=== PATIENT | male | born 1935 | race Caucasian/White ===

== ENCOUNTER 2016-09-15 19:17 | Inpatient (IN) | payer MEDICARE, OTHER ==
[2016-09-15 19:17] VITALS: BMI 27.1
--- NOTE | 2016-09-15 19:28 | C.PDOC ---
History Of Present Illness Patient presents from home to the ED with complaints of right facial droop. Patient's states the facial droop began two weeks ago and denies any fever , chills, nausea, vomiting, trauma, or headache. Time Seen by Provider: 09/15/16 19:28 Chief Complaint (Nursing): Weakness/Neurological Deficit History Per: Patient, Family () History/Exam Limitations: no limitations Onset/Duration Of Symptoms: Persistent (two weeks ) Associated Symptoms Preceding Syncopal Episode: No Predromal Symptoms (Sudden Onset) Seizure Or Post-ictal Symptoms: None Fall Associated With With Symptoms: No Pain Scale Rating Of: 0 Past Medical History Reviewed: Historical Data, Nursing Documentation, Vital Signs Vital Signs: Last Vital Signs Temp 98.2 F 09/15/16 19:25 Pulse 105 H 09/15/16 20:25 Resp 24 09/15/16 20:25 BP 127/65 09/15/16 20:25 Pulse Ox 96 09/15/16 20:59 - Medical History PMH: COPD (Emphysema), Dementia, Diabetes, Emphysema, HTN Surgical History: CABG, Pacemaker - [facility] Procedures CORONAR ARTERIOGR-2 CATH (12/24/14) INSPECTION OF BLADDER, ENDO (12/30/15) LEFT HEART CARDIAC CATH (12/24/14) LT HEART ANGIOCARDIOGRAM (12/24/14) Family History: States: Unknown Family Hx - Social History Hx Tobacco Use: Yes (2ppd) Hx Alcohol Use: No Hx Substance Use: No - Immunization History Hx Tetanus Toxoid Vaccination: No Hx Influenza Vaccination: Yes Hx Pneumococcal Vaccination: Yes Review Of Systems Constitutional: Positive for: Other (right facial droop ). Negative for: Fever , Chills, Sweats Cardiovascular: Negative for: Chest Pain, Palpitations Respiratory: Negative for: Cough, Shortness of Breath Gastrointestinal: Negative for: Nausea, Vomiting, Abdominal Pain, Diarrhea Neurological: Negative for: Headache Physical Exam - Physical Exam Appears: Non-toxic, No Acute Distress, Other (right facial droop ) Skin: Warm, Dry Head: Atraumatic Eye(s): bilateral: PERRL, EOMI Ear(s): Bilateral: Normal Oral Mucosa: Moist Throat: Normal, No Erythema, No Exudate Neck: Supple Chest: Other (Bypass scar present ) Cardiovascular: Rhythm Regular Respiratory: No Rales, No Rhonchi, No Stridor, No Wheezing Gastrointestinal/Abdominal: Soft, No Tenderness, No Distention, No Guarding, No Rebound Extremity: Normal ROM, No Tenderness, Pedal Edema (trace pedal edema ) ED Course And Treatment - Laboratory Results Result Diagrams: 09/15/16 19:55 09/15/16 19:55 ECG: Interpreted By Me, Viewed By Me O2 Sat by Pulse Oximetry: 96 Pulse Ox Interpretation: Normal - Radiology CXR: Interpreted by Me, Viewed By Me CXR Interpretation: Yes: Other (cabg, pace on left). No: Infiltrates, Fracture , Pnemothorax Critical Care Time - Critical Care Note Total Time (in mins): 30 Documented critical care: time excludes all time spent performing seperately billable procedures. NIHSS Stroke Scale - Date/Time Evaluation Performed Date Performed: 09/15/16 Time Performed: 19:18 When Was NIHSS Performed: Baseline - How Severe is the Stoke Level of Consciousness: 0=Alert LOC to Questions: 0=Both comments correct LOC to commands: 0=Obeys both correctly Best Gaze: 0=Normal Visual: 0=No visual loss Facial: 2=Partial (lower face paralysis) Motor Arm - Left: 0=No drift Motor Arm - Right: 0=No drift Motor Leg - Left: 0=No drift Motor Leg - Right: 0=No drift Limb Ataxia: 0=Absent Sensory: 0=Normal Best Language: 0=No aphasia Dysarthia: 1=Mild to moderate slurring Extinction & Inattention (Neglect): 0=Normal, no object Score: 3 Severity Of Stroke: 1-4= Minor Stroke Medical Decision Making Medical Decision Making: EXAM: CT Head Without Intravenous Contrast CLINICAL HISTORY: 80 years old, male; Signs and symptoms; Weakness, facial; Additional info: R facial droop TECHNIQUE: Axial computed tomography images of the head/brain without intravenous contrast. This CT exam was performed using one or more of the following dose reduction techniques: automated exposure control, adjustment of the mA and/or kV according to patient size, and/or use of iterative reconstruction technique. EXAM DATE/TIME: 09/15/2016 7:46 PM COMPARISON: There are no prior studies for comparison. FINDINGS: Brain: There is dilatation of sulci gyri and ventricles. There is no midline shift. There is decreased attenuation in periventricular white matter. There are old left basal ganglia infarcts. There are age indeterminate right basal ganglia lacunar infarcts. There are no focal masses. There are no focal hemorrhages. Newton-white differentiation is visualized. Ventricles: See above Bones: Cranial vault is intact. Soft tissues: unremarkable Sinuses: There is no acute sinusitis. There is a retention cyst/polyp in the left maxillary sinus Ears and mastoids: Middle ears and mastoids are unremarkable. Orbits: Orbital contents are unremarkable. IMPRESSION: Atrophy and small vessel disease; old left basal ganglia infarct; indeterminate right basal vein lacunar infarcts; no bleed Disposition Discussed With : David Gonsales Comment: accepted the pt on his service and took over the care at 8:58 PM Doctor Will See Patient In The: Hospital Counseled Patient/Family Regarding: Studies Performed, Diagnosis - Disposition Disposition: HOSPITALIZED Disposition Time: 19:28 Condition: FAIR - POA Present On Arrival: Poor Glycemic Control - Clinical Impression Clinical Impression: Diabetes, ICD (implantable cardioverter-defibrillator) in place, CVA (cerebral vascular accident), Cardozo palsy - Scribe Statement The provider has reviewed the documentation as recorded by the Scribcarlos Christianson All medical record entries made by the Euniceibe were at my direction and personally dictated by me. I have reviewed the chart and agree that the record accurately reflects my personal performance of the history, physical exam, medical decision making, and the department course for this patient. I have also personally directed, reviewed, and agree with the discharge instructions and disposition. Decision To Admit - Pt Status Changed To: Hospital Disposition Of: Inpatient - Admit Certification Admit to Inpatient:: After my assessment, the patient will require hospitalization for at least two midnights. This is because of the severity of symptoms shown, intensity of services needed, and/or the medical risk in this patient being treated as an outpatient. - InPatient: Physician Admission Certification: I certify that this patient requires 2 or more midnights of care for the following reason:: After my assessment, the patient will require hospitalization for at least two midnights. This is because of the severity of symptoms shown, intensity of services needed, and/or the medical risk in this patient being treated as an outpatient. - . Bed Request Type: Telemetry Admitting Physician: David Gonsales Patient Diagnosis: Diabetes, ICD (implantable cardioverter-defibrillator) in place, CVA (cerebral vascular accident), Cardozo palsy
[2016-09-15 19:58] LABS: BASO % 0.6 % (0.0-2.0); EOS # 0.1 K/uL (0.0-0.7); EOS % 1.9 % (0.0-4.0); HEMATOCRIT 34.3 % (35.0-51.0); LYMPH # 2.5 K/uL (1.0-4.3); LYMPH % 32.5 % (20.0-40.0); MEAN CELL VOLUME 95.8 fL (80.0-94.0); MEAN CORPUSCULAR HEMOGLOBIN 32.8 pg (27.0-31.0); MEAN CORPUSCULAR HGB CONC 34.2 g/dL (33.0-37.0); MEAN PLATELET VOLUME 8.9 fL (7.2-11.7); MONO # 0.6 K/uL (0.0-0.8); NRBC % 0.1 % (0.0-2.0); RED CELL DISTRIBUTION WIDTH 13.9 % (11.5-14.5); WHITE BLOOD COUNT 7.5 K/uL (4.8-10.8)
[2016-09-15 20:03] LABS: PLATELET COUNT 129 K/uL (130-400)
[2016-09-15 20:07] LABS: CHLORIDE 102 mmol/L (98-107); POTASSIUM 4.4 mmol/L (3.6-5.2); SODIUM 142 mmol/L (132-148)
[2016-09-15 20:09] LABS: CHOLESTEROL 110 mg/dL (0-199); GFR AFRICAN-AMERICAN 44
[2016-09-15 20:10] LABS: ALB/GLOB RATIO 1.8 (1.0-2.1); ALKALINE PHOSPHATASE 83 U/L (38-126); ALT/SGPT 23 U/L (21-72); AST/SGOT 15 U/L (17-59); BILIRUBIN,TOTAL 0.5 mg/dL (0.2-1.3); BLOOD UREA NITROGEN 37 mg/dL (9-20); CALCIUM 9.2 mg/dl (8.6-10.4); CARBON DIOXIDE 30 mmol/L (22-30); GLUCOSE,RANDOM 203 mg/dL (75-110); TOTAL PROTEIN 6.8 g/dL (6.3-8.3)
--- NOTE | 2016-09-15 20:24 | CT ---
EXAM: CT Head Without Intravenous Contrast CLINICAL HISTORY: 80 years old, male; Signs and symptoms; Weakness, facial; Additional info: R facial droop TECHNIQUE: Axial computed tomography images of the head/brain without intravenous contrast. This CT exam was performed using one or more of the following dose reduction techniques: automated exposure control, adjustment of the mA and/or kV according to patient size, and/or use of iterative reconstruction technique. EXAM DATE/TIME: 09/15/2016 7:46 PM COMPARISON: There are no prior studies for comparison. FINDINGS: Brain: There is dilatation of sulci gyri and ventricles. There is no midline shift. There is decreased attenuation in periventricular white matter. There are old left basal ganglia infarcts. There are age indeterminate right basal ganglia lacunar infarcts. There are no focal masses. There are no focal hemorrhages. Newton-white differentiation is visualized. Ventricles: See above Bones: Cranial vault is intact. Soft tissues: unremarkable Sinuses: There is no acute sinusitis. There is a retention cyst/polyp in the left maxillary sinus Ears and mastoids: Middle ears and mastoids are unremarkable. Orbits: Orbital contents are unremarkable. IMPRESSION: Atrophy and small vessel disease; old left basal ganglia infarct; indeterminate right basal vein lacunar infarcts; no bleed
[2016-09-15] MEDS: Lactated Ringer's 1,000 ML IV SCH (22:47)
[2016-09-16] MEDS ORDERED: Enoxaparin 40 mg Syringe SC SCH (10:00)
[2016-09-16] MEDS: Enoxaparin 40 mg Syringe SC SCH (10:21)
[2016-09-16] MEDS: Lactated Ringer's 1,000 ML IV SCH (13:15)
--- NOTE | 2016-09-16 13:44 | RAD ---
HISTORY: cva COMPARISON: Comparison chest 12/30/2015 FINDINGS: LUNGS: No acute infiltrates so far as can be seen. Note that the medial lung apices have been partially obscured by overlying facial soft tissue and mandible artifact PLEURA: No significant pleural effusion identified, no pneumothorax apparent. CARDIOVASCULAR: Sternotomy wires and CABG clips. In situ single lead pacemaker/ defibrillator unchanged OSSEOUS STRUCTURES: Mild degenerative arthritis right acromioclavicular joint. VISUALIZED UPPER ABDOMEN: Normal. OTHER FINDINGS: None. IMPRESSION: No acute infiltrates within limitations of the study as above. .
--- NOTE | 2016-09-16 22:55 | CP.PCM.HP ---
History of Present Illness - History of Present Illness History of Present Illness: Patient presents from home to the ED with complaints of right facial droop. Patient's states the facial droop began two weeks ago and denies any fever , chills, nausea, vomiting, trauma, or headache. Present on Admission - Present on Admission Any Indicators Present on Admission: Yes History of DVT/PE: No History of Uncontrolled Diabetes: No Urinary Catheter: No Decubitus Ulcer Present: No Past Patient History - Infectious Disease Hx of Infectious Diseases: None - Past Medical History & Family History Past Medical History?: Yes - Past Social History Smoking Status: Heavy Smoker > 10 Cigarettes Daily - CARDIAC Hx Cardiac Disorders: Yes Hx Hypertension: Yes - PULMONARY Hx Chronic Obstructive Pulmonary Disease (COPD): Yes - NEUROLOGICAL Hx Dementia: Yes - HEENT Hx HEENT Problems: No - RENAL Hx Chronic Kidney Disease: Yes - ENDOCRINE/METABOLIC Hx Diabetes Mellitus Type 2: Yes - HEMATOLOGICAL/ONCOLOGICAL Hx Blood Disorders: No - INTEGUMENTARY Hx Dermatological Problems: No - MUSCULOSKELETAL/RHEUMATOLOGICAL Hx Falls: No - GASTROINTESTINAL Hx Gastrointestinal Disorders: No - GENITOURINARY/GYNECOLOGICAL Hx Genitourinary Disorders: Yes Hx Prostate Problems: Yes - PSYCHIATRIC Hx Substance Use: No - SURGICAL HISTORY Hx Coronary Artery Bypass Graft: Yes - ANESTHESIA Hx Anesthesia: Yes Hx Anesthesia Reactions: No Hx Malignant Hyperthermia: No Meds Allergies/Adverse Reactions: Allergies Allergy/AdvReac Type Severity Reaction Status Date / Time No Known Allergies Allergy Verified 12/24/14 14:45 Physical Exam - Constitutional Appears: No Acute Distress - Head Exam Head Exam: ATRAUMATIC, NORMAL INSPECTION, NORMOCEPHALIC - Eye Exam Eye Exam: Scleral icterus Additional comments: right eye drooping - ENT Exam ENT Exam: Mucous Membranes Moist, Normal Exam - Neck Exam Neck exam: Positive for: Normal Inspection - Cardiovascular Exam Cardiovascular Exam: REGULAR RHYTHM - GI/Abdominal Exam GI & Abdominal Exam: Normal Bowel Sounds, Soft. absent: Tenderness - Extremities Exam Additional comments: 5/5 strength upper and lower extremities B/L, sensation and motor fxn intact Results - Vital Signs Recent Vital Signs: Last Vital Signs Temp 97.6 F 09/16/16 16:00 Pulse 88 09/16/16 16:00 Resp 20 09/16/16 16:00 BP 135/73 09/16/16 16:00 Pulse Ox 96 09/16/16 16:00 - Labs Result Diagrams: 09/15/16 19:55 09/18/16 09:44 Labs: Laboratory Results - last 24 hr 09/16/16 09/16/16 09/16/16 06:48 12:07 17:17 ESR 15 POC Glucose (mg/dL) 258 H 166 H 09/16/16 09/16/16 17:26 22:02 ESR POC Glucose (mg/dL) 148 H 204 H Assessment & Plan (1) Cardozo palsy Status: Acute (2) CVA (cerebral vascular accident) Status: Acute (3) Diabetes Status: Acute (4) ICD (implantable cardioverter-defibrillator) in place Status: Acute (5) COPD (chronic obstructive pulmonary disease) Status: Acute
[2016-09-17] MEDS: Enoxaparin 40 mg Syringe SC SCH (10:17)
--- NOTE | 2016-09-17 17:04 | CON ---
DATE: 09/17/2016 CHIEF COMPLAINT: Right facial droop. HISTORY OF PRESENTING ILLNESS: An 80-year-old man with past medical history of COPD, dementia, diabe sravani mellitus type 2, emphysema, hypertension, coronary artery disease status post CABG and pacemaker. Apparently had a right facial droop that began 2 weeks ago, but denied any recent fevers, chills, n ausea, vomiting or headaches. He said he has difficulty in tasting on the right side of the tongue. He was a heavy smoker, smoked 10 cigarettes per day. Currently, he has absence of mild right forehe ad wrinkling and cannot close his right eye tight. There is a Cardozo's phenomenon and a right facial d makeda. CT head showed no acute intracranial abnormalities. His carotid Doppler showed severe carotid artery disease. He is on aspirin, Plavix and Crestor for stroke prevention and carotid disease. He had some hyperglycemia. No focal weakness of the extremities. No pronator drift seen. PAST MEDICAL HISTORY: Type 2 diabetes mellitus, COPD, dementia, hypertension, coronary artery diseas e, CABG, pacemaker. REVIEW OF SYSTEMS: A 14-point review of systems negative except for the HPI. FAMILY HISTORY: Noncontributory. SOCIAL HISTORY: He is a heavy smoker, smokes 10 cigarettes per day. No illicit drug use or ETOH abu se. FAMILY HISTORY: Noncontributory. MEDICATIONS: Reviewed via nurse's reconciliation sheet. ALLERGIES: No known drug allergies. PHYSICAL EXAMINATION: VITAL SIGNS: Temperature 98, pulse rate is 76, blood pressure 129/68, respiratory rate 20, oxygen sa turation ____ % on room air. GENERAL: The patient is sitting up in bed in no acute distress. HEENT: Atraumatic, normocephalic. PERRLA. Extraocular muscles intact. NECK: Supple, no JVD, no adenopathy noted. LUNGS: Clear to auscultation. No adventitious sounds. HEART: S1, S2, normal rate and rhythm. No murmurs, rubs, or gallops. ABDOMEN: Soft, nontender, nondistended. Bowel sounds are present. EXTREMITIES: No clubbing, no cyanosis. Peripheral pulses 2+ felt bilaterally. NEUROLOGIC: The patient is alert, orientated to person, place, not much of month or year. Recall af ter 5 minutes is 0/3. Poor attention span and slow thought process. Cranial nerves II-XII intact ex cept for absence of right forehead wrinkling, right facial droop and decreased taste sensation on rig ht side of the tongue. MOTOR: Moves all extremities equally, slight increased tone. No pronator drift seen. SENSORY: Decreased light touch and pinprick up to the calves bilaterally. Diffuse vibration ____. DTRs 2+ throughout and 1 at the knees and ankles. COORDINATION: [id number] intact. Gait is deferred for now. LABORATORY DATA: Blood sugar is 148. Today's CAT scan showed no acute intracranial abnormality. A1 c is 5.2. Carotid Doppler bilaterally preliminarily shows severe carotid disease bilaterally. ASSESSMENT AND PLAN: This is an 80-year-old man with history of coronary artery disease, status post coronary artery bypass graft, pacemaker, chronic obstructive pulmonary disease, dementia, type 2 vivian betes mellitus, hypertension, chronic kidney disease, who came in with 2 weeks of right facial droop and decreased sensation on the right side of the face with difficulty in closing the right eye with a Cardozo's phenomenon. 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 RECOMMENDATIONS: At this time, recommend: 1. Physical therapy as an outpatient for facial muscle exercises. 2. Eye patch to the right eye and Artificial Tears to prevent corneal ulcerations. 3. Valtrex 500 mg p.o. b.i.d. for 4 weeks and can go home on a Medrol Dosepak. 4. Aspirin 81 mg, Plavix 75 mg, and Crestor 10 mg p.o. daily for stroke prevention as well as bean ry artery disease management. At this time clinically stable from my standpoint. Keep his blood sugars between 140-180 and continu e with current present medical management. Thank you for this consult. Can follow up as an outpatient. Km Obrien MD cc: [id number] TT: 09/17/2016 17:03:26 Confirmation # [id number] Dictation # [id number]
--- NOTE | 2016-09-17 17:23 | CP.PCM.CON ---
History of Present Illness - History of Present Illness History of Present Illness: Surgery: Dr. Torres CC: Facial droop HPI: 80M w. pmh of HTN, DM, CAD, COPD, presents to ED w. R side facial droop and blurred vision x 2 weeks. Pt denies any other complaints. No dysarthria, no dysphagia, no weakness in extremities, pt is able to ambulate w. out any gait instability. He denies [place], no F/C, no CP/palpitations, no SOB/cough, no N/V /D, no weakness fatigue, no hematuria/dysuria. PMH: HTN, CAD, DM, COPD PSH: CABG, pacemaker Meds: MAR reviewed NKDA Social: + Tobacco, no ETOH/drugs Fhx: Non-contributory Review of Systems - Review of Systems All systems: reviewed and no additional remarkable complaints except (HPI) Past Patient History - Infectious Disease Hx of Infectious Diseases: None - Past Medical History & Family History Past Medical History?: Yes - Past Social History Smoking Status: Heavy Smoker > 10 Cigarettes Daily - CARDIAC Hx Cardiac Disorders: Yes Hx Hypertension: Yes - PULMONARY Hx Chronic Obstructive Pulmonary Disease (COPD): Yes - NEUROLOGICAL Hx Dementia: Yes - HEENT Hx HEENT Problems: No - RENAL Hx Chronic Kidney Disease: Yes - ENDOCRINE/METABOLIC Hx Diabetes Mellitus Type 2: Yes - HEMATOLOGICAL/ONCOLOGICAL Hx Blood Disorders: No - INTEGUMENTARY Hx Dermatological Problems: No - MUSCULOSKELETAL/RHEUMATOLOGICAL Hx Falls: No - GASTROINTESTINAL Hx Gastrointestinal Disorders: No - GENITOURINARY/GYNECOLOGICAL Hx Genitourinary Disorders: Yes Hx Prostate Problems: Yes - PSYCHIATRIC Hx Substance Use: No - SURGICAL HISTORY Hx Coronary Artery Bypass Graft: Yes - ANESTHESIA Hx Anesthesia: Yes Hx Anesthesia Reactions: No Hx Malignant Hyperthermia: No Meds Allergies/Adverse Reactions: Allergies Allergy/AdvReac Type Severity Reaction Status Date / Time No Known Allergies Allergy Verified 12/24/14 14:45 - Medications Medications: Current Medications Aspirin (Aspirin Chewable) 81 mg PO DAILY [facility] Last Admin: 09/17/16 10:18 Dose: 81 mg Carvedilol (Coreg) 6.25 mg PO BID [facility] Last Admin: 09/17/16 10:18 Dose: 6.25 mg Clopidogrel Bisulfate (Plavix) 75 mg PO DAILY [facility] Last Admin: 09/17/16 10:18 Dose: 75 mg Enoxaparin Sodium (Lovenox) 40 mg SC DAILY [facility] Last Admin: 09/17/16 10:17 Dose: 40 mg Lactated Ringer's (Lactated Ringer's) 1,000 mls @ 70 mls/hr IV .[id number] [facility] Last Admin: 09/16/16 13:15 Dose: 70 mls/hr Rosuvastatin Calcium (Crestor) 10 mg PO DAILY [facility] Last Admin: 09/17/16 10:18 Dose: 10 mg Valacyclovir HCl (Valtrex) 500 mg PO BID [facility] Last Admin: 09/17/16 10:18 Dose: 500 mg Physical Exam - Constitutional Appears: Non-toxic, No Acute Distress - Head Exam Head Exam: ATRAUMATIC, NORMOCEPHALIC Additional comments: R mouth droop, no tongue deviation - Eye Exam Eye Exam: EOMI. absent: Scleral icterus Additional comments: R eyelid droop - ENT Exam ENT Exam: Mucous Membranes Moist, Normal External Ear Exam - Neck Exam Neck exam: Positive for: Full Rom - Respiratory Exam Respiratory Exam: NORMAL BREATHING PATTERN. absent: Accessory Muscle Use, Respiratory Distress - GI/Abdominal Exam GI & Abdominal Exam: Soft. absent: Tenderness - Extremities Exam Additional comments: 5/5 strength upper and lower extremities B/L, sensation and motor fxn intact - Neurological Exam Neurological exam: Alert, Oriented x3 Results - Vital Signs Recent Vital Signs: Last Vital Signs Temp 98.0 F 09/17/16 15:20 Pulse 76 09/17/16 15:20 Resp 20 09/17/16 15:20 BP 129/68 09/17/16 15:20 Pulse Ox 99 09/17/16 15:20 - Labs Result Diagrams: 09/15/16 19:55 09/15/16 19:55 Labs: Laboratory Results - last 24 hr 09/16/16 09/16/16 09/16/16 17:17 17:17 17:26 ESR 15 POC Glucose (mg/dL) 148 H Lyme Disease IgM Ab Negative 09/16/16 09/17/16 09/17/16 22:02 06:58 12:04 ESR POC Glucose (mg/dL) 204 H 137 H 127 H Lyme Disease IgM Ab - Imaging and Cardiology CT scan - head Status: Image reviewed by me, Report reviewed by me Assessment & Plan - Assessment and Plan (Free Text) Assessment: 80M w. R side facial droop -Carotid doppler: PSV > 300 proximal ICA B/L -CTA in AM -will increase IVF -mucomyst 600mg BID, pre CTA and for 24 hours post CTA -case d/w attending Vanessa PGY2
[2016-09-17] MEDS: Acetylcysteine 20% 3 ML NEB PO SCH (18:47)
[2016-09-17] MEDS: Lactated Ringer's 1,000 ML IV SCH ×2 (20:00→22:29)
--- NOTE | 2016-09-17 20:56 | CARD ---
APPROVED REPORT EXAM: Two-dimensional and M-mode echocardiogram with Doppler and color Doppler. Other Information Quality : Technically LimitedRhythm : NSR INDICATION CVA/TIA CAD COPD RISK FACTORS Hypertension Diabetes M-Mode DIMENSIONS RVDd1.62 (2.1-3.2cm)Left Atrium (MM)2.30 (2.5-4.0cm) IVSd0.74 (0.7-1.1cm)Aortic Root3.40 (2.2-3.7cm) LVDd4.98 (4.0-5.6cm)Aortic Cusp Exc.0.66 (1.5-2.0cm) PWd0.70 (0.7-1.1cm)FS (%) 25 % LVDs3.72 (2.0-3.8cm)LVEF (%)50 (>50%) Aortic Valve AoV Peak Gywbknso062.6cm/sAoV VTI31.4cmAO Peak GR.10mmHg AO Mean GR.5mmHgAI P 1/2 [id number] Mitral Valve MV E Cozolcby79.1cm/sMV A Qtpvzaxk406.2cm/sE/A ratio0.8 TDI E/Lateral E'0.0E/Medial E'0.0 Tricuspid Valve TR Peak Qlsahoye429im/sTR Peak Gr.8fjPlJHBU77kyRu LEFT VENTRICLE The left ventricle is normal size. There is normal left ventricular wall thickness. Left ventricle systolic function is mildly impaired. The Ejection Fraction is 45-50%. There is hypokinesis in the mid-anteroseptal wall. Transmitral Doppler flow pattern is Grade I-abnormal relaxation pattern. There is no ventricular septal defect visualized. RIGHT VENTRICLE The right ventricle is normal size. The right ventricular systolic function is normal. ATRIA The left atrium size is normal. The right atrium size is normal. AORTIC VALVE The aortic valve is mildly sclerotic. The aortic valve is tri-cuspid. There is mild aortic regurgitation. There is no aortic valvular stenosis. MITRAL VALVE The mitral valve is not well visualized. There is no evidence of mitral valve prolapse. There is no mitral valve regurgitation noted. TRICUSPID VALVE The tricuspid valve is normal in structure. There is trace tricuspid regurgitation. Right ventricular systolic pressure is estimated at less than 30 mmHg. There is no pulmonary hypertension. PULMONIC VALVE The pulmonic valve is not well visualized. There is no pulmonic valvular regurgitation. GREAT VESSELS The IVC is normal in size and collapses >50% with inspiration. PERICARDIAL EFFUSION There is no pericardial effusion. <Conclusion> Left ventricle systolic function is mildly impaired. The Ejection Fraction is 45-50%. There is hypokinesis in the mid-anteroseptal wall. Transmitral Doppler flow pattern is Grade I-abnormal relaxation pattern. There is mild aortic regurgitation. Sugoptimal poor acoustic window.
--- NOTE | 2016-09-18 08:12 | CP.PCM.PN ---
Subjective - Date & Time of Evaluation Date of Evaluation: 09/18/16 Time of Evaluation: 08:11 - Subjective Subjective: Surgery: Dr. Torres Pt seen and examined. Resting comfortably in bed. No complaints. R side facial droop persists. Objective - Vital Signs/Intake and Output Vital Signs (last 24 hours): Temp Pulse Resp BP Pulse Ox 98.1 F 74 20 118/77 99 09/18/16 00:33 09/18/16 03:21 09/18/16 00:33 09/18/16 00:33 09/18/16 00:33 Intake and Output: 09/18/16 09/18/16 06:59 18:59 Intake Total 760 560 Output Total 250 Balance 510 560 - Medications Medications: Current Medications Acetylcysteine (Acetylcysteine 20%) 3 ml PO BID [facility] Stop: 09/19/16 10:01 Last Admin: 09/17/16 18:47 Dose: 3 ml Aspirin (Aspirin Chewable) 81 mg PO DAILY [facility] Last Admin: 09/17/16 10:18 Dose: 81 mg Carvedilol (Coreg) 6.25 mg PO BID [facility] Last Admin: 09/17/16 18:09 Dose: 6.25 mg Clopidogrel Bisulfate (Plavix) 75 mg PO DAILY [facility] Last Admin: 09/17/16 10:18 Dose: 75 mg Enoxaparin Sodium (Lovenox) 40 mg SC DAILY [facility] Last Admin: 09/17/16 10:17 Dose: 40 mg Sodium Chloride (Sodium Chloride 0.9%) 1,000 mls @ 100 mls/hr IV .Q10H [facility] Rosuvastatin Calcium (Crestor) 10 mg PO DAILY [facility] Last Admin: 09/17/16 10:18 Dose: 10 mg Valacyclovir HCl (Valtrex) 500 mg PO BID [facility] Last Admin: 09/17/16 18:09 Dose: 500 mg - Labs Labs: PT 10.9 SECONDS (9.7-12.2) 09/15/16 19:55 INR 1.0 09/15/16 19:55 APTT 30 SECONDS (21-34) 09/15/16 19:55 - Constitutional Appears: Non-toxic, No Acute Distress - Head Exam Head Exam: ATRAUMATIC, NORMOCEPHALIC - Eye Exam Eye Exam: EOMI. absent: Scleral icterus - ENT Exam ENT Exam: Mucous Membranes Moist - Neck Exam Neck Exam: Full ROM - Respiratory Exam Respiratory Exam: NORMAL BREATHING PATTERN. absent: Accessory Muscle Use, Respiratory Distress - GI/Abdominal Exam GI & Abdominal Exam: Soft. absent: Tenderness - Extremities Exam Extremities Exam: absent: Calf Tenderness, Pedal Edema - Neurological Exam Neurological Exam: Alert, Awake, Oriented x3 Assessment and Plan - Assessment and Plan (Free Text) Assessment: 80M w. R side facial droop -Carotid doppler: PSV > 300 proximal ICA B/L -CTA this AM, f/u results -NS @100cc/hr -mucomyst 600mg BID, pre CTA and for 24 hours post CTA -case d/w attending Vanessa PGY2
[2016-09-18] MEDS: Sodium Chloride 0.9% 1,000 ML IV SCH ×4 (09:17→23:55)
[2016-09-18 09:55] LABS: CHLORIDE 107 mmol/L (98-107); SODIUM 137 mmol/L (132-148)
[2016-09-18] MEDS: Enoxaparin 40 mg Syringe SC SCH (09:57)
[2016-09-18 09:58] LABS: BLOOD UREA NITROGEN 24 mg/dL (9-20); CARBON DIOXIDE 23 mmol/L (22-30); GFR AFRICAN-AMERICAN > 60; GLUCOSE,RANDOM 133 mg/dL (75-110)
[2016-09-18 09:59] LABS: CALCIUM 7.4 mg/dl (8.6-10.4)
[2016-09-18] MEDS: Acetylcysteine 20% 3 ML NEB PO SCH ×2 (10:24→18:02)
--- NOTE | 2016-09-18 13:12 | CP.PCM.PN ---
Subjective - Date & Time of Evaluation Date of Evaluation: 09/17/16 Time of Evaluation: 21:00 - Subjective Subjective: Pt seen and examined, right sided weakness and facial drooping present Objective - Vital Signs/Intake and Output Vital Signs (last 24 hours): Temp Pulse Resp BP Pulse Ox 97.0 F L 72 20 150/71 96 09/18/16 07:00 09/18/16 07:00 09/18/16 07:00 09/18/16 07:00 09/18/16 07:00 Intake and Output: 09/18/16 09/18/16 06:59 18:59 Intake Total 760 560 Output Total 250 Balance 510 560 - Medications Medications: Current Medications Acetylcysteine (Acetylcysteine 20%) 3 ml PO BID [facility] Stop: 09/19/16 10:01 Last Admin: 09/18/16 10:24 Dose: 3 ml Aspirin (Aspirin Chewable) 81 mg PO DAILY [facility] Last Admin: 09/18/16 10:24 Dose: 81 mg Carvedilol (Coreg) 6.25 mg PO BID [facility] Last Admin: 09/18/16 09:56 Dose: 6.25 mg Clopidogrel Bisulfate (Plavix) 75 mg PO DAILY [facility] Last Admin: 09/18/16 09:56 Dose: 75 mg Enoxaparin Sodium (Lovenox) 40 mg SC DAILY [facility] Last Admin: 09/18/16 09:57 Dose: 40 mg Sodium Chloride (Sodium Chloride 0.9%) 1,000 mls @ 100 mls/hr IV .Q10H [facility] Last Admin: 09/18/16 09:19 Dose: Not Given Rosuvastatin Calcium (Crestor) 10 mg PO DAILY [facility] Last Admin: 09/18/16 09:56 Dose: 10 mg Valacyclovir HCl (Valtrex) 500 mg PO BID [facility] Last Admin: 09/18/16 09:56 Dose: 500 mg - Labs Labs: 09/18/16 09:44 PT 10.9 SECONDS (9.7-12.2) 09/15/16 19:55 INR 1.0 09/15/16 19:55 APTT 30 SECONDS (21-34) 09/15/16 19:55 - Constitutional Appears: No Acute Distress - Head Exam Head Exam: ATRAUMATIC, NORMAL INSPECTION, NORMOCEPHALIC - Eye Exam Eye Exam: EOMI, Normal appearance, PERRL, Scleral icterus Pupil Exam: NORMAL ACCOMODATION, PERRL - ENT Exam ENT Exam: Mucous Membranes Moist, Normal Exam - Respiratory Exam Respiratory Exam: Clear to Ausculation Bilateral, NORMAL BREATHING PATTERN - Cardiovascular Exam Cardiovascular Exam: REGULAR RHYTHM, +S1, +S2. absent: Murmur Assessment and Plan (1) Cardozo palsy Status: Acute (2) CVA (cerebral vascular accident) Status: Acute (3) Diabetes Status: Acute (4) ICD (implantable cardioverter-defibrillator) in place Status: Acute (5) COPD (chronic obstructive pulmonary disease) Status: Acute
--- NOTE | 2016-09-18 13:13 | CP.PCM.PN ---
Subjective - Date & Time of Evaluation Date of Evaluation: 09/18/16 Time of Evaluation: 10:00 - Subjective Subjective: Pt seen and examined, no clinincal changes Objective - Vital Signs/Intake and Output Vital Signs (last 24 hours): Temp Pulse Resp BP Pulse Ox 97.0 F L 72 20 150/71 96 09/18/16 07:00 09/18/16 07:00 09/18/16 07:00 09/18/16 07:00 09/18/16 07:00 Intake and Output: 09/18/16 09/18/16 06:59 18:59 Intake Total 760 560 Output Total 250 Balance 510 560 - Medications Medications: Current Medications Acetylcysteine (Acetylcysteine 20%) 3 ml PO BID [facility] Stop: 09/19/16 10:01 Last Admin: 09/18/16 10:24 Dose: 3 ml Aspirin (Aspirin Chewable) 81 mg PO DAILY [facility] Last Admin: 09/18/16 10:24 Dose: 81 mg Carvedilol (Coreg) 6.25 mg PO BID [facility] Last Admin: 09/18/16 09:56 Dose: 6.25 mg Clopidogrel Bisulfate (Plavix) 75 mg PO DAILY [facility] Last Admin: 09/18/16 09:56 Dose: 75 mg Enoxaparin Sodium (Lovenox) 40 mg SC DAILY [facility] Last Admin: 09/18/16 09:57 Dose: 40 mg Sodium Chloride (Sodium Chloride 0.9%) 1,000 mls @ 100 mls/hr IV .Q10H [facility] Last Admin: 09/18/16 09:19 Dose: Not Given Rosuvastatin Calcium (Crestor) 10 mg PO DAILY [facility] Last Admin: 09/18/16 09:56 Dose: 10 mg Valacyclovir HCl (Valtrex) 500 mg PO BID [facility] Last Admin: 09/18/16 09:56 Dose: 500 mg - Labs Labs: 09/18/16 09:44 PT 10.9 SECONDS (9.7-12.2) 09/15/16 19:55 INR 1.0 09/15/16 19:55 APTT 30 SECONDS (21-34) 09/15/16 19:55 - Constitutional Appears: No Acute Distress - Head Exam Head Exam: ATRAUMATIC, NORMOCEPHALIC Additional comments: right sided facial palsy - Eye Exam Eye Exam: EOMI, Normal appearance, PERRL Pupil Exam: NORMAL ACCOMODATION, PERRL - Respiratory Exam Respiratory Exam: Clear to Ausculation Bilateral, NORMAL BREATHING PATTERN - Cardiovascular Exam Cardiovascular Exam: REGULAR RHYTHM, +S1, +S2. absent: Murmur - Neurological Exam Neurological Exam: Alert, Awake, CN II-XII Intact, Normal Gait, Oriented x3 Assessment and Plan (1) Cardozo palsy Status: Acute (2) CVA (cerebral vascular accident) Assessment & Plan: 80M w. R side facial droop -Carotid doppler: PSV > 300 proximal ICA B/L -CTA this AM, f/u results -NS @100cc/hr -mucomyst 600mg BID, pre CTA and for 24 hours post CTA Status: Suspected (3) Diabetes Status: Acute (4) ICD (implantable cardioverter-defibrillator) in place Status: Acute (5) COPD (chronic obstructive pulmonary disease) Status: Acute
[2016-09-18] MEDS ORDERED: Iodixanol 320 MG/ML 100 ML BOTTLE IV ONE (14:49)
--- NOTE | 2016-09-18 16:12 | VASCLAB ---
PROCEDURE: HISTORY: cva COMPARISON: None available. TECHNIQUE: Grayscale and duplex Doppler evaluation of the cervical carotid and vertebral arteries were performed. The common carotid, carotid bifurcations and cervical Internal Carotid Artery (ICA) and proximal External Carotid Artery (ECA) were evaluated. The vertebral arteries were evaluated for gross patency and flow direction. Report prepared by Kurt Christine BS, RVT. FINDINGS: RIGHT CAROTID ARTERIES: 1. Common Carotid Artery: No significant focal plaque formation of the right common carotid artery. Maximum Peak Systolic velocity: 72 cm/sec: End-diastolic velocity 14 cm/sec. 2. Carotid Bifurcation: plaque formation. Maximum Peak Systolic velocity: 85 cm/sec: End-diastolic velocity 14 cm/sec. 3. Internal Carotid Artery: Plaque description: 3.1. Proximal Segment: Peak systolic velocity 329 cm/sec: End-diastolic velocity 86 cm/sec - % stenosis 70-95% 3.2. Middle Segment: Peak systolic velocity 132 cm/sec: End-diastolic velocity 37 cm/sec - % stenosis 0-15% 3.3. Distal Segment: Peak systolic velocity 88 cm/sec: End-diastolic velocity 25 cm/sec - % stenosis 0-15% 4. External Carotid Artery: No significant focal plaque formation. Peak systolic velocity 168 cm/sec 5. ICA/CCA Ratio: 4.6 LEFT CAROTID ARTERIES: 1. Common Carotid Artery: No significant focal plaque formation of the left common carotid artery. Maximum Peak Systolic velocity: 95 cm/sec: End-diastolic velocity 30 cm/sec. 2. Carotid Bifurcation: plaque formation. Maximum Peak Systolic velocity: 100 cm/sec: End-diastolic velocity 30 cm/sec. 3. Internal Carotid Artery: Plaque description: 3.1. Proximal Segment: Peak systolic velocity 378 cm/sec: End-diastolic velocity 95 cm/sec - % stenosis 70-95% 3.2. Middle Segment: Peak systolic velocity 156 cm/sec: End-diastolic velocity 24 cm/sec - % stenosis 50-60% 3.3. Distal Segment: Peak systolic velocity 55 cm/sec: End-diastolic velocity 17 cm/sec - % stenosis 0-15 4. External Carotid Artery: No significant focal plaque formation. Peak systolic velocity 378 cm/sec 5. ICA/CCA Ratio: 4.0 VERTEBRAL ARTERIES: 1. Right Vertebral Artery: The right vertebral artery flow direction is antegrade. 2. Left Vertebral Artery: The left vertebral artery flow direction is antegrade. OTHER FINDINGS: 1. Right Brachial Blood pressure: 130 mmHg. 2. Left Brachial Blood pressure: MmHg. MARIBEL Mayer notified about the findings. IMPRESSION: RIGHT: 70-95% stenosis of the right proximal ICA with severe hemodynamic significance. LEFT: 70-95% stenosis of the left proximal ICA with severe hemodynamic significance.
--- NOTE | 2016-09-18 16:51 | CT ---
PROCEDURE: CTA of the neck hand brain dated 09/18/2016. HISTORY: Facial droop COMPARISON: Comparison made with CT scan brain 09/15/2016. Correlation made with carotid Doppler exam 07/04/2016. TECHNIQUE: Contiguous helical/ transaxial images of the neck were obtained from the level of the skull-base to the superior mediastinum in the arteriographic phase of enhancement. Coronal and sagittal reformats or also generated. IV contrast dose: 100 cc Visipaque 320 contrast material. Radiation Dose - DLP: 733.12 mGy-cm This CT exam was performed using one or more of the following dose reduction techniques: Automated exposure control, adjustment of the mA and/or kV according to patient size, and/or use of iterative reconstruction technique. Technique. . FINDINGS: The current study reveals partially calcified atherosclerotic plaque at the level of the distal left common carotid artery, carotid bifurcation and extending into the proximal internal carotid artery. These calcified plaque changes. Rule resultant significant - high grade stenosis. . There are also of partially calcified atherosclerotic plaque changes also seen along the right carotid bifurcation extending into the proximal margin of the right internal carotid artery. . These changes appear to result in moderate to significant stenosis. Repeat carotid Doppler and/or MRA of the neck recommended. . Remaining mid and distal internal carotid arteries are widely patent. Both vessels exhibit short retropharyngeal course of. The visualized petrous, segments are patent however there does appear to be atherosclerotic narrowing of both cavernous carotid arteries left greater than right. The supraclinoid carotid arteries as well as the visualized anterior middle cerebral arteries are patent and relatively symmetric. There is marked asymmetry of the vertebral arteries right-sided which is larger in caliber/ more dominant than the left. Basilar artery is patent as. Both posterior cerebral arteries on are also patent. No evidence of large aneurysm nor vascular malformation so far as can be seen. Re- demonstrated are moderate to significant diffuse/confluent chronic white matter ischemic changes extend peripherally into the deep and subcortical white matter both the ventricles are moderate to significantly dilated likely due to significant central volume loss. Note made of small focal area polypoid like mucosal thickening left maxillary antrum. Impression: There are atherosclerotic plaque changes seen along the distal common carotid arteries and carotid bifurcations extending into the right and left proximal internal carotid arteries left greater than right. Changes appear to result in significant stenosis however repeat carotid ultrasound and/or MRA could be performed for further evaluation. Marked asymmetry of the vertebral arteries side of which is larger in caliber/ more dominant than the left side. There are also of partially calcified plaque changes seen along both carotid siphons left greater than right. See above discussion for additional findings and details.
[2016-09-18] MEDS: Aritificial Tears (15ml) OU SCH ×2 (18:03→21:30)
[2016-09-19] MEDS: Sodium Chloride 0.9% 1,000 ML IV SCH ×3 (05:09→20:30)
[2016-09-19 06:30] LABS: HEMATOCRIT 33.7 % (35.0-51.0); MEAN CELL VOLUME 95.1 fL (80.0-94.0); MEAN CORPUSCULAR HGB CONC 34.7 g/dL (33.0-37.0); MEAN PLATELET VOLUME 8.5 fL (7.2-11.7); RED CELL DISTRIBUTION WIDTH 13.9 % (11.5-14.5)
[2016-09-19 06:54] LABS: CHLORIDE 102 mmol/L (98-107); POTASSIUM 4.1 mmol/L (3.6-5.2); SODIUM 137 mmol/L (132-148)
[2016-09-19 06:57] LABS: CARBON DIOXIDE 28 mmol/L (22-30); GFR AFRICAN-AMERICAN > 60
[2016-09-19 06:58] LABS: BLOOD UREA NITROGEN 23 mg/dL (9-20); CALCIUM 8.5 mg/dl (8.6-10.4); GLUCOSE,RANDOM 127 mg/dL (75-110)
[2016-09-19] MEDS: Aritificial Tears (15ml) OU SCH ×4 (09:33→22:38)
[2016-09-19] MEDS: Enoxaparin 40 mg Syringe SC SCH (09:49)
[2016-09-19] MEDS: Acetylcysteine 20% 3 ML NEB PO SCH (11:07)
--- NOTE | 2016-09-19 14:03 | CP.PCM.PN ---
Subjective - Date & Time of Evaluation Date of Evaluation: 09/19/16 Time of Evaluation: 07:00 - Subjective Subjective: Surgery: Brian Pt seen and examined. Resting comfortably in bed, no complaints at this time. R side facial droop persists. Objective - Vital Signs/Intake and Output Vital Signs (last 24 hours): Temp Pulse Resp BP Pulse Ox 98.5 F 77 18 133/69 98 09/19/16 07:00 09/19/16 07:00 09/19/16 07:00 09/19/16 13:23 09/19/16 07:00 Intake and Output: 09/19/16 09/19/16 06:59 18:59 Intake Total 1989 Balance 1989 - Medications Medications: Current Medications Artificial Tears (Artificial Tears) 0 ml OU QID [facility] Last Admin: 09/19/16 13:15 Dose: 2 drop Aspirin (Aspirin Chewable) 81 mg PO DAILY [facility] Last Admin: 09/19/16 09:32 Dose: 81 mg Carvedilol (Coreg) 6.25 mg PO BID [facility] Last Admin: 09/19/16 09:33 Dose: 6.25 mg Clopidogrel Bisulfate (Plavix) 75 mg PO DAILY [facility] Last Admin: 09/19/16 09:33 Dose: 75 mg Enalapril Maleate (Vasotec) 2.5 mg PO DAILY [facility] Last Admin: 09/19/16 13:23 Dose: 2.5 mg Enoxaparin Sodium (Lovenox) 40 mg SC DAILY [facility] Last Admin: 09/19/16 09:49 Dose: 40 mg Sodium Chloride (Sodium Chloride 0.9%) 1,000 mls @ 100 mls/hr IV .Q10H [facility] Last Admin: 09/19/16 05:09 Dose: Not Given Rosuvastatin Calcium (Crestor) 10 mg PO DAILY [facility] Last Admin: 09/19/16 09:33 Dose: 10 mg Valacyclovir HCl (Valtrex) 500 mg PO BID [facility] Last Admin: 09/19/16 09:33 Dose: 500 mg - Labs Labs: 09/19/16 06:07 09/19/16 06:07 PT 10.9 SECONDS (9.7-12.2) 09/15/16 19:55 INR 1.0 09/15/16 19:55 APTT 30 SECONDS (21-34) 09/15/16 19:55 - Constitutional Appears: No Acute Distress - Head Exam Head Exam: ATRAUMATIC, NORMOCEPHALIC - Eye Exam Eye Exam: EOMI. absent: Scleral icterus - ENT Exam ENT Exam: Mucous Membranes Moist - Neck Exam Neck Exam: Full ROM - Respiratory Exam Respiratory Exam: NORMAL BREATHING PATTERN. absent: Accessory Muscle Use, Respiratory Distress - GI/Abdominal Exam GI & Abdominal Exam: Soft. absent: Tenderness - Extremities Exam Extremities Exam: absent: Calf Tenderness, Pedal Edema - Neurological Exam Neurological Exam: Alert, Awake, Oriented x3 Additional comments: right facial droop Assessment and Plan - Assessment and Plan (Free Text) Assessment: 80 M w. R side facial droop - Echo done, need cardiac clearance - Plan for OR Saturday or Saturday Case d/w Dr. Brian Villarreal PGY1
--- NOTE | 2016-09-19 15:13 | CP.PCM.CON ---
History of Present Illness - History of Present Illness History of Present Illness: Consult Note for Dr. Brush 80 y/o M with PMH of HTN, DM, CAD s/p CABG, and COPD who initially presented to the ED on 09/15 for right sided facial droop for 2 weeks. Pt states droop came on insidiously and was associated with blurry vision. Pt denies any recent illnesses. Pt states he does not have any pain associated with facial droop. There is no difficulty with speech or weakness. Upon ardmission, pt received carotid ultrasound which showed left and right proximal ICA stenosis of 70-95%. Pt denies any CP, Shortness of breath, nausea, vomiting, diarrhea, headache, syncope, dysuria. PMH: HTN, CAD, DM, COPD PSH: CABG, pacemaker Meds: As per MAR Allergies: NKDA Social: 1/2 ppd for many years. Denies alcohol or illicit drug use Fhx: Non-contributory Review of Systems - Constitutional Constitutional: absent: Fatigue, Fever - EENT Eyes: Blurred Vision. absent: Diplopia - Cardiovascular Cardiovascular: absent: Chest Pain, Irregular Heart Rhythm - Respiratory Respiratory: absent: Cough, Dyspnea - Gastrointestinal Gastrointestinal: absent: Diarrhea, Vomiting - Genitourinary Genitourinary: absent: Dysuria - Musculoskeletal Musculoskeletal: absent: Muscle Weakness, Myalgias Past Patient History - Infectious Disease Hx of Infectious Diseases: None - Past Medical History & Family History Past Medical History?: Yes - Past Social History Smoking Status: Heavy Smoker > 10 Cigarettes Daily - CARDIAC Hx Cardiac Disorders: Yes Hx Hypertension: Yes - PULMONARY Hx Chronic Obstructive Pulmonary Disease (COPD): Yes - NEUROLOGICAL Hx Dementia: Yes - HEENT Hx HEENT Problems: No - RENAL Hx Chronic Kidney Disease: Yes - ENDOCRINE/METABOLIC Hx Diabetes Mellitus Type 2: Yes - HEMATOLOGICAL/ONCOLOGICAL Hx Blood Disorders: No - INTEGUMENTARY Hx Dermatological Problems: No - MUSCULOSKELETAL/RHEUMATOLOGICAL Hx Falls: No - GASTROINTESTINAL Hx Gastrointestinal Disorders: No - GENITOURINARY/GYNECOLOGICAL Hx Genitourinary Disorders: Yes Hx Prostate Problems: Yes - PSYCHIATRIC Hx Substance Use: No - SURGICAL HISTORY Hx Coronary Artery Bypass Graft: Yes - ANESTHESIA Hx Anesthesia: Yes Hx Anesthesia Reactions: No Hx Malignant Hyperthermia: No Meds Allergies/Adverse Reactions: Allergies Allergy/AdvReac Type Severity Reaction Status Date / Time No Known Allergies Allergy Verified 12/24/14 14:45 - Medications Medications: Current Medications Artificial Tears (Artificial Tears) 0 ml OU QID [facility] Last Admin: 09/19/16 13:15 Dose: 2 drop Aspirin (Aspirin Chewable) 81 mg PO DAILY [facility] Last Admin: 09/19/16 09:32 Dose: 81 mg Carvedilol (Coreg) 6.25 mg PO BID [facility] Last Admin: 09/19/16 09:33 Dose: 6.25 mg Clopidogrel Bisulfate (Plavix) 75 mg PO DAILY [facility] Last Admin: 09/19/16 09:33 Dose: 75 mg Enalapril Maleate (Vasotec) 2.5 mg PO DAILY [facility] Last Admin: 09/19/16 13:23 Dose: 2.5 mg Enoxaparin Sodium (Lovenox) 40 mg SC DAILY [facility] Last Admin: 09/19/16 09:49 Dose: 40 mg Sodium Chloride (Sodium Chloride 0.9%) 1,000 mls @ 100 mls/hr IV .Q10H [facility] Last Admin: 09/19/16 14:37 Dose: Not Given Rosuvastatin Calcium (Crestor) 10 mg PO DAILY [facility] Last Admin: 09/19/16 09:33 Dose: 10 mg Valacyclovir HCl (Valtrex) 500 mg PO BID [facility] Last Admin: 09/19/16 09:33 Dose: 500 mg Physical Exam - Constitutional Appears: Well, No Acute Distress - Head Exam Head Exam: ATRAUMATIC, NORMAL INSPECTION, NORMOCEPHALIC - ENT Exam Additional comments: Right facial palsy/droop - Respiratory Exam Respiratory Exam: Clear to Auscultation Bilateral, NORMAL BREATHING PATTERN. absent: Rhonchi, Wheezes - Cardiovascular Exam Cardiovascular Exam: RRR, +S1, +S2 - GI/Abdominal Exam GI & Abdominal Exam: Normal Bowel Sounds, Soft. absent: Tenderness - Extremities Exam Extremities exam: Positive for: normal inspection. Negative for: pedal edema - Neurological Exam Neurological exam: Alert - Skin Skin Exam: Normal Color, Warm Results - Vital Signs Recent Vital Signs: Last Vital Signs Temp 98.5 F 09/19/16 07:00 Pulse 77 09/19/16 07:00 Resp 18 09/19/16 07:00 BP 133/69 09/19/16 13:23 Pulse Ox 98 09/19/16 07:00 - Labs Result Diagrams: 09/19/16 06:07 09/19/16 06:07 Labs: Laboratory Results - last 24 hr 09/18/16 09/18/16 09/19/16 16:49 21:32 06:07 WBC 6.0 RBC 3.54 L Hgb 11.7 L Hct 33.7 L MCV 95.1 H MCH 33.0 H MCHC 34.7 RDW 13.9 Plt Count 106 L D MPV 8.5 Sodium Potassium Chloride Carbon Dioxide Anion Gap BUN Creatinine Est GFR ( Amer) Est GFR (Non-Af Amer) POC Glucose (mg/dL) 110 150 H Random Glucose Calcium 09/19/16 09/19/16 09/19/16 06:07 06:28 12:28 WBC RBC Hgb Hct MCV MCH MCHC RDW Plt Count MPV Sodium 137 Potassium 4.1 Chloride 102 Carbon Dioxide 28 Anion Gap 11 BUN 23 H Creatinine 1.2 Est GFR ( Amer) > 60 Est GFR (Non-Af Amer) 58 POC Glucose (mg/dL) 140 H 183 H Random Glucose 127 H Calcium 8.5 L Assessment & Plan (1) Carotid stenosis, bilateral Assessment and Plan: Pt with Carotid US showing b/l proximal ICA stenosis of 70-95%. In regards to carotid endarterectmy, benefits outweigh the risks for surgery. Pt is low risk for an intermediate risk procedure Fitzgerald score - 5, 1% risk for complications Detsky score - 10, 7% risk for complications Status: Acute
[2016-09-19 16:25] VITALS: RESP 20
--- NOTE | 2016-09-19 17:12 | CON ---
DATE: 09/19/2016 REASON FOR CONSULTATION: Coronary artery disease, cardiomyopathy, status post ICD placement as well as carotid artery disease. HISTORY OF PRESENT ILLNESS: The patient is a very poor historian. The patient is an 80-year-old male who has a history of coronary artery disease status post coronary artery bypass surgery in the past, a history of ICD placement. 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 He denies any recent discharge of the defibri llator. The patient was admitted because of right facial drooping. The patient does have slurred sp eech and that he is unable to tell me if it was old or new. The patient denies any retrosternal ches t pain or shortness of breath at this time. SOCIAL HISTORY: The patient is and lives with his . MEDICATIONS: Aspirin 81 mg once a day, Coreg 6.25 mg twice a day, Crestor 10 mg once a day, Lovenox 40 mg subcutaneous once a day, Plavix 75 mg once a day, normal saline 100 mL an hour, Valtrex 500 mg p.o. twice a day. REVIEW OF SYSTEMS: No chest pain. No recent discharge of his defibrillator according to the patient . No recent fall according to the patient. No vomiting or diarrhea. PHYSICAL EXAMINATION: GENERAL: The patient is an elderly male who does not appear to be in acute distress. VITAL SIGNS: Blood pressure 144/66, heart rate 77, temperature 98.5, respirations 18. HEENT: Right facial drooping with facial to the left when the patient was asked to smile or sh ow his teeth. There is also weakness of the right eyebrow and vertex muscles when the patient was as ked to frown. There is incomplete closure of the right eye. NECK: No JVD. CHEST: Clear. HEART: S1, S2 regular. ABDOMEN: Soft. EXTREMITIES: No edema. LABORATORY DATA: Hemoglobin and hematocrit 11.7 and 33.7, white count 6.0, platelet count 106,000. SMA-7 is within normal limits except for glucose of 127 and BUN of 23, calcium is 8.5. PT, PTT withi n normal limits. Chest x-ray revealed normal cardiac silhouette, slightly dilated mediastinum. No infiltrate or effus ion. An ICD lead is noted and sternotomy scar. EKG revealed sinus tachycardia at a rate of 108, inf erior wall infarct of indeterminate age. Head and neck CTA revealed atherosclerotic plaque changes s een along the distal common carotid arteries and carotid bifurcation extending into the right and lef t proximal internal carotid arteries, left greater than right. The changes appear to result in signi ficant stenosis; however, repeat carotid ultrasound and/or MRA could be performed for further evaluat ion. Of note, that the MRA cannot be performed because the patient has an ICD. Marked asymmetry of the vertebral arteries. There are also partial calcified plaque changes in both carotid siphons, lef t greater than right. Carotid ultrasound revealed significant bilateral disease. Head CT scan witho ut contrast revealed atrophy and small vessel disease, left basal ganglia infarct indeterminate lacunar infarct, no bleed. Echocardiographic study revealed ejection fraction in the range of 45%-5 0%, mild aortic insufficiency, hypokinesis of the mid anteroseptal wall. ASSESSMENT: 1. Severe bilateral carotid artery disease, rule out acute cerebrovascular accident. 2. Mildly decreased systolic function. 3. Questionable history of coronary artery disease and coronary artery bypass surgery in the past. 4. Segmental hypokinesis including the mid anteroseptal wall. 5. Thrombocytopenia. RECOMMENDATIONS: Continue current aspirin 81 mg once a day, Coreg 6.25 mg twice a day, Crestor 10 mg once a day, Lovenox at 40 mg subcutaneous once a day, Plavix 75 mg once a day. Start enalapril 2.5 mg once a day. The patient is a high risk candidate for carotid surgery. EP consult is recommended in the meantime. Mg Simmons MD cc: [id number] TT: 09/19/2016 17:11:55 Confirmation # [id number] Dictation # [id number]
[2016-09-20] MEDS: Sodium Chloride 0.9% 1,000 ML IV SCH ×3 (01:13→11:42)
--- NOTE | 2016-09-20 04:40 | CP.PCM.PN ---
Subjective - Date & Time of Evaluation Date of Evaluation: 09/19/16 Time of Evaluation: 09:45 - Subjective Subjective: Pt is for carotid endartectomy due to b/l aortic stenosis , he needs AICD interrogation and cardiac clearance before OR Objective - Vital Signs/Intake and Output Vital Signs (last 24 hours): Temp Pulse Resp BP Pulse Ox 98.2 F 72 20 145/89 99 09/19/16 23:15 09/19/16 23:15 09/19/16 23:15 09/19/16 23:15 09/19/16 23:15 Intake and Output: 09/19/16 09/20/16 18:59 06:59 Intake Total 1040 1000 Output Total 250 Balance 1040 750 - Medications Medications: Current Medications Artificial Tears (Artificial Tears) 0 ml OU QID [facility] Last Admin: 09/19/16 22:38 Dose: 1 drop Aspirin (Aspirin Chewable) 81 mg PO DAILY [facility] Last Admin: 09/19/16 09:32 Dose: 81 mg Carvedilol (Coreg) 6.25 mg PO BID [facility] Last Admin: 09/19/16 18:37 Dose: 6.25 mg Clopidogrel Bisulfate (Plavix) 75 mg PO DAILY [facility] Last Admin: 09/19/16 09:33 Dose: 75 mg Enalapril Maleate (Vasotec) 2.5 mg PO DAILY [facility] Last Admin: 09/19/16 13:23 Dose: 2.5 mg Enoxaparin Sodium (Lovenox) 40 mg SC DAILY [facility] Last Admin: 09/19/16 09:49 Dose: 40 mg Sodium Chloride (Sodium Chloride 0.9%) 1,000 mls @ 100 mls/hr IV .Q10H [facility] Last Admin: 09/20/16 01:13 Dose: Not Given Rosuvastatin Calcium (Crestor) 10 mg PO DAILY [facility] Last Admin: 09/19/16 09:33 Dose: 10 mg Valacyclovir HCl (Valtrex) 500 mg PO BID [facility] Last Admin: 09/19/16 18:37 Dose: 500 mg - Labs Labs: 09/19/16 06:07 09/19/16 06:07 PT 10.9 SECONDS (9.7-12.2) 09/15/16 19:55 INR 1.0 09/15/16 19:55 APTT 30 SECONDS (21-34) 09/15/16 19:55 - Constitutional Appears: No Acute Distress - Head Exam Head Exam: ATRAUMATIC, NORMAL INSPECTION, NORMOCEPHALIC - Eye Exam Eye Exam: EOMI, Normal appearance, PERRL Pupil Exam: NORMAL ACCOMODATION, PERRL - Respiratory Exam Respiratory Exam: Clear to Ausculation Bilateral, NORMAL BREATHING PATTERN - Cardiovascular Exam Cardiovascular Exam: REGULAR RHYTHM, +S1, +S2. absent: Murmur - GI/Abdominal Exam GI & Abdominal Exam: Soft, Normal Bowel Sounds. absent: Tenderness Assessment and Plan (1) Cardozo palsy Status: Acute (2) CVA (cerebral vascular accident) Status: Suspected (3) Diabetes Status: Acute (4) ICD (implantable cardioverter-defibrillator) in place Status: Acute (5) COPD (chronic obstructive pulmonary disease) Status: Acute
--- NOTE | 2016-09-20 04:56 | CP.PCM.PN ---
Subjective - Date & Time of Evaluation Date of Evaluation: 09/20/16 Time of Evaluation: 04:15 - Subjective Subjective: SURGERY PROGRESS NOTE FOR DR. ESCUDERO 80M seen and examined at bedside. Patient resting comfortably, no complaints. Objective - Vital Signs/Intake and Output Vital Signs (last 24 hours): Temp Pulse Resp BP Pulse Ox 98.2 F 72 20 145/89 99 09/19/16 23:15 09/19/16 23:15 09/19/16 23:15 09/19/16 23:15 09/19/16 23:15 Intake and Output: 09/19/16 09/20/16 18:59 06:59 Intake Total 1040 1000 Output Total 250 Balance 1040 750 - Medications Medications: Current Medications Artificial Tears (Artificial Tears) 0 ml OU QID [facility] Last Admin: 09/19/16 22:38 Dose: 1 drop Aspirin (Aspirin Chewable) 81 mg PO DAILY [facility] Last Admin: 09/19/16 09:32 Dose: 81 mg Carvedilol (Coreg) 6.25 mg PO BID [facility] Last Admin: 09/19/16 18:37 Dose: 6.25 mg Clopidogrel Bisulfate (Plavix) 75 mg PO DAILY [facility] Last Admin: 09/19/16 09:33 Dose: 75 mg Enalapril Maleate (Vasotec) 2.5 mg PO DAILY [facility] Last Admin: 09/19/16 13:23 Dose: 2.5 mg Enoxaparin Sodium (Lovenox) 40 mg SC DAILY [facility] Last Admin: 09/19/16 09:49 Dose: 40 mg Sodium Chloride (Sodium Chloride 0.9%) 1,000 mls @ 100 mls/hr IV .Q10H [facility] Last Admin: 09/20/16 01:13 Dose: Not Given Rosuvastatin Calcium (Crestor) 10 mg PO DAILY [facility] Last Admin: 09/19/16 09:33 Dose: 10 mg Valacyclovir HCl (Valtrex) 500 mg PO BID [facility] Last Admin: 09/19/16 18:37 Dose: 500 mg - Labs Labs: 09/19/16 06:07 09/19/16 06:07 PT 10.9 SECONDS (9.7-12.2) 09/15/16 19:55 INR 1.0 09/15/16 19:55 APTT 30 SECONDS (21-34) 09/15/16 19:55 - Constitutional Appears: Non-toxic, No Acute Distress - Respiratory Exam Respiratory Exam: Clear to Ausculation Bilateral, NORMAL BREATHING PATTERN - Cardiovascular Exam Cardiovascular Exam: REGULAR RHYTHM, +S1, +S2 - Neurological Exam Additional comments: facial droop noted as previous notes. Assessment and Plan - Assessment and Plan (Free Text) Assessment: 80M with facial droop 2/2 stroke, with extensive artherosclerosis of carotid arteries, Left greater than right. Cleared by cardio for surgery. Low risk for intermediate procedure. Plan: Patient scheduled for OR Saturday for Endarectomy Further recs discuss with Dr. Brian Villarreal, PGY1
--- NOTE | 2016-09-20 09:43 | CP.PCM.PN ---
Subjective - Date & Time of Evaluation Date of Evaluation: 09/20/16 Time of Evaluation: 09:40 - Subjective Subjective: Progress note for Dr. Brush Pt seen and examined at bedside. Pt sleeping comfortably in bed, no acute events overnight as per nursing. Pt is scheduled for endarterectomy on Saturday. Denies CP, SOB, N/V/D, headaches, dizziness. Objective - Vital Signs/Intake and Output Vital Signs (last 24 hours): Temp Pulse Resp BP Pulse Ox 98.2 F 83 20 129/77 99 09/20/16 07:00 09/20/16 07:00 09/20/16 07:00 09/20/16 07:00 09/20/16 07:00 Intake and Output: 09/20/16 09/20/16 06:59 18:59 Intake Total 1000 Output Total 250 Balance 750 - Medications Medications: Current Medications Artificial Tears (Artificial Tears) 0 ml OU QID [facility] Last Admin: 09/19/16 22:38 Dose: 1 drop Aspirin (Aspirin Chewable) 81 mg PO DAILY [facility] Last Admin: 09/19/16 09:32 Dose: 81 mg Carvedilol (Coreg) 6.25 mg PO BID [facility] Last Admin: 09/19/16 18:37 Dose: 6.25 mg Clopidogrel Bisulfate (Plavix) 75 mg PO DAILY [facility] Last Admin: 09/19/16 09:33 Dose: 75 mg Enalapril Maleate (Vasotec) 2.5 mg PO DAILY [facility] Last Admin: 09/19/16 13:23 Dose: 2.5 mg Enoxaparin Sodium (Lovenox) 40 mg SC DAILY [facility] Last Admin: 09/19/16 09:49 Dose: 40 mg Sodium Chloride (Sodium Chloride 0.9%) 1,000 mls @ 100 mls/hr IV .Q10H [facility] Last Admin: 09/20/16 01:13 Dose: Not Given Rosuvastatin Calcium (Crestor) 10 mg PO DAILY [facility] Last Admin: 09/19/16 09:33 Dose: 10 mg Valacyclovir HCl (Valtrex) 500 mg PO BID [facility] Last Admin: 09/19/16 18:37 Dose: 500 mg - Labs Labs: 09/19/16 06:07 09/19/16 06:07 PT 10.9 SECONDS (9.7-12.2) 09/15/16 19:55 INR 1.0 09/15/16 19:55 APTT 30 SECONDS (21-34) 09/15/16 19:55 - Constitutional Appears: Well, No Acute Distress - Head Exam Head Exam: ATRAUMATIC, NORMAL INSPECTION, NORMOCEPHALIC - Respiratory Exam Respiratory Exam: Clear to Ausculation Bilateral, NORMAL BREATHING PATTERN. absent: Rhonchi, Wheezes - Cardiovascular Exam Cardiovascular Exam: RRR, +S1, +S2 - GI/Abdominal Exam GI & Abdominal Exam: Soft, Normal Bowel Sounds. absent: Tenderness - Extremities Exam Extremities Exam: Normal Inspection. absent: Calf Tenderness, Pedal Edema - Neurological Exam Neurological Exam: Alert, Awake, Oriented x3 - Skin Skin Exam: Intact, Normal Color, Warm Assessment and Plan (1) Carotid stenosis, bilateral Assessment & Plan: Pt scheduled for carotid endarterectomy on Saturday Benefits outweight risks for procedure Continue current medical management Status: Acute
[2016-09-20] MEDS: Enoxaparin 40 mg Syringe SC SCH (09:51)
[2016-09-20] MEDS: Aritificial Tears (15ml) OU SCH ×3 (09:51→17:22)
--- NOTE | 2016-09-20 13:28 | CP.PCM.PN ---
Subjective - Date & Time of Evaluation Date of Evaluation: 09/20/16 Time of Evaluation: 13:27 - Subjective Subjective: dw patient , , and family re plans for surgery and planned left cea Objective - Vital Signs/Intake and Output Vital Signs (last 24 hours): Temp Pulse Resp BP Pulse Ox 98.2 F 81 20 129/77 99 09/20/16 07:00 09/20/16 08:00 09/20/16 07:00 09/20/16 09:50 09/20/16 07:00 Intake and Output: 09/20/16 09/20/16 06:59 18:59 Intake Total 1000 Output Total 250 Balance 750 - Medications Medications: Current Medications Artificial Tears (Artificial Tears) 0 ml OU QID [facility] Last Admin: 09/20/16 09:51 Dose: 1 drop Aspirin (Aspirin Chewable) 81 mg PO DAILY [facility] Last Admin: 09/20/16 09:51 Dose: 81 mg Carvedilol (Coreg) 6.25 mg PO BID [facility] Last Admin: 09/20/16 09:50 Dose: 6.25 mg Clopidogrel Bisulfate (Plavix) 75 mg PO DAILY [facility] Last Admin: 09/20/16 09:51 Dose: 75 mg Enalapril Maleate (Vasotec) 2.5 mg PO DAILY [facility] Last Admin: 09/20/16 09:50 Dose: 2.5 mg Enoxaparin Sodium (Lovenox) 40 mg SC DAILY [facility] Last Admin: 09/20/16 09:51 Dose: 40 mg Sodium Chloride (Sodium Chloride 0.9%) 1,000 mls @ 100 mls/hr IV .Q10H [facility] Last Admin: 09/20/16 11:42 Dose: Not Given Rosuvastatin Calcium (Crestor) 10 mg PO DAILY [facility] Last Admin: 09/20/16 09:51 Dose: 10 mg Valacyclovir HCl (Valtrex) 500 mg PO BID [facility] Last Admin: 09/20/16 09:51 Dose: 500 mg - Labs Labs: 09/19/16 06:07 09/19/16 06:07 PT 10.9 SECONDS (9.7-12.2) 09/15/16 19:55 INR 1.0 09/15/16 19:55 APTT 30 SECONDS (21-34) 09/15/16 19:55
--- NOTE | 2016-09-20 13:52 | PN ---
DATE: 09/20/2016 SUBJECTIVE: The patient denies any chest pain or shortness of breath. No reported ventricular arrhy thmia. PHYSICAL EXAMINATION: VITAL SIGNS: Blood pressure 129/77, heart rate 81, temperature 98.2, respirations 20. HEENT: Loss of right nasolabial fold. NECK: No JVD. CHEST: Clear. HEART: S1, S2 regular. EXTREMITIES: No edema. LABORATORIES: Today's blood sugar is 142. ASSESSMENT: 1. Severe bilateral carotid artery disease. 2. Mildly depressed left ventricular systolic function. 3. Coronary artery disease with history of coronary artery bypass surgery. 4. Segmental hypokinesis of the mid anteroseptal wall. 5. Thrombocytopenia. RECOMMENDATIONS: Continue current aspirin 81 mg once a day, Coreg at 6.25 mg twice a day, Crestor 10 mg once a day, subcutaneous Lovenox at 40 mg once a day, Plavix 75 mg once a day, Vasotec at 2.5 mg daily. Case was discussed with Dr. Torres. The patient will probably go for left carotid endarter ectomy tomorrow. Postoperative ICU with telemetry monitoring depending on the surgical outcome. Mg Simmons MD cc: [id number] TT: 09/20/2016 13:52:05 Confirmation # [id number] Dictation # [id number] milli
--- NOTE | 2016-09-20 17:21 | CP.PCM.PN ---
Subjective - Date & Time of Evaluation Date of Evaluation: 09/20/16 Time of Evaluation: 13:00 - Subjective Subjective: Pt seen and examined today , states feesl ok , denies any chest pain , sob, palpitations, dizziness facial droop present seen by Dr. Leggett today , planned OR for CEA on Saturday Objective - Vital Signs/Intake and Output Vital Signs (last 24 hours): Temp Pulse Resp BP Pulse Ox 98.2 F 81 20 129/77 99 09/20/16 07:00 09/20/16 08:00 09/20/16 07:00 09/20/16 09:50 09/20/16 07:00 Intake and Output: 09/20/16 09/20/16 06:59 18:59 Intake Total 1000 Output Total 250 Balance 750 - Medications Medications: Current Medications Artificial Tears (Artificial Tears) 0 ml OU QID [facility] Last Admin: 09/20/16 15:08 Dose: Not Given Aspirin (Aspirin Chewable) 81 mg PO DAILY [facility] Last Admin: 09/20/16 09:51 Dose: 81 mg Carvedilol (Coreg) 6.25 mg PO BID [facility] Last Admin: 09/20/16 09:50 Dose: 6.25 mg Clopidogrel Bisulfate (Plavix) 75 mg PO DAILY [facility] Last Admin: 09/20/16 09:51 Dose: 75 mg Enalapril Maleate (Vasotec) 2.5 mg PO DAILY [facility] Last Admin: 09/20/16 09:50 Dose: 2.5 mg Enoxaparin Sodium (Lovenox) 40 mg SC DAILY [facility] Last Admin: 09/20/16 09:51 Dose: 40 mg Sodium Chloride (Sodium Chloride 0.9%) 1,000 mls @ 100 mls/hr IV .Q10H [facility] Last Admin: 09/20/16 11:42 Dose: Not Given Rosuvastatin Calcium (Crestor) 10 mg PO DAILY [facility] Last Admin: 09/20/16 09:51 Dose: 10 mg Valacyclovir HCl (Valtrex) 500 mg PO BID [facility] Last Admin: 09/20/16 09:51 Dose: 500 mg - Labs Labs: 09/19/16 06:07 09/19/16 06:07 PT 10.9 SECONDS (9.7-12.2) 09/15/16 19:55 INR 1.0 09/15/16 19:55 APTT 30 SECONDS (21-34) 09/15/16 19:55 Assessment and Plan - Assessment and Plan (Free Text) Assessment: A/P 80 yr old male admitted for R facial droop /goyal palsy/CVA ct head - Atrophy and small vessel disease; old left basal ganglia infarct; indeterminate right basal vein lacunar infarcts; no bleed -Carotid doppler: PSV > 300 proximal ICA B/L Planned for OR saturday d/w with jose luis Nelson for discharge to [facility] bring pt back to saturday for OR d/w rusty Rodriguez for discharge to [facility] today and Dr. Gonsales follow pt at [facility] CM discussed with son and agreed with plan
[2016-09-20 17:38] VITALS: PULSE 67; TEMP 97.5; O2SAT 100
[2016-09-20 17:42] VITALS: BP 138/64
--- NOTE | 2016-09-20 22:59 | CP.PCM.DIS ---
Provider - Provider Date of Admission: 09/15/16 20:56 Attending physician: David Gonsales MD Diagnosis - Discharge Diagnosis (1) Cardozo palsy Status: Acute (2) CVA (cerebral vascular accident) Status: Suspected (3) Diabetes Status: Acute (4) ICD (implantable cardioverter-defibrillator) in place Status: Acute (5) COPD (chronic obstructive pulmonary disease) Status: Acute Hospital Course - Lab Results Lab Results: Most Recent Lab Values WBC 6.0 K/uL (4.8-10.8) 09/19/16 06:07 RBC 3.54 Mil/uL (4.40-5.90) L 09/19/16 06:07 Hgb 11.7 g/dL (12.0-18.0) L 09/19/16 06:07 Hct 33.7 % (35.0-51.0) L 09/19/16 06:07 MCV 95.1 fL (80.0-94.0) H 09/19/16 06:07 MCH 33.0 pg (27.0-31.0) H 09/19/16 06:07 MCHC 34.7 g/dL (33.0-37.0) 09/19/16 06:07 RDW 13.9 % (11.5-14.5) 09/19/16 06:07 Plt Count 106 K/uL (130-400) L D 09/19/16 06:07 MPV 8.5 fL (7.2-11.7) 09/19/16 06:07 Neut % (Auto) 57.0 % (50.0-75.0) 09/15/16 19:55 Lymph % (Auto) 32.5 % (20.0-40.0) 09/15/16 19:55 [place] % (Auto) 8.0 % (0.0-10.0) 09/15/16 19:55 Eos % (Auto) 1.9 % (0.0-4.0) 09/15/16 19:55 Baso % (Auto) 0.6 % (0.0-2.0) 09/15/16 19:55 Neut # 4.3 K/uL (1.8-7.0) 09/15/16 19:55 Lymph # 2.5 K/uL (1.0-4.3) 09/15/16 19:55 [place] # 0.6 K/uL (0.0-0.8) 09/15/16 19:55 Eos # 0.1 K/uL (0.0-0.7) 09/15/16 19:55 Baso # 0.0 K/uL (0.0-0.2) 09/15/16 19:55 Differential Comment Y 09/15/16 19:55 ESR 15 mm/hr (0-15) 09/16/16 17:17 PT 10.9 SECONDS (9.7-12.2) 09/15/16 19:55 INR 1.0 09/15/16 19:55 APTT 30 SECONDS (21-34) 09/15/16 19:55 Sodium 137 mmol/L (132-148) 09/19/16 06:07 Potassium 4.1 mmol/L (3.6-5.2) 09/19/16 06:07 Chloride 102 mmol/L (98-107) 09/19/16 06:07 Carbon Dioxide 28 mmol/L (22-30) 09/19/16 06:07 Anion Gap 11 (10-20) 09/19/16 06:07 BUN 23 mg/dL (9-20) H 09/19/16 06:07 Creatinine 1.2 MG/DL (0.8-1.5) 09/19/16 06:07 Est GFR ( Amer) > 60 09/19/16 06:07 Est GFR (Non-Af Amer) 58 09/19/16 06:07 POC Glucose (mg/dL) 174 mg/dL (65-110) H 09/20/16 16:25 Random Glucose 127 mg/dL (75-110) H 09/19/16 06:07 Hemoglobin A1c 5.2 % (4.2-6.5) 09/15/16 19:55 Calcium 8.5 mg/dl (8.6-10.4) L 09/19/16 06:07 Total Bilirubin 0.5 mg/dL (0.2-1.3) 09/15/16 19:55 AST 15 U/L (17-59) L D 09/15/16 19:55 ALT 23 U/L (21-72) 09/15/16 19:55 Alkaline Phosphatase 83 U/L (38-126) 09/15/16 19:55 Troponin I < 0.0120 ng/mL (0.00-0.120) 09/15/16 19:55 Total Protein 6.8 g/dL (6.3-8.3) 09/15/16 19:55 Albumin 4.4 g/dL (3.5-5.0) 09/15/16 19:55 Globulin 2.4 gm/dL (2.2-3.9) 09/15/16 19:55 Albumin/Globulin Ratio 1.8 (1.0-2.1) 09/15/16 19:55 Triglycerides 136 mg/dL (0-149) 09/15/16 19:55 Cholesterol 110 mg/dL (0-199) 09/15/16 19:55 LDL Cholesterol Direct 33 mg/dL (0-129) 09/15/16 19:55 HDL Cholesterol 50 mg/dL (30-70) 09/15/16 19:55 Lyme Disease IgM Ab Negative (NEGATIVE) 09/16/16 17:17 Blood Type O POSITIVE 09/15/16 19:55 Antibody Screen Negative 09/15/16 19:55 - Hospital Course Hospital Course: 80 yr old male admitted for R facial droop /cardozo palsy/CVA ct head - Atrophy and small vessel disease; old left basal ganglia infarct; indeterminate right basal vein lacunar infarcts; no bleed -Carotid doppler: PSV > 300 proximal ICA B/L Planned for OR saturday d/w with jose luis Nelson for discharge to [facility] bring pt back to saturday for OR Pt is stable for discharge to [facility] today and I will follow pt at [facility] CM discussed with son and agreed with plan Discharge Exam - Head Exam Head Exam: ATRAUMATIC, NORMAL INSPECTION, NORMOCEPHALIC - Eye Exam Eye Exam: EOMI, Normal appearance, PERRL Pupil Exam: NORMAL ACCOMODATION, PERRL - ENT Exam ENT Exam: Mucous Membranes Moist - Respiratory Exam Respiratory Exam: Clear to PA & Lateral - Cardiovascular Exam Cardiovascular Exam: REGULAR RHYTHM, +S1, +S2 - GI/Abdominal Exam GI & Abdominal Exam: Normal Bowel Sounds Discharge Plan - Discharge Medications Prescriptions: Insulin Aspart, Recombinant [Novolog] See Protocol SC ACHS #1 ml - Follow Up Plan Condition: FAIR Disposition: REHAB FACILITY/REHAB UNIT Instructions: Acute Kidney Injury (DC), Cardozo Palsy (DC), Carotid Artery Disease (DC) Additional Instructions: Please admit patient under Dr. Gonsales service, - call Dr. Gonsales upon patient arrival to the facility Continue medication as per Med. REc. PLEASE KEEP PT NPO POST [place] SATURDAY (09/23/16) FOR OR ON SATURDAY AND SENT PATIENT TO [facility] SAME DAY SURGERY AT 7 AM FOR OR ON SATURDAY Referrals: David Gonsales MD [Staff Provider] -
--- NOTE | 2016-09-21 16:45 | CARD ---
APPROVED REPORT EKG Measurement Heart [id number] <Conclusion> Sinus tachycardia Inferior infarct, age undetermined Abnormal ECG
== END 2016-09-20 18:28 | DRG 65 ==
LOC: C.ER 19:17 → C.9E 20:56 → C.6T 21:03
PROVIDERS: ADMIT Internal Medicine; ATTEND Internal Medicine
DX: I63.233 Cerebral infarction due to unspecified occlusion or stenosis of bilateral carotid arteries (principal); G51.0 Bell's palsy; D69.6 Thrombocytopenia, unspecified; I12.9 Hypertensive chronic kidney disease with stage 1 through stage 4 chronic kidney disease, or unspecified chronic kidney disease; E11.22 Type 2 diabetes mellitus with diabetic chronic kidney disease; E11.65 Type 2 diabetes mellitus with hyperglycemia; J43.9 Emphysema, unspecified; I25.10 Atherosclerotic heart disease of native coronary artery without angina pectoris; N18.9 Chronic kidney disease, unspecified; I42.9 Cardiomyopathy, unspecified; F03.90 Unspecified dementia, unspecified severity, without behavioral disturbance, psychotic disturbance, mood disturbance, and anxiety; F17.210 Nicotine dependence, cigarettes, uncomplicated; Z86.73 Personal history of transient ischemic attack (TIA), and cerebral infarction without residual deficits; Z95.1 Presence of aortocoronary bypass graft; Z95.810 Presence of automatic (implantable) cardiac defibrillator

== ENCOUNTER 2016-09-24 07:11 | Inpatient (IN) | payer MEDICARE, OTHER ==
[2016-09-24] MEDS ORDERED: Thrombin Topical 20,000 Intl Units Spray Kit TOP ONE (09:08)
[2016-09-24] MEDS ORDERED: ceFAZolin IV 1 gm in Dextrose 1 GM/50 ML BAG IVPB ONE (09:08)
[2016-09-24] MEDS ORDERED: HEPARIN-NS 5,000 UNITS/500 ML 10,000 UNIT/1,000 ML BAG IV ONE (09:09)
[2016-09-24] MEDS ORDERED: Lactated Ringer's 1,000 ML IV ONE ×4 (10:10→14:13)
[2016-09-24] MEDS ORDERED: Propofol 10 mg/ml Inj (20 ML) ONE (10:19)
[2016-09-24] MEDS ORDERED: Midazolam 2 MG/2 ML VIAL ONE (10:19)
[2016-09-24] MEDS ORDERED: Bacitracin 50,000 UNIT in Sodium Chloride 0.9% Irrig 1,000 ML IR SCH (10:38)
[2016-09-24] MEDS ORDERED: Rocuronium 10 mg/ml (5 ml) ONE (11:49)
[2016-09-24] MEDS ORDERED: HYDROmorphone 0.5 mg/0.5 ml ISec IVP PRN (14:13)
--- NOTE | 2016-09-24 14:14 | PCM.SURG1 ---
Surgeon's Initial Post Op Note - Surgeon's Notes Surgeon: Brian [employer] Insurance Agent: Vanessa PGY2 Type of Anesthesia: General Endo Pre-Operative Diagnosis: Left carotid artery stenosis Operative Findings: Plaque, edematous tissue Post-Operative Diagnosis: same Operation Performed: Left carotid endarterectomy Specimen/Specimens Removed: plaque Estimated Blood Loss: EBL {In ML}: 250 Blood Products Given: N/A Drains Used: Skylar (Red rubber catheter) Post-Op Condition: Good Date of Surgery/Procedure: 09/24/16 Time of Surgery/Procedure: 14:14
[2016-09-24] MEDS ORDERED: Lactated Ringer's 1,000 ML IV SCH (14:15)
--- NOTE | 2016-09-24 14:55 | RAD ---
HISTORY: s/p R IJ COMPARISON: 09/15/2016 FINDINGS: The endotracheal tube terminates 3.5 cm proximal to the ambar. The right IJV line terminates at the cavoatrial junction. LUNGS: The lungs are well inflated and clear. PLEURA: No significant pleural effusion identified, no pneumothorax apparent. CARDIOVASCULAR: The heart is normal in size. Status post CABG. There is stable position of a left-sided AICD. Normal. OSSEOUS STRUCTURES: No significant abnormalities. VISUALIZED UPPER ABDOMEN: Normal. OTHER FINDINGS: None. IMPRESSION: The right IJV line terminates at the cavoatrial junction. No pneumothorax. No acute findings.
[2016-09-24] MEDS: Sodium Chloride 0.9% 1,000 ML IV SCH (15:38)
[2016-09-24 16:45] LABS: BASO % 0.5 % (0.0-2.0); LYMPH # 0.8 K/uL (1.0-4.3); MONO # 0.5 K/uL (0.0-0.8); WHITE BLOOD COUNT 7.7 K/uL (4.8-10.8)
[2016-09-24 16:52] LABS: EOS # 0.1 K/uL (0.0-0.7); EOS % 0.8 % (0.0-4.0); HEMATOCRIT 25.2 % (35.0-51.0); LYMPH % 10.7 % (20.0-40.0); MEAN CELL VOLUME 95.7 fL (80.0-94.0); MEAN CORPUSCULAR HEMOGLOBIN 32.5 pg (27.0-31.0); MEAN CORPUSCULAR HGB CONC 33.9 g/dL (33.0-37.0); MEAN PLATELET VOLUME 9.2 fL (7.2-11.7); MONO % 6.8 % (0.0-10.0); RED CELL DISTRIBUTION WIDTH 13.8 % (11.5-14.5)
--- NOTE | 2016-09-24 17:47 | CP.PCM.CON ---
History of Present Illness - History of Present Illness History of Present Illness: Critical Care Consultation Note Dr. Duckworth CC: S/P Carotid Endarterectomy HPI: This is a 80 year old male with a PMH notable for HTN, IDDM, CAD s/p CABG, ICD placement, COPD/emphysema, and dementia presenting for critical care evaluation s/p left carotid endarterectomy. The patient is able to provide only minimal history and is a poor historian. He presently has a decreased ability to speak. He is only able to grunt yes or no, and is presently having difficulty completing full sentences. The history is largely obtained from chart review and previous records. The patient has a recent admission 09/15/16 at [facility] for insidious onset (2 weeks) facial droop, blurry vision, right tongue ageusia, and dysarthria. At that time, the patient had no gait instability or extremity weakness/paresthesias. 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 On admission, a carotid US was performed and revealed left and right proximal ICA stenosis of 70-95%. Dr. Torres was consulted on the case. Following the patient's admission, Dr. Rodríguez cleared the patient for discharge to [facility] with a planned return today 09/24/16 for left carotid endarterectomy in the OR. The patient is POD#0 s/p left carotid endarterectomy with Dr. Torres. The patient tolerated the procedure well and has been admitted to the ICU for monitoring is stable condition. The patient is hemodynamically stable with a dressing covering the operative site. The dressing is clean dry and intact. The patient appears in no acute distress at this time and reports that his pain is controlled. The patient denies all complaints at this time. The patient denies fever, chills, headache, chest pain, shortness of breath, abdominal pain , nausea, vomiting, diarrhea, constipation, changes in bowel/bladder, and extremity weakness/paresthesias. PMH: HTN, IDDM, CAD s/p CABG, ICD placement, COPD/emphysema, dementia PSH: CABG, pacemaker, left carotid endarterectomy Allergies: NKDA Social: 1/2 ppd for many years. Denies alcohol or illicit drug use Fhx: Non-contributor Review of Systems - Review of Systems All systems: reviewed and no additional remarkable complaints except - Constitutional Constitutional: absent: Chills, Fatigue - EENT Eyes: absent: Blind Spots, Blurred Vision, Change in Vision Ears: absent: Decreased Hearing, Tinnitus Nose/Mouth/Throat: Neck Pain (post-operative (left side)- controlled). absent: Nose Pain, Facial Pain - Cardiovascular Cardiovascular: absent: Chest Pain, Lightheadedness, Orthopnea, Palpitations, Syncope - Respiratory Respiratory: absent: Cough, Dyspnea, Dyspnea on Exertion - Gastrointestinal Gastrointestinal: absent: Abdominal Pain, Constipation, Diarrhea, Dyspepsia, Dysphagia, Nausea, Vomiting - Genitourinary Genitourinary: absent: Change in Urinary Stream, Difficulty Urinating - Integumentary Integumentary: Wounds (surgical wound left neck, bandaged). absent: Lesions, Rash - Neurological Neurological: Abnormal Speech. absent: Abnormal Movements, Burning Sensations, Disequilibrium, Focal Weakness, Headaches, Loss of Vision, Memory Loss, Paresthesias, Sensory Deficit, Tingling, Tremor, Weakness - Endocrine Endocrine: absent: Cold Intolorance, Heat Intolorance Past Patient History - Infectious Disease Hx of Infectious Diseases: None - Past Medical History & Family History Past Medical History?: Yes - Past Social History Smoking Status: Former Smoker - CARDIAC Hx Cardiac Disorders: Yes (pacemaker defibrillator) Hx Cardia Arrhythmia: Yes Hx Hypertension: Yes Hx Internal Defibrillator: Yes Hx Pacemaker: Yes Other/Comment: carotid stenosis - PULMONARY Hx Respiratory Disorders: Yes Hx Chronic Obstructive Pulmonary Disease (COPD): Yes Hx Emphysema: Yes Other/Comment: o2 nasal cannula 2 liters - NEUROLOGICAL Hx Neurological Disorder: Yes HX Cerebrovascular Accident: Yes Hx Dementia: Yes - HEENT Hx HEENT Problems: No - ENDOCRINE/METABOLIC Hx Endocrine Disorders: Yes Hx Diabetes Mellitus Type 2: Yes - MUSCULOSKELETAL/RHEUMATOLOGICAL Hx Falls: No - GENITOURINARY/GYNECOLOGICAL Hx Genitourinary Disorders: Yes Hx Prostate Problems: Yes - SURGICAL HISTORY Hx Surgeries: Yes Hx Coronary Artery Bypass Graft: Yes Hx Open Heart Surgery: Yes - ANESTHESIA Hx Anesthesia: Yes Hx Anesthesia Reactions: No Hx Malignant Hyperthermia: No Meds Allergies/Adverse Reactions: Allergies Allergy/AdvReac Type Severity Reaction Status Date / Time No Known Allergies Allergy Verified 12/24/14 14:45 - Medications Medications: Current Medications Aspirin (Aspirin Chewable) 81 mg PO DAILY [facility] Carvedilol (Coreg) 6.25 mg PO BID [facility] Clopidogrel Bisulfate (Plavix) 75 mg PO DAILY [facility] Enalapril Maleate (Vasotec) 2.5 mg PO DAILY [facility] Famotidine (Pepcid) 20 mg IVP Q12 [facility] Hydromorphone HCl (Dilaudid) 0.5 mg IVP Q4H PRN PRN Reason: Pain, moderate (4-7) Lactated Ringer's (Lactated Ringer's) 1,000 mls @ 100 mls/hr IV .Q10H [facility] Sodium Chloride (Sodium Chloride 0.9%) 1,000 mls @ 100 mls/hr IV .Q10H [facility] Last Admin: 09/24/16 15:38 Dose: 100 mls/hr Insulin Aspart (Novolog) 0 unit SC ACHS [facility] PRN Reason: Protocol Nitroglycerin (Nitro-Dur 0.1 Mg/Hr Patch) 1 patch TD DAILY [facility] Ondansetron HCl (Zofran Inj) 4 mg IVP Q4 PRN PRN Reason: Nausea/Vomiting Rosuvastatin Calcium (Crestor) 10 mg PO DAILY [facility] Valacyclovir HCl (Valtrex) 500 mg PO BID [facility] Physical Exam - Constitutional Appears: Well, No Acute Distress - Head Exam Head Exam: ATRAUMATIC, NORMAL INSPECTION, NORMOCEPHALIC - Eye Exam Eye Exam: EOMI, Normal appearance Pupil Exam: NORMAL ACCOMODATION - ENT Exam ENT Exam: Mucous Membranes Moist - Neck Exam Neck exam: Positive for: Full Rom, Tenderness (left sided (s/p endarterectomy)) - Respiratory Exam Respiratory Exam: Clear to Auscultation Bilateral, NORMAL BREATHING PATTERN. absent: Accessory Muscle Use, Decreased Breath Sounds, Rales, Rhonchi, Wheezes, Stridor - Cardiovascular Exam Cardiovascular Exam: REGULAR RHYTHM, RRR, +S1, +S2. absent: Bradycardia, Tachycardia, Diastolic murmur, Systolic Murmur - GI/Abdominal Exam GI & Abdominal Exam: Normal Bowel Sounds, Soft. absent: Distended, Firm, Guarding, Rigid, Tenderness - Extremities Exam Extremities exam: Positive for: calf tenderness, normal inspection, pedal pulses present - Neurological Exam Neurological exam: Alert, CN II-XII Intact Additional comments: Global 4/5 strength and intact sensation throughout - Skin Skin Exam: Dry, Intact, Pallor, Warm Results - Vital Signs Recent Vital Signs: Last Vital Signs Temp 97.2 F L 09/24/16 15:00 Pulse 81 09/24/16 16:40 Resp 18 09/24/16 16:40 BP 98/47 L 09/24/16 16:16 Pulse Ox 94 L 09/24/16 16:40 - Labs Labs: Laboratory Results - last 24 hr 09/24/16 09/24/16 08:01 16:30 POC Glucose (mg/dL) 150 H 210 H Assessment & Plan (1) Postop carotid endarterectomy surveillance, encounter for Status: Acute (2) History of carotid endarterectomy Status: Acute (3) Carotid stenosis, bilateral Status: Acute - Assessment and Plan (Free Text) Plan: Patient Status: -Hemodynamically Stable -Admit to ICU for monitoring s/p endarterectomy Neuro: -Neuro checks q4 -VS q1 Cardiovascular: -Hemodynamically stable -SBP <160mmhg -Nitro paste as needed -HTN- Coreg 6.5mg po bid, enalapril 2.5mg po daily -Crestor 10mg po hs -Aspirin 81mg po daily -Plavix 75mg po daily Pulmonary: -O2 via nasal cannula titrate to keep sats >92% -Incentive spirometer -No acute issues -09/24/16 CXR- no acute issues, no active disease Gastrointestinal: -Clear liquid diet -Advance as per surgical team -No acute issues Endocrine: -Accucheck ACHS -Insulin Sliding Scale Renal: -IVF- NS @100ml/hr Genitourinary: -monitor I&Os -no acute issues Musculoskeletal: -No acute issues -PT/OT eval and treat Hematology/Oncology: -Normocytic Anemia (Hgb- 7.7) -Will monitor with PM CBC -No transfusion at this time Infectious Disease: -Continue antibiotics in accordance with SCIP protocols GI Prophylaxis: Pepcid 20mg IV q12 DVT Prophylaxis: SCDs Case Discussed with Dr. Gucci Morgan PGY1 - Date & Time Date: 09/24/16 Time: 18:05
[2016-09-24] MEDS: (Novolog) Insulin Aspart, Recombinant 100 u/ml 10 ml vial SC SCH ×2 (18:04→21:30)
--- NOTE | 2016-09-24 19:49 | OP ---
PROCEDURE DATE: 09/24/2016 PREOPERATIVE DIAGNOSIS: Completed left hemispheric stroke. PROCEDURE CARRIED OUT: Left carotid endarterectomy. SURGEON: Rufino Torres MD. HOME AIDE: . ANESTHESIOLOGIST: Dr. Barnes. INDICATIONS: The patient is an 80-year-old man who had a previous left hemispheric stroke and has a high grade over 90% stenosis left internal carotid artery. The right side is also severely stenosed. OPERATIVE FINDINGS: There is plaque in the common carotid extending up in the internal carotid arter y. At the end of the procedure, it had excellent flow in the internal carotid artery. PROCEDURE: A Scoma shunt was used, a Vascu-Guard patch was placed and a drain was left at the end. DESCRIPTION OF PROCEDURE: The patient was given general anesthesia, intravenous antibiotics, and the wound was prepped and draped with Hibiclens. An incision was made exposing the common internal and external carotid arteries. After exposure of the vessel, identification of the hypoglossal nerve, he fortunato was given. The Scoma shunt was inserted. We had some difficulty inserting it, because it was up against the wall. We then completed the endarterectomy with carefully listening to the flow as we did this, and after completing the endarterectomy, placing 1 tacking stitch distally and extending i t slightly, we then placed the patch. This was secured into position. The shunt was removed. Hemos tasis was obtained. The heparin which was given initially was partially reversed with the use of pro tamine. A drain was left. Blood loss of the procedure was 250-300 mL. OPERATION CARRIED OUT: Left carotid endarterectomy. The patient had not yet awoken at the time of the dictation. Rufino Torres Jr., MD cc:David Gonsales MD 56 TT: 09/24/2016 19:48:51 ga
[2016-09-25] MEDS: Sodium Chloride 0.9% 1,000 ML IV SCH ×3 (02:52→21:16)
[2016-09-25 05:59] LABS: BASO % 0.6 % (0.0-2.0); EOS # 0.1 K/uL (0.0-0.7); EOS % 2.2 % (0.0-4.0); HEMATOCRIT 23.3 % (35.0-51.0); LYMPH # 0.8 K/uL (1.0-4.3); LYMPH % 13.2 % (20.0-40.0); MEAN CELL VOLUME 95.9 fL (80.0-94.0); MEAN CORPUSCULAR HEMOGLOBIN 32.8 pg (27.0-31.0); MEAN CORPUSCULAR HGB CONC 34.2 g/dL (33.0-37.0); MONO # 0.5 K/uL (0.0-0.8); RED CELL DISTRIBUTION WIDTH 13.8 % (11.5-14.5); WHITE BLOOD COUNT 6.4 K/uL (4.8-10.8)
[2016-09-25 06:12] LABS: POTASSIUM 4.1 mmol/L (3.6-5.2)
[2016-09-25 06:14] LABS: BILIRUBIN,TOTAL 0.7 mg/dL (0.2-1.3); TOTAL PROTEIN 5.1 g/dL (6.3-8.3)
[2016-09-25 06:15] LABS: CALCIUM 8.1 mg/dl (8.6-10.4); MAGNESIUM 1.6 mg/dL (1.6-2.3)
[2016-09-25 06:21] LABS: ALB/GLOB RATIO 1.3 (1.0-2.1)
[2016-09-25] MEDS: (Novolog) Insulin Aspart, Recombinant 100 u/ml 10 ml vial SC SCH ×2 (07:30→18:02)
--- NOTE | 2016-09-25 07:48 | CP.PCM.PN ---
Subjective - Date & Time of Evaluation Date of Evaluation: 09/25/16 Time of Evaluation: 07:48 - Subjective Subjective: dw no deficit no hematome drain removed has retemtion urology to see Objective - Vital Signs/Intake and Output Vital Signs (last 24 hours): Temp Pulse Resp BP Pulse Ox 97.6 F 105 H 26 H 109/55 L 99 09/25/16 04:00 09/25/16 05:09 09/25/16 05:09 09/25/16 05:09 09/25/16 05:09 Intake and Output: 09/25/16 09/25/16 06:59 18:59 Intake Total 1300 100 Balance 1300 100 - Medications Medications: Current Medications Aspirin (Aspirin Chewable) 81 mg PO DAILY [facility] Carvedilol (Coreg) 6.25 mg PO BID [facility] Last Admin: 09/24/16 18:10 Dose: Not Given Clopidogrel Bisulfate (Plavix) 75 mg PO DAILY [facility] Enalapril Maleate (Vasotec) 2.5 mg PO DAILY [facility] Famotidine (Pepcid) 20 mg IVP Q12 [facility] Last Admin: 09/24/16 21:32 Dose: 20 mg Hydromorphone HCl (Dilaudid) 0.5 mg IVP Q4H PRN PRN Reason: Pain, moderate (4-7) Lactated Ringer's (Lactated Ringer's) 1,000 mls @ 100 mls/hr IV .Q10H [facility] Sodium Chloride (Sodium Chloride 0.9%) 1,000 mls @ 100 mls/hr IV .Q10H [facility] Last Admin: 09/25/16 02:52 Dose: 100 mls/hr Insulin Aspart (Novolog) 0 unit SC ACHS [facility] PRN Reason: Protocol Last Admin: 09/24/16 21:30 Dose: Not Given Nitroglycerin (Nitro-Dur 0.1 Mg/Hr Patch) 1 patch TD DAILY [facility] Ondansetron HCl (Zofran Inj) 4 mg IVP Q4 PRN PRN Reason: Nausea/Vomiting Rosuvastatin Calcium (Crestor) 10 mg PO DAILY [facility] Valacyclovir HCl (Valtrex) 500 mg PO BID [facility] Last Admin: 09/24/16 18:14 Dose: 500 mg - Labs Labs: 09/25/16 05:54 09/25/16 05:54
[2016-09-25] MEDS: Nitroglycerin 0.1 mg/hr Top Patch TD SCH (10:00)
[2016-09-25] MEDS ORDERED: Lidocaine 1% Inj (20ml) ONE (11:06)
[2016-09-25] MEDS ORDERED: Lactated Ringer's 1,000 ML IV ONE (11:17)
[2016-09-25] MEDS: Ciprofloxacin 400mg/200ml D5W 400 MG/200 ML BAG IVPB ONE ×2 (11:20→11:45)
[2016-09-25] MEDS ORDERED: Albuterol-Ipratrop 3 mg / 0.5 (3 ml) UD INH STA (11:21)
[2016-09-25] MEDS ORDERED: Albuterol-Ipratrop 3 mg / 0.5 (3 ml) UD ONE (11:25)
[2016-09-25] MEDS ORDERED: Etomidate 20 mg/10ml Inj IV ONE (11:32)
[2016-09-25] MEDS: Gentamicin 80 mg in 0.9% NS 160 MG/200 ML BAG IVPB ONE ×2 (11:35→11:46)
[2016-09-25] MEDS ORDERED: Albuterol-Ipratrop 3 mg / 0.5 (3 ml) UD INH PRN (11:44)
[2016-09-25] MEDS: Lidocaine 1% Inj (20ml) ONE ×2 (11:46→11:59)
[2016-09-25] MEDS: Lidocaine 2% Jelly (Uro-Jet) ONE ×4 (11:48→12:01)
[2016-09-25] MEDS ORDERED: Iohexol 240 200 ML IJ ONE (12:03)
--- NOTE | 2016-09-25 12:09 | PCM.SURG1 ---
Surgeon's Initial Post Op Note - Surgeon's Notes Surgeon: Davidson Switch Technician: bina Type of Anesthesia: General Endo Anesthesia Administered By: Myron Pre-Operative Diagnosis: urinary retention Operative Findings: Massivly distened bladder/cath trauma Post-Operative Diagnosis: urinary retention/cath trauma bph Operation Performed: Cysto/suprapubic cystotomy insert crouch difficult. Specimen/Specimens Removed: na Estimated Blood Loss: EBL {In ML}: 20 Blood Products Given: N/A Drains Used: No Drains Post-Op Condition: Good Date of Surgery/Procedure: 09/25/16 Time of Surgery/Procedure: 12:09
--- NOTE | 2016-09-25 12:51 | CP.CCUPN ---
<Noe Morgan - Last Filed: 09/25/16 12:42> CCU Subjective - Physician Review Subjective (Free Text): 09/25/16 12:42 Patient seen and examined at bedside. No acute distress. No acute events overnight. Nursing staff reports that patient has been unable to void and attempt to insert crouch catheter was unsuccessful. The nursing staff communicated this information to surgical team. Dr. Cedeño consulted for crouch catheter insertion. The patient denies fever, chills, N/V/D/C, chest pain, abdominal pain, SOB, cough, and paresthesias. Today, the patient remains hemodynamically stable and communicates with grunts/ moans. The dressing over the site of the carotid endarterectomy is clean, dry, and intact. Post rounds, crouch insertion attempt at bedside by Dr. Cedeño unsuccessful. The patient was taken to the OR for cystoscopy and catheter placement due to urinary retention. In the OR, the patient became short of breath. Nubulizer treatments did not resolve the issue. The patient had respiratory distress with bronchospam and was subsequently intubated in the OR. The patient's mild anemia was also addressed with 1u pRBC. The son, Vijay Martinez Jr. gave informed consent for the blood transfusion over the phone to myself and verified with 2 nurses. Critical Care Time Spent (in minutes): 90 CCU Objective - Vital Signs / Intake & Output Vital Signs (Last 4 hours): Vital Signs Pulse Resp BP Pulse Ox 09/25/16 11:00 98 H 19 126/50 L 99 09/25/16 10:00 97 H 18 104/58 L 99 09/25/16 09:00 98 H 18 104/78 100 Intake and Output (Last 8hrs): Intake & Output 09/24/16 09/25/16 09/25/16 22:59 06:59 14:59 Intake Total 600 1000 420 Balance 600 1000 420 Weight 67.5 kg 67.4 kg Intake: Intake, IV Amount 400 800 300 Right Distal Port 400 800 300 Internal Jugular Oral 200 200 120 Other: # Bowel Movements 0 0 0 - Physical Exam Head: Positive for: Atraumatic, Normocephalic Pupils: Positive for: PERRL Extroacular Muscles: Positive for: EOMI Conjunctiva: Positive for: Normal Neck: Positive for: Other (dressing CDI, R TLC in place). Negative for: JVD Respiratory/Chest: Positive for: Clear to Auscultation, Good Air Exchange, Other (s/p intubation ). Negative for: Respiratory Distress, Accessory Muscle Use, Wheezes, Decreased Breath Sounds, Rales Cardiovascular: Positive for: Regular Rate and Rhythm, Normal S1, S2, Peripheal Pulses Present. Negative for: Murmurs Abdomen: Positive for: Normal Bowel Sounds. Negative for: Tenderness, Distention, Peritoneal Signs, Rebound, Guarding Upper Extremity: Positive for: Normal Inspection, NORMAL PULSES. Negative for: Cyanosis, Edema Lower Extremity: Positive for: Normal Inspection, NORMAL PULSES. Negative for: Edema, CALF TENDERNESS Skin: Positive for: Warm, Dry, Normal Color. Negative for: Rashes - Medications Active Medications: Active Medications Generic Name Dose Route Start Last Admin Trade Name Freq PRN Reason Stop Dose Admin Albuterol/Ipratropium 3 ml 09/25/16 14:00 Duoneb 3 Mg/0.5 Mg (3 Ml) Ud INH RQ6 [facility] Albuterol/Ipratropium 3 ml 09/25/16 11:44 Duoneb 3 Mg/0.5 Mg (3 Ml) Ud INH RQ2 PRN Shortness of Breath Aspirin 81 mg 09/25/16 10:00 09/25/16 11:00 Aspirin Chewable PO Not Given DAILY [facility] Carvedilol 6.25 mg 09/24/16 18:00 09/25/16 10:00 Coreg PO Not Given BID [facility] Clopidogrel Bisulfate 75 mg 09/25/16 10:00 09/25/16 11:47 Plavix PO Not Given DAILY [facility] Enalapril Maleate 2.5 mg 09/25/16 10:00 09/25/16 10:30 Vasotec PO Not Given DAILY [facility] Famotidine 20 mg 09/24/16 22:00 09/24/16 21:32 Pepcid IVP 20 mg Q12 [facility] Administration Hydromorphone HCl 0.5 mg 09/24/16 14:27 Dilaudid IVP Q4H PRN Pain, moderate (4-7) Sodium Chloride 1,000 mls @ 100 mls/hr 09/24/16 14:45 09/25/16 02:52 Sodium Chloride 0.9% IV 100 mls/hr .Q10H [facility] Administration Insulin Aspart 0 unit 09/24/16 16:30 09/25/16 07:30 Novolog SC Not Given ACHS [facility] Protocol Methylprednisolone 40 mg 09/25/16 14:00 Solu-Medrol IVP Q8 [facility] Nitroglycerin 1 patch 09/24/16 14:30 Nitro-Dur 0.1 Mg/Hr Patch TD DAILY [facility] Ondansetron HCl 4 mg 09/24/16 14:28 Zofran Inj IVP Q4 PRN Nausea/Vomiting Rosuvastatin Calcium 10 mg 09/25/16 10:00 09/25/16 11:00 Crestor PO Not Given DAILY [facility] Valacyclovir HCl 500 mg 09/24/16 18:00 09/25/16 10:30 Valtrex PO Not Given BID [facility] - Patient Studies Lab Studies: Lab Studies 09/25/16 09/25/16 09/24/16 Range/Units 05:54 05:54 21:12 WBC 6.4 (4.8-10.8) K/uL RBC 2.43 L (4.40-5.90) Mil/uL Hgb 8.0 L (12.0-18.0) g/dL Hct 23.3 L (35.0-51.0) % MCV 95.9 H (80.0-94.0) fL MCH 32.8 H (27.0-31.0) pg MCHC 34.2 (33.0-37.0) g/dL RDW 13.8 (11.5-14.5) % Plt Count 98 L (130-400) K/uL MPV 9.0 (7.2-11.7) fL Neut % (Auto) 76.0 H (50.0-75.0) % Lymph % (Auto) 13.2 L (20.0-40.0) % Drew % (Auto) 8.0 (0.0-10.0) % Eos % (Auto) 2.2 (0.0-4.0) % Baso % (Auto) 0.6 (0.0-2.0) % Neut # 4.9 (1.8-7.0) K/uL Lymph # 0.8 L (1.0-4.3) K/uL Drew # 0.5 (0.0-0.8) K/uL Eos # 0.1 (0.0-0.7) K/uL Baso # 0.0 (0.0-0.2) K/uL Differential Comment Sodium 136 (132-148) mmol/L Potassium 4.1 (3.6-5.2) mmol/L Chloride 104 (98-107) mmol/L Carbon Dioxide 26 (22-30) mmol/L Anion Gap 11 (10-20) BUN 22 H (9-20) mg/dL Creatinine 1.4 (0.8-1.5) MG/DL Est GFR ( Amer) 59 Est GFR (Non-Af Amer) 49 POC Glucose (mg/dL) 158 H (65-110) mg/dL Random Glucose 138 H (75-110) mg/dL Calcium 8.1 L (8.6-10.4) mg/dl Phosphorus 3.0 (2.5-4.5) mg/dL Magnesium 1.6 (1.6-2.3) mg/dL Total Bilirubin 0.7 (0.2-1.3) mg/dL AST 134 H D (17-59) U/L ALT 210 H D (21-72) U/L Alkaline Phosphatase 102 (38-126) U/L Total Protein 5.1 L (6.3-8.3) g/dL Albumin 2.9 L D (3.5-5.0) g/dL Globulin 2.2 (2.2-3.9) gm/dL Albumin/Globulin Ratio 1.3 (1.0-2.1) 09/24/16 09/24/16 Range/Units 16:37 16:30 WBC 7.7 (4.8-10.8) K/uL RBC 2.63 L (4.40-5.90) Mil/uL Hgb 8.6 L D (12.0-18.0) g/dL Hct 25.2 L (35.0-51.0) % MCV 95.7 H (80.0-94.0) fL MCH 32.5 H (27.0-31.0) pg MCHC 33.9 (33.0-37.0) g/dL RDW 13.8 (11.5-14.5) % Plt Count 91 L (130-400) K/uL MPV 9.2 (7.2-11.7) fL Neut % (Auto) 81.2 H (50.0-75.0) % Lymph % (Auto) 10.7 L (20.0-40.0) % Drew % (Auto) 6.8 (0.0-10.0) % Eos % (Auto) 0.8 (0.0-4.0) % Baso % (Auto) 0.5 (0.0-2.0) % Neut # 6.3 (1.8-7.0) K/uL Lymph # 0.8 L (1.0-4.3) K/uL Drew # 0.5 (0.0-0.8) K/uL Eos # 0.1 (0.0-0.7) K/uL Baso # 0.0 (0.0-0.2) K/uL Differential Comment Sodium (132-148) mmol/L Potassium (3.6-5.2) mmol/L Chloride (98-107) mmol/L Carbon Dioxide (22-30) mmol/L Anion Gap (10-20) BUN (9-20) mg/dL Creatinine (0.8-1.5) MG/DL Est GFR ( Amer) Est GFR (Non-Af Amer) POC Glucose (mg/dL) 210 H (65-110) mg/dL Random Glucose (75-110) mg/dL Calcium (8.6-10.4) mg/dl Phosphorus (2.5-4.5) mg/dL Magnesium (1.6-2.3) mg/dL Total Bilirubin (0.2-1.3) mg/dL AST (17-59) U/L ALT (21-72) U/L Alkaline Phosphatase (38-126) U/L Total Protein (6.3-8.3) g/dL Albumin (3.5-5.0) g/dL Globulin (2.2-3.9) gm/dL Albumin/Globulin Ratio (1.0-2.1) Laboratory Results - last 24 hr 09/24/16 09/24/16 09/24/16 16:30 16:37 21:12 WBC 7.7 RBC 2.63 L Hgb 8.6 L D Hct 25.2 L MCV 95.7 H MCH 32.5 H MCHC 33.9 RDW 13.8 Plt Count 91 L MPV 9.2 Neut % (Auto) 81.2 H Lymph % (Auto) 10.7 L Drew % (Auto) 6.8 Eos % (Auto) 0.8 Baso % (Auto) 0.5 Neut # 6.3 Lymph # 0.8 L Drew # 0.5 Eos # 0.1 Baso # 0.0 Differential Comment Sodium Potassium Chloride Carbon Dioxide Anion Gap BUN Creatinine Est GFR ( Amer) Est GFR (Non-Af Amer) POC Glucose (mg/dL) 210 H 158 H Random Glucose Calcium Phosphorus Magnesium Total Bilirubin AST ALT Alkaline Phosphatase Total Protein Albumin Globulin Albumin/Globulin Ratio 09/25/16 09/25/16 05:54 05:54 WBC 6.4 RBC 2.43 L Hgb 8.0 L Hct 23.3 L MCV 95.9 H MCH 32.8 H MCHC 34.2 RDW 13.8 Plt Count 98 L MPV 9.0 Neut % (Auto) 76.0 H Lymph % (Auto) 13.2 L Drew % (Auto) 8.0 Eos % (Auto) 2.2 Baso % (Auto) 0.6 Neut # 4.9 Lymph # 0.8 L Drew # 0.5 Eos # 0.1 Baso # 0.0 Differential Comment Sodium 136 Potassium 4.1 Chloride 104 Carbon Dioxide 26 Anion Gap 11 BUN 22 H Creatinine 1.4 Est GFR ( Amer) 59 Est GFR (Non-Af Amer) 49 POC Glucose (mg/dL) Random Glucose 138 H Calcium 8.1 L Phosphorus 3.0 Magnesium 1.6 Total Bilirubin 0.7 AST 134 H D ALT 210 H D Alkaline Phosphatase 102 Total Protein 5.1 L Albumin 2.9 L D Globulin 2.2 Albumin/Globulin Ratio 1.3 Fingerstick Blood Sugar Results: 210 Review of Systems - Review of Systems Systems not reviewed;Unavailable: Intubated Critical Care Progress Note - Ventilator Checklist Head of Bed 30 Degrees: Yes PUD Prophalyxis: Yes DVT Prophylaxis: No - Vent Settings MODE:: PRVC TIDAL VOLUME:: 500 RESP RATE:: 12 FIO2:: 30 PEEP:: 5 - Extremities/Vascular Does the Patient have a Central Venous Catheter?: Yes Insertion Site: Internal Jugular Vein (right) Does the Patient need a Central Venous Catheter?: Yes Does the Patient have a Crouch Catheter?: Yes Does the Patient need a Crouch Catheter?: Yes Catheter Insertion Criteria: Urologic Study/Urologic/Gynecologic - Prophylaxis GI Prophylaxis GI: PPI - Prophylaxis DVT Prophylaxis DVT: Not Indicated - Nutrition Nutrition: Nutrition Category Date Time Status Liquid Diet [DIET] Diets 09/24/16 Lunch Active Assessment/Plan (1) Postop carotid endarterectomy surveillance, encounter for Current Visit: Yes Status: Acute (2) History of carotid endarterectomy Current Visit: Yes Status: Acute (3) Carotid stenosis, bilateral Current Visit: No Status: Acute - Assessment and Plan (Free Text) Plan: Patient Status: -Intubated Neuro: -prior CVA -intubated Cardiovascular: -SBP <160mmhg -Nitro paste as needed -HTN- Coreg 6.5mg po bid, enalapril 2.5mg po daily -Crestor 10mg po hs -Aspirin 81mg po daily -Plavix 75mg po daily Pulmonary: -PRVC (500 / 12 / 30% / 5) -post intubation CXR -Solumedrol 40mg IV q8 -Duonebs -09/24/16 CXR- no acute issues, no active disease Gastrointestinal: -Clear liquid diet -Advance as per surgical team -No acute issues Endocrine: -Accucheck ACHS -Insulin Sliding Scale Renal: -IVF- NS @100ml/hr Genitourinary: -monitor I&Os -catheter inserted by Dr. Cedeño (urology) for urinary retention 2/2 bph Musculoskeletal: -No acute issues -PT/OT eval and treat Hematology/Oncology: -Normocytic Anemia -Consent for transfusion 1u pRBC obtained with give 1u Infectious Disease: -no issues GI Prophylaxis: Pepcid 20mg IV q12 DVT Prophylaxis: SCDs Case Discussed with Dr. Juan M Morgan PGY1 - Date & Time Date: 09/25/16 Time: 12:57 <Doc Mcgowan - Last Filed: 09/25/16 18:31> CCU Subjective - Physician Review Critical Care Time Spent (in minutes): 40 CCU Objective - Vital Signs / Intake & Output Vital Signs (Last 4 hours): Vital Signs Temp Pulse Resp BP Pulse Ox 09/25/16 16:41 98.6 F 78 18 104/54 L 09/25/16 16:00 98.8 F 75 22 106/55 L 99 09/25/16 15:14 97.4 F L 73 19 92/53 L 09/25/16 15:00 76 18 92/53 L 100 09/25/16 14:44 97.2 F L 76 21 88/54 L Intake and Output (Last 8hrs): Intake & Output 09/25/16 09/25/16 09/25/16 06:59 14:59 22:59 Intake Total 1000 540 445 Output Total 62 30 Balance 1000 478 415 Weight 148 lb 9.465 oz Intake: Intake, IV Amount 800 420 20 Right Distal Port 800 420 20 Internal Jugular Oral 200 120 Blood Product 0 325 Red Blood Cells Cpd As1 0 325 Lr Unit [id number] Other 100 Red Blood Cells Cpd As1 100 Lr Unit [id number] Output: Urine 62 30 2-way Urethral 27 15 Suprapubic 35 15 Other: # Bowel Movements 0 0 - Medications Active Medications: Active Medications Generic Name Dose Route Start Last Admin Trade Name Freq PRN Reason Stop Dose Admin Albuterol/Ipratropium 3 ml 09/25/16 14:00 09/25/16 13:45 Duoneb 3 Mg/0.5 Mg (3 Ml) Ud INH 3 ml RQ6 [facility] Administration Albuterol/Ipratropium 3 ml 09/25/16 11:44 Duoneb 3 Mg/0.5 Mg (3 Ml) Ud INH RQ2 PRN Shortness of Breath Aspirin 81 mg 09/25/16 10:00 09/25/16 11:00 Aspirin Chewable PO Not Given DAILY [facility] Carvedilol 6.25 mg 09/24/16 18:00 09/25/16 17:59 Coreg PO Not Given BID [facility] Clopidogrel Bisulfate 75 mg 09/25/16 10:00 09/25/16 11:47 Plavix PO Not Given DAILY [facility] Enalapril Maleate 2.5 mg 09/25/16 10:00 09/25/16 10:30 Vasotec PO Not Given DAILY [facility] Famotidine 20 mg 09/24/16 22:00 09/25/16 10:00 Pepcid IVP 20 mg Q12 [facility] Administration Hydromorphone HCl 0.5 mg 09/24/16 14:27 Dilaudid IVP Q4H PRN Pain, moderate (4-7) Sodium Chloride 1,000 mls @ 100 mls/hr 09/24/16 14:45 09/25/16 16:26 Sodium Chloride 0.9% IV 100 mls/hr .Q10H [facility] Administration Sodium Chloride 500 mls @ 1,000 mls/hr 09/25/16 18:19 Sodium Chloride 0.9% IV 09/25/16 18:48 .Q30M ONE Insulin Aspart 0 unit 09/25/16 18:00 09/25/16 18:02 Novolog SC 3 unit Q6H [facility] Administration Protocol Methylprednisolone 40 mg 09/25/16 14:00 09/25/16 14:00 Solu-Medrol IVP 40 mg Q8 [facility] Administration Nitroglycerin 1 patch 09/24/16 14:30 09/25/16 10:00 Nitro-Dur 0.1 Mg/Hr Patch TD Not Given DAILY [facility] Ondansetron HCl 4 mg 09/24/16 14:28 Zofran Inj IVP Q4 PRN Nausea/Vomiting Rosuvastatin Calcium 10 mg 09/25/16 10:00 09/25/16 11:00 Crestor PO Not Given DAILY [facility] Valacyclovir HCl 500 mg 09/24/16 18:00 09/25/16 18:03 Valtrex PO Not Given BID [facility] - Patient Studies Lab Studies: Lab Studies 09/25/16 09/25/16 09/25/16 Range/Units 17:59 14:24 12:41 WBC (4.8-10.8) K/uL RBC (4.40-5.90) Mil/uL Hgb (12.0-18.0) g/dL Hct (35.0-51.0) % MCV (80.0-94.0) fL MCH (27.0-31.0) pg MCHC (33.0-37.0) g/dL RDW (11.5-14.5) % Plt Count (130-400) K/uL MPV (7.2-11.7) fL Neut % (Auto) (50.0-75.0) % Lymph % (Auto) (20.0-40.0) % Drew % (Auto) (0.0-10.0) % Eos % (Auto) (0.0-4.0) % Baso % (Auto) (0.0-2.0) % Neut # (1.8-7.0) K/uL Lymph # (1.0-4.3) K/uL Drew # (0.0-0.8) K/uL Eos # (0.0-0.7) K/uL Baso # (0.0-0.2) K/uL Differential Comment Puncture Site Rr pCO2 23 L (35-45) mm/Hg pO2 114 H (80-100) mm/Hg HCO3 25.5 (21-28) mmol/L ABG pH 7.57 H (7.35-7.45) ABG Total CO2 21.8 L (22-28) mmol/L ABG O2 Saturation 99.7 H (95-98) % ABG Base Excess 0.7 (-2.0-3.0) mmol/L Isaiah Test Pos ABG Potassium 4.3 (3.6-5.2) mmol/L A-a O2 Difference 71.0 mm/Hg Respiratory Index 0.6 Glucose 208 H (75-110) mg/dl Lactate 1.5 (0.7-2.1) mmol/L Mechanical Rate 12 FiO2 30.0 % Tidal Volume 500 PEEP 5 Sodium 138.0 (132-148) mmol/L Potassium (3.6-5.2) mmol/L Chloride 114.0 H (98-107) mmol/L Carbon Dioxide (22-30) mmol/L Anion Gap (10-20) BUN (9-20) mg/dL Creatinine (0.8-1.5) MG/DL Est GFR ( Amer) Est GFR (Non-Af Amer) POC Glucose (mg/dL) 286 H (65-110) mg/dL Random Glucose (75-110) mg/dL Calcium (8.6-10.4) mg/dl Phosphorus (2.5-4.5) mg/dL Magnesium (1.6-2.3) mg/dL Total Bilirubin (0.2-1.3) mg/dL AST (17-59) U/L ALT (21-72) U/L Alkaline Phosphatase (38-126) U/L Total Protein (6.3-8.3) g/dL Albumin (3.5-5.0) g/dL Globulin (2.2-3.9) gm/dL Albumin/Globulin Ratio (1.0-2.1) Arterial Blood Potassium 4.3 (3.6-5.2) mmol/L Blood Type O POSITIVE Antibody Screen Negative 09/25/16 09/25/16 09/24/16 Range/Units 05:54 05:54 21:12 WBC 6.4 (4.8-10.8) K/uL RBC 2.43 L (4.40-5.90) Mil/uL Hgb 8.0 L (12.0-18.0) g/dL Hct 23.3 L (35.0-51.0) % MCV 95.9 H (80.0-94.0) fL MCH 32.8 H (27.0-31.0) pg MCHC 34.2 (33.0-37.0) g/dL RDW 13.8 (11.5-14.5) % Plt Count 98 L (130-400) K/uL MPV 9.0 (7.2-11.7) fL Neut % (Auto) 76.0 H (50.0-75.0) % Lymph % (Auto) 13.2 L (20.0-40.0) % Drew % (Auto) 8.0 (0.0-10.0) % Eos % (Auto) 2.2 (0.0-4.0) % Baso % (Auto) 0.6 (0.0-2.0) % Neut # 4.9 (1.8-7.0) K/uL Lymph # 0.8 L (1.0-4.3) K/uL Drew # 0.5 (0.0-0.8) K/uL Eos # 0.1 (0.0-0.7) K/uL Baso # 0.0 (0.0-0.2) K/uL Differential Comment Puncture Site pCO2 (35-45) mm/Hg pO2 (80-100) mm/Hg HCO3 (21-28) mmol/L ABG pH (7.35-7.45) ABG Total CO2 (22-28) mmol/L ABG O2 Saturation (95-98) % ABG Base Excess (-2.0-3.0) mmol/L Isaiah Test ABG Potassium (3.6-5.2) mmol/L A-a O2 Difference mm/Hg Respiratory Index Glucose (75-110) mg/dl Lactate (0.7-2.1) mmol/L Mechanical Rate FiO2 % Tidal Volume PEEP Sodium 136 (132-148) mmol/L Potassium 4.1 (3.6-5.2) mmol/L Chloride 104 (98-107) mmol/L Carbon Dioxide 26 (22-30) mmol/L Anion Gap 11 (10-20) BUN 22 H (9-20) mg/dL Creatinine 1.4 (0.8-1.5) MG/DL Est GFR ( Amer) 59 Est GFR (Non-Af Amer) 49 POC Glucose (mg/dL) 158 H (65-110) mg/dL Random Glucose 138 H (75-110) mg/dL Calcium 8.1 L (8.6-10.4) mg/dl Phosphorus 3.0 (2.5-4.5) mg/dL Magnesium 1.6 (1.6-2.3) mg/dL Total Bilirubin 0.7 (0.2-1.3) mg/dL AST 134 H D (17-59) U/L ALT 210 H D (21-72) U/L Alkaline Phosphatase 102 (38-126) U/L Total Protein 5.1 L (6.3-8.3) g/dL Albumin 2.9 L D (3.5-5.0) g/dL Globulin 2.2 (2.2-3.9) gm/dL Albumin/Globulin Ratio 1.3 (1.0-2.1) Arterial Blood Potassium (3.6-5.2) mmol/L Blood Type Antibody Screen 09/24/16 Range/Units 16:37 WBC (4.8-10.8) K/uL RBC (4.40-5.90) Mil/uL Hgb (12.0-18.0) g/dL Hct (35.0-51.0) % MCV (80.0-94.0) fL MCH (27.0-31.0) pg MCHC (33.0-37.0) g/dL RDW (11.5-14.5) % Plt Count (130-400) K/uL MPV (7.2-11.7) fL Neut % (Auto) (50.0-75.0) % Lymph % (Auto) (20.0-40.0) % Drew % (Auto) (0.0-10.0) % Eos % (Auto) (0.0-4.0) % Baso % (Auto) (0.0-2.0) % Neut # (1.8-7.0) K/uL Lymph # (1.0-4.3) K/uL Drew # (0.0-0.8) K/uL Eos # (0.0-0.7) K/uL Baso # (0.0-0.2) K/uL Differential Comment Puncture Site pCO2 (35-45) mm/Hg pO2 (80-100) mm/Hg HCO3 (21-28) mmol/L ABG pH (7.35-7.45) ABG Total CO2 (22-28) mmol/L ABG O2 Saturation (95-98) % ABG Base Excess (-2.0-3.0) mmol/L Isaiah Test ABG Potassium (3.6-5.2) mmol/L A-a O2 Difference mm/Hg Respiratory Index Glucose (75-110) mg/dl Lactate (0.7-2.1) mmol/L Mechanical Rate FiO2 % Tidal Volume PEEP Sodium (132-148) mmol/L Potassium (3.6-5.2) mmol/L Chloride (98-107) mmol/L Carbon Dioxide (22-30) mmol/L Anion Gap (10-20) BUN (9-20) mg/dL Creatinine (0.8-1.5) MG/DL Est GFR ( Amer) Est GFR (Non-Af Amer) POC Glucose (mg/dL) (65-110) mg/dL Random Glucose (75-110) mg/dL Calcium (8.6-10.4) mg/dl Phosphorus (2.5-4.5) mg/dL Magnesium (1.6-2.3) mg/dL Total Bilirubin (0.2-1.3) mg/dL AST (17-59) U/L ALT (21-72) U/L Alkaline Phosphatase (38-126) U/L Total Protein (6.3-8.3) g/dL Albumin (3.5-5.0) g/dL Globulin (2.2-3.9) gm/dL Albumin/Globulin Ratio (1.0-2.1) Arterial Blood Potassium (3.6-5.2) mmol/L Blood Type Antibody Screen Laboratory Results - last 24 hr 09/24/16 09/24/16 09/25/16 16:37 21:12 05:54 WBC RBC Hgb Hct MCV MCH MCHC RDW Plt Count MPV Neut % (Auto) Lymph % (Auto) Drew % (Auto) Eos % (Auto) Baso % (Auto) Neut # Lymph # Drew # Eos # Baso # Differential Comment Puncture Site pCO2 pO2 HCO3 ABG pH ABG Total CO2 ABG O2 Saturation ABG Base Excess Isaiah Test ABG Potassium A-a O2 Difference Respiratory Index Glucose Lactate Mechanical Rate FiO2 Tidal Volume PEEP Sodium 136 Potassium 4.1 Chloride 104 Carbon Dioxide 26 Anion Gap 11 BUN 22 H Creatinine 1.4 Est GFR ( Amer) 59 Est GFR (Non-Af Amer) 49 POC Glucose (mg/dL) 158 H Random Glucose 138 H Calcium 8.1 L Phosphorus 3.0 Magnesium 1.6 Total Bilirubin 0.7 AST 134 H D ALT 210 H D Alkaline Phosphatase 102 Total Protein 5.1 L Albumin 2.9 L D Globulin 2.2 Albumin/Globulin Ratio 1.3 Arterial Blood Potassium Blood Type Antibody Screen 09/25/16 09/25/16 09/25/16 05:54 12:41 14:24 WBC 6.4 RBC 2.43 L Hgb 8.0 L Hct 23.3 L MCV 95.9 H MCH 32.8 H MCHC 34.2 RDW 13.8 Plt Count 98 L MPV 9.0 Neut % (Auto) 76.0 H Lymph % (Auto) 13.2 L Drew % (Auto) 8.0 Eos % (Auto) 2.2 Baso % (Auto) 0.6 Neut # 4.9 Lymph # 0.8 L Drew # 0.5 Eos # 0.1 Baso # 0.0 Differential Comment Puncture Site Rr pCO2 23 L pO2 114 H HCO3 25.5 ABG pH 7.57 H ABG Total CO2 21.8 L ABG O2 Saturation 99.7 H ABG Base Excess 0.7 Isaiah Test Pos ABG Potassium 4.3 A-a O2 Difference 71.0 Respiratory Index 0.6 Glucose 208 H Lactate 1.5 Mechanical Rate 12 FiO2 30.0 Tidal Volume 500 PEEP 5 Sodium 138.0 Potassium Chloride 114.0 H Carbon Dioxide Anion Gap BUN Creatinine Est GFR ( Amer) Est GFR (Non-Af Amer) POC Glucose (mg/dL) Random Glucose Calcium Phosphorus Magnesium Total Bilirubin AST ALT Alkaline Phosphatase Total Protein Albumin Globulin Albumin/Globulin Ratio Arterial Blood Potassium 4.3 Blood Type O POSITIVE Antibody Screen Negative 09/25/16 17:59 WBC RBC Hgb Hct MCV MCH MCHC RDW Plt Count MPV Neut % (Auto) Lymph % (Auto) Drew % (Auto) Eos % (Auto) Baso % (Auto) Neut # Lymph # Drew # Eos # Baso # Differential Comment Puncture Site pCO2 pO2 HCO3 ABG pH ABG Total CO2 ABG O2 Saturation ABG Base Excess Isaiah Test ABG Potassium A-a O2 Difference Respiratory Index Glucose Lactate Mechanical Rate FiO2 Tidal Volume PEEP Sodium Potassium Chloride Carbon Dioxide Anion Gap BUN Creatinine Est GFR ( Amer) Est GFR (Non-Af Amer) POC Glucose (mg/dL) 286 H Random Glucose Calcium Phosphorus Magnesium Total Bilirubin AST ALT Alkaline Phosphatase Total Protein Albumin Globulin Albumin/Globulin Ratio Arterial Blood Potassium Blood Type Antibody Screen Critical Care Progress Note - Nutrition Nutrition: Nutrition Category Date Time Status Liquid Diet [DIET] Diets 09/24/16 Lunch Active Attending/Attestation - Attestation I have personally seen and examined this patient.: Yes I have fully participated in the care of the patient.: Yes I have reviewed all pertinent clinical information: Yes Notes (Text): 09/25/16 18:30 Patient seen and examined in the intensive care unit. Case discussed with STAFF in the morning rounds. patient was taken to the OR for cystoscopy and catheter placement due to urinary retention. In the OR, the patient became short of breath. Nubulizer treatments did not resolve the issue. The patient had respiratory distress with bronchospam and was subsequently intubated in the OR. The patient's mild anemia was also addressed with 2u pRBC. Continue ventilatory support for now and CPAP trial for morning IV steroids and nebulizer treatment Follow-up CBC
[2016-09-25] MEDS: Albuterol-Ipratrop 3 mg / 0.5 (3 ml) UD INH SCH ×2 (13:45→20:14)
[2016-09-25] MEDS: MethylPREDNISolone 40 mg Vial IVP SCH ×2 (14:00→21:06)
[2016-09-25 14:27] LABS: ABG ALLEN TEST POS; ABG MECHANICAL RATE 12; ATERIAL BLOOD GAS PEEP 5; DRAW SITE RR
[2016-09-25] MEDS: Magnesium Sulfate 1 gm in D5W 1 GM/100 ML BAG IVPB SCH ×4 (16:17→16:24)
--- NOTE | 2016-09-25 17:07 | RAD ---
HISTORY: s/p intubation COMPARISON: No prior. FINDINGS: LUNGS: In situ ETT, tip of which lies approximately 3.4 cm above ambar. Right-sided PICC line with the tip in the SVC unchanged. There is a small rounded opacity seen in the right lateral lower lung field which overlies the right posterior 8th and right anterior 5th rib. This could represent atelectasis over pneumonia. There also are some vague patchy opacity seen in the right lung bases well that could represent atelectasis and or developing infiltrate. Clinic correlation recommended. PLEURA: No significant pleural effusion identified, no pneumothorax apparent. CARDIOVASCULAR: Sternotomy wires, CABG clips and single lead pacemaker/defibrillator unchanged. Heart size within range of normal. OSSEOUS STRUCTURES: No significant abnormalities. VISUALIZED UPPER ABDOMEN: Normal. OTHER FINDINGS: None. IMPRESSION: Support lines and tubes as above. There is a small rounded opacity seen in the right lateral lower lung field which overlies the right posterior 8th and right anterior 5th rib. This could represent atelectasis over pneumonia. There also are some vague patchy opacity seen in the right lung bases well that could represent atelectasis and or developing infiltrate. Clinic correlation recommended.
--- NOTE | 2016-09-25 17:34 | RAD ---
PROCEDURE: Intraoperative Fluoroscopy. HISTORY: URINARY RETENTION FINDINGS: Fluoroscopic assistance was provided. Approximately 15 seconds of fluoroscopy time utilized during this procedure. Radiation dose = 2065.9 mGy
[2016-09-25] MEDS ORDERED: Sodium Chloride 0.9% 500 ML IV ONE (18:19)
[2016-09-25] MEDS: HYDROmorphone 0.5 mg/0.5 ml ISec IVP PRN (21:04)
[2016-09-25 22:28] LABS: HEMATOCRIT 28.2 % (35.0-51.0); MEAN CORPUSCULAR HEMOGLOBIN 28.8 pg (27.0-31.0); MEAN PLATELET VOLUME 9.8 fL (7.2-11.7); RED CELL DISTRIBUTION WIDTH 18.1 % (11.5-14.5); WHITE BLOOD COUNT 18.9 K/uL (4.8-10.8)
[2016-09-26] MEDS: Sodium Chloride 0.9% 1,000 ML IV SCH ×6 (00:21→21:30)
[2016-09-26] MEDS: (Novolog) Insulin Aspart, Recombinant 100 u/ml 10 ml vial SC SCH ×4 (00:24→18:19)
[2016-09-26] MEDS: Albuterol-Ipratrop 3 mg / 0.5 (3 ml) UD INH SCH ×4 (01:36→19:26)
[2016-09-26] MEDS: HYDROmorphone 0.5 mg/0.5 ml ISec IVP PRN ×3 (02:30→18:56)
[2016-09-26] MEDS: MethylPREDNISolone 40 mg Vial IVP SCH ×3 (05:44→21:31)
[2016-09-26 05:59] LABS: BASO % 0.1 % (0.0-2.0); HEMATOCRIT 25.7 % (35.0-51.0); LYMPH # 1.1 K/uL (1.0-4.3); LYMPH % 7.4 % (20.0-40.0); MEAN CELL VOLUME 90.1 fL (80.0-94.0); MEAN CORPUSCULAR HEMOGLOBIN 29.3 pg (27.0-31.0); MEAN CORPUSCULAR HGB CONC 32.5 g/dL (33.0-37.0); MEAN PLATELET VOLUME 9.7 fL (7.2-11.7); MONO # 0.7 K/uL (0.0-0.8); PLATELET COUNT 109 K/uL (130-400); RED CELL DISTRIBUTION WIDTH 18.4 % (11.5-14.5); WHITE BLOOD COUNT 14.6 K/uL (4.8-10.8)
[2016-09-26 06:10] LABS: POTASSIUM 5.1 mmol/L (3.6-5.2)
[2016-09-26 06:12] LABS: ALB/GLOB RATIO 1.1 (1.0-2.1); BILIRUBIN,TOTAL 0.5 mg/dL (0.2-1.3); PHOSPHOROUS 4.9 mg/dL (2.5-4.5); TOTAL PROTEIN 5.1 g/dL (6.3-8.3)
[2016-09-26 06:13] LABS: CALCIUM 7.6 mg/dl (8.6-10.4); MAGNESIUM 2.1 mg/dL (1.6-2.3)
[2016-09-26 08:44] LABS: NEUTROPHIL 91 % (50-75); TOTAL CELLS COUNTED 100
--- NOTE | 2016-09-26 09:05 | CP.PCM.CON ---
History of Present Illness - History of Present Illness History of Present Illness: CC: S/P Carotid Endarterectomy HPI: This is a 80 year old male well known to me with a PMH notable for HTN, IDDM, CAD s/p CABG, ICD placement, COPD/emphysema, and dementia presenting for critical care evaluation s/p left carotid endarterectomy. The patient is able to provide only minimal history and is a poor historian. He presently has a decreased ability to speak. He is only able to grunt yes or no, and is presently having difficulty completing full sentences. The history is largely obtained from chart review and previous records. The patient has a recent admission 09/15/16 at [facility] for insidious onset (2 weeks) facial droop, blurry vision, right tongue ageusia, and dysarthria. At that time, the patient had no gait instability or extremity weakness/paresthesias. 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 On admission, a carotid US was performed and revealed left and right proximal ICA stenosis of 70-95%. Dr. Torres was consulted on the case. Following the patient's admission, Dr. Rodríguez cleared the patient for discharge to [facility] with a planned return today 09/24/16 for left carotid endarterectomy in the OR. I was following the pt at [facility] and was medically clear for thr procedure. The patient is POD#0 s/p left carotid endarterectomy with Dr. Torres. The patient tolerated the procedure well and has been admitted to the ICU for monitoring is stable condition. The patient is hemodynamically stable with a dressing covering the operative site. The dressing is clean dry and intact. The patient appears in no acute distress at this time and reports that his pain is controlled. The patient denies all complaints at this time. The patient denies fever, chills, headache, chest pain, shortness of breath, abdominal pain , nausea, vomiting, diarrhea, constipation, changes in bowel/bladder, and extremity weakness/paresthesias. PMH: HTN, IDDM, CAD s/p CABG, ICD placement, COPD/emphysema, dementia PSH: CABG, pacemaker, left carotid endarterectomy Allergies: NKDA Social: 1/2 ppd for many years. Denies alcohol or illicit drug use Fhx: Non-contributor Review of Systems - Review of Systems Systems not reviewed;Unavailable: Acuity of Condition - Constitutional Constitutional: absent: As Per HPI, Anorexia, Chills, Daytime Sleepiness, Excessive Sweating, Fatigue, Fever, Frequent Falls, Headache, Increased Appetite , Lethargy, Malaise, Night Sweats, Snoring, Sleep Apnea, Weight Gain, Weight Loss, Weakness, Other - EENT Eyes: absent: As Per HPI, Blind Spots, Blurred Vision, Change in Vision, Decreased Night Vision, Diplopia, Discharge, Dry Eye, Exophthalmos, Floaters, Irritation, Itchy Eyes, Loss of Peripheral Vision, Pain, Photophobia, Requires Corrective Lenses, Sees Flashes, Spots in Vision, Tunnel Vision, Other Visual Disturbances, Loss of Vision, Other Ears: absent: As Per HPI, Decreased Hearing, Ear Discharge, Ear Pain, Tinnitus, Abnormal Hearing, Disequilibrium, Dizziness, Other Nose/Mouth/Throat: absent: As Per HPI, Epistaxis, Nasal Congestion, Nasal Discharge, Nasal Obstruction, Nasal Trauma, Nose Pain, Post Nasal Drip, Sinus Pain, Sinus Pressure, Bleeding Gums, Change in Voice, Dental Pain, Dry Mouth, Dysphagia, Halitosis, Hoarsness, Lip Swelling, Mouth Lesions, Mouth Pain, Odynophagia, Sore Throat, Throat Swelling, Tongue Swelling, Facial Pain, Neck Pain, Neck Mass, Other - Cardiovascular Cardiovascular: Leg Ulcers, Pedal Edema. absent: As Per HPI, Acrocyanosis, Chest Pain, Chest Pain at Rest, Chest Pain with Activity, Claudication, Diaphoresis, Dyspnea, Dyspnea on Exertion, Edema, Irregular Heart Rhythm, Pain Radiating to Arm/Neck/Jaw, Leg Edema, Lightheadedness, Orthopnea, Palpitations, Paroxysmal Nocturnal Dyspnea, Radiating Pain, Rapid Heart Rate, Slow Heart Rate , Syncope, Other - Respiratory Respiratory: absent: As Per HPI, Cough, Dyspnea, Hemoptysis, Dyspnea on Exertion , Wheezing, Snoring, Stridor, Pain on Inspiration, Chest Congestion, Excessive Mucous Production, Change in Mucous Color, Pain with Coughing, Other - Gastrointestinal Gastrointestinal: absent: As Per HPI, Abdominal Pain, Belching, Bloating, Change in Bowel Habits, Change in Stool Character, Coffee Ground Emesis, Constipation, Cramping, Diarrhea, Dyspepsia, Dysphagia, Early Satiety, Excessive Flatus, Fecal Incontinence, Heartburn, Hematemesis, Hematochezia, Loose Stools, Melena, Nausea, Odynophagia, Temesmus, Vomiting, Other - Genitourinary Genitourinary: absent: As Per HPI, Change in Urinary Stream, Difficulty Urinating, Dysuria, Flank Pain, Hematuria, Pyuria, Nocturia, Urinary Incontinence, Urinary Frequency, Urinary Hesitance, Urinary Urgency, Voiding Freq/Small Amts, Freq UTI, Hx Renal/Bladder Calculi, Hx /Renal Surgery, Bladder Distension, Other - Psychiatric Psychiatric: absent: As Per HPI, Abnormal Sleep Pattern, Anhedonia, Anxiety, Auditory Hallucinations, Behavioral Changes, Change in Appetite, Change in Libido, Confusion, Depression, Difficulty Concentrating, Hallucinations, Homicidal Ideation, Hopelessness, Irritability, Memory Loss, Mood Swings, Panic Attacks, Paranoia, Suicidal Ideation, Visual Hallucinations, Tactile Hallucinations, Other - Endocrine Endocrine: absent: As Per HPI, Change in Body Appearance, Change in Libido, Cold Intolorance, Deepening of Voice, Excessive Sweating, Fatigue, Flushing, Heat Intolorance, Increase in Ring/Shoe/Hat Size, Palpitations, Polydipsia, Polyphagia, Polyuria, Other Past Patient History - Infectious Disease Hx of Infectious Diseases: None - Past Medical History & Family History Past Medical History?: Yes - Past Social History Smoking Status: Former Smoker - CARDIAC Hx Cardiac Disorders: Yes (pacemaker defibrillator) Hx Cardia Arrhythmia: Yes Hx Hypertension: Yes Hx Internal Defibrillator: Yes Hx Pacemaker: Yes Other/Comment: carotid stenosis - PULMONARY Hx Respiratory Disorders: Yes Hx Chronic Obstructive Pulmonary Disease (COPD): Yes Hx Emphysema: Yes Other/Comment: o2 nasal cannula 2 liters - NEUROLOGICAL Hx Neurological Disorder: Yes HX Cerebrovascular Accident: Yes Hx Dementia: Yes - HEENT Hx HEENT Problems: No - ENDOCRINE/METABOLIC Hx Endocrine Disorders: Yes Hx Diabetes Mellitus Type 2: Yes - MUSCULOSKELETAL/RHEUMATOLOGICAL Hx Falls: No - GENITOURINARY/GYNECOLOGICAL Hx Genitourinary Disorders: Yes Hx Prostate Problems: Yes - SURGICAL HISTORY Hx Surgeries: Yes Hx Coronary Artery Bypass Graft: Yes Hx Open Heart Surgery: Yes - ANESTHESIA Hx Anesthesia: Yes Hx Anesthesia Reactions: No Hx Malignant Hyperthermia: No Meds Allergies/Adverse Reactions: Allergies Allergy/AdvReac Type Severity Reaction Status Date / Time No Known Allergies Allergy Verified 12/24/14 14:45 - Medications Medications: Current Medications Albuterol/Ipratropium (Duoneb 3 Mg/0.5 Mg (3 Ml) Ud) 3 ml INH RQ6 [facility] Last Admin: 09/26/16 07:46 Dose: 3 ml Albuterol/Ipratropium (Duoneb 3 Mg/0.5 Mg (3 Ml) Ud) 3 ml INH RQ2 PRN PRN Reason: Shortness of Breath Aspirin (Aspirin Chewable) 81 mg PO DAILY [facility] Last Admin: 09/25/16 11:00 Dose: Not Given Carvedilol (Coreg) 6.25 mg PO BID [facility] Last Admin: 09/25/16 17:59 Dose: Not Given Clopidogrel Bisulfate (Plavix) 75 mg PO DAILY [facility] Last Admin: 09/25/16 11:47 Dose: Not Given Enalapril Maleate (Vasotec) 2.5 mg PO DAILY [facility] Last Admin: 09/25/16 10:30 Dose: Not Given Famotidine (Pepcid) 20 mg IVP Q12 [facility] Last Admin: 09/25/16 21:06 Dose: 20 mg Hydromorphone HCl (Dilaudid) 0.5 mg IVP Q4H PRN PRN Reason: Pain, moderate (4-7) Last Admin: 09/26/16 02:30 Dose: 0.5 mg Sodium Chloride (Sodium Chloride 0.9%) 1,000 mls @ 100 mls/hr IV .Q10H [facility] Last Admin: 09/26/16 07:25 Dose: Not Given Insulin Aspart (Novolog) 0 unit SC Q6H [facility] PRN Reason: Protocol Last Admin: 09/26/16 05:43 Dose: 4 unit Methylprednisolone (Solu-Medrol) 40 mg IVP Q8 [facility] Last Admin: 09/26/16 05:44 Dose: 40 mg Nitroglycerin (Nitro-Dur 0.1 Mg/Hr Patch) 1 patch TD DAILY [facility] Last Admin: 09/25/16 10:00 Dose: Not Given Ondansetron HCl (Zofran Inj) 4 mg IVP Q4 PRN PRN Reason: Nausea/Vomiting Rosuvastatin Calcium (Crestor) 10 mg PO DAILY [facility] Last Admin: 09/25/16 11:00 Dose: Not Given Valacyclovir HCl (Valtrex) 500 mg PO BID [facility] Last Admin: 09/25/16 18:03 Dose: Not Given Physical Exam - Constitutional Appears: No Acute Distress, Chronically Ill - Head Exam Head Exam: ATRAUMATIC, NORMAL INSPECTION, NORMOCEPHALIC - Eye Exam Eye Exam: EOMI, Normal appearance, PERRL Pupil Exam: NORMAL ACCOMODATION, PERRL - Cardiovascular Exam Cardiovascular Exam: REGULAR RHYTHM - GI/Abdominal Exam GI & Abdominal Exam: Normal Bowel Sounds, Soft. absent: Tenderness - Rectal Exam Rectal Exam: Deferred Results - Vital Signs Recent Vital Signs: Last Vital Signs Temp 97.0 F L 09/26/16 08:00 Pulse 114 H 09/25/16 23:59 Resp 22 09/25/16 23:59 BP 134/68 09/25/16 23:59 Pulse Ox 98 09/25/16 23:59 - Labs Result Diagrams: 09/29/16 06:05 09/29/16 06:05 Labs: Laboratory Results - last 24 hr 09/25/16 09/25/16 09/25/16 12:41 14:24 17:59 WBC RBC Hgb Hct MCV MCH MCHC RDW Plt Count MPV Neut % (Auto) Lymph % (Auto) Mower % (Auto) Eos % (Auto) Baso % (Auto) Neut # Lymph # Mower # Eos # Baso # Neutrophils % (Manual) Lymphocytes % (Manual) Monocytes % (Manual) Platelet Estimate Anisocytosis (manual) PT INR APTT Puncture Site Rr pCO2 23 L pO2 114 H HCO3 25.5 ABG pH 7.57 H ABG Total CO2 21.8 L ABG O2 Saturation 99.7 H ABG Base Excess 0.7 Isaiah Test Pos ABG Potassium 4.3 A-a O2 Difference 71.0 Respiratory Index 0.6 Sodium 138.0 Chloride 114.0 H Glucose 208 H Lactate 1.5 Mechanical Rate 12 FiO2 30.0 Tidal Volume 500 PEEP 5 Potassium Carbon Dioxide Anion Gap BUN Creatinine Est GFR ( Amer) Est GFR (Non-Af Amer) POC Glucose (mg/dL) 286 H Random Glucose Calcium Phosphorus Magnesium Total Bilirubin AST ALT Alkaline Phosphatase Total Protein Albumin Globulin Albumin/Globulin Ratio Arterial Blood Potassium 4.3 Blood Type O POSITIVE Antibody Screen Negative 09/25/16 09/26/16 09/26/16 22:23 00:10 05:39 WBC 18.9 H D RBC 3.13 L Hgb 9.0 L Hct 28.2 L MCV 90.0 D MCH 28.8 MCHC 32.0 L RDW 18.1 H Plt Count 123 L D MPV 9.8 Neut % (Auto) Lymph % (Auto) Mower % (Auto) Eos % (Auto) Baso % (Auto) Neut # Lymph # Mower # Eos # Baso # Neutrophils % (Manual) Lymphocytes % (Manual) Monocytes % (Manual) Platelet Estimate Anisocytosis (manual) PT INR APTT Puncture Site pCO2 pO2 HCO3 ABG pH ABG Total CO2 ABG O2 Saturation ABG Base Excess Isaiah Test ABG Potassium A-a O2 Difference Respiratory Index Sodium Chloride Glucose Lactate Mechanical Rate FiO2 Tidal Volume PEEP Potassium Carbon Dioxide Anion Gap BUN Creatinine Est GFR ( Amer) Est GFR (Non-Af Amer) POC Glucose (mg/dL) 329 H 343 H Random Glucose Calcium Phosphorus Magnesium Total Bilirubin AST ALT Alkaline Phosphatase Total Protein Albumin Globulin Albumin/Globulin Ratio Arterial Blood Potassium Blood Type Antibody Screen 09/26/16 09/26/16 09/26/16 05:50 05:50 05:50 WBC 14.6 H RBC 2.86 L Hgb 8.4 L Hct 25.7 L MCV 90.1 MCH 29.3 MCHC 32.5 L RDW 18.4 H Plt Count 109 L MPV 9.7 Neut % (Auto) 87.5 H Lymph % (Auto) 7.4 L Mower % (Auto) 5.0 Eos % (Auto) 0.0 Baso % (Auto) 0.1 Neut # 12.8 H Lymph # 1.1 Mower # 0.7 Eos # 0.0 Baso # 0.0 Neutrophils % (Manual) 91 H Lymphocytes % (Manual) 6 L Monocytes % (Manual) 3 Platelet Estimate Slightly decreased L Anisocytosis (manual) Slight PT 10.8 INR 1.0 APTT 27 Puncture Site pCO2 pO2 HCO3 ABG pH ABG Total CO2 ABG O2 Saturation ABG Base Excess Isaiah Test ABG Potassium A-a O2 Difference Respiratory Index Sodium 133 Chloride 102 Glucose Lactate Mechanical Rate FiO2 Tidal Volume PEEP Potassium 5.1 Carbon Dioxide 20 L Anion Gap 16 BUN 34 H Creatinine 2.7 H Est GFR ( Amer) 28 Est GFR (Non-Af Amer) 23 POC Glucose (mg/dL) Random Glucose 265 H Calcium 7.6 L Phosphorus 4.9 H Magnesium 2.1 Total Bilirubin 0.5 AST 35 ALT 106 H D Alkaline Phosphatase 83 Total Protein 5.1 L Albumin 2.7 L Globulin 2.4 Albumin/Globulin Ratio 1.1 Arterial Blood Potassium Blood Type Antibody Screen Assessment & Plan (1) Postop carotid endarterectomy surveillance, encounter for Assessment and Plan: post op care in ICU Assessment and Plan (Free Text) Plan: Patient Status: -Intubated Neuro: -prior CVA -intubated Cardiovascular: -SBP <160mmhg -Nitro paste as needed -HTN- Coreg 6.5mg po bid, enalapril 2.5mg po daily -Crestor 10mg po hs -Aspirin 81mg po daily -Plavix 75mg po daily Pulmonary: -PRVC ( / / 30% / 5) -post intubation CXR -Solumedrol 40mg IV q8 -Duonebs -09/24/16 CXR- no acute issues, no active disease Gastrointestinal: -Clear liquid diet -Advance as per surgical team -No acute issues Endocrine: -Accucheck ACHS -Insulin Sliding Scale Renal: -IVF- NS @100ml/hr Genitourinary: -monitor I&Os -catheter inserted by Dr. Cedeño (urology) for urinary retention 2/2 bph Musculoskeletal: -No acute issues -PT/OT eval and treat Hematology/Oncology: -Normocytic Anemia -Consent for transfusion 1u pRBC obtained with give 1u Infectious Disease: -no issues GI Prophylaxis: Pepcid 20mg IV q12 DVT Prophylaxis: SCDs Case Discussed with Dr. Mcgowan Status: Acute (2) Bronchitis Status: Acute (3) COPD (chronic obstructive pulmonary disease) Status: Acute (4) Carotid stenosis, bilateral Status: Acute
--- NOTE | 2016-09-26 10:10 | CP.PCM.PN ---
Subjective - Date & Time of Evaluation Date of Evaluation: 09/26/16 Time of Evaluation: 10:08 - Subjective Subjective: Gu note Pt still intubated,awake alert. crouch and suprapubic clogged irrigated. now draining, suggest frequent irrigation of each tube. Davidson Objective - Vital Signs/Intake and Output Vital Signs (last 24 hours): Temp Pulse Resp BP Pulse Ox 97.0 F L 114 H 22 134/68 98 09/26/16 08:00 09/25/16 23:59 09/25/16 23:59 09/25/16 23:59 09/25/16 23:59 Intake and Output: 09/26/16 09/26/16 06:59 18:59 Intake Total 1810 100 Output Total 235 75 Balance 1575 25 - Medications Medications: Current Medications Albuterol/Ipratropium (Duoneb 3 Mg/0.5 Mg (3 Ml) Ud) 3 ml INH RQ6 [facility] Last Admin: 09/26/16 07:46 Dose: 3 ml Albuterol/Ipratropium (Duoneb 3 Mg/0.5 Mg (3 Ml) Ud) 3 ml INH RQ2 PRN PRN Reason: Shortness of Breath Aspirin (Aspirin Chewable) 81 mg PO DAILY [facility] Last Admin: 09/25/16 11:00 Dose: Not Given Carvedilol (Coreg) 6.25 mg PO BID [facility] Last Admin: 09/25/16 17:59 Dose: Not Given Clopidogrel Bisulfate (Plavix) 75 mg PO DAILY [facility] Last Admin: 09/25/16 11:47 Dose: Not Given Enalapril Maleate (Vasotec) 2.5 mg PO DAILY [facility] Last Admin: 09/25/16 10:30 Dose: Not Given Famotidine (Pepcid) 20 mg IVP DAILY [facility] Hydromorphone HCl (Dilaudid) 0.5 mg IVP Q4H PRN PRN Reason: Pain, moderate (4-7) Last Admin: 09/26/16 09:26 Dose: 0.5 mg Sodium Chloride (Sodium Chloride 0.9%) 1,000 mls @ 100 mls/hr IV .Q10H [facility] Last Admin: 09/26/16 07:25 Dose: Not Given Insulin Aspart (Novolog) 0 unit SC Q6H [facility] PRN Reason: Protocol Last Admin: 09/26/16 05:43 Dose: 4 unit Methylprednisolone (Solu-Medrol) 40 mg IVP Q8 [facility] Last Admin: 09/26/16 05:44 Dose: 40 mg Nitroglycerin (Nitro-Dur 0.1 Mg/Hr Patch) 1 patch TD DAILY [facility] Last Admin: 09/25/16 10:00 Dose: Not Given Ondansetron HCl (Zofran Inj) 4 mg IVP Q4 PRN PRN Reason: Nausea/Vomiting Rosuvastatin Calcium (Crestor) 10 mg PO DAILY [facility] Last Admin: 09/25/16 11:00 Dose: Not Given Valacyclovir HCl (Valtrex) 500 mg PO BID [facility] Last Admin: 09/25/16 18:03 Dose: Not Given - Labs Labs: 09/26/16 05:50 09/26/16 05:50 PT 10.8 SECONDS (9.7-12.2) 09/26/16 05:50 INR 1.0 09/26/16 05:50 APTT 27 SECONDS (21-34) 09/26/16 05:50
[2016-09-26] MEDS: Nitroglycerin 0.1 mg/hr Top Patch TD SCH (10:40)
--- NOTE | 2016-09-26 10:48 | CP.PCM.PN ---
Subjective - Date & Time of Evaluation Date of Evaluation: 09/26/16 Time of Evaluation: 10:39 - Subjective Subjective: Surgery: Dr. Torres Pt seen and examined. Pt is intubated. Awake and follows commands. Objective - Vital Signs/Intake and Output Vital Signs (last 24 hours): Temp Pulse Resp BP Pulse Ox 97.0 F L 114 H 22 134/68 98 09/26/16 08:00 09/25/16 23:59 09/25/16 23:59 09/25/16 23:59 09/25/16 23:59 Intake and Output: 09/26/16 09/26/16 06:59 18:59 Intake Total 1810 100 Output Total 235 75 Balance 1575 25 - Medications Medications: Current Medications Albuterol/Ipratropium (Duoneb 3 Mg/0.5 Mg (3 Ml) Ud) 3 ml INH RQ6 [facility] Last Admin: 09/26/16 07:46 Dose: 3 ml Albuterol/Ipratropium (Duoneb 3 Mg/0.5 Mg (3 Ml) Ud) 3 ml INH RQ2 PRN PRN Reason: Shortness of Breath Aspirin (Aspirin Chewable) 81 mg PO DAILY [facility] Last Admin: 09/25/16 11:00 Dose: Not Given Carvedilol (Coreg) 6.25 mg PO BID [facility] Last Admin: 09/25/16 17:59 Dose: Not Given Clopidogrel Bisulfate (Plavix) 75 mg PO DAILY [facility] Last Admin: 09/25/16 11:47 Dose: Not Given Enalapril Maleate (Vasotec) 2.5 mg PO DAILY [facility] Last Admin: 09/25/16 10:30 Dose: Not Given Famotidine (Pepcid) 20 mg IVP DAILY [facility] Hydromorphone HCl (Dilaudid) 0.5 mg IVP Q4H PRN PRN Reason: Pain, moderate (4-7) Last Admin: 09/26/16 09:26 Dose: 0.5 mg Sodium Chloride (Sodium Chloride 0.9%) 1,000 mls @ 100 mls/hr IV .Q10H [facility] Last Admin: 09/26/16 07:25 Dose: Not Given Insulin Aspart (Novolog) 0 unit SC Q6H [facility] PRN Reason: Protocol Last Admin: 09/26/16 05:43 Dose: 4 unit Methylprednisolone (Solu-Medrol) 40 mg IVP Q8 [facility] Last Admin: 09/26/16 05:44 Dose: 40 mg Nitroglycerin (Nitro-Dur 0.1 Mg/Hr Patch) 1 patch TD DAILY [facility] Last Admin: 09/25/16 10:00 Dose: Not Given Ondansetron HCl (Zofran Inj) 4 mg IVP Q4 PRN PRN Reason: Nausea/Vomiting Rosuvastatin Calcium (Crestor) 10 mg PO DAILY [facility] Last Admin: 09/25/16 11:00 Dose: Not Given Valacyclovir HCl (Valtrex) 500 mg PO BID [facility] Last Admin: 09/25/16 18:03 Dose: Not Given - Labs Labs: 09/26/16 05:50 09/26/16 05:50 PT 10.8 SECONDS (9.7-12.2) 09/26/16 05:50 INR 1.0 09/26/16 05:50 APTT 27 SECONDS (21-34) 09/26/16 05:50 - Constitutional Appears: Non-toxic, No Acute Distress - Head Exam Head Exam: ATRAUMATIC, NORMOCEPHALIC - Eye Exam Eye Exam: EOMI - Neck Exam Additional comments: L neck dressing in place - Respiratory Exam Additional comments: intubated - GI/Abdominal Exam Additional comments: suprapubic cystostomy - Extremities Exam Extremities Exam: absent: Calf Tenderness, Pedal Edema - Neurological Exam Neurological Exam: Alert, Awake Assessment and Plan - Assessment and Plan (Free Text) Assessment: 80M s/p L CEA, POD# 2, complicated by post-obstructive JYOTSNA requiring suprapubic catheter and acute respiratory failure requiring intubation -wean from vent -urology recommendations -will start heparin -c/w medical management -d/w attending Vanessa PGY2
--- NOTE | 2016-09-26 14:22 | RAD ---
HISTORY: s/p intubation COMPARISON: Comparison is made to the previous study dated 09/25/2016 FINDINGS: LUNGS: No evidence of new infiltrate or consolidation in the lungs. The ET tube is seen at appropriate position. PLEURA: No significant pleural effusion identified, no pneumothorax apparent. CARDIOVASCULAR: Normal. OSSEOUS STRUCTURES: No significant abnormalities. VISUALIZED UPPER ABDOMEN: Right-sided PICC line is seen in place. Left-sided pacemaker is also seen in place. OTHER FINDINGS: None. IMPRESSION: No significant interval change since the previous exam. Appropriate position of the support devices.
--- NOTE | 2016-09-26 17:12 | CP.CCUPN ---
<Noe Morgan - Last Filed: 09/26/16 17:09> CCU Subjective - Physician Review Subjective (Free Text): 09/25/16 12:42 Patient seen and examined at bedside. No acute distress. No acute events overnight. Nursing staff reports that patient has been unable to void and attempt to insert crouch catheter was unsuccessful. The nursing staff communicated this information to surgical team. Dr. Cedeño consulted for crouch catheter insertion. The patient denies fever, chills, N/V/D/C, chest pain, abdominal pain, SOB, cough, and paresthesias. Today, the patient remains hemodynamically stable and communicates with grunts/ moans. The dressing over the site of the carotid endarterectomy is clean, dry, and intact. Post rounds, crouch insertion attempt at bedside by Dr. Cedeño unsuccessful. The patient was taken to the OR for cystoscopy and catheter placement due to urinary retention. In the OR, the patient became short of breath. Nubulizer treatments did not resolve the issue. The patient had respiratory distress with bronchospam and was subsequently intubated in the OR. The patient's mild anemia was also addressed with 1u pRBC. The son, Vijay Martinez Jr. gave informed consent for the blood transfusion over the phone to myself and verified with 2 nurses. 09/26/16 17:09 Patient seen and examined at bedside. No acute distress. No acute events overnight. Nursing staff reports no issues. Patient had his catheters flushed this morning. The patient is planned for extubation. The patient has no acute complaints this AM. No interval change from prior examination. Today on rounds, the patient was started on CPAP + PS 10/5 with plan for extubation. Post rounds, the patient was extubated. The patient has tolerated extubation well. Critical Care Time Spent (in minutes): 60 CCU Objective - Vital Signs / Intake & Output Vital Signs (Last 4 hours): Vital Signs Temp Pulse Resp BP Pulse Ox 09/26/16 16:00 110 H 14 143/62 100 09/26/16 15:00 98.1 F 116 H 21 146/64 100 09/26/16 14:00 115 H 13 132/66 100 Intake and Output (Last 8hrs): Intake & Output 09/26/16 09/26/16 09/26/16 06:59 14:59 22:59 Intake Total 800 600 200 Output Total 190 1215 100 Balance 610 -615 100 Weight 72.3 kg Intake: Intake, IV Amount 800 600 200 Right Distal Port 800 600 200 Internal Jugular Output: Urine 190 1215 100 2-way Urethral 115 1115 100 Suprapubic 75 100 0 - Physical Exam Head: Positive for: Atraumatic, Normocephalic Pupils: Positive for: PERRL Extroacular Muscles: Positive for: EOMI Conjunctiva: Positive for: Normal Neck: Positive for: Other (dressing CDI, R TLC in place). Negative for: JVD Respiratory/Chest: Positive for: Clear to Auscultation, Good Air Exchange, Other (s/p intubation ). Negative for: Respiratory Distress, Accessory Muscle Use, Wheezes, Decreased Breath Sounds, Rales Cardiovascular: Positive for: Regular Rate and Rhythm, Normal S1, S2, Peripheal Pulses Present. Negative for: Murmurs Abdomen: Positive for: Normal Bowel Sounds. Negative for: Tenderness, Distention, Peritoneal Signs, Rebound, Guarding Upper Extremity: Positive for: Normal Inspection, NORMAL PULSES. Negative for: Cyanosis, Edema Lower Extremity: Positive for: Normal Inspection, NORMAL PULSES. Negative for: Edema, CALF TENDERNESS Skin: Positive for: Warm, Dry, Normal Color. Negative for: Rashes - Medications Active Medications: Active Medications Generic Name Dose Route Start Last Admin Trade Name Freq PRN Reason Stop Dose Admin Albuterol/Ipratropium 3 ml 09/25/16 14:00 09/26/16 13:14 Duoneb 3 Mg/0.5 Mg (3 Ml) Ud INH 3 ml RQ6 CHEPE Administration Albuterol/Ipratropium 3 ml 09/25/16 11:44 Duoneb 3 Mg/0.5 Mg (3 Ml) Ud INH RQ2 PRN Shortness of Breath Aspirin 81 mg 09/25/16 10:00 09/26/16 10:39 Aspirin Chewable PO Not Given DAILY [facility] Carvedilol 6.25 mg 09/24/16 18:00 09/26/16 10:39 Coreg PO Not Given BID [facility] Clopidogrel Bisulfate 75 mg 09/25/16 10:00 09/26/16 10:40 Plavix PO Not Given DAILY [facility] Enalapril Maleate 2.5 mg 09/25/16 10:00 09/26/16 10:41 Vasotec PO Not Given DAILY [facility] Famotidine 20 mg 09/27/16 10:00 Pepcid IVP DAILY [facility] Heparin Sodium (Porcine) 5,000 units 09/26/16 11:00 09/26/16 11:29 Heparin SC 5,000 units Q12 [facility]PE Administration Hydromorphone HCl 0.5 mg 09/24/16 14:27 09/26/16 09:26 Dilaudid IVP 0.5 mg Q4H PRN Administration Pain, moderate (4-7) Sodium Chloride 1,000 mls @ 100 mls/hr 09/24/16 14:45 09/26/16 10:46 Sodium Chloride 0.9% IV 100 mls/hr .Q10H CHEPE Administration Insulin Aspart 0 unit 09/25/16 18:00 09/26/16 12:58 Novolog SC 3 unit Q6H [facility]PE Administration Protocol Methylprednisolone 40 mg 09/25/16 14:00 09/26/16 13:42 Solu-Medrol IVP 40 mg Q8 [facility] Administration Nitroglycerin 1 patch 09/24/16 14:30 09/26/16 10:40 Nitro-Dur 0.1 Mg/Hr Patch TD Not Given DAILY [facility] Ondansetron HCl 4 mg 09/24/16 14:28 Zofran Inj IVP Q4 PRN Nausea/Vomiting Rosuvastatin Calcium 10 mg 09/25/16 10:00 09/26/16 10:39 Crestor PO Not Given DAILY [facility] Valacyclovir HCl 500 mg 09/24/16 18:00 09/26/16 10:40 Valtrex PO Not Given BID [facility] - Patient Studies Lab Studies: Microbiology Studies 09/24/16 Unknown MRSA Culture (Admit) - Final Naris MRSA NOT DETECTED Lab Studies 09/26/16 09/26/16 09/26/16 Range/Units 12:34 05:50 05:50 WBC (4.8-10.8) K/uL RBC (4.40-5.90) Mil/uL Hgb (12.0-18.0) g/dL Hct (35.0-51.0) % MCV (80.0-94.0) fL MCH (27.0-31.0) pg MCHC (33.0-37.0) g/dL RDW (11.5-14.5) % Plt Count (130-400) K/uL MPV (7.2-11.7) fL Neut % (Auto) (50.0-75.0) % Lymph % (Auto) (20.0-40.0) % Monroe % (Auto) (0.0-10.0) % Eos % (Auto) (0.0-4.0) % Baso % (Auto) (0.0-2.0) % Neut # (1.8-7.0) K/uL Lymph # (1.0-4.3) K/uL Monroe # (0.0-0.8) K/uL Eos # (0.0-0.7) K/uL Baso # (0.0-0.2) K/uL Neutrophils % (Manual) (50-75) % Lymphocytes % (Manual) (20-40) % Monocytes % (Manual) (0-10) % Platelet Estimate (NORMAL) Anisocytosis (manual) PT 10.8 (9.7-12.2) SECONDS INR 1.0 APTT 27 (21-34) SECONDS Sodium 133 (132-148) mmol/L Potassium 5.1 (3.6-5.2) mmol/L Chloride 102 (98-107) mmol/L Carbon Dioxide 20 L (22-30) mmol/L Anion Gap 16 (10-20) BUN 34 H (9-20) mg/dL Creatinine 2.7 H (0.8-1.5) MG/DL Est GFR ( Amer) 28 Est GFR (Non-Af Amer) 23 POC Glucose (mg/dL) 284 H (65-110) mg/dL Random Glucose 265 H (75-110) mg/dL Calcium 7.6 L (8.6-10.4) mg/dl Phosphorus 4.9 H (2.5-4.5) mg/dL Magnesium 2.1 (1.6-2.3) mg/dL Total Bilirubin 0.5 (0.2-1.3) mg/dL AST 35 (17-59) U/L ALT 106 H D (21-72) U/L Alkaline Phosphatase 83 (38-126) U/L Total Protein 5.1 L (6.3-8.3) g/dL Albumin 2.7 L (3.5-5.0) g/dL Globulin 2.4 (2.2-3.9) gm/dL Albumin/Globulin Ratio 1.1 (1.0-2.1) Blood Type Antibody Screen 09/26/16 09/26/16 09/26/16 Range/Units 05:50 05:39 00:10 WBC 14.6 H (4.8-10.8) K/uL RBC 2.86 L (4.40-5.90) Mil/uL Hgb 8.4 L (12.0-18.0) g/dL Hct 25.7 L (35.0-51.0) % MCV 90.1 (80.0-94.0) fL MCH 29.3 (27.0-31.0) pg MCHC 32.5 L (33.0-37.0) g/dL RDW 18.4 H (11.5-14.5) % Plt Count 109 L (130-400) K/uL MPV 9.7 (7.2-11.7) fL Neut % (Auto) 87.5 H (50.0-75.0) % Lymph % (Auto) 7.4 L (20.0-40.0) % Monroe % (Auto) 5.0 (0.0-10.0) % Eos % (Auto) 0.0 (0.0-4.0) % Baso % (Auto) 0.1 (0.0-2.0) % Neut # 12.8 H (1.8-7.0) K/uL Lymph # 1.1 (1.0-4.3) K/uL Monroe # 0.7 (0.0-0.8) K/uL Eos # 0.0 (0.0-0.7) K/uL Baso # 0.0 (0.0-0.2) K/uL Neutrophils % (Manual) 91 H (50-75) % Lymphocytes % (Manual) 6 L (20-40) % Monocytes % (Manual) 3 (0-10) % Platelet Estimate Slightly decreased L (NORMAL) Anisocytosis (manual) Slight PT (9.7-12.2) SECONDS INR APTT (21-34) SECONDS Sodium (132-148) mmol/L Potassium (3.6-5.2) mmol/L Chloride (98-107) mmol/L Carbon Dioxide (22-30) mmol/L Anion Gap (10-20) BUN (9-20) mg/dL Creatinine (0.8-1.5) MG/DL Est GFR ( Amer) Est GFR (Non-Af Amer) POC Glucose (mg/dL) 343 H 329 H (65-110) mg/dL Random Glucose (75-110) mg/dL Calcium (8.6-10.4) mg/dl Phosphorus (2.5-4.5) mg/dL Magnesium (1.6-2.3) mg/dL Total Bilirubin (0.2-1.3) mg/dL AST (17-59) U/L ALT (21-72) U/L Alkaline Phosphatase (38-126) U/L Total Protein (6.3-8.3) g/dL Albumin (3.5-5.0) g/dL Globulin (2.2-3.9) gm/dL Albumin/Globulin Ratio (1.0-2.1) Blood Type Antibody Screen 09/25/16 09/25/16 09/25/16 Range/Units 22:23 17:59 12:41 WBC 18.9 H D (4.8-10.8) K/uL RBC 3.13 L (4.40-5.90) Mil/uL Hgb 9.0 L (12.0-18.0) g/dL Hct 28.2 L (35.0-51.0) % MCV 90.0 D (80.0-94.0) fL MCH 28.8 (27.0-31.0) pg MCHC 32.0 L (33.0-37.0) g/dL RDW 18.1 H (11.5-14.5) % Plt Count 123 L D (130-400) K/uL MPV 9.8 (7.2-11.7) fL Neut % (Auto) (50.0-75.0) % Lymph % (Auto) (20.0-40.0) % Monroe % (Auto) (0.0-10.0) % Eos % (Auto) (0.0-4.0) % Baso % (Auto) (0.0-2.0) % Neut # (1.8-7.0) K/uL Lymph # (1.0-4.3) K/uL Monroe # (0.0-0.8) K/uL Eos # (0.0-0.7) K/uL Baso # (0.0-0.2) K/uL Neutrophils % (Manual) (50-75) % Lymphocytes % (Manual) (20-40) % Monocytes % (Manual) (0-10) % Platelet Estimate (NORMAL) Anisocytosis (manual) PT (9.7-12.2) SECONDS INR APTT (21-34) SECONDS Sodium (132-148) mmol/L Potassium (3.6-5.2) mmol/L Chloride (98-107) mmol/L Carbon Dioxide (22-30) mmol/L Anion Gap (10-20) BUN (9-20) mg/dL Creatinine (0.8-1.5) MG/DL Est GFR ( Amer) Est GFR (Non-Af Amer) POC Glucose (mg/dL) 286 H (65-110) mg/dL Random Glucose (75-110) mg/dL Calcium (8.6-10.4) mg/dl Phosphorus (2.5-4.5) mg/dL Magnesium (1.6-2.3) mg/dL Total Bilirubin (0.2-1.3) mg/dL AST (17-59) U/L ALT (21-72) U/L Alkaline Phosphatase (38-126) U/L Total Protein (6.3-8.3) g/dL Albumin (3.5-5.0) g/dL Globulin (2.2-3.9) gm/dL Albumin/Globulin Ratio (1.0-2.1) Blood Type O POSITIVE Antibody Screen Negative Laboratory Results - last 24 hr 09/25/16 09/25/16 09/25/16 12:41 17:59 22:23 WBC 18.9 H D RBC 3.13 L Hgb 9.0 L Hct 28.2 L MCV 90.0 D MCH 28.8 MCHC 32.0 L RDW 18.1 H Plt Count 123 L D MPV 9.8 Neut % (Auto) Lymph % (Auto) Monroe % (Auto) Eos % (Auto) Baso % (Auto) Neut # Lymph # Monroe # Eos # Baso # Neutrophils % (Manual) Lymphocytes % (Manual) Monocytes % (Manual) Platelet Estimate Anisocytosis (manual) PT INR APTT Sodium Potassium Chloride Carbon Dioxide Anion Gap BUN Creatinine Est GFR ( Amer) Est GFR (Non-Af Amer) POC Glucose (mg/dL) 286 H Random Glucose Calcium Phosphorus Magnesium Total Bilirubin AST ALT Alkaline Phosphatase Total Protein Albumin Globulin Albumin/Globulin Ratio Blood Type O POSITIVE Antibody Screen Negative 09/26/16 09/26/16 09/26/16 00:10 05:39 05:50 WBC 14.6 H RBC 2.86 L Hgb 8.4 L Hct 25.7 L MCV 90.1 MCH 29.3 MCHC 32.5 L RDW 18.4 H Plt Count 109 L MPV 9.7 Neut % (Auto) 87.5 H Lymph % (Auto) 7.4 L Monroe % (Auto) 5.0 Eos % (Auto) 0.0 Baso % (Auto) 0.1 Neut # 12.8 H Lymph # 1.1 Monroe # 0.7 Eos # 0.0 Baso # 0.0 Neutrophils % (Manual) 91 H Lymphocytes % (Manual) 6 L Monocytes % (Manual) 3 Platelet Estimate Slightly decreased L Anisocytosis (manual) Slight PT INR APTT Sodium Potassium Chloride Carbon Dioxide Anion Gap BUN Creatinine Est GFR ( Amer) Est GFR (Non-Af Amer) POC Glucose (mg/dL) 329 H 343 H Random Glucose Calcium Phosphorus Magnesium Total Bilirubin AST ALT Alkaline Phosphatase Total Protein Albumin Globulin Albumin/Globulin Ratio Blood Type Antibody Screen 09/26/16 09/26/16 09/26/16 05:50 05:50 12:34 WBC RBC Hgb Hct MCV MCH MCHC RDW Plt Count MPV Neut % (Auto) Lymph % (Auto) Monroe % (Auto) Eos % (Auto) Baso % (Auto) Neut # Lymph # Monroe # Eos # Baso # Neutrophils % (Manual) Lymphocytes % (Manual) Monocytes % (Manual) Platelet Estimate Anisocytosis (manual) PT 10.8 INR 1.0 APTT 27 Sodium 133 Potassium 5.1 Chloride 102 Carbon Dioxide 20 L Anion Gap 16 BUN 34 H Creatinine 2.7 H Est GFR ( Amer) 28 Est GFR (Non-Af Amer) 23 POC Glucose (mg/dL) 284 H Random Glucose 265 H Calcium 7.6 L Phosphorus 4.9 H Magnesium 2.1 Total Bilirubin 0.5 AST 35 ALT 106 H D Alkaline Phosphatase 83 Total Protein 5.1 L Albumin 2.7 L Globulin 2.4 Albumin/Globulin Ratio 1.1 Blood Type Antibody Screen Fingerstick Blood Sugar Results: 210 Review of Systems - Review of Systems Systems not reviewed;Unavailable: Intubated Critical Care Progress Note - Vent Settings MODE:: CPAP FIO2:: 30 PEEP:: 5 PRESSURE SUPPORT:: 10 - Extremities/Vascular Does the Patient have a Central Venous Catheter?: No Does the Patient need a Central Venous Catheter?: No Does the Patient have a Crouch Catheter?: Yes Does the Patient need a Crouch Catheter?: Yes Catheter Insertion Criteria: Patient has acute urinary retention or bladder outlet obstruction - Prophylaxis GI Prophylaxis GI: PPI - Prophylaxis DVT Prophylaxis DVT: Not Indicated - Nutrition Nutrition: Nutrition Category Date Time Status Liquid Diet [DIET] Diets 09/24/16 Lunch Active Assessment/Plan (1) Postop carotid endarterectomy surveillance, encounter for Current Visit: Yes Status: Acute (2) History of carotid endarterectomy Current Visit: Yes Status: Acute (3) Carotid stenosis, bilateral Current Visit: No Status: Acute - Assessment and Plan (Free Text) Plan: Patient Status: -Extubated -Stable Neuro: -Stable Cardiovascular: -Coreg 6.5mg po bid, enalapril 2.5mg po daily -Crestor 10mg po hs -Aspirin 81mg po daily -Plavix 75mg po daily Pulmonary: -Extubated, tolerating well -09/24/16 CXR- no acute issues, no active disease Gastrointestinal: -Regular Diet -No acute issues Endocrine: -Accucheck ACHS -Insulin Sliding Scale Renal: -No issues Genitourinary: -monitor I&Os -catheter inserted by Dr. 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 Juan M Morgan PGY1 - Date & Time Date: 09/26/16 Time: 17:13 <Doc Mcgowan - Last Filed: 09/26/16 17:29> CCU Subjective - Physician Review Critical Care Time Spent (in minutes): 35 CCU Objective - Vital Signs / Intake & Output Vital Signs (Last 4 hours): Vital Signs Temp Pulse Resp BP Pulse Ox 09/26/16 16:00 110 H 14 143/62 100 09/26/16 15:00 98.1 F 116 H 21 146/64 100 09/26/16 14:00 115 H 13 132/66 100 Intake and Output (Last 8hrs): Intake & Output 09/26/16 09/26/16 09/26/16 06:59 14:59 22:59 Intake Total 800 600 200 Output Total 190 1215 100 Balance 610 -615 100 Weight 159 lb 6.307 oz Intake: Intake, IV Amount 800 600 200 Right Distal Port 800 600 200 Internal Jugular Output: Urine 190 1215 100 2-way Urethral 115 1115 100 Suprapubic 75 100 0 - Medications Active Medications: Active Medications Generic Name Dose Route Start Last Admin Trade Name Freq PRN Reason Stop Dose Admin Albuterol/Ipratropium 3 ml 09/25/16 14:00 09/26/16 13:14 Duoneb 3 Mg/0.5 Mg (3 Ml) Ud INH 3 ml RQ6 [facility]PE Administration Albuterol/Ipratropium 3 ml 09/25/16 11:44 Duoneb 3 Mg/0.5 Mg (3 Ml) Ud INH RQ2 PRN Shortness of Breath Aspirin 81 mg 09/25/16 10:00 09/26/16 10:39 Aspirin Chewable PO Not Given DAILY [facility] Carvedilol 6.25 mg 09/24/16 18:00 09/26/16 10:39 Coreg PO Not Given BID [facility] Clopidogrel Bisulfate 75 mg 09/25/16 10:00 09/26/16 10:40 Plavix PO Not Given DAILY [facility] Enalapril Maleate 2.5 mg 09/25/16 10:00 09/26/16 10:41 Vasotec PO Not Given DAILY [facility] Famotidine 20 mg 09/27/16 10:00 Pepcid IVP DAILY [facility] Heparin Sodium (Porcine) 5,000 units 09/26/16 11:00 09/26/16 11:29 Heparin SC 5,000 units Q12 [facility] Administration Hydromorphone HCl 0.5 mg 09/24/16 14:27 09/26/16 09:26 Dilaudid IVP 0.5 mg Q4H PRN Administration Pain, moderate (4-7) Insulin Aspart 0 unit 09/25/16 18:00 09/26/16 12:58 Novolog SC 3 unit Q6H [facility] Administration Protocol Methylprednisolone 40 mg 09/25/16 14:00 09/26/16 13:42 Solu-Medrol IVP 40 mg Q8 [facility] Administration Nitroglycerin 1 patch 09/24/16 14:30 09/26/16 10:40 Nitro-Dur 0.1 Mg/Hr Patch TD Not Given DAILY [facility] Ondansetron HCl 4 mg 09/24/16 14:28 Zofran Inj IVP Q4 PRN Nausea/Vomiting Rosuvastatin Calcium 10 mg 09/25/16 10:00 09/26/16 10:39 Crestor PO Not Given DAILY [facility] Valacyclovir HCl 500 mg 09/24/16 18:00 09/26/16 10:40 Valtrex PO Not Given BID [facility] - Patient Studies Lab Studies: Microbiology Studies 09/24/16 Unknown MRSA Culture (Admit) - Final Naris MRSA NOT DETECTED Lab Studies 09/26/16 09/26/16 09/26/16 Range/Units 12:34 05:50 05:50 WBC (4.8-10.8) K/uL RBC (4.40-5.90) Mil/uL Hgb (12.0-18.0) g/dL Hct (35.0-51.0) % MCV (80.0-94.0) fL MCH (27.0-31.0) pg MCHC (33.0-37.0) g/dL RDW (11.5-14.5) % Plt Count (130-400) K/uL MPV (7.2-11.7) fL Neut % (Auto) (50.0-75.0) % Lymph % (Auto) (20.0-40.0) % Monroe % (Auto) (0.0-10.0) % Eos % (Auto) (0.0-4.0) % Baso % (Auto) (0.0-2.0) % Neut # (1.8-7.0) K/uL Lymph # (1.0-4.3) K/uL Monroe # (0.0-0.8) K/uL Eos # (0.0-0.7) K/uL Baso # (0.0-0.2) K/uL Neutrophils % (Manual) (50-75) % Lymphocytes % (Manual) (20-40) % Monocytes % (Manual) (0-10) % Platelet Estimate (NORMAL) Anisocytosis (manual) PT 10.8 (9.7-12.2) SECONDS INR 1.0 APTT 27 (21-34) SECONDS Sodium 133 (132-148) mmol/L Potassium 5.1 (3.6-5.2) mmol/L Chloride 102 (98-107) mmol/L Carbon Dioxide 20 L (22-30) mmol/L Anion Gap 16 (10-20) BUN 34 H (9-20) mg/dL Creatinine 2.7 H (0.8-1.5) MG/DL Est GFR ( Amer) 28 Est GFR (Non-Af Amer) 23 POC Glucose (mg/dL) 284 H (65-110) mg/dL Random Glucose 265 H (75-110) mg/dL Calcium 7.6 L (8.6-10.4) mg/dl Phosphorus 4.9 H (2.5-4.5) mg/dL Magnesium 2.1 (1.6-2.3) mg/dL Total Bilirubin 0.5 (0.2-1.3) mg/dL AST 35 (17-59) U/L ALT 106 H D (21-72) U/L Alkaline Phosphatase 83 (38-126) U/L Total Protein 5.1 L (6.3-8.3) g/dL Albumin 2.7 L (3.5-5.0) g/dL Globulin 2.4 (2.2-3.9) gm/dL Albumin/Globulin Ratio 1.1 (1.0-2.1) Blood Type Antibody Screen 09/26/16 09/26/16 09/26/16 Range/Units 05:50 05:39 00:10 WBC 14.6 H (4.8-10.8) K/uL RBC 2.86 L (4.40-5.90) Mil/uL Hgb 8.4 L (12.0-18.0) g/dL Hct 25.7 L (35.0-51.0) % MCV 90.1 (80.0-94.0) fL MCH 29.3 (27.0-31.0) pg MCHC 32.5 L (33.0-37.0) g/dL RDW 18.4 H (11.5-14.5) % Plt Count 109 L (130-400) K/uL MPV 9.7 (7.2-11.7) fL Neut % (Auto) 87.5 H (50.0-75.0) % Lymph % (Auto) 7.4 L (20.0-40.0) % Monroe % (Auto) 5.0 (0.0-10.0) % Eos % (Auto) 0.0 (0.0-4.0) % Baso % (Auto) 0.1 (0.0-2.0) % Neut # 12.8 H (1.8-7.0) K/uL Lymph # 1.1 (1.0-4.3) K/uL Monroe # 0.7 (0.0-0.8) K/uL Eos # 0.0 (0.0-0.7) K/uL Baso # 0.0 (0.0-0.2) K/uL Neutrophils % (Manual) 91 H (50-75) % Lymphocytes % (Manual) 6 L (20-40) % Monocytes % (Manual) 3 (0-10) % Platelet Estimate Slightly decreased L (NORMAL) Anisocytosis (manual) Slight PT (9.7-12.2) SECONDS INR APTT (21-34) SECONDS Sodium (132-148) mmol/L Potassium (3.6-5.2) mmol/L Chloride (98-107) mmol/L Carbon Dioxide (22-30) mmol/L Anion Gap (10-20) BUN (9-20) mg/dL Creatinine (0.8-1.5) MG/DL Est GFR ( Amer) Est GFR (Non-Af Amer) POC Glucose (mg/dL) 343 H 329 H (65-110) mg/dL Random Glucose (75-110) mg/dL Calcium (8.6-10.4) mg/dl Phosphorus (2.5-4.5) mg/dL Magnesium (1.6-2.3) mg/dL Total Bilirubin (0.2-1.3) mg/dL AST (17-59) U/L ALT (21-72) U/L Alkaline Phosphatase (38-126) U/L Total Protein (6.3-8.3) g/dL Albumin (3.5-5.0) g/dL Globulin (2.2-3.9) gm/dL Albumin/Globulin Ratio (1.0-2.1) Blood Type Antibody Screen 09/25/16 09/25/16 09/25/16 Range/Units 22:23 17:59 12:41 WBC 18.9 H D (4.8-10.8) K/uL RBC 3.13 L (4.40-5.90) Mil/uL Hgb 9.0 L (12.0-18.0) g/dL Hct 28.2 L (35.0-51.0) % MCV 90.0 D (80.0-94.0) fL MCH 28.8 (27.0-31.0) pg MCHC 32.0 L (33.0-37.0) g/dL RDW 18.1 H (11.5-14.5) % Plt Count 123 L D (130-400) K/uL MPV 9.8 (7.2-11.7) fL Neut % (Auto) (50.0-75.0) % Lymph % (Auto) (20.0-40.0) % Monroe % (Auto) (0.0-10.0) % Eos % (Auto) (0.0-4.0) % Baso % (Auto) (0.0-2.0) % Neut # (1.8-7.0) K/uL Lymph # (1.0-4.3) K/uL Monroe # (0.0-0.8) K/uL Eos # (0.0-0.7) K/uL Baso # (0.0-0.2) K/uL Neutrophils % (Manual) (50-75) % Lymphocytes % (Manual) (20-40) % Monocytes % (Manual) (0-10) % Platelet Estimate (NORMAL) Anisocytosis (manual) PT (9.7-12.2) SECONDS INR APTT (21-34) SECONDS Sodium (132-148) mmol/L Potassium (3.6-5.2) mmol/L Chloride (98-107) mmol/L Carbon Dioxide (22-30) mmol/L Anion Gap (10-20) BUN (9-20) mg/dL Creatinine (0.8-1.5) MG/DL Est GFR ( Amer) Est GFR (Non-Af Amer) POC Glucose (mg/dL) 286 H (65-110) mg/dL Random Glucose (75-110) mg/dL Calcium (8.6-10.4) mg/dl Phosphorus (2.5-4.5) mg/dL Magnesium (1.6-2.3) mg/dL Total Bilirubin (0.2-1.3) mg/dL AST (17-59) U/L ALT (21-72) U/L Alkaline Phosphatase (38-126) U/L Total Protein (6.3-8.3) g/dL Albumin (3.5-5.0) g/dL Globulin (2.2-3.9) gm/dL Albumin/Globulin Ratio (1.0-2.1) Blood Type O POSITIVE Antibody Screen Negative Laboratory Results - last 24 hr 09/25/16 09/25/16 09/25/16 12:41 17:59 22:23 WBC 18.9 H D RBC 3.13 L Hgb 9.0 L Hct 28.2 L MCV 90.0 D MCH 28.8 MCHC 32.0 L RDW 18.1 H Plt Count 123 L D MPV 9.8 Neut % (Auto) Lymph % (Auto) [place] % (Auto) Eos % (Auto) Baso % (Auto) Neut # Lymph # [place] # Eos # Baso # Neutrophils % (Manual) Lymphocytes % (Manual) Monocytes % (Manual) Platelet Estimate Anisocytosis (manual) PT INR APTT Sodium Potassium Chloride Carbon Dioxide Anion Gap BUN Creatinine Est GFR ( Amer) Est GFR (Non-Af Amer) POC Glucose (mg/dL) 286 H Random Glucose Calcium Phosphorus Magnesium Total Bilirubin AST ALT Alkaline Phosphatase Total Protein Albumin Globulin Albumin/Globulin Ratio Blood Type O POSITIVE Antibody Screen Negative 09/26/16 09/26/16 09/26/16 00:10 05:39 05:50 WBC 14.6 H RBC 2.86 L Hgb 8.4 L Hct 25.7 L MCV 90.1 MCH 29.3 MCHC 32.5 L RDW 18.4 H Plt Count 109 L MPV 9.7 Neut % (Auto) 87.5 H Lymph % (Auto) 7.4 L [place] % (Auto) 5.0 Eos % (Auto) 0.0 Baso % (Auto) 0.1 Neut # 12.8 H Lymph # 1.1 Monroe # 0.7 Eos # 0.0 Baso # 0.0 Neutrophils % (Manual) 91 H Lymphocytes % (Manual) 6 L Monocytes % (Manual) 3 Platelet Estimate Slightly decreased L Anisocytosis (manual) Slight PT INR APTT Sodium Potassium Chloride Carbon Dioxide Anion Gap BUN Creatinine Est GFR ( Amer) Est GFR (Non-Af Amer) POC Glucose (mg/dL) 329 H 343 H Random Glucose Calcium Phosphorus Magnesium Total Bilirubin AST ALT Alkaline Phosphatase Total Protein Albumin Globulin Albumin/Globulin Ratio Blood Type Antibody Screen 09/26/16 09/26/16 09/26/16 05:50 05:50 12:34 WBC RBC Hgb Hct MCV MCH MCHC RDW Plt Count MPV Neut % (Auto) Lymph % (Auto) [place] % (Auto) Eos % (Auto) Baso % (Auto) Neut # Lymph # [place] # Eos # Baso # Neutrophils % (Manual) Lymphocytes % (Manual) Monocytes % (Manual) Platelet Estimate Anisocytosis (manual) PT 10.8 INR 1.0 APTT 27 Sodium 133 Potassium 5.1 Chloride 102 Carbon Dioxide 20 L Anion Gap 16 BUN 34 H Creatinine 2.7 H Est GFR ( Amer) 28 Est GFR (Non-Af Amer) 23 POC Glucose (mg/dL) 284 H Random Glucose 265 H Calcium 7.6 L Phosphorus 4.9 H Magnesium 2.1 Total Bilirubin 0.5 AST 35 ALT 106 H D Alkaline Phosphatase 83 Total Protein 5.1 L Albumin 2.7 L Globulin 2.4 Albumin/Globulin Ratio 1.1 Blood Type Antibody Screen Critical Care Progress Note - Nutrition Nutrition: Nutrition Category Date Time Status Heart Healthy Diet [DIET] Diets 09/26/16 Dinner Active Attending/Attestation - Attestation I have personally seen and examined this patient.: Yes I have fully participated in the care of the patient.: Yes I have reviewed all pertinent clinical information: Yes Notes (Text): 09/26/16 17:28 Patient seen and examined in the intensive care unit. Case discussed with house staff in the morning rounds. Patient extubated after obtaining weaning trial and is comfortable in no respiratory distress Patient has suprapubic catheter with good urine output Continue treatment for COPD
--- NOTE | 2016-09-26 18:23 | CON ---
DATE: 09/26/2016 The patient is seen for followup today. He was extubated. He underwent surgery on Saturday and had a relatively uneventful left carotid endarterectomy. Postoperatively, he developed acute urinary reten tion. A Roberts catheter cannot be placed due to ____ suprapubic tube. ____ superpubic ____ intubated . His postop hemoglobin was low and at this point, he underwent transfusion. Now, he is alert, orie nted, cooperative. His vital signs are stable and normal. There is no evidence of any neurological deficit. At this point, our basic treatment is maintaining his respiratory status, getting him up ou t of bed, getting him with physical therapy. H will not be able to go home until he is stable on his feet. Rufino Torres Jr., MD cc: [id number] TT: 09/26/2016 18:22:32 Confirmation # [id number] Dictation # [id number]
[2016-09-27] MEDS: (Novolog) Insulin Aspart, Recombinant 100 u/ml 10 ml vial SC SCH ×5 (00:47→23:55)
[2016-09-27] MEDS: Albuterol-Ipratrop 3 mg / 0.5 (3 ml) UD INH SCH ×4 (01:36→19:13)
[2016-09-27] MEDS: MethylPREDNISolone 40 mg Vial IVP SCH ×3 (05:47→21:13)
[2016-09-27] MEDS: Sodium Chloride 0.9% 1,000 ML IV SCH ×3 (05:47→18:24)
[2016-09-27 06:23] LABS: LYMPH # 0.5 K/uL (1.0-4.3); LYMPH % 4.1 % (20.0-40.0); MEAN CELL VOLUME 90.7 fL (80.0-94.0); MEAN CORPUSCULAR HEMOGLOBIN 29.6 pg (27.0-31.0); MEAN CORPUSCULAR HGB CONC 32.6 g/dL (33.0-37.0); MEAN PLATELET VOLUME 9.1 fL (7.2-11.7); MONO # 0.7 K/uL (0.0-0.8); MONO % 5.6 % (0.0-10.0); PLATELET COUNT 105 K/uL (130-400); RED CELL DISTRIBUTION WIDTH 18.9 % (11.5-14.5); WHITE BLOOD COUNT 12.7 K/uL (4.8-10.8)
[2016-09-27 06:25] LABS: INR 0.9
[2016-09-27 06:27] LABS: POTASSIUM 4.5 mmol/L (3.6-5.2)
[2016-09-27 06:29] LABS: BILIRUBIN,TOTAL 0.5 mg/dL (0.2-1.3)
[2016-09-27 06:30] LABS: ALB/GLOB RATIO 1.2 (1.0-2.1); CALCIUM 7.7 mg/dl (8.6-10.4); TOTAL PROTEIN 4.9 g/dL (6.3-8.3)
[2016-09-27 06:31] LABS: MAGNESIUM 2.1 mg/dL (1.6-2.3)
[2016-09-27 08:37] LABS: NEUTROPHIL 85 % (50-75); TOTAL CELLS COUNTED 100
--- NOTE | 2016-09-27 09:38 | CP.PCM.PN ---
Subjective - Date & Time of Evaluation Date of Evaluation: 09/27/16 Time of Evaluation: 09:34 - Subjective Subjective: Gu note: Pt extubated continues to bleed from SP tube and penile cath. Blood is very dark suggesting pt may have a large amount of large blood within bladder. Suggest resume Q [address] scan of AB/PEL. If large amount of clots within bladder pt may need CYSTO evac clots. continue to transfuse as necessary and hold all anticoagulation. [place] Objective - Vital Signs/Intake and Output Vital Signs (last 24 hours): Temp Pulse Resp BP Pulse Ox 98.1 F 110 H 15 114/60 100 09/27/16 09:00 09/27/16 09:00 09/27/16 09:00 09/27/16 09:00 09/27/16 07:00 Intake and Output: 09/27/16 09/27/16 06:59 18:59 Intake Total 1205 0 Output Total 790 Balance 415 0 - Medications Medications: Current Medications Albuterol/Ipratropium (Duoneb 3 Mg/0.5 Mg (3 Ml) Ud) 3 ml INH RQ6 [facility] Last Admin: 09/27/16 01:36 Dose: 3 ml Albuterol/Ipratropium (Duoneb 3 Mg/0.5 Mg (3 Ml) Ud) 3 ml INH RQ2 PRN PRN Reason: Shortness of Breath Carvedilol (Coreg) 6.25 mg PO BID [facility] Last Admin: 09/26/16 18:11 Dose: Not Given Famotidine (Pepcid) 20 mg IVP DAILY [facility] Hydromorphone HCl (Dilaudid) 0.5 mg IVP Q4H PRN PRN Reason: Pain, moderate (4-7) Last Admin: 09/26/16 18:56 Dose: 0.5 mg Sodium Chloride (Sodium Chloride 0.9%) 1,000 mls @ 100 mls/hr IV .Q10H [facility] Last Admin: 09/27/16 08:22 Dose: 100 mls/hr Insulin Aspart (Novolog) 0 unit SC Q6H [facility] PRN Reason: Protocol Last Admin: 09/27/16 05:49 Dose: 1 unit Methylprednisolone (Solu-Medrol) 40 mg IVP Q8 [facility] Last Admin: 09/27/16 05:47 Dose: 40 mg Nitroglycerin (Nitro-Dur 0.1 Mg/Hr Patch) 1 patch TD DAILY [facility] Last Admin: 09/26/16 10:40 Dose: Not Given Ondansetron HCl (Zofran Inj) 4 mg IVP Q4 PRN PRN Reason: Nausea/Vomiting Rosuvastatin Calcium (Crestor) 10 mg PO DAILY [facility] Last Admin: 09/26/16 10:39 Dose: Not Given Valacyclovir HCl (Valtrex) 500 mg PO BID [facility] Last Admin: 09/26/16 18:12 Dose: Not Given - Labs Labs: 09/27/16 06:12 09/27/16 06:09 PT 10.4 SECONDS (9.7-12.2) 09/27/16 06:11 INR 0.9 09/27/16 06:11 APTT 25 SECONDS (21-34) 09/27/16 06:11
--- NOTE | 2016-09-27 11:22 | CP.PCM.PN ---
Subjective - Date & Time of Evaluation Date of Evaluation: 09/27/16 Time of Evaluation: 11:20 - Subjective Subjective: Surgery: Dr. Torres Pt seen and examined. Extubated on BIPAP. Awake/alert, follow commands. Hgb 6.2 , to be transfused 2 units [facility] Objective - Vital Signs/Intake and Output Vital Signs (last 24 hours): Temp Pulse Resp BP Pulse Ox 98.1 F 110 H 15 114/60 100 09/27/16 09:00 09/27/16 09:00 09/27/16 09:00 09/27/16 09:00 09/27/16 07:00 Intake and Output: 09/27/16 09/27/16 06:59 18:59 Intake Total 1205 0 Output Total 790 Balance 415 0 - Medications Medications: Current Medications Albuterol/Ipratropium (Duoneb 3 Mg/0.5 Mg (3 Ml) Ud) 3 ml INH RQ6 [facility] Last Admin: 09/27/16 01:36 Dose: 3 ml Albuterol/Ipratropium (Duoneb 3 Mg/0.5 Mg (3 Ml) Ud) 3 ml INH RQ2 PRN PRN Reason: Shortness of Breath Carvedilol (Coreg) 6.25 mg PO BID [facility] Last Admin: 09/27/16 11:15 Dose: Not Given Famotidine (Pepcid) 20 mg IVP DAILY [facility] Hydromorphone HCl (Dilaudid) 0.5 mg IVP Q4H PRN PRN Reason: Pain, moderate (4-7) Last Admin: 09/26/16 18:56 Dose: 0.5 mg Sodium Chloride (Sodium Chloride 0.9%) 1,000 mls @ 100 mls/hr IV .Q10H [facility] Last Admin: 09/27/16 08:22 Dose: 100 mls/hr Insulin Aspart (Novolog) 0 unit SC Q6H [facility] PRN Reason: Protocol Last Admin: 09/27/16 05:49 Dose: 1 unit Methylprednisolone (Solu-Medrol) 40 mg IVP Q8 [facility] Last Admin: 09/27/16 05:47 Dose: 40 mg Nitroglycerin (Nitro-Dur 0.1 Mg/Hr Patch) 1 patch TD DAILY [facility] Last Admin: 09/26/16 10:40 Dose: Not Given Ondansetron HCl (Zofran Inj) 4 mg IVP Q4 PRN PRN Reason: Nausea/Vomiting Rosuvastatin Calcium (Crestor) 10 mg PO DAILY [facility] Last Admin: 09/27/16 11:15 Dose: Not Given Valacyclovir HCl (Valtrex) 500 mg PO BID [facility] Last Admin: 09/27/16 11:16 Dose: Not Given - Labs Labs: 09/27/16 06:12 09/27/16 06:09 PT 10.4 SECONDS (9.7-12.2) 09/27/16 06:11 INR 0.9 09/27/16 06:11 APTT 25 SECONDS (21-34) 09/27/16 06:11 - Constitutional Appears: Non-toxic, No Acute Distress - Head Exam Head Exam: ATRAUMATIC, NORMOCEPHALIC - Eye Exam Eye Exam: EOMI - Neck Exam Neck Exam: Full ROM Additional comments: L side neck incision C/D/I, no hematoma - GI/Abdominal Exam GI & Abdominal Exam: Soft. absent: Tenderness - Exam Additional comments: supra-pubic crouch in place - Extremities Exam Additional comments: 5/5 strength B/L UE and LE - Neurological Exam Neurological Exam: Alert, Awake, Oriented x3 - Psychiatric Exam Psychiatric exam: Normal Affect - Skin Skin Exam: Dry, Normal Color, Warm Assessment and Plan - Assessment and Plan (Free Text) Assessment: 80M s/p L CEA, POD# 3, complicated by post-obstructive JYOTSNA requiring suprapubic catheter and acute respiratory failure resolved -Monitor H/H, transfuse PRN -crouch management per urology -c/w current medical management -d/w attending Vanessa PGY2
[2016-09-27] MEDS: Nitroglycerin 0.1 mg/hr Top Patch TD SCH (12:12)
--- NOTE | 2016-09-27 12:52 | CP.CCUPN ---
<Noe Morgan - Last Filed: 09/27/16 12:49> CCU Subjective - Physician Review Subjective (Free Text): 09/25/16 12:42 Patient seen and examined at bedside. No acute distress. No acute events overnight. Nursing staff reports that patient has been unable to void and attempt to insert crouch catheter was unsuccessful. The nursing staff communicated this information to surgical team. Dr. Cedeño consulted for crouch catheter insertion. The patient denies fever, chills, N/V/D/C, chest pain, abdominal pain, SOB, cough, and paresthesias. Today, the patient remains hemodynamically stable and communicates with grunts/ moans. The dressing over the site of the carotid endarterectomy is clean, dry, and intact. Post rounds, crouch insertion attempt at bedside by Dr. Cedeño unsuccessful. The patient was taken to the OR for cystoscopy and catheter placement due to urinary retention. In the OR, the patient became short of breath. Nubulizer treatments did not resolve the issue. The patient had respiratory distress with bronchospam and was subsequently intubated in the OR. The patient's mild anemia was also addressed with 1u pRBC. The son, Vijay Martinez Jr. gave informed consent for the blood transfusion over the phone to myself and verified with 2 nurses. 09/26/16 17:09 Patient seen and examined at bedside. No acute distress. No acute events overnight. Nursing staff reports no issues. Patient had his catheters flushed this morning. The patient is planned for extubation. The patient has no acute complaints this AM. No interval change from prior examination. Today on rounds, the patient was started on CPAP + PS 10/5 with plan for extubation. Post rounds, the patient was extubated. The patient has tolerated extubation well. 09/27/16 12:49 Patient seen and examined at bedside. No acute distress. No acute events overnight. Nursing staff reports no issues. The patient was found to be anemic <7 on CBC. The patient was ordered for 2u pRBCs. The patient is asymptomatic at this time. Nursing staff reports that the patient still has hematuria. Today on rounds, The patient was ordered 1u platelets and DDAVP to counteract the anti-platelet effects of the patient's home aspirin and plavix. A CT abd/ pelv was ordered by request of Dr. Cedeño for evaluation of blood in the bladder. Critical Care Time Spent (in minutes): 60 CCU Objective - Vital Signs / Intake & Output Vital Signs (Last 4 hours): Vital Signs Temp Pulse Resp BP 09/27/16 11:50 97.9 F 101 H 15 135/59 L 09/27/16 11:47 97.9 F 101 H 15 135/59 L 09/27/16 11:45 97.9 F 101 H 15 135/59 L 09/27/16 11:30 98.2 F 106 H 13 121/48 L 09/27/16 11:00 98.2 F 107 H 14 130/57 L 09/27/16 10:30 98 F 107 H 13 133/59 L 09/27/16 10:00 97.9 F 105 H 15 128/54 L 09/27/16 09:30 98.7 F 114 H 19 136/50 L 09/27/16 09:00 98.1 F 110 H 15 114/60 Intake and Output (Last 8hrs): Intake & Output 09/26/16 09/27/16 09/27/16 22:59 06:59 14:59 Intake Total 800 805 325 Output Total 460 480 Balance 340 325 325 Weight 72.665 kg Intake: Intake, IV Amount 800 800 Right Distal Port 800 800 Internal Jugular Oral 0 5 Blood Product 325 Red Blood Cells Cpd As1 325 Lr Unit [id number] Red Blood Cells Cpd As1 0 Lr Unit [id number] Output: Urine 460 480 2-way Urethral 460 380 Suprapubic 0 100 - Physical Exam Head: Positive for: Atraumatic, Normocephalic Pupils: Positive for: PERRL Extroacular Muscles: Positive for: EOMI Conjunctiva: Positive for: Normal Neck: Positive for: Other (dressing CDI, R TLC in place). Negative for: JVD Respiratory/Chest: Positive for: Clear to Auscultation, Good Air Exchange, Other (s/p intubation ). Negative for: Respiratory Distress, Accessory Muscle Use, Wheezes, Decreased Breath Sounds, Rales Cardiovascular: Positive for: Regular Rate and Rhythm, Normal S1, S2, Peripheal Pulses Present. Negative for: Murmurs Abdomen: Positive for: Normal Bowel Sounds. Negative for: Tenderness, Distention, Peritoneal Signs, Rebound, Guarding Upper Extremity: Positive for: Normal Inspection, NORMAL PULSES. Negative for: Cyanosis, Edema Lower Extremity: Positive for: Normal Inspection, NORMAL PULSES. Negative for: Edema, CALF TENDERNESS Skin: Positive for: Warm, Dry, Pale. Negative for: Rashes - Medications Active Medications: Active Medications Generic Name Dose Route Start Last Admin Trade Name Freq PRN Reason Stop Dose Admin Albuterol/Ipratropium 3 ml 09/25/16 14:00 09/27/16 07:50 Duoneb 3 Mg/0.5 Mg (3 Ml) Ud INH 3 ml RQ6 CHEPE Administration Albuterol/Ipratropium 3 ml 09/25/16 11:44 Duoneb 3 Mg/0.5 Mg (3 Ml) Ud INH RQ2 PRN Shortness of Breath Carvedilol 6.25 mg 09/24/16 18:00 09/27/16 11:15 Coreg PO Not Given BID CHEPE Famotidine 20 mg 09/27/16 10:00 09/27/16 11:58 Pepcid IVP 20 mg DAILY [facility] Administration Hydromorphone HCl 0.5 mg 09/24/16 14:27 09/26/16 18:56 Dilaudid IVP 0.5 mg Q4H PRN Administration Pain, moderate (4-7) Sodium Chloride 1,000 mls @ 100 mls/hr 09/26/16 19:15 09/27/16 08:22 Sodium Chloride 0.9% IV 100 mls/hr .Q10H [facility] Administration Insulin Aspart 0 unit 09/25/16 18:00 09/27/16 12:10 Novolog SC 2 unit Q6H CHEPE Administration Protocol Methylprednisolone 40 mg 09/25/16 14:00 09/27/16 05:47 Solu-Medrol IVP 40 mg Q8 [facility]PE Administration Nitroglycerin 1 patch 09/24/16 14:30 09/27/16 12:12 Nitro-Dur 0.1 Mg/Hr Patch TD 1 patch DAILY [facility] Administration Ondansetron HCl 4 mg 09/24/16 14:28 Zofran Inj IVP Q4 PRN Nausea/Vomiting Rosuvastatin Calcium 10 mg 09/25/16 10:00 09/27/16 11:15 Crestor PO Not Given DAILY [facility] Valacyclovir HCl 500 mg 09/24/16 18:00 09/27/16 11:16 Valtrex PO Not Given BID [facility] - Patient Studies Lab Studies: Microbiology Studies 09/24/16 Unknown MRSA Culture (Admit) - Final [facility] MRSA NOT DETECTED Lab Studies 09/27/16 09/27/16 09/27/16 Range/Units 11:47 06:12 06:11 WBC 12.7 H (4.8-10.8) K/uL RBC 2.10 L (4.40-5.90) Mil/uL Hgb 6.2 L* D (12.0-18.0) g/dL Hct 19.0 L (35.0-51.0) % MCV 90.7 (80.0-94.0) fL MCH 29.6 (27.0-31.0) pg MCHC 32.6 L (33.0-37.0) g/dL RDW 18.9 H (11.5-14.5) % Plt Count 105 L (130-400) K/uL MPV 9.1 (7.2-11.7) fL Neut % (Auto) 90.3 H (50.0-75.0) % Lymph % (Auto) 4.1 L (20.0-40.0) % [place] % (Auto) 5.6 (0.0-10.0) % Eos % (Auto) 0.0 (0.0-4.0) % Baso % (Auto) 0.0 (0.0-2.0) % Neut # 11.5 H (1.8-7.0) K/uL Lymph # 0.5 L (1.0-4.3) K/uL [place] # 0.7 (0.0-0.8) K/uL Eos # 0.0 (0.0-0.7) K/uL Baso # 0.0 (0.0-0.2) K/uL Neutrophils % (Manual) 85 H (50-75) % Band Neutrophils % 6 H (0-2) % Lymphocytes % (Manual) 3 L (20-40) % Monocytes % (Manual) 6 (0-10) % Platelet Estimate Slightly decreased L (NORMAL) Hypochromasia (manual) Slight Poikilocytosis (manual Slight Basophilic Stippling Slight Anisocytosis (manual) Slight Ovalocytes Slight PT 10.4 (9.7-12.2) SECONDS INR 0.9 APTT 25 (21-34) SECONDS Sodium (132-148) mmol/L Potassium (3.6-5.2) mmol/L Chloride (98-107) mmol/L Carbon Dioxide (22-30) mmol/L Anion Gap (10-20) BUN (9-20) mg/dL Creatinine (0.8-1.5) MG/DL Est GFR ( Amer) Est GFR (Non-Af Amer) POC Glucose (mg/dL) 219 H (65-110) mg/dL Random Glucose (75-110) mg/dL Calcium (8.6-10.4) mg/dl Phosphorus (2.5-4.5) mg/dL Magnesium (1.6-2.3) mg/dL Total Bilirubin (0.2-1.3) mg/dL AST (17-59) U/L ALT (21-72) U/L Alkaline Phosphatase (38-126) U/L Total Protein (6.3-8.3) g/dL Albumin (3.5-5.0) g/dL Globulin (2.2-3.9) gm/dL Albumin/Globulin Ratio (1.0-2.1) Blood Type Antibody Screen 09/27/16 09/27/16 09/27/16 Range/Units 06:09 05:32 00:16 WBC (4.8-10.8) K/uL RBC (4.40-5.90) Mil/uL Hgb (12.0-18.0) g/dL Hct (35.0-51.0) % MCV (80.0-94.0) fL MCH (27.0-31.0) pg MCHC (33.0-37.0) g/dL RDW (11.5-14.5) % Plt Count (130-400) K/uL MPV (7.2-11.7) fL Neut % (Auto) (50.0-75.0) % Lymph % (Auto) (20.0-40.0) % [place] % (Auto) (0.0-10.0) % Eos % (Auto) (0.0-4.0) % Baso % (Auto) (0.0-2.0) % Neut # (1.8-7.0) K/uL Lymph # (1.0-4.3) K/uL [place] # (0.0-0.8) K/uL Eos # (0.0-0.7) K/uL Baso # (0.0-0.2) K/uL Neutrophils % (Manual) (50-75) % Band Neutrophils % (0-2) % Lymphocytes % (Manual) (20-40) % Monocytes % (Manual) (0-10) % Platelet Estimate (NORMAL) Hypochromasia (manual) Poikilocytosis (manual Basophilic Stippling Anisocytosis (manual) Ovalocytes PT (9.7-12.2) SECONDS INR APTT (21-34) SECONDS Sodium 134 (132-148) mmol/L Potassium 4.5 (3.6-5.2) mmol/L Chloride 104 (98-107) mmol/L Carbon Dioxide 21 L (22-30) mmol/L Anion Gap 14 (10-20) BUN 45 H (9-20) mg/dL Creatinine 3.7 H (0.8-1.5) MG/DL Est GFR ( Amer) 19 Est GFR (Non-Af Amer) 16 POC Glucose (mg/dL) 161 H 221 H (65-110) mg/dL Random Glucose 134 H (75-110) mg/dL Calcium 7.7 L (8.6-10.4) mg/dl Phosphorus 4.0 (2.5-4.5) mg/dL Magnesium 2.1 (1.6-2.3) mg/dL Total Bilirubin 0.5 (0.2-1.3) mg/dL AST 22 (17-59) U/L ALT 57 (21-72) U/L Alkaline Phosphatase 67 (38-126) U/L Total Protein 4.9 L (6.3-8.3) g/dL Albumin 2.7 L (3.5-5.0) g/dL Globulin 2.2 (2.2-3.9) gm/dL Albumin/Globulin Ratio 1.2 (1.0-2.1) Blood Type Antibody Screen 09/26/16 09/25/16 Range/Units 18:00 12:41 WBC (4.8-10.8) K/uL RBC (4.40-5.90) Mil/uL Hgb (12.0-18.0) g/dL Hct (35.0-51.0) % MCV (80.0-94.0) fL MCH (27.0-31.0) pg MCHC (33.0-37.0) g/dL RDW (11.5-14.5) % Plt Count (130-400) K/uL MPV (7.2-11.7) fL Neut % (Auto) (50.0-75.0) % Lymph % (Auto) (20.0-40.0) % [place] % (Auto) (0.0-10.0) % Eos % (Auto) (0.0-4.0) % Baso % (Auto) (0.0-2.0) % Neut # (1.8-7.0) K/uL Lymph # (1.0-4.3) K/uL [place] # (0.0-0.8) K/uL Eos # (0.0-0.7) K/uL Baso # (0.0-0.2) K/uL Neutrophils % (Manual) (50-75) % Band Neutrophils % (0-2) % Lymphocytes % (Manual) (20-40) % Monocytes % (Manual) (0-10) % Platelet Estimate (NORMAL) Hypochromasia (manual) Poikilocytosis (manual Basophilic Stippling Anisocytosis (manual) Ovalocytes PT (9.7-12.2) SECONDS INR APTT (21-34) SECONDS Sodium (132-148) mmol/L Potassium (3.6-5.2) mmol/L Chloride (98-107) mmol/L Carbon Dioxide (22-30) mmol/L Anion Gap (10-20) BUN (9-20) mg/dL Creatinine (0.8-1.5) MG/DL Est GFR ( Amer) Est GFR (Non-Af Amer) POC Glucose (mg/dL) 244 H (65-110) mg/dL Random Glucose (75-110) mg/dL Calcium (8.6-10.4) mg/dl Phosphorus (2.5-4.5) mg/dL Magnesium (1.6-2.3) mg/dL Total Bilirubin (0.2-1.3) mg/dL AST (17-59) U/L ALT (21-72) U/L Alkaline Phosphatase (38-126) U/L Total Protein (6.3-8.3) g/dL Albumin (3.5-5.0) g/dL Globulin (2.2-3.9) gm/dL Albumin/Globulin Ratio (1.0-2.1) Blood Type O POSITIVE Antibody Screen Negative Laboratory Results - last 24 hr 09/25/16 09/26/16 09/27/16 12:41 18:00 00:16 WBC RBC Hgb Hct MCV MCH MCHC RDW Plt Count MPV Neut % (Auto) Lymph % (Auto) [place] % (Auto) Eos % (Auto) Baso % (Auto) Neut # Lymph # [place] # Eos # Baso # Neutrophils % (Manual) Band Neutrophils % Lymphocytes % (Manual) Monocytes % (Manual) Platelet Estimate Hypochromasia (manual) Poikilocytosis (manual Basophilic Stippling Anisocytosis (manual) Ovalocytes PT INR APTT Sodium Potassium Chloride Carbon Dioxide Anion Gap BUN Creatinine Est GFR ( Amer) Est GFR (Non-Af Amer) POC Glucose (mg/dL) 244 H 221 H Random Glucose Calcium Phosphorus Magnesium Total Bilirubin AST ALT Alkaline Phosphatase Total Protein Albumin Globulin Albumin/Globulin Ratio Blood Type O POSITIVE Antibody Screen Negative 09/27/16 09/27/16 09/27/16 05:32 06:09 06:11 WBC RBC Hgb Hct MCV MCH MCHC RDW Plt Count MPV Neut % (Auto) Lymph % (Auto) [place] % (Auto) Eos % (Auto) Baso % (Auto) Neut # Lymph # [place] # Eos # Baso # Neutrophils % (Manual) Band Neutrophils % Lymphocytes % (Manual) Monocytes % (Manual) Platelet Estimate Hypochromasia (manual) Poikilocytosis (manual Basophilic Stippling Anisocytosis (manual) Ovalocytes PT 10.4 INR 0.9 APTT 25 Sodium 134 Potassium 4.5 Chloride 104 Carbon Dioxide 21 L Anion Gap 14 BUN 45 H Creatinine 3.7 H Est GFR ( Amer) 19 Est GFR (Non-Af Amer) 16 POC Glucose (mg/dL) 161 H Random Glucose 134 H Calcium 7.7 L Phosphorus 4.0 Magnesium 2.1 Total Bilirubin 0.5 AST 22 ALT 57 Alkaline Phosphatase 67 Total Protein 4.9 L Albumin 2.7 L Globulin 2.2 Albumin/Globulin Ratio 1.2 Blood Type Antibody Screen 09/27/16 09/27/16 06:12 11:47 WBC 12.7 H RBC 2.10 L Hgb 6.2 L* D Hct 19.0 L MCV 90.7 MCH 29.6 MCHC 32.6 L RDW 18.9 H Plt Count 105 L MPV 9.1 Neut % (Auto) 90.3 H Lymph % (Auto) 4.1 L [place] % (Auto) 5.6 Eos % (Auto) 0.0 Baso % (Auto) 0.0 Neut # 11.5 H Lymph # 0.5 L [place] # 0.7 Eos # 0.0 Baso # 0.0 Neutrophils % (Manual) 85 H Band Neutrophils % 6 H Lymphocytes % (Manual) 3 L Monocytes % (Manual) 6 Platelet Estimate Slightly decreased L Hypochromasia (manual) Slight Poikilocytosis (manual Slight Basophilic Stippling Slight Anisocytosis (manual) Slight Ovalocytes Slight PT INR APTT Sodium Potassium Chloride Carbon Dioxide Anion Gap BUN Creatinine Est GFR ( Amer) Est GFR (Non-Af Amer) POC Glucose (mg/dL) 219 H Random Glucose Calcium Phosphorus Magnesium Total Bilirubin AST ALT Alkaline Phosphatase Total Protein Albumin Globulin Albumin/Globulin Ratio Blood Type Antibody Screen Fingerstick Blood Sugar Results: 210 Review of Systems - Review of Systems All systems: reviewed and no additional remarkable complaints except Critical Care Progress Note - Prophylaxis GI Prophylaxis GI: PPI - Prophylaxis DVT Prophylaxis DVT: Not Indicated - Nutrition Nutrition: Nutrition Category Date Time Status NPO Diet [DIET] Diets 09/26/16 Dinner Active Assessment/Plan (1) Postop carotid endarterectomy surveillance, encounter for Current Visit: Yes Status: Acute (2) History of carotid endarterectomy Current Visit: Yes Status: Acute (3) Carotid stenosis, bilateral Current Visit: No Status: Acute - Assessment and Plan (Free Text) Plan: Patient Status: -Stable Neuro: -Stable Cardiovascular: -Coreg 6.5mg po bid, enalapril 2.5mg po daily -Crestor 10mg po hs Pulmonary: -09/24/16 CXR- no acute issues, no active disease Gastrointestinal: -Regular Diet -No acute issues -unable to pass swallow eval- NGT placed, will tube feed Endocrine: -Accucheck ACHS -Insulin Sliding Scale Renal: -No issues Genitourinary: -monitor I&Os -catheter inserted by Dr. 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 Alona Morgan PGY1 - Date & Time Date: 09/27/16 Time: 12:52 <Gumaro Sage - Last Filed: 09/27/16 13:33> CCU Objective - Vital Signs / Intake & Output Vital Signs (Last 4 hours): Vital Signs Temp Pulse Resp BP 09/27/16 12:47 97.9 F 104 H 13 129/55 L 09/27/16 12:17 98 F 103 H 13 131/71 09/27/16 12:05 98 F 101 H 14 124/54 L 09/27/16 12:02 98 F 101 H 14 124/54 L 09/27/16 11:50 97.9 F 101 H 15 135/59 L 09/27/16 11:47 97.9 F 101 H 15 135/59 L 09/27/16 11:45 97.9 F 101 H 15 135/59 L 09/27/16 11:30 98.2 F 106 H 13 121/48 L 09/27/16 11:00 98.2 F 107 H 14 130/57 L 09/27/16 10:30 98 F 107 H 13 133/59 L 09/27/16 10:00 97.9 F 105 H 15 128/54 L Intake and Output (Last 8hrs): Intake & Output 09/26/16 09/27/16 09/27/16 22:59 06:59 14:59 Intake Total 800 805 325 Output Total 460 480 Balance 340 325 325 Weight 160 lb 3.2 oz Intake: Intake, IV Amount 800 800 Right Distal Port 800 800 Internal Jugular Oral 0 5 Blood Product 325 Red Blood Cells Cpd As1 325 Lr Unit [id number] Red Blood Cells Cpd As1 0 Lr Unit [id number] Output: Urine 460 480 2-way Urethral 460 380 Suprapubic 0 100 - Medications Active Medications: Active Medications Generic Name Dose Route Start Last Admin Trade Name Freq PRN Reason Stop Dose Admin Albuterol/Ipratropium 3 ml 09/25/16 14:00 09/27/16 07:50 Duoneb 3 Mg/0.5 Mg (3 Ml) Ud INH 3 ml RQ6 CHEPE Administration Albuterol/Ipratropium 3 ml 09/25/16 11:44 Duoneb 3 Mg/0.5 Mg (3 Ml) Ud INH RQ2 PRN Shortness of Breath Carvedilol 6.25 mg 09/24/16 18:00 09/27/16 11:15 Coreg PO Not Given BID CHEPE Famotidine 20 mg 09/27/16 10:00 09/27/16 11:58 Pepcid IVP 20 mg DAILY CHEPE Administration Hydromorphone HCl 0.5 mg 09/24/16 14:27 09/26/16 18:56 Dilaudid IVP 0.5 mg Q4H PRN Administration Pain, moderate (4-7) Sodium Chloride 1,000 mls @ 100 mls/hr 09/26/16 19:15 09/27/16 08:22 Sodium Chloride 0.9% IV 100 mls/hr .Q10H [facility] Administration Insulin Aspart 0 unit 09/25/16 18:00 09/27/16 12:10 Novolog SC 2 unit Q6H CHEPE Administration Protocol Methylprednisolone 40 mg 09/25/16 14:00 09/27/16 05:47 Solu-Medrol IVP 40 mg Q8 CHEPE Administration Nitroglycerin 1 patch 09/24/16 14:30 09/27/16 12:12 Nitro-Dur 0.1 Mg/Hr Patch TD 1 patch DAILY CHEPE Administration Ondansetron HCl 4 mg 09/24/16 14:28 Zofran Inj IVP Q4 PRN Nausea/Vomiting Rosuvastatin Calcium 10 mg 09/25/16 10:00 09/27/16 11:15 Crestor PO Not Given DAILY [facility] Valacyclovir HCl 500 mg 09/24/16 18:00 09/27/16 11:16 Valtrex PO Not Given BID CHEPE - Patient Studies Lab Studies: Microbiology Studies 09/24/16 Unknown MRSA Culture (Admit) - Final [facility] MRSA NOT DETECTED Lab Studies 0609/27/16 09/27/16 Range/Units 11:47 06:12 06:11 WBC 12.7 H (4.8-10.8) K/uL RBC 2.10 L (4.40-5.90) Mil/uL Hgb 6.2 L* D (12.0-18.0) g/dL Hct 19.0 L (35.0-51.0) % MCV 90.7 (80.0-94.0) fL MCH 29.6 (27.0-31.0) pg MCHC 32.6 L (33.0-37.0) g/dL RDW 18.9 H (11.5-14.5) % Plt Count 105 L (130-400) K/uL MPV 9.1 (7.2-11.7) fL Neut % (Auto) 90.3 H (50.0-75.0) % Lymph % (Auto) 4.1 L (20.0-40.0) % [place] % (Auto) 5.6 (0.0-10.0) % Eos % (Auto) 0.0 (0.0-4.0) % Baso % (Auto) 0.0 (0.0-2.0) % Neut # 11.5 H (1.8-7.0) K/uL Lymph # 0.5 L (1.0-4.3) K/uL [place] # 0.7 (0.0-0.8) K/uL Eos # 0.0 (0.0-0.7) K/uL Baso # 0.0 (0.0-0.2) K/uL Neutrophils % (Manual) 85 H (50-75) % Band Neutrophils % 6 H (0-2) % Lymphocytes % (Manual) 3 L (20-40) % Monocytes % (Manual) 6 (0-10) % Platelet Estimate Slightly decreased L (NORMAL) Hypochromasia (manual) Slight Poikilocytosis (manual Slight Basophilic Stippling Slight Anisocytosis (manual) Slight Ovalocytes Slight PT 10.4 (9.7-12.2) SECONDS INR 0.9 APTT 25 (21-34) SECONDS Sodium (132-148) mmol/L Potassium (3.6-5.2) mmol/L Chloride (98-107) mmol/L Carbon Dioxide (22-30) mmol/L Anion Gap (10-20) BUN (9-20) mg/dL Creatinine (0.8-1.5) MG/DL Est GFR ( Amer) Est GFR (Non-Af Amer) POC Glucose (mg/dL) 219 H (65-110) mg/dL Random Glucose (75-110) mg/dL Calcium (8.6-10.4) mg/dl Phosphorus (2.5-4.5) mg/dL Magnesium (1.6-2.3) mg/dL Total Bilirubin (0.2-1.3) mg/dL AST (17-59) U/L ALT (21-72) U/L Alkaline Phosphatase (38-126) U/L Total Protein (6.3-8.3) g/dL Albumin (3.5-5.0) g/dL Globulin (2.2-3.9) gm/dL Albumin/Globulin Ratio (1.0-2.1) Blood Type Antibody Screen 09/27/16 09/27/16 09/27/16 Range/Units 06:09 05:32 00:16 WBC (4.8-10.8) K/uL RBC (4.40-5.90) Mil/uL Hgb (12.0-18.0) g/dL Hct (35.0-51.0) % MCV (80.0-94.0) fL MCH (27.0-31.0) pg MCHC (33.0-37.0) g/dL RDW (11.5-14.5) % Plt Count (130-400) K/uL MPV (7.2-11.7) fL Neut % (Auto) (50.0-75.0) % Lymph % (Auto) (20.0-40.0) % [place] % (Auto) (0.0-10.0) % Eos % (Auto) (0.0-4.0) % Baso % (Auto) (0.0-2.0) % Neut # (1.8-7.0) K/uL Lymph # (1.0-4.3) K/uL [place] # (0.0-0.8) K/uL Eos # (0.0-0.7) K/uL Baso # (0.0-0.2) K/uL Neutrophils % (Manual) (50-75) % Band Neutrophils % (0-2) % Lymphocytes % (Manual) (20-40) % Monocytes % (Manual) (0-10) % Platelet Estimate (NORMAL) Hypochromasia (manual) Poikilocytosis (manual Basophilic Stippling Anisocytosis (manual) Ovalocytes PT (9.7-12.2) SECONDS INR APTT (21-34) SECONDS Sodium 134 (132-148) mmol/L Potassium 4.5 (3.6-5.2) mmol/L Chloride 104 (98-107) mmol/L Carbon Dioxide 21 L (22-30) mmol/L Anion Gap 14 (10-20) BUN 45 H (9-20) mg/dL Creatinine 3.7 H (0.8-1.5) MG/DL Est GFR ( Amer) 19 Est GFR (Non-Af Amer) 16 POC Glucose (mg/dL) 161 H 221 H (65-110) mg/dL Random Glucose 134 H (75-110) mg/dL Calcium 7.7 L (8.6-10.4) mg/dl Phosphorus 4.0 (2.5-4.5) mg/dL Magnesium 2.1 (1.6-2.3) mg/dL Total Bilirubin 0.5 (0.2-1.3) mg/dL AST 22 (17-59) U/L ALT 57 (21-72) U/L Alkaline Phosphatase 67 (38-126) U/L Total Protein 4.9 L (6.3-8.3) g/dL Albumin 2.7 L (3.5-5.0) g/dL Globulin 2.2 (2.2-3.9) gm/dL Albumin/Globulin Ratio 1.2 (1.0-2.1) Blood Type Antibody Screen 09/26/16 09/25/16 Range/Units 18:00 12:41 WBC (4.8-10.8) K/uL RBC (4.40-5.90) Mil/uL Hgb (12.0-18.0) g/dL Hct (35.0-51.0) % MCV (80.0-94.0) fL MCH (27.0-31.0) pg MCHC (33.0-37.0) g/dL RDW (11.5-14.5) % Plt Count (130-400) K/uL MPV (7.2-11.7) fL Neut % (Auto) (50.0-75.0) % Lymph % (Auto) (20.0-40.0) % [place] % (Auto) (0.0-10.0) % Eos % (Auto) (0.0-4.0) % Baso % (Auto) (0.0-2.0) % Neut # (1.8-7.0) K/uL Lymph # (1.0-4.3) K/uL [place] # (0.0-0.8) K/uL Eos # (0.0-0.7) K/uL Baso # (0.0-0.2) K/uL Neutrophils % (Manual) (50-75) % Band Neutrophils % (0-2) % Lymphocytes % (Manual) (20-40) % Monocytes % (Manual) (0-10) % Platelet Estimate (NORMAL) Hypochromasia (manual) Poikilocytosis (manual Basophilic Stippling Anisocytosis (manual) Ovalocytes PT (9.7-12.2) SECONDS INR APTT (21-34) SECONDS Sodium (132-148) mmol/L Potassium (3.6-5.2) mmol/L Chloride (98-107) mmol/L Carbon Dioxide (22-30) mmol/L Anion Gap (10-20) BUN (9-20) mg/dL Creatinine (0.8-1.5) MG/DL Est GFR ( Amer) Est GFR (Non-Af Amer) POC Glucose (mg/dL) 244 H (65-110) mg/dL Random Glucose (75-110) mg/dL Calcium (8.6-10.4) mg/dl Phosphorus (2.5-4.5) mg/dL Magnesium (1.6-2.3) mg/dL Total Bilirubin (0.2-1.3) mg/dL AST (17-59) U/L ALT (21-72) U/L Alkaline Phosphatase (38-126) U/L Total Protein (6.3-8.3) g/dL Albumin (3.5-5.0) g/dL Globulin (2.2-3.9) gm/dL Albumin/Globulin Ratio (1.0-2.1) Blood Type O POSITIVE Antibody Screen Negative Laboratory Results - last 24 hr 09/25/16 09/26/16 09/27/16 12:41 18:00 00:16 WBC RBC Hgb Hct MCV MCH MCHC RDW Plt Count MPV Neut % (Auto) Lymph % (Auto) [place] % (Auto) Eos % (Auto) Baso % (Auto) Neut # Lymph # [place] # Eos # Baso # Neutrophils % (Manual) Band Neutrophils % Lymphocytes % (Manual) Monocytes % (Manual) Platelet Estimate Hypochromasia (manual) Poikilocytosis (manual Basophilic Stippling Anisocytosis (manual) Ovalocytes PT INR APTT Sodium Potassium Chloride Carbon Dioxide Anion Gap BUN Creatinine Est GFR ( Amer) Est GFR (Non-Af Amer) POC Glucose (mg/dL) 244 H 221 H Random Glucose Calcium Phosphorus Magnesium Total Bilirubin AST ALT Alkaline Phosphatase Total Protein Albumin Globulin Albumin/Globulin Ratio Blood Type O POSITIVE Antibody Screen Negative 09/27/16 09/27/16 09/27/16 05:32 06:09 06:11 WBC RBC Hgb Hct MCV MCH MCHC RDW Plt Count MPV Neut % (Auto) Lymph % (Auto) [place] % (Auto) Eos % (Auto) Baso % (Auto) Neut # Lymph # [place] # Eos # Baso # Neutrophils % (Manual) Band Neutrophils % Lymphocytes % (Manual) Monocytes % (Manual) Platelet Estimate Hypochromasia (manual) Poikilocytosis (manual Basophilic Stippling Anisocytosis (manual) Ovalocytes PT 10.4 INR 0.9 APTT 25 Sodium 134 Potassium 4.5 Chloride 104 Carbon Dioxide 21 L Anion Gap 14 BUN 45 H Creatinine 3.7 H Est GFR ( Amer) 19 Est GFR (Non-Af Amer) 16 POC Glucose (mg/dL) 161 H Random Glucose 134 H Calcium 7.7 L Phosphorus 4.0 Magnesium 2.1 Total Bilirubin 0.5 AST 22 ALT 57 Alkaline Phosphatase 67 Total Protein 4.9 L Albumin 2.7 L Globulin 2.2 Albumin/Globulin Ratio 1.2 Blood Type Antibody Screen 09/27/16 09/27/16 06:12 11:47 WBC 12.7 H RBC 2.10 L Hgb 6.2 L* D Hct 19.0 L MCV 90.7 MCH 29.6 MCHC 32.6 L RDW 18.9 H Plt Count 105 L MPV 9.1 Neut % (Auto) 90.3 H Lymph % (Auto) 4.1 L [place] % (Auto) 5.6 Eos % (Auto) 0.0 Baso % (Auto) 0.0 Neut # 11.5 H Lymph # 0.5 L [place] # 0.7 Eos # 0.0 Baso # 0.0 Neutrophils % (Manual) 85 H Band Neutrophils % 6 H Lymphocytes % (Manual) 3 L Monocytes % (Manual) 6 Platelet Estimate Slightly decreased L Hypochromasia (manual) Slight Poikilocytosis (manual Slight Basophilic Stippling Slight Anisocytosis (manual) Slight Ovalocytes Slight PT INR APTT Sodium Potassium Chloride Carbon Dioxide Anion Gap BUN Creatinine Est GFR ( Amer) Est GFR (Non-Af Amer) POC Glucose (mg/dL) 219 H Random Glucose Calcium Phosphorus Magnesium Total Bilirubin AST ALT Alkaline Phosphatase Total Protein Albumin Globulin Albumin/Globulin Ratio Blood Type Antibody Screen Critical Care Progress Note - Nutrition Nutrition: Nutrition Category Date Time Status NPO Diet [DIET] Diets 09/26/16 Dinner Active Attending/Attestation - Attestation I have personally seen and examined this patient.: Yes I have fully participated in the care of the patient.: Yes I have reviewed all pertinent clinical information: Yes Notes (Text): 09/27/16 13:30 I have seen and examined the patient. Medical records, lab studies, and imaging were reviewed by me and a management plan was formulated on multidisciplinary rounds with resident Dr. Morgan. I agree with their above documented assessment and plan. Patient still having hematuria. Obtaining CT abdomen as per Urology to assess for clots. Reversing any possible anticoagulants on board, patient was taking ASA and plavix at home, last dose unknown, giving DDAVP and 1 unit of platelets. Physically difficult to place CBI as per Urology. H/H stable. Critical Care Time 35 minutes. Multi-disciplinary rounds were performed with house staff, nursing, speech therapy, respiratory therapy, pharmacy and nutrition with integrated input from the primary team/attending and other consulting services. The documented time is cumulative and includes review of patient data/exams/labs/chart review and examination of the patient on rounds and throughout the day; time is exclusive of any procedures or teaching time.
--- NOTE | 2016-09-27 16:00 | CT ---
PROCEDURE: CT Abdomen and Pelvis without Oral or IV contrast. HISTORY: bladder evaluation ? BLOOD COMPARISON: CT abdomen and pelvis without oral or IV contrast performed 12/30/15 TECHNIQUE: Contiguous axial images of the abdomen and pelvis. No oral or IV contrast administered. Coronal and Sagittal reformats generated and reviewed. Radiation dose: Total exam DLP = 964.68 mGy-cm. This CT exam was performed using one or more of the following dose reduction techniques: Automated exposure control, adjustment of the mA and/or kV according to patient size, and/or use of iterative reconstruction technique. FINDINGS: There is limited evaluation of the solid organs without the administration of IV contrast. LOWER THORAX: 1.9 cm rounded lesion at the right lung base (series 5, image 2). Small bilateral pleural effusions and associated compressive consolidations. Median sternotomy wires. Partially imaged AICD lead. Small to moderate hiatal hernia. LIVER: Shadowing limits evaluation of the anterior right hepatic lobe. Otherwise unremarkable unenhanced appearance. GALLBLADDER AND BILE DUCTS: Cholecystectomy clips. PANCREAS: Atrophy. SPLEEN: Unremarkable unenhanced appearance. ADRENALS: Unremarkable unenhanced appearance. KIDNEYS AND URETERS: No hydronephrosis or obstructing renal calculus. BLADDER: Roberts catheter within urinary bladder. High-density material is seen within the urinary bladder along with several foci of air. Air may be secondary to recent instrumentation however infection cannot be excluded. High-density material may be residual contrast from recent fluoroscopy study. Blood products cannot be excluded.Additionally, there is evidence of a posterior left diverticula with 2 large calculi. REPRODUCTIVE: Enlarged prostate gland. APPENDIX: The appendix is not definitively identified. No secondary signs of acute appendicitis. BOWEL: The stomach is nondistended. Lack of oral contrast limits evaluation for bowel pathology. The bowel loops appear within normal limits of caliber without evidence of intestinal obstruction. Moderate to severe retained colonic fecal material within the rectosigmoid colon. PERITONEUM: No significant free fluid. No definite free air. LYMPH NODES: No bulky lymphadenopathy identified. VASCULATURE: Extensive atherosclerotic calcifications. 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 BONES: Degenerative changes. OTHER FINDINGS: Fat containing bilateral inguinal hernias. IMPRESSION: Roberts catheter within urinary bladder. High-density material is seen within the urinary bladder along with several foci of air. Air may be secondary to recent instrumentation however infection cannot be excluded. High-density material may be residual contrast from recent fluoroscopy study. Blood products cannot be excluded. Additionally, there is evidence of a posterior left diverticula with 2 large calculi. 1.9 cm rounded lesion at the right lung base. Recommend further evaluation with biopsy, PET- CT, or follow-up CT at 3 months, and 9 months, and 24 months. Small bilateral pleural effusions and associated compressive consolidations. Moderate to severe retained colonic fecal material within the rectosigmoid colon. Enlarged prostate gland. Recommend correlation with PSA. Additional findings as above.
[2016-09-27 19:06] LABS: HEMATOCRIT 24.3 % (35.0-51.0)
--- NOTE | 2016-09-27 23:10 | CP.PCM.PN ---
Subjective - Date & Time of Evaluation Date of Evaluation: 09/27/16 Time of Evaluation: 10:00 - Subjective Subjective: Pt seen and evaluated in ICU, s/p carotid endartectomy, is more alert, off BIPAO , slightly tacycardic,saturating well, no fever, pt is improving Objective - Vital Signs/Intake and Output Vital Signs (last 24 hours): Temp Pulse Resp BP Pulse Ox 97.9 F 102 H 15 128/61 100 09/27/16 17:55 09/27/16 21:31 09/27/16 21:31 09/27/16 21:31 09/27/16 21:31 Intake and Output: 09/27/16 09/28/16 18:59 06:59 Intake Total 1063 400 Output Total 625 230 Balance 438 170 - Medications Medications: Current Medications Albuterol/Ipratropium (Duoneb 3 Mg/0.5 Mg (3 Ml) Ud) 3 ml INH RQ6 [facility] Last Admin: 09/27/16 19:13 Dose: 3 ml Albuterol/Ipratropium (Duoneb 3 Mg/0.5 Mg (3 Ml) Ud) 3 ml INH RQ2 PRN PRN Reason: Shortness of Breath Carvedilol (Coreg) 6.25 mg PO BID [facility] Last Admin: 09/27/16 18:19 Dose: Not Given Famotidine (Pepcid) 20 mg IVP DAILY [facility] Last Admin: 09/27/16 11:58 Dose: 20 mg Hydromorphone HCl (Dilaudid) 0.5 mg IVP Q4H PRN PRN Reason: Pain, moderate (4-7) Last Admin: 09/26/16 18:56 Dose: 0.5 mg Sodium Chloride (Sodium Chloride 0.9%) 1,000 mls @ 100 mls/hr IV .Q10H [facility] Last Admin: 09/27/16 18:24 Dose: Not Given Insulin Aspart (Novolog) 0 unit SC Q6H [facility] PRN Reason: Protocol Last Admin: 09/27/16 18:23 Dose: 2 unit Methylprednisolone (Solu-Medrol) 40 mg IVP Q8 [facility] Last Admin: 09/27/16 21:13 Dose: 40 mg Nitroglycerin (Nitro-Dur 0.1 Mg/Hr Patch) 1 patch TD DAILY [facility] Last Admin: 09/27/16 12:12 Dose: 1 patch Ondansetron HCl (Zofran Inj) 4 mg IVP Q4 PRN PRN Reason: Nausea/Vomiting Rosuvastatin Calcium (Crestor) 10 mg PO DAILY [facility] Last Admin: 09/27/16 11:15 Dose: Not Given Valacyclovir HCl (Valtrex) 500 mg PO BID [facility] Last Admin: 09/27/16 18:19 Dose: Not Given - Labs Labs: 09/27/16 19:01 09/27/16 06:09 PT 10.4 SECONDS (9.7-12.2) 09/27/16 06:11 INR 0.9 09/27/16 06:11 APTT 25 SECONDS (21-34) 09/27/16 06:11 - Constitutional Appears: No Acute Distress - Head Exam Head Exam: ATRAUMATIC, NORMAL INSPECTION, NORMOCEPHALIC - Eye Exam Eye Exam: EOMI, Normal appearance, PERRL Pupil Exam: NORMAL ACCOMODATION, PERRL - ENT Exam ENT Exam: Mucous Membranes Moist, Normal Exam - Respiratory Exam Respiratory Exam: Decreased Breath Sounds, Rales - Cardiovascular Exam Cardiovascular Exam: REGULAR RHYTHM, +S1, +S2. absent: Murmur - GI/Abdominal Exam GI & Abdominal Exam: Soft, Normal Bowel Sounds. absent: Tenderness Assessment and Plan (1) Postop carotid endarterectomy surveillance, encounter for Status: Acute (2) Bronchitis Status: Acute (3) COPD (chronic obstructive pulmonary disease) Status: Acute (4) Carotid stenosis, bilateral Status: Acute
[2016-09-28] MEDS: Albuterol-Ipratrop 3 mg / 0.5 (3 ml) UD INH SCH ×4 (01:45→19:55)
[2016-09-28] MEDS: Sodium Chloride 0.9% 1,000 ML IV SCH ×3 (04:14→22:26)
[2016-09-28] MEDS: MethylPREDNISolone 40 mg Vial IVP SCH ×3 (05:53→22:09)
[2016-09-28] MEDS: (Novolog) Insulin Aspart, Recombinant 100 u/ml 10 ml vial SC SCH ×3 (05:54→18:25)
[2016-09-28 06:48] LABS: HEMATOCRIT 23.7 % (35.0-51.0); MEAN CELL VOLUME 89.7 fL (80.0-94.0); MEAN CORPUSCULAR HGB CONC 33.4 g/dL (33.0-37.0); MEAN PLATELET VOLUME 8.6 fL (7.2-11.7); RED CELL DISTRIBUTION WIDTH 17.1 % (11.5-14.5); WHITE BLOOD COUNT 8.4 K/uL (4.8-10.8)
[2016-09-28 07:00] LABS: POTASSIUM 4.3 mmol/L (3.6-5.2)
[2016-09-28 07:02] LABS: ALB/GLOB RATIO 1.3 (1.0-2.1); BILIRUBIN,TOTAL 0.6 mg/dL (0.2-1.3); TOTAL PROTEIN 4.9 g/dL (6.3-8.3)
[2016-09-28 07:03] LABS: CALCIUM 7.8 mg/dl (8.6-10.4); MAGNESIUM 2.3 mg/dL (1.6-2.3); PHOSPHOROUS 3.7 mg/dL (2.5-4.5)
--- NOTE | 2016-09-28 07:09 | CP.PCM.PN ---
Subjective - Date & Time of Evaluation Date of Evaluation: 09/28/16 Time of Evaluation: 07:07 - Subjective Subjective: Vasc Sx: Dr Torres Pt S&E. LIONEL. Denies pain at this time. Continues to have sanguinous output from supra-pubic catheter and crouch. HgB 7.9. Plan is for repeat cystoscopy today. Further recs to follow Objective - Vital Signs/Intake and Output Vital Signs (last 24 hours): Temp Pulse Resp BP Pulse Ox 97.9 F 83 10 L 140/64 100 09/27/16 17:55 09/28/16 06:30 09/28/16 06:30 09/28/16 06:30 09/28/16 06:30 Intake and Output: 09/28/16 09/28/16 06:59 18:59 Intake Total 1200 Output Total 790 Balance 410 - Medications Medications: Current Medications Albuterol/Ipratropium (Duoneb 3 Mg/0.5 Mg (3 Ml) Ud) 3 ml INH RQ6 [facility] Last Admin: 09/28/16 01:45 Dose: 3 ml Albuterol/Ipratropium (Duoneb 3 Mg/0.5 Mg (3 Ml) Ud) 3 ml INH RQ2 PRN PRN Reason: Shortness of Breath Carvedilol (Coreg) 6.25 mg PO BID [facility] Last Admin: 09/27/16 18:19 Dose: Not Given Famotidine (Pepcid) 20 mg IVP DAILY [facility] Last Admin: 09/27/16 11:58 Dose: 20 mg Hydromorphone HCl (Dilaudid) 0.5 mg IVP Q4H PRN PRN Reason: Pain, moderate (4-7) Last Admin: 09/26/16 18:56 Dose: 0.5 mg Sodium Chloride (Sodium Chloride 0.9%) 1,000 mls @ 100 mls/hr IV .Q10H [facility] Last Admin: 09/28/16 04:14 Dose: 100 mls/hr Insulin Aspart (Novolog) 0 unit SC Q6H [facility] PRN Reason: Protocol Last Admin: 09/28/16 05:54 Dose: 2 unit Methylprednisolone (Solu-Medrol) 40 mg IVP Q8 [facility] Last Admin: 09/28/16 05:53 Dose: 40 mg Nitroglycerin (Nitro-Dur 0.1 Mg/Hr Patch) 1 patch TD DAILY [facility] Last Admin: 09/27/16 12:12 Dose: 1 patch Ondansetron HCl (Zofran Inj) 4 mg IVP Q4 PRN PRN Reason: Nausea/Vomiting Rosuvastatin Calcium (Crestor) 10 mg PO DAILY [facility] Last Admin: 09/27/16 11:15 Dose: Not Given Valacyclovir HCl (Valtrex) 500 mg PO BID [facility] Last Admin: 09/27/16 18:19 Dose: Not Given - Labs Labs: 09/28/16 06:36 09/27/16 06:09 PT 10.7 SECONDS (9.7-12.2) 09/28/16 06:36 INR 1.0 09/28/16 06:36 APTT 24 SECONDS (21-34) 09/28/16 06:36 - Constitutional Appears: Non-toxic, No Acute Distress - ENT Exam Additional comments: left carotid dressing c/d/i - Respiratory Exam Respiratory Exam: absent: Accessory Muscle Use, Respiratory Distress - Cardiovascular Exam Cardiovascular Exam: REGULAR RHYTHM. absent: Tachycardia - GI/Abdominal Exam GI & Abdominal Exam: Soft. absent: Distended, Tenderness - Neurological Exam Neurological Exam: Alert, Awake, Oriented x3 - Psychiatric Exam Psychiatric exam: Normal Affect, Normal Mood - Skin Skin Exam: Normal Color, Warm Assessment and Plan - Assessment and Plan (Free Text) Assessment: 80M POD#4 left CEA; post-op urinary retention w/ supra-pubic crouch catheter. Now with hematuria Plan: repeat cysto today further mgmt per ICU will cont to follow will d/w Dr Brian Ferreira, PGY2
[2016-09-28] MEDS: Nitroglycerin 0.1 mg/hr Top Patch TD SCH (11:04)
[2016-09-28] MEDS ORDERED: Gentamicin 80 mg in 0.9% NS 160 MG/200 ML BAG IVPB ONE (13:29)
[2016-09-28] MEDS ORDERED: Ciprofloxacin 400mg/200ml D5W 400 MG/200 ML BAG IVPB ONE (13:29)
[2016-09-28] MEDS ORDERED: Propofol 10 mg/ml Inj (20 ML) ONE (13:35)
[2016-09-28] MEDS ORDERED: Albuterol HFA 90 mcg/actuation (8 g) ONE (13:57)
[2016-09-28] MEDS ORDERED: Lidocaine 2% Jelly (Uro-Jet) ONE (14:30)
--- NOTE | 2016-09-28 15:08 | PCM.SURG1 ---
Surgeon's Initial Post Op Note - Surgeon's Notes Surgeon: phillip Art Director: bina Type of Anesthesia: General Endo, General Mask Anesthesia Administered By: staff Pre-Operative Diagnosis: Urinary retention/BPH/clot retenion?bladder calculi Operative Findings: BPH/ evedince of cath trauma post urethra/large amounts of clots within bladder/multiple bladder divertic/no visual evidince of stone/ suprapubic tube in good position. Post-Operative Diagnosis: BPH/Large amount of clots within bladder/no visual evidence of stones Operation Performed: Cysto Evacuation of clots/insertion of three way crouch Specimen/Specimens Removed: clots /necrotic tissue Estimated Blood Loss: EBL {In ML}: 200 (old clotted blood) Blood Products Given: N/A Drains Used: No Drains Post-Op Condition: Good Date of Surgery/Procedure: 09/28/16 Time of Surgery/Procedure: 15:10
--- NOTE | 2016-09-28 16:17 | CP.CCUPN ---
CCU Subjective - Physician Review Events Since Last Encounter (Free Text): 09/28/16 16:14 patient went to OR for cystoscopy and clot removal today. CCU Objective - Vital Signs / Intake & Output Intake and Output (Last 8hrs): Intake & Output 09/28/16 09/28/16 09/28/16 06:59 14:59 22:59 Intake Total 800 650 Output Total 685 485 Balance 115 165 Weight 152 lb Intake: Intake, IV Amount 800 600 Right Distal Port 800 600 Internal Jugular Oral 50 Output: Urine 685 485 2-way Urethral 435 425 Suprapubic 250 60 Other: # Bowel Movements 1 - Physical Exam Head: Positive for: Atraumatic, Normocephalic Pupils: Positive for: PERRL Extroacular Muscles: Positive for: EOMI Conjunctiva: Positive for: Normal Neck: Positive for: Other (dressing CDI, R TLC in place). Negative for: JVD Respiratory/Chest: Positive for: Clear to Auscultation, Good Air Exchange, Other (s/p intubation ). Negative for: Respiratory Distress, Accessory Muscle Use, Wheezes, Decreased Breath Sounds, Rales Cardiovascular: Positive for: Regular Rate and Rhythm, Normal S1, S2, Peripheal Pulses Present. Negative for: Murmurs Abdomen: Positive for: Normal Bowel Sounds. Negative for: Tenderness, Distention, Peritoneal Signs, Rebound, Guarding Upper Extremity: Positive for: Normal Inspection, NORMAL PULSES. Negative for: Cyanosis, Edema Lower Extremity: Positive for: Normal Inspection, NORMAL PULSES. Negative for: Edema, CALF TENDERNESS Skin: Positive for: Warm, Dry, Pale. Negative for: Rashes - Medications Active Medications: Active Medications Generic Name Dose Route Start Last Admin Trade Name Freq PRN Reason Stop Dose Admin Albuterol/Ipratropium 3 ml 09/25/16 14:00 09/28/16 13:29 Duoneb 3 Mg/0.5 Mg (3 Ml) Ud INH Not Given RQ6 [facility] Albuterol/Ipratropium 3 ml 09/25/16 11:44 Duoneb 3 Mg/0.5 Mg (3 Ml) Ud INH RQ2 PRN Shortness of Breath Carvedilol 6.25 mg 09/24/16 18:00 09/28/16 11:03 Coreg PO 6.25 mg BID [facility] Administration Famotidine 20 mg 09/27/16 10:00 09/28/16 11:04 Pepcid IVP 20 mg DAILY [facility] Administration Finasteride 5 mg 09/29/16 10:00 Proscar PO DAILY [facility] Hydromorphone HCl 0.5 mg 09/24/16 14:27 09/26/16 18:56 Dilaudid IVP 0.5 mg Q4H PRN Administration Pain, moderate (4-7) Sodium Chloride 1,000 mls @ 100 mls/hr 09/26/16 19:15 09/28/16 11:11 Sodium Chloride 0.9% IV 100 mls/hr .Q10H [facility] Administration Insulin Aspart 0 unit 09/25/16 18:00 09/28/16 12:43 Novolog SC Not Given Q6H [facility] Protocol Methylprednisolone 40 mg 09/25/16 14:00 09/28/16 05:53 Solu-Medrol IVP 40 mg Q8 [facility] Administration Nitroglycerin 1 patch 09/24/16 14:30 09/28/16 11:04 Nitro-Dur 0.1 Mg/Hr Patch TD Not Given DAILY [facility] Ondansetron HCl 4 mg 09/24/16 14:28 Zofran Inj IVP Q4 PRN Nausea/Vomiting Rosuvastatin Calcium 10 mg 09/25/16 10:00 09/28/16 11:03 Crestor PO 10 mg DAILY [facility] Administration Tamsulosin HCl 0.4 mg 09/29/16 10:00 Flomax PO DAILY [facility] Valacyclovir HCl 500 mg 09/24/16 18:00 09/28/16 11:03 Valtrex PO 500 mg BID [facility] Administration - Patient Studies Lab Studies: Lab Studies 09/28/16 09/28/16 09/28/16 Range/Units 11:33 06:36 06:36 WBC 8.4 (4.8-10.8) K/uL RBC 2.64 L (4.40-5.90) Mil/uL Hgb 7.9 L (12.0-18.0) g/dL Hct 23.7 L (35.0-51.0) % MCV 89.7 (80.0-94.0) fL MCH 30.0 (27.0-31.0) pg MCHC 33.4 (33.0-37.0) g/dL RDW 17.1 H (11.5-14.5) % Plt Count 126 L D (130-400) K/uL MPV 8.6 (7.2-11.7) fL PT 10.7 (9.7-12.2) SECONDS INR 1.0 APTT 24 (21-34) SECONDS Sodium (132-148) mmol/L Potassium (3.6-5.2) mmol/L Chloride (98-107) mmol/L Carbon Dioxide (22-30) mmol/L Anion Gap (10-20) BUN (9-20) mg/dL Creatinine (0.8-1.5) MG/DL Est GFR ( Amer) Est GFR (Non-Af Amer) POC Glucose (mg/dL) 205 H (65-110) mg/dL Random Glucose (75-110) mg/dL Calcium (8.6-10.4) mg/dl Phosphorus (2.5-4.5) mg/dL Magnesium (1.6-2.3) mg/dL Total Bilirubin (0.2-1.3) mg/dL AST (17-59) U/L ALT (21-72) U/L Alkaline Phosphatase (38-126) U/L Total Protein (6.3-8.3) g/dL Albumin (3.5-5.0) g/dL Globulin (2.2-3.9) gm/dL Albumin/Globulin Ratio (1.0-2.1) 09/28/16 09/28/16 09/27/16 Range/Units 06:33 05:48 23:26 WBC (4.8-10.8) K/uL RBC (4.40-5.90) Mil/uL Hgb (12.0-18.0) g/dL Hct (35.0-51.0) % MCV (80.0-94.0) fL MCH (27.0-31.0) pg MCHC (33.0-37.0) g/dL RDW (11.5-14.5) % Plt Count (130-400) K/uL MPV (7.2-11.7) fL PT (9.7-12.2) SECONDS INR APTT (21-34) SECONDS Sodium 136 (132-148) mmol/L Potassium 4.3 (3.6-5.2) mmol/L Chloride 106 (98-107) mmol/L Carbon Dioxide 21 L (22-30) mmol/L Anion Gap 13 (10-20) BUN 53 H (9-20) mg/dL Creatinine 2.9 H (0.8-1.5) MG/DL Est GFR ( Amer) 25 Est GFR (Non-Af Amer) 21 POC Glucose (mg/dL) 201 H 172 H (65-110) mg/dL Random Glucose 166 H (75-110) mg/dL Calcium 7.8 L (8.6-10.4) mg/dl Phosphorus 3.7 (2.5-4.5) mg/dL Magnesium 2.3 (1.6-2.3) mg/dL Total Bilirubin 0.6 (0.2-1.3) mg/dL AST 19 (17-59) U/L ALT 41 (21-72) U/L Alkaline Phosphatase 61 (38-126) U/L Total Protein 4.9 L (6.3-8.3) g/dL Albumin 2.8 L (3.5-5.0) g/dL Globulin 2.1 L (2.2-3.9) gm/dL Albumin/Globulin Ratio 1.3 (1.0-2.1) 09/27/16 09/27/16 Range/Units 19:01 17:49 WBC (4.8-10.8) K/uL RBC (4.40-5.90) Mil/uL Hgb 8.0 L (12.0-18.0) g/dL Hct 24.3 L (35.0-51.0) % MCV (80.0-94.0) fL MCH (27.0-31.0) pg MCHC (33.0-37.0) g/dL RDW (11.5-14.5) % Plt Count (130-400) K/uL MPV (7.2-11.7) fL PT (9.7-12.2) SECONDS INR APTT (21-34) SECONDS Sodium (132-148) mmol/L Potassium (3.6-5.2) mmol/L Chloride (98-107) mmol/L Carbon Dioxide (22-30) mmol/L Anion Gap (10-20) BUN (9-20) mg/dL Creatinine (0.8-1.5) MG/DL Est GFR ( Amer) Est GFR (Non-Af Amer) POC Glucose (mg/dL) 217 H (65-110) mg/dL Random Glucose (75-110) mg/dL Calcium (8.6-10.4) mg/dl Phosphorus (2.5-4.5) mg/dL Magnesium (1.6-2.3) mg/dL Total Bilirubin (0.2-1.3) mg/dL AST (17-59) U/L ALT (21-72) U/L Alkaline Phosphatase (38-126) U/L Total Protein (6.3-8.3) g/dL Albumin (3.5-5.0) g/dL Globulin (2.2-3.9) gm/dL Albumin/Globulin Ratio (1.0-2.1) Laboratory Results - last 24 hr 09/27/16 09/27/16 09/27/16 17:49 19:01 23:26 WBC RBC Hgb 8.0 L Hct 24.3 L MCV MCH MCHC RDW Plt Count MPV PT INR APTT Sodium Potassium Chloride Carbon Dioxide Anion Gap BUN Creatinine Est GFR ( Amer) Est GFR (Non-Af Amer) POC Glucose (mg/dL) 217 H 172 H Random Glucose Calcium Phosphorus Magnesium Total Bilirubin AST ALT Alkaline Phosphatase Total Protein Albumin Globulin Albumin/Globulin Ratio 09/28/16 09/28/16 09/28/16 05:48 06:33 06:36 WBC 8.4 RBC 2.64 L Hgb 7.9 L Hct 23.7 L MCV 89.7 MCH 30.0 MCHC 33.4 RDW 17.1 H Plt Count 126 L D MPV 8.6 PT INR APTT Sodium 136 Potassium 4.3 Chloride 106 Carbon Dioxide 21 L Anion Gap 13 BUN 53 H Creatinine 2.9 H Est GFR ( Amer) 25 Est GFR (Non-Af Amer) 21 POC Glucose (mg/dL) 201 H Random Glucose 166 H Calcium 7.8 L Phosphorus 3.7 Magnesium 2.3 Total Bilirubin 0.6 AST 19 ALT 41 Alkaline Phosphatase 61 Total Protein 4.9 L Albumin 2.8 L Globulin 2.1 L Albumin/Globulin Ratio 1.3 09/28/16 09/28/16 06:36 11:33 WBC RBC Hgb Hct MCV MCH MCHC RDW Plt Count MPV PT 10.7 INR 1.0 APTT 24 Sodium Potassium Chloride Carbon Dioxide Anion Gap BUN Creatinine Est GFR ( Amer) Est GFR (Non-Af Amer) POC Glucose (mg/dL) 205 H Random Glucose Calcium Phosphorus Magnesium Total Bilirubin AST ALT Alkaline Phosphatase Total Protein Albumin Globulin Albumin/Globulin Ratio Fingerstick Blood Sugar Results: 204 Review of Systems - Review of Systems All systems: reviewed and no additional remarkable complaints except - Genitourinary Genitourinary: Hematuria Critical Care Progress Note - Nutrition Nutrition: Nutrition Category Date Time Status NPO Diet [DIET] Diets 09/26/16 Dinner Active Assessment/Plan (1) Hematuria, gross Assessment and plan: 80-year-old male with past medical history hypertension, insulin-dependent diabetes mellitus type 2, CAD status post CABG, AICD, COPD, dementia. Patient underwent a left carotid endarterectomy and was admitted postoperatively to the ICU for monitoring. Hospital course complicated by hematuria status post cystoscopy for severe BPH. Neuro: Alert and oriented 3 Pulm: No acute issues, breathing spontaneously on room air CV: Hemodynamically stable. Hypertension controlled with Coreg and enalapril. Hem: Continue aspirin and Plavix for CAD Renal: No acute issues, urine output within normal limits, we will monitor. Uro: Patient underwent cystoscopy with removal of clots today in the OR. Patient started on CBI. Suprapubic cath also in place. Patient to be started on BPH meds, Flomax and finasteride. Urology following. Endo: DM type II, short acting insulin sliding scale for coverage. GI: Pured diet with honey thick liquids ID: No acute issues DVT proph - SCDs, anticoagulation held with current hematuria. GI proph - Pepcid crouch for strict I/O's during acute illness Code status - full code Crtical Care Time spent 35 minutes Multi-disciplinary rounds were performed with house staff, nursing, speech therapy, respiratory therapy, pharmacy and nutrition with integrated input from the primary team/attending and other consulting services. The documented time is cumulative and includes review of patient data/exams/labs/chart review and examination of the patient on rounds and throughout the day; time is exclusive of any procedures or teaching time. Current Visit: Yes Status: Acute
[2016-09-28] MEDS: HYDROmorphone 0.5 mg/0.5 ml ISec IVP PRN (23:58)
[2016-09-29] MEDS: Albuterol-Ipratrop 3 mg / 0.5 (3 ml) UD INH SCH ×4 (01:05→19:47)
[2016-09-29] MEDS: Sodium Chloride 0.9% 1,000 ML IV SCH ×3 (01:18→18:27)
[2016-09-29] MEDS: MethylPREDNISolone 40 mg Vial IVP SCH ×3 (06:05→22:26)
[2016-09-29] MEDS: (Novolog) Insulin Aspart, Recombinant 100 u/ml 10 ml vial SC SCH ×4 (06:08→18:27)
[2016-09-29 06:11] LABS: LYMPH # 0.5 K/uL (1.0-4.3); LYMPH % 4.1 % (20.0-40.0); MEAN CELL VOLUME 91.3 fL (80.0-94.0); MEAN CORPUSCULAR HEMOGLOBIN 29.5 pg (27.0-31.0); MEAN CORPUSCULAR HGB CONC 32.3 g/dL (33.0-37.0); MEAN PLATELET VOLUME 8.5 fL (7.2-11.7); MONO # 0.4 K/uL (0.0-0.8); MONO % 3.6 % (0.0-10.0); PLATELET COUNT 125 K/uL (130-400); RED CELL DISTRIBUTION WIDTH 17.5 % (11.5-14.5); WHITE BLOOD COUNT 11.2 K/uL (4.8-10.8)
[2016-09-29 06:33] LABS: POTASSIUM 4.8 mmol/L (3.6-5.2)
[2016-09-29 06:35] LABS: ALB/GLOB RATIO 1.4 (1.0-2.1); BILIRUBIN,TOTAL 0.8 mg/dL (0.2-1.3); PHOSPHOROUS 4.6 mg/dL (2.5-4.5); TOTAL PROTEIN 5.1 g/dL (6.3-8.3)
[2016-09-29 06:36] LABS: CALCIUM 7.8 mg/dl (8.6-10.4); MAGNESIUM 2.3 mg/dL (1.6-2.3)
[2016-09-29 08:38] LABS: NEUTROPHIL 89 % (50-75); TOTAL CELLS COUNTED 100
[2016-09-29 08:39] LABS: LARGE PLATELETS PRESENT
[2016-09-29] MEDS: Nitroglycerin 0.1 mg/hr Top Patch TD SCH (09:19)
--- NOTE | 2016-09-29 09:36 | CP.PCM.PN ---
Subjective - Date & Time of Evaluation Date of Evaluation: 09/29/16 Time of Evaluation: 09:33 - Subjective Subjective: SURGERY NOTE FOR DR. ESCUDERO 80M seen and examined to bedside. Patient resting comfortably. Sanguinous liquid in crouch and suprapubic catheter. Site of CEA clean dry intact Objective - Vital Signs/Intake and Output Vital Signs (last 24 hours): Temp Pulse Resp BP Pulse Ox 98 F 71 11 L 127/56 L 98 09/28/16 20:00 09/29/16 07:47 09/29/16 07:00 09/29/16 06:31 09/29/16 07:00 Intake and Output: 09/29/16 09/29/16 06:59 18:59 Intake Total 49882 100 Output Total 4250 Balance 04628 100 - Medications Medications: Current Medications Albuterol/Ipratropium (Duoneb 3 Mg/0.5 Mg (3 Ml) Ud) 3 ml INH RQ6 [facility] Last Admin: 09/29/16 07:46 Dose: 3 ml Albuterol/Ipratropium (Duoneb 3 Mg/0.5 Mg (3 Ml) Ud) 3 ml INH RQ2 PRN PRN Reason: Shortness of Breath Carvedilol (Coreg) 6.25 mg PO BID [facility] Last Admin: 09/29/16 09:19 Dose: 6.25 mg Famotidine (Pepcid) 20 mg IVP DAILY [facility] Last Admin: 09/29/16 09:19 Dose: 20 mg Finasteride (Proscar) 5 mg PO DAILY [facility] Last Admin: 09/29/16 09:19 Dose: 5 mg Hydromorphone HCl (Dilaudid) 0.5 mg IVP Q4H PRN PRN Reason: Pain, moderate (4-7) Last Admin: 09/28/16 23:58 Dose: 0.5 mg Sodium Chloride (Sodium Chloride 0.9%) 1,000 mls @ 100 mls/hr IV .Q10H [facility] Last Admin: 09/29/16 09:20 Dose: 100 mls/hr Insulin Aspart (Novolog) 0 unit SC Q6H [facility] PRN Reason: Protocol Last Admin: 09/29/16 06:08 Dose: 1 unit Methylprednisolone (Solu-Medrol) 40 mg IVP Q8 [facility] Last Admin: 09/29/16 06:05 Dose: 40 mg Nitroglycerin (Nitro-Dur 0.1 Mg/Hr Patch) 1 patch TD DAILY [facility] Last Admin: 09/29/16 09:19 Dose: Not Given Ondansetron HCl (Zofran Inj) 4 mg IVP Q4 PRN PRN Reason: Nausea/Vomiting Rosuvastatin Calcium (Crestor) 10 mg PO DAILY [facility] Last Admin: 09/29/16 09:19 Dose: 10 mg Tamsulosin HCl (Flomax) 0.4 mg PO DAILY [facility] Last Admin: 09/29/16 09:19 Dose: 0.4 mg Valacyclovir HCl (Valtrex) 500 mg PO BID [facility] Last Admin: 09/29/16 09:19 Dose: 500 mg - Labs Labs: 09/29/16 06:05 09/29/16 06:05 PT 10.7 SECONDS (9.7-12.2) 09/28/16 06:36 INR 1.0 09/28/16 06:36 APTT 24 SECONDS (21-34) 09/28/16 06:36 - Constitutional Appears: Non-toxic, No Acute Distress - Neck Exam Additional comments: left CEA - dressing CDI - Respiratory Exam Respiratory Exam: Clear to Ausculation Bilateral, NORMAL BREATHING PATTERN - Cardiovascular Exam Cardiovascular Exam: REGULAR RHYTHM, +S1, +S2 Assessment and Plan - Assessment and Plan (Free Text) Assessment: 80M POD#5 left CEA; post-op urinary retention w/ supra-pubic crouch catheter. Now with hematuria Plan: management as per urology further mgmt per ICU will cont to follow Further recs discuss with Dr. Brian Villarreal, PGY1
--- NOTE | 2016-09-29 12:07 | CP.PCM.PN ---
Subjective - Date & Time of Evaluation Date of Evaluation: 09/29/16 Time of Evaluation: 12:03 - Subjective Subjective: Urine is pinkish with CBI,Discussed with nurse,irrigation of caths is no longer yielding clots.A resolving hematuriaS> continue CBI and periodic irrigation of both foleys untill urine clear (in my experience this cannot be done on regular nursing floors @) [facility] Objective - Vital Signs/Intake and Output Vital Signs (last 24 hours): Temp Pulse Resp BP Pulse Ox 98 F 71 11 L 127/56 L 98 09/28/16 20:00 09/29/16 07:47 09/29/16 07:00 09/29/16 06:31 09/29/16 07:00 Intake and Output: 09/29/16 09/29/16 06:59 18:59 Intake Total 68505 100 Output Total 4250 Balance 83129 100 - Medications Medications: Current Medications Albuterol/Ipratropium (Duoneb 3 Mg/0.5 Mg (3 Ml) Ud) 3 ml INH RQ6 [facility] Last Admin: 09/29/16 07:46 Dose: 3 ml Albuterol/Ipratropium (Duoneb 3 Mg/0.5 Mg (3 Ml) Ud) 3 ml INH RQ2 PRN PRN Reason: Shortness of Breath Carvedilol (Coreg) 6.25 mg PO BID [facility] Last Admin: 09/29/16 09:19 Dose: 6.25 mg Famotidine (Pepcid) 20 mg IVP DAILY [facility] Last Admin: 09/29/16 09:19 Dose: 20 mg Finasteride (Proscar) 5 mg PO DAILY [facility] Last Admin: 09/29/16 09:19 Dose: 5 mg Hydromorphone HCl (Dilaudid) 0.5 mg IVP Q4H PRN PRN Reason: Pain, moderate (4-7) Last Admin: 09/28/16 23:58 Dose: 0.5 mg Sodium Chloride (Sodium Chloride 0.9%) 1,000 mls @ 100 mls/hr IV .Q10H [facility] Last Admin: 09/29/16 09:20 Dose: 100 mls/hr Insulin Aspart (Novolog) 0 unit SC Q6H [facility] PRN Reason: Protocol Last Admin: 09/29/16 06:08 Dose: 1 unit Methylprednisolone (Solu-Medrol) 40 mg IVP Q8 [facility] Last Admin: 09/29/16 06:05 Dose: 40 mg Nitroglycerin (Nitro-Dur 0.1 Mg/Hr Patch) 1 patch TD DAILY [facility] Last Admin: 09/29/16 09:19 Dose: Not Given Ondansetron HCl (Zofran Inj) 4 mg IVP Q4 PRN PRN Reason: Nausea/Vomiting Rosuvastatin Calcium (Crestor) 10 mg PO DAILY [facility] Last Admin: 09/29/16 09:19 Dose: 10 mg Tamsulosin HCl (Flomax) 0.4 mg PO DAILY [facility] Last Admin: 09/29/16 09:19 Dose: 0.4 mg Valacyclovir HCl (Valtrex) 500 mg PO BID [facility] Last Admin: 09/29/16 09:19 Dose: 500 mg - Labs Labs: 09/29/16 06:05 09/29/16 06:05 PT 10.7 SECONDS (9.7-12.2) 09/28/16 06:36 INR 1.0 09/28/16 06:36 APTT 24 SECONDS (21-34) 09/28/16 06:36
--- NOTE | 2016-09-29 18:40 | CON ---
DATE: 09/25/2016 The patient is presently in bed 16 in the ICU and the consultation was done on 09/25/2016 at approxim ately 11:00 a.m. CHIEF COMPLAINT: Urinary retention. HISTORY OF PRESENT ILLNESS: The patient had a carotid endarterectomy yesterday and this morning was noted to have a distended bladder. Several attempts were made by the ICU staff to pass a Roberts iman ter but were unsuccessful and I was called in consultation by Dr. Torres. The patient gives no his tory of prior difficulties with urination. He is complaining of suprapubic pain and discomfort. REVIEW OF SYSTEMS: RESPIRATORY: The patient is not complaining of significant respiratory difficulties. He does have o xygen cannula in place. CARDIAC: The patient is not complaining of any chest pain or palpitations. GASTROINTESTINAL: The patient has not had a bowel movement since surgery. He is complaining of supr apubic discomfort and inability to urinate. Orthopedic, social, family and neurological history is noncontributory. PHYSICAL EXAMINATION: GENERAL: The patient is awake, alert, and oriented x 3. HEENT: Within normal limits. NECK: Supple. There are no bruits, nodes, or masses. CHEST: Clear bilaterally. There are no rales or rhonchi. HEART: Normal sinus rhythm. ABDOMEN: The bladder is distended a full 4-5 fingerbreadths above the suprapubic bone. There is ___ __ tenderness. EXTREMITIES: Warm to touch, there appears to be good vascular pulses and the patient is moving all 4 extremities. IMPRESSION: Acute urinary retention. PLAN: We tried to place a Roberts catheter by using filiforms and followers and were unsuccessful. Th e patient is still quite uncomfortable. Based on her failure to pass the catheter and the patient's distended bladder, we will bring the patient to the cystoscopy room to attempt to place a Roberts iman ter under direct vision. The decision was made to proceed with the procedure and I consulted with Dr Aditya Torres prior to the procedure. Bairon Cedeño MD cc: [phone] TT: 09/29/2016 18:40:08 Confirmation # [id number] Dictation # [id number] mn
--- NOTE | 2016-09-29 18:48 | OP ---
PROCEDURE DATE: 09/25/2016 PREOPERATIVE DIAGNOSIS: Urinary retention with gross hematuria. POSTOPERATIVE DIAGNOSES: Urinary retention secondary to benign prostatic hypertrophy and massively d istended bladder, evidence of catheter trauma in the posterior urethra and gross hematuria emanating from the prostate. DESCRIPTION OF PROCEDURE: Detailed informed consent was obtained from the patient after full explana tions of the risks and complications of this procedure. We also discussed this case with the patient 's son and received his approval also. The patient was brought into the room. He was draped and pre pped in a lithotomy position. He was cystoscoped with a #21 Storz panendoscope and attempts were mad e to pass the scope into the bladder, but because of the enlarged prostate and gross hematuria, visio n was poor and we were able to get the scope within the bladder. It was elected to perform a suprapu bic cystotomy. This was done using a 12 [place] Bard suprapubic cystotomy kit. Approximately 1 finge r above the suprapubic bone, a spinal needle was placed downward and into the bladder. The trocar wa s moved and urine drained. This needle was removed and the punch suprapubic cystotomy was inserted i nto a 1/4 inch incision made in the skin and this was pushed into the bladder and the Roberts catheter was advanced into the bladder. The punch trocar was removed as well as the stylet within the cathete r, and after the balloon was inflated, the suprapubic incision drained bloody urine. After appropria te delay of approximately 5 minutes, the bladder was somewhat decompressed. We again tried to insert the Roberts catheter by using a cystoscope. The patient was re-cystoscoped with the 21 cystoscope. T he area of the prostatic trauma was passed, and this time, the cystoscope could be passed into the bl adder. There were several clots which were irrigated. The suprapubic catheter could be visualized w ithin the bladder. There were multiple diverticula and a heavy trabeculated bladder. Vision was akin ewhat obscured. A guidewire was passed into the bladder through the scope and then a 20 two-way coun cil tip catheter was passed over the guidewire into the bladder and appropriate amount of saline (thi s was the largest la posta tip catheter available). Bloody urine obtained. The patient tolerated thi s procedure well. He was sent back to the ICU in good condition. Bairon Cedeño MD cc: [phone] TT: 09/29/2016 18:47:14 mn
--- NOTE | 2016-09-29 18:56 | OP ---
PROCEDURE DATE: 09/28/2016 PREOPERATIVE DIAGNOSES: Gross hematuria and urinary clot retention plus multiple calculi and bladder diverticulum. POSTOPERATIVE DIAGNOSES: Urinary clot retention. No visual evidence of bladder calculi. Enlarged p rostate with bladder outlet obstruction in a clot-filled bladder. PROCEDURE: Again, a detailed informed consent was obtained from the patient and his son explaining a ll risks and complications of the procedure. The patient was brought into the room. He was draped a nd prepped in the usual manner. He was anesthetized and re-cystoscoped with a #21 Stortz panendoscop e. The pendulous urethra was normal. The membranous urethra showed evidence of catheter trauma. Th e cystoscope encountered an enlarged prostate. The scope was passed into the bladder, which was fill ed with a large amount of clot material. Clots were vigorously irrigated and a large amount of clot material was removed until there were no further clots left in the bladder. There was some necrotic tissue at the base of the bladder. This was biopsied and sent for separate pathological analysis. T he bladder was inspected thoroughly. Although there was still some bleeding, vision was adequate. T here were multiple small-mouth diverticulum throughout the bladder and heavy trabeculation. There wa s no evidence of stones within the bladder. The lesion which was biopsied was virtually removed by t he biopsy and was not actively bleeding. Both ureteral orifices were localized and appeared to efflu x clear urine. Based on the above findings, there is no visual evidence of bladder calculi within th e bladder. the suprapubic catheter could be visualized in the bladder in proper position. A guidewire was passed through the catheter into the bladder under visual control and the scope was natanael ked out. A 24 three-way hematuria catheter was then converted into a [place]-tipped catheter by ruthy chappell a 14-gauge needle to puncture the tip of the hematuria catheter with care not to injure the balloon . The guidewire was then passed through this opening and into the lumen of the hematuria catheter an d out the other end, thereby allowing the hematuria catheter to be passed over the wire. This was do ne until the entire catheter was placed in the bladder and it drained relatively clear irrigant fluid . The balloon was inflated with the appropriate amount of saline. Once this had been done, the cont inuous irrigation was begun immediately and was clear from both the suprapubic tube and the hematuria catheter. The patient was sent to the ICU in good condition. Bairon Cedeño MD cc: [phone] TT: 09/29/2016 18:56:20 milli
[2016-09-30] MEDS: Albuterol-Ipratrop 3 mg / 0.5 (3 ml) UD INH SCH ×3 (01:39→14:08)
[2016-09-30] MEDS: (Novolog) Insulin Aspart, Recombinant 100 u/ml 10 ml vial SC SCH ×4 (01:55→18:25)
--- NOTE | 2016-09-30 02:41 | CP.PCM.PN ---
Subjective - Date & Time of Evaluation Date of Evaluation: 09/30/16 Time of Evaluation: 02:39 - Subjective Subjective: SURGERY NOTE FOR DR. ESCUDERO 80M seen and examined at bedside. Patient resting comfortably, denies pain or SOB, left neck dressing CDI. crouch being irrigated with saline. Objective - Vital Signs/Intake and Output Vital Signs (last 24 hours): Temp Pulse Resp BP Pulse Ox 98.4 F 75 20 129/66 96 09/29/16 23:10 09/29/16 23:10 09/29/16 23:10 09/29/16 23:10 09/29/16 23:10 Intake and Output: 09/29/16 09/30/16 18:59 06:59 Intake Total 7100 6800 Output Total 8000 2900 Balance -900 3900 - Medications Medications: Current Medications Albuterol/Ipratropium (Duoneb 3 Mg/0.5 Mg (3 Ml) Ud) 3 ml INH RQ6 [facility] Last Admin: 09/30/16 01:39 Dose: 3 ml Albuterol/Ipratropium (Duoneb 3 Mg/0.5 Mg (3 Ml) Ud) 3 ml INH RQ2 PRN PRN Reason: Shortness of Breath Carvedilol (Coreg) 6.25 mg PO BID [facility] Last Admin: 09/29/16 18:27 Dose: 6.25 mg Famotidine (Pepcid) 20 mg IVP DAILY [facility] Last Admin: 09/29/16 09:19 Dose: 20 mg Finasteride (Proscar) 5 mg PO DAILY [facility] Last Admin: 09/29/16 09:19 Dose: 5 mg Hydromorphone HCl (Dilaudid) 0.5 mg IVP Q4H PRN PRN Reason: Pain, moderate (4-7) Last Admin: 09/28/16 23:58 Dose: 0.5 mg Insulin Aspart (Novolog) 0 unit SC Q6H [facility] PRN Reason: Protocol Last Admin: 09/30/16 01:55 Dose: Not Given Methylprednisolone (Solu-Medrol) 40 mg IVP Q8 [facility] Last Admin: 09/29/16 22:26 Dose: 40 mg Nitroglycerin (Nitro-Dur 0.1 Mg/Hr Patch) 1 patch TD DAILY [facility] Last Admin: 09/29/16 09:19 Dose: Not Given Ondansetron HCl (Zofran Inj) 4 mg IVP Q4 PRN PRN Reason: Nausea/Vomiting Rosuvastatin Calcium (Crestor) 10 mg PO DAILY [facility] Last Admin: 09/29/16 09:19 Dose: 10 mg Tamsulosin HCl (Flomax) 0.4 mg PO DAILY [facility] Last Admin: 09/29/16 09:19 Dose: 0.4 mg Valacyclovir HCl (Valtrex) 500 mg PO BID [facility] Last Admin: 09/29/16 18:27 Dose: 500 mg - Labs Labs: 09/29/16 06:05 09/29/16 06:05 PT 10.7 SECONDS (9.7-12.2) 09/28/16 06:36 INR 1.0 09/28/16 06:36 APTT 24 SECONDS (21-34) 09/28/16 06:36 - Constitutional Appears: Non-toxic, No Acute Distress - Neck Exam Additional comments: neck dressing CDI - Respiratory Exam Respiratory Exam: Clear to Ausculation Bilateral, NORMAL BREATHING PATTERN - Cardiovascular Exam Cardiovascular Exam: REGULAR RHYTHM, +S1, +S2 - GI/Abdominal Exam GI & Abdominal Exam: Soft. absent: Distended, Firm, Guarding, Rigid, Tenderness - Exam Additional comments: Suprapubic cath/crouch in place. being irrigated with saline bags - Neurological Exam Neurological Exam: Alert, Awake Assessment and Plan - Assessment and Plan (Free Text) Assessment: 80M POD#6 left CEA; post-op urinary retention w/ supra-pubic crouch catheter Plan: management as per urology further mgmt per ICU will cont to follow Further recs discuss with Dr. Brian Villarreal, PGY1
[2016-09-30] MEDS: MethylPREDNISolone 40 mg Vial IVP SCH ×3 (05:55→22:00)
[2016-09-30] MEDS: Nitroglycerin 0.1 mg/hr Top Patch TD SCH (10:32)
--- NOTE | 2016-09-30 13:00 | CP.PCM.PN ---
Subjective - Date & Time of Evaluation Date of Evaluation: 09/28/16 Time of Evaluation: 20:00 - Subjective Subjective: 80-year-old male with past medical history hypertension, insulin-dependent diabetes mellitus type 2, CAD status post CABG, AICD, COPD, dementia. Patient underwent a left carotid endarterectomy and was admitted postoperatively to the ICU for monitoring. Hospital course complicated by hematuria status post cystoscopy for severe BPH. Pt seen and examined, more alert,not short of breath, slightly delerious Objective - Vital Signs/Intake and Output Vital Signs (last 24 hours): Temp Pulse Resp BP Pulse Ox 98.5 F 82 20 131/78 95 09/30/16 07:00 09/30/16 10:24 09/30/16 07:00 09/30/16 10:24 09/30/16 07:00 Intake and Output: 09/30/16 09/30/16 06:59 18:59 Intake Total 6800 8000 Output Total 2900 93241 Balance 3900 -2200 - Medications Medications: Current Medications Albuterol/Ipratropium (Duoneb 3 Mg/0.5 Mg (3 Ml) Ud) 3 ml INH RQ6 [facility] Last Admin: 09/30/16 07:38 Dose: 3 ml Carvedilol (Coreg) 6.25 mg PO BID [facility] Last Admin: 09/30/16 10:32 Dose: 6.25 mg Famotidine (Pepcid) 20 mg IVP DAILY [facility] Last Admin: 09/30/16 10:36 Dose: 20 mg Finasteride (Proscar) 5 mg PO DAILY [facility] Last Admin: 09/30/16 10:31 Dose: 5 mg Hydromorphone HCl (Dilaudid) 0.5 mg IVP Q4H PRN PRN Reason: Pain, moderate (4-7) Last Admin: 09/28/16 23:58 Dose: 0.5 mg Insulin Aspart (Novolog) 0 unit SC Q6H [facility] PRN Reason: Protocol Last Admin: 09/30/16 12:50 Dose: 3 unit Methylprednisolone (Solu-Medrol) 40 mg IVP Q8 [facility] Last Admin: 09/30/16 05:55 Dose: 40 mg Nitroglycerin (Nitro-Dur 0.1 Mg/Hr Patch) 1 patch TD DAILY [facility] Last Admin: 09/30/16 10:32 Dose: Not Given Ondansetron HCl (Zofran Inj) 4 mg IVP Q4 PRN PRN Reason: Nausea/Vomiting Rosuvastatin Calcium (Crestor) 10 mg PO DAILY [facility] Last Admin: 09/30/16 10:32 Dose: 10 mg Tamsulosin HCl (Flomax) 0.4 mg PO DAILY [facility] Last Admin: 09/30/16 10:31 Dose: 0.4 mg Valacyclovir HCl (Valtrex) 500 mg PO BID [facility] Last Admin: 09/30/16 10:32 Dose: 500 mg - Labs Labs: 09/29/16 06:05 09/29/16 06:05 PT 10.7 SECONDS (9.7-12.2) 09/28/16 06:36 INR 1.0 09/28/16 06:36 APTT 24 SECONDS (21-34) 09/28/16 06:36 - Constitutional Appears: No Acute Distress, Chronically Ill - Head Exam Head Exam: ATRAUMATIC, NORMAL INSPECTION, NORMOCEPHALIC - ENT Exam ENT Exam: Mucous Membranes Moist - Respiratory Exam Respiratory Exam: Clear to Ausculation Bilateral, NORMAL BREATHING PATTERN - Cardiovascular Exam Cardiovascular Exam: Irregular Rhythm, +S1, +S4 - GI/Abdominal Exam GI & Abdominal Exam: Soft, Normal Bowel Sounds. absent: Tenderness - Neurological Exam Neurological Exam: Abnormal Gait, Altered - Psychiatric Exam Psychiatric exam: Anxious Assessment and Plan (1) Postop carotid endarterectomy surveillance, encounter for Status: Acute (2) Bronchitis Status: Acute (3) COPD (chronic obstructive pulmonary disease) Status: Acute (4) Carotid stenosis, bilateral Status: Acute - Assessment and Plan (Free Text) Plan: Neuro: Alert and oriented 3 Pulm: No acute issues, breathing spontaneously on room air CV: Hemodynamically stable. Hypertension controlled with Coreg and enalapril. Hem: Continue aspirin and Plavix for CAD Renal: No acute issues, urine output within normal limits, we will monitor. Uro: Patient underwent cystoscopy with removal of clots today in the OR. Patient started on CBI. Suprapubic cath also in place. Patient to be started on BPH meds, Flomax and finasteride. Urology following. Endo: DM type II, short acting insulin sliding scale for coverage. GI: Pured diet with honey thick liquids ID: No acute issues DVT proph - SCDs, anticoagulation held with current hematuria. GI proph - Pepcid crouch for strict I/O's during acute illness Code status - full code
--- NOTE | 2016-09-30 13:05 | CP.PCM.PN ---
Subjective - Date & Time of Evaluation Date of Evaluation: 09/29/16 Time of Evaluation: 17:00 - Subjective Subjective: seen and examined at bedside, Pt is not short of breath, no distress. Patient resting comfortably, denies pain or SOB, left neck dressing CDI. crouch being irrigated with saline. Objective - Vital Signs/Intake and Output Vital Signs (last 24 hours): Temp Pulse Resp BP Pulse Ox 98.5 F 82 20 131/78 95 09/30/16 07:00 09/30/16 10:24 09/30/16 07:00 09/30/16 10:24 09/30/16 07:00 Intake and Output: 09/30/16 09/30/16 06:59 18:59 Intake Total 6800 8000 Output Total 2900 87956 Balance 3900 -2200 - Medications Medications: Current Medications Albuterol/Ipratropium (Duoneb 3 Mg/0.5 Mg (3 Ml) Ud) 3 ml INH RQ6 [facility] Last Admin: 09/30/16 07:38 Dose: 3 ml Carvedilol (Coreg) 6.25 mg PO BID [facility] Last Admin: 09/30/16 10:32 Dose: 6.25 mg Famotidine (Pepcid) 20 mg IVP DAILY [facility] Last Admin: 09/30/16 10:36 Dose: 20 mg Finasteride (Proscar) 5 mg PO DAILY [facility] Last Admin: 09/30/16 10:31 Dose: 5 mg Hydromorphone HCl (Dilaudid) 0.5 mg IVP Q4H PRN PRN Reason: Pain, moderate (4-7) Last Admin: 09/28/16 23:58 Dose: 0.5 mg Insulin Aspart (Novolog) 0 unit SC Q6H [facility] PRN Reason: Protocol Last Admin: 09/30/16 12:50 Dose: 3 unit Methylprednisolone (Solu-Medrol) 40 mg IVP Q8 [facility] Last Admin: 09/30/16 05:55 Dose: 40 mg Nitroglycerin (Nitro-Dur 0.1 Mg/Hr Patch) 1 patch TD DAILY [facility] Last Admin: 09/30/16 10:32 Dose: Not Given Ondansetron HCl (Zofran Inj) 4 mg IVP Q4 PRN PRN Reason: Nausea/Vomiting Rosuvastatin Calcium (Crestor) 10 mg PO DAILY [facility] Last Admin: 09/30/16 10:32 Dose: 10 mg Tamsulosin HCl (Flomax) 0.4 mg PO DAILY [facility] Last Admin: 09/30/16 10:31 Dose: 0.4 mg Valacyclovir HCl (Valtrex) 500 mg PO BID [facility] Last Admin: 09/30/16 10:32 Dose: 500 mg - Labs Labs: 09/29/16 06:05 09/29/16 06:05 PT 10.7 SECONDS (9.7-12.2) 09/28/16 06:36 INR 1.0 09/28/16 06:36 APTT 24 SECONDS (21-34) 09/28/16 06:36 - Constitutional Appears: No Acute Distress - Head Exam Head Exam: ATRAUMATIC, NORMAL INSPECTION, NORMOCEPHALIC - Respiratory Exam Respiratory Exam: Clear to Ausculation Bilateral, NORMAL BREATHING PATTERN - Cardiovascular Exam Cardiovascular Exam: REGULAR RHYTHM, +S1, +S2. absent: Murmur - GI/Abdominal Exam GI & Abdominal Exam: Soft, Normal Bowel Sounds. absent: Tenderness - Neurological Exam Neurological Exam: Abnormal Gait, Alert - Psychiatric Exam Psychiatric exam: Normal Affect, Normal Mood Assessment and Plan (1) Postop carotid endarterectomy surveillance, encounter for Status: Acute (2) Bronchitis Status: Acute (3) COPD (chronic obstructive pulmonary disease) Status: Acute (4) Carotid stenosis, bilateral Status: Acute
--- NOTE | 2016-09-30 13:07 | CP.PCM.PN ---
Subjective - Date & Time of Evaluation Date of Evaluation: 09/30/16 Time of Evaluation: 09:00 - Subjective Subjective: seen and examined at bedside, more alert, s/p carotid endartectomy, no complains of shortness of breath, chest pain Objective - Vital Signs/Intake and Output Vital Signs (last 24 hours): Temp Pulse Resp BP Pulse Ox 98.5 F 82 20 131/78 95 09/30/16 07:00 09/30/16 10:24 09/30/16 07:00 09/30/16 10:24 09/30/16 07:00 Intake and Output: 09/30/16 09/30/16 06:59 18:59 Intake Total 6800 8000 Output Total 2900 86328 Balance 3900 -2200 - Medications Medications: Current Medications Albuterol/Ipratropium (Duoneb 3 Mg/0.5 Mg (3 Ml) Ud) 3 ml INH RQ6 [facility] Last Admin: 09/30/16 07:38 Dose: 3 ml Carvedilol (Coreg) 6.25 mg PO BID [facility] Last Admin: 09/30/16 10:32 Dose: 6.25 mg Famotidine (Pepcid) 20 mg IVP DAILY [facility] Last Admin: 09/30/16 10:36 Dose: 20 mg Finasteride (Proscar) 5 mg PO DAILY [facility] Last Admin: 09/30/16 10:31 Dose: 5 mg Hydromorphone HCl (Dilaudid) 0.5 mg IVP Q4H PRN PRN Reason: Pain, moderate (4-7) Last Admin: 09/28/16 23:58 Dose: 0.5 mg Insulin Aspart (Novolog) 0 unit SC Q6H [facility] PRN Reason: Protocol Last Admin: 09/30/16 12:50 Dose: 3 unit Methylprednisolone (Solu-Medrol) 40 mg IVP Q8 [facility] Last Admin: 09/30/16 05:55 Dose: 40 mg Nitroglycerin (Nitro-Dur 0.1 Mg/Hr Patch) 1 patch TD DAILY [facility] Last Admin: 09/30/16 10:32 Dose: Not Given Ondansetron HCl (Zofran Inj) 4 mg IVP Q4 PRN PRN Reason: Nausea/Vomiting Rosuvastatin Calcium (Crestor) 10 mg PO DAILY [facility] Last Admin: 09/30/16 10:32 Dose: 10 mg Tamsulosin HCl (Flomax) 0.4 mg PO DAILY [facility] Last Admin: 09/30/16 10:31 Dose: 0.4 mg Valacyclovir HCl (Valtrex) 500 mg PO BID [facility] Last Admin: 09/30/16 10:32 Dose: 500 mg - Labs Labs: 09/29/16 06:05 09/29/16 06:05 PT 10.7 SECONDS (9.7-12.2) 09/28/16 06:36 INR 1.0 09/28/16 06:36 APTT 24 SECONDS (21-34) 09/28/16 06:36 - Constitutional Appears: No Acute Distress, Chronically Ill - Head Exam Head Exam: ATRAUMATIC, NORMAL INSPECTION, NORMOCEPHALIC - Eye Exam Eye Exam: EOMI, Normal appearance, PERRL Pupil Exam: NORMAL ACCOMODATION, PERRL - ENT Exam ENT Exam: Mucous Membranes Moist - Respiratory Exam Respiratory Exam: Decreased Breath Sounds, NORMAL BREATHING PATTERN - Cardiovascular Exam Cardiovascular Exam: REGULAR RHYTHM, +S1, +S2. absent: Murmur - GI/Abdominal Exam GI & Abdominal Exam: Soft, Normal Bowel Sounds. absent: Tenderness Assessment and Plan (1) Postop carotid endarterectomy surveillance, encounter for Status: Acute (2) Bronchitis Status: Acute (3) COPD (chronic obstructive pulmonary disease) Status: Acute (4) Carotid stenosis, bilateral Status: Acute
[2016-09-30 13:16] LABS: HEMATOCRIT 24.7 % (35.0-51.0); MEAN CELL VOLUME 91.1 fL (80.0-94.0); MEAN CORPUSCULAR HEMOGLOBIN 29.4 pg (27.0-31.0); MEAN CORPUSCULAR HGB CONC 32.2 g/dL (33.0-37.0); MEAN PLATELET VOLUME 8.6 fL (7.2-11.7); RED CELL DISTRIBUTION WIDTH 17.6 % (11.5-14.5); WHITE BLOOD COUNT 7.4 K/uL (4.8-10.8)
[2016-09-30 13:24] LABS: POTASSIUM 4.7 mmol/L (3.6-5.2)
[2016-09-30 13:27] LABS: CALCIUM 7.5 mg/dl (8.6-10.4)
[2016-10-01] MEDS: (Novolog) Insulin Aspart, Recombinant 100 u/ml 10 ml vial SC SCH ×4 (05:34→18:06)
[2016-10-01] MEDS: MethylPREDNISolone 40 mg Vial IVP SCH ×3 (06:11→22:32)
[2016-10-01 07:31] LABS: HEMATOCRIT 24.6 % (35.0-51.0); MEAN CELL VOLUME 91.3 fL (80.0-94.0); MEAN CORPUSCULAR HEMOGLOBIN 29.9 pg (27.0-31.0); MEAN CORPUSCULAR HGB CONC 32.8 g/dL (33.0-37.0); RED CELL DISTRIBUTION WIDTH 18.2 % (11.5-14.5); WHITE BLOOD COUNT 7.5 K/uL (4.8-10.8)
[2016-10-01 07:34] LABS: POTASSIUM 4.6 mmol/L (3.6-5.2)
[2016-10-01] MEDS: Nitroglycerin 0.1 mg/hr Top Patch TD SCH (12:38)
--- NOTE | 2016-10-01 14:15 | CP.PCM.PN ---
Subjective - Date & Time of Evaluation Date of Evaluation: 10/01/16 Time of Evaluation: 14:13 - Subjective Subjective: Urine is now clear will stop cbi/clamp suprapubic tune and if urine remains clear remove suprapubic tube tomorow. Cedeño Objective - Vital Signs/Intake and Output Vital Signs (last 24 hours): Temp Pulse Resp BP Pulse Ox 98.0 F 86 20 160/72 H 94 L 10/01/16 07:59 10/01/16 12:34 10/01/16 07:59 10/01/16 10:37 10/01/16 12:34 Intake and Output: 10/01/16 10/01/16 06:59 18:59 Intake Total 7500 7500 Output Total 8000 7950 Balance -500 -450 - Medications Medications: Current Medications Carvedilol (Coreg) 6.25 mg PO BID [facility] Last Admin: 10/01/16 10:35 Dose: 6.25 mg Famotidine (Pepcid) 20 mg IVP DAILY [facility] Last Admin: 10/01/16 10:37 Dose: 20 mg Finasteride (Proscar) 5 mg PO DAILY [facility] Last Admin: 10/01/16 10:35 Dose: 5 mg Hydromorphone HCl (Dilaudid) 0.5 mg IVP Q4H PRN PRN Reason: Pain, moderate (4-7) Last Admin: 09/28/16 23:58 Dose: 0.5 mg Insulin Aspart (Novolog) 0 unit SC Q6H [facility] PRN Reason: Protocol Last Admin: 10/01/16 12:44 Dose: 4 unit Methylprednisolone (Solu-Medrol) 40 mg IVP Q8 [facility] Last Admin: 10/01/16 14:10 Dose: 40 mg Nitroglycerin (Nitro-Dur 0.1 Mg/Hr Patch) 1 patch TD DAILY [facility] Last Admin: 10/01/16 12:38 Dose: Not Given Ondansetron HCl (Zofran Inj) 4 mg IVP Q4 PRN PRN Reason: Nausea/Vomiting Rosuvastatin Calcium (Crestor) 10 mg PO DAILY [facility] Last Admin: 10/01/16 10:35 Dose: 10 mg Tamsulosin HCl (Flomax) 0.4 mg PO DAILY [facility] Last Admin: 10/01/16 10:35 Dose: 0.4 mg Valacyclovir HCl (Valtrex) 500 mg PO BID [facility] Last Admin: 10/01/16 10:35 Dose: 500 mg - Labs Labs: 10/01/16 06:54 10/01/16 06:54 PT 10.7 SECONDS (9.7-12.2) 09/28/16 06:36 INR 1.0 09/28/16 06:36 APTT 24 SECONDS (21-34) 09/28/16 06:36
--- NOTE | 2016-10-01 15:27 | CP.PCM.PN ---
Subjective - Date & Time of Evaluation Date of Evaluation: 10/01/16 Time of Evaluation: 08:00 - Subjective Subjective: SURGERY NOTE FOR DR. ESCUDERO 80M seen and examined at bedside. ADDIE. Called for shortness of breath. Patient clinically stable. Objective - Vital Signs/Intake and Output Vital Signs (last 24 hours): Temp Pulse Resp BP Pulse Ox 98.0 F 86 20 160/72 H 94 L 10/01/16 07:59 10/01/16 12:34 10/01/16 07:59 10/01/16 10:37 10/01/16 12:34 Intake and Output: 10/01/16 10/01/16 06:59 18:59 Intake Total 7500 7500 Output Total 8000 7950 Balance -500 -450 - Medications Medications: Current Medications Carvedilol (Coreg) 6.25 mg PO BID [facility] Last Admin: 10/01/16 10:35 Dose: 6.25 mg Famotidine (Pepcid) 20 mg IVP DAILY [facility] Last Admin: 10/01/16 10:37 Dose: 20 mg Finasteride (Proscar) 5 mg PO DAILY [facility] Last Admin: 10/01/16 10:35 Dose: 5 mg Hydromorphone HCl (Dilaudid) 0.5 mg IVP Q4H PRN PRN Reason: Pain, moderate (4-7) Last Admin: 09/28/16 23:58 Dose: 0.5 mg Insulin Aspart (Novolog) 0 unit SC Q6H [facility] PRN Reason: Protocol Last Admin: 10/01/16 12:44 Dose: 4 unit Methylprednisolone (Solu-Medrol) 40 mg IVP Q8 [facility] Last Admin: 10/01/16 14:10 Dose: 40 mg Nitroglycerin (Nitro-Dur 0.1 Mg/Hr Patch) 1 patch TD DAILY [facility] Last Admin: 10/01/16 12:38 Dose: Not Given Ondansetron HCl (Zofran Inj) 4 mg IVP Q4 PRN PRN Reason: Nausea/Vomiting Rosuvastatin Calcium (Crestor) 10 mg PO DAILY [facility] Last Admin: 10/01/16 10:35 Dose: 10 mg Tamsulosin HCl (Flomax) 0.4 mg PO DAILY [facility] Last Admin: 10/01/16 10:35 Dose: 0.4 mg Valacyclovir HCl (Valtrex) 500 mg PO BID [facility] Last Admin: 10/01/16 10:35 Dose: 500 mg - Labs Labs: 10/01/16 06:54 10/01/16 06:54 PT 10.7 SECONDS (9.7-12.2) 09/28/16 06:36 INR 1.0 09/28/16 06:36 APTT 24 SECONDS (21-34) 09/28/16 06:36 - Constitutional Appears: Non-toxic, No Acute Distress - ENT Exam ENT Exam: Mucous Membranes Moist - Respiratory Exam Respiratory Exam: Clear to Ausculation Bilateral, NORMAL BREATHING PATTERN - Cardiovascular Exam Cardiovascular Exam: REGULAR RHYTHM, +S1, +S2 Assessment and Plan - Assessment and Plan (Free Text) Assessment: 80M POD#7 left CEA; post-op urinary retention w/ supra-pubic crouch catheter Plan: crouch management as per urology Physical therapy recommending Subacute rehab Swallow evals recommend pureed diet Medical management Further recs discuss with Dr. Brian Villarreal, PGY1
--- NOTE | 2016-10-01 15:45 | RAD ---
Chest x-ray single frontal view History: Shortness of breath. Comparison: 09/26/2014 Findings: Moderate venous congestion with patchy bibasilar airspace opacities and question small bilateral pleural effusions. Linear radiopaque density seen along the lateral aspect of the left mid angelo thorax which may represent Mach artifact as there do appear to be markings past this level. Clinical correlation. Biapical pleural thickening with upper lobe granulomatous changes. Left-sided pacemaker. Interval removal of an endotracheal tube. Other lines and tubes in stable position. Surgical clips in the upper abdomen. Impression: Moderate venous congestion with patchy bibasilar airspace opacities and question small bilateral pleural effusions. Linear radiopaque density seen along the lateral aspect of the left mid angelo thorax which may represent Mach artifact as there do appear to be markings past this level. Clinical correlation. Biapical pleural thickening with upper lobe granulomatous changes.
--- NOTE | 2016-10-02 00:16 | CP.PCM.PN ---
Subjective - Date & Time of Evaluation Date of Evaluation: 10/01/16 Time of Evaluation: 19:15 - Subjective Subjective: Pt seen and evalauted, not short of breath, on oxygen, pt is afebrile,Hb is low 8.1, pt is on crouch cathrere for urinary retetntion, blood tinged urine seen in bag Objective - Vital Signs/Intake and Output Vital Signs (last 24 hours): Temp Pulse Resp BP Pulse Ox 97.4 F L 76 20 147/73 97 10/01/16 15:49 10/01/16 16:00 10/01/16 15:49 10/01/16 15:49 10/01/16 15:49 Intake and Output: 10/01/16 10/02/16 18:59 06:59 Intake Total 29023 400 Output Total 33471 Balance -2350 400 - Medications Medications: Current Medications Carvedilol (Coreg) 6.25 mg PO BID [facility] Last Admin: 10/01/16 18:05 Dose: 6.25 mg Famotidine (Pepcid) 20 mg IVP DAILY [facility] Last Admin: 10/01/16 10:37 Dose: 20 mg Finasteride (Proscar) 5 mg PO DAILY [facility] Last Admin: 10/01/16 10:35 Dose: 5 mg Hydromorphone HCl (Dilaudid) 0.5 mg IVP Q4H PRN PRN Reason: Pain, moderate (4-7) Last Admin: 09/28/16 23:58 Dose: 0.5 mg Insulin Aspart (Novolog) 0 unit SC Q6H [facility] PRN Reason: Protocol Last Admin: 10/01/16 18:06 Dose: 3 unit Methylprednisolone (Solu-Medrol) 40 mg IVP Q8 [facility] Last Admin: 10/01/16 22:32 Dose: 40 mg Nitroglycerin (Nitro-Dur 0.1 Mg/Hr Patch) 1 patch TD DAILY [facility] Last Admin: 10/01/16 12:38 Dose: Not Given Ondansetron HCl (Zofran Inj) 4 mg IVP Q4 PRN PRN Reason: Nausea/Vomiting Rosuvastatin Calcium (Crestor) 10 mg PO DAILY [facility] Last Admin: 10/01/16 10:35 Dose: 10 mg Tamsulosin HCl (Flomax) 0.4 mg PO DAILY [facility] Last Admin: 10/01/16 10:35 Dose: 0.4 mg Valacyclovir HCl (Valtrex) 500 mg PO BID [facility] Last Admin: 10/01/16 18:05 Dose: 500 mg - Labs Labs: 10/01/16 06:54 10/01/16 06:54 PT 10.7 SECONDS (9.7-12.2) 09/28/16 06:36 INR 1.0 09/28/16 06:36 APTT 24 SECONDS (21-34) 09/28/16 06:36 - Constitutional Appears: No Acute Distress, Chronically Ill - Head Exam Head Exam: ATRAUMATIC, NORMAL INSPECTION, NORMOCEPHALIC - Eye Exam Eye Exam: EOMI, Normal appearance, PERRL Pupil Exam: NORMAL ACCOMODATION, PERRL - Respiratory Exam Respiratory Exam: Clear to Ausculation Bilateral, NORMAL BREATHING PATTERN - Cardiovascular Exam Cardiovascular Exam: REGULAR RHYTHM, +S1, +S2. absent: Murmur - GI/Abdominal Exam GI & Abdominal Exam: Soft, Normal Bowel Sounds. absent: Tenderness Assessment and Plan (1) Postop carotid endarterectomy surveillance, encounter for Status: Acute (2) Bronchitis Status: Acute (3) COPD (chronic obstructive pulmonary disease) Status: Acute (4) Carotid stenosis, bilateral Status: Acute
[2016-10-02] MEDS: (Novolog) Insulin Aspart, Recombinant 100 u/ml 10 ml vial SC SCH ×5 (01:00→18:45)
[2016-10-02] MEDS: MethylPREDNISolone 40 mg Vial IVP SCH ×2 (06:06→22:21)
[2016-10-02 07:23] LABS: HEMATOCRIT 25.7 % (35.0-51.0); MEAN CELL VOLUME 91.7 fL (80.0-94.0); MEAN CORPUSCULAR HEMOGLOBIN 30.1 pg (27.0-31.0); MEAN CORPUSCULAR HGB CONC 32.9 g/dL (33.0-37.0); MEAN PLATELET VOLUME 8.5 fL (7.2-11.7); RED CELL DISTRIBUTION WIDTH 17.7 % (11.5-14.5); WHITE BLOOD COUNT 8.8 K/uL (4.8-10.8)
[2016-10-02 08:22] LABS: POTASSIUM 4.8 mmol/L (3.6-5.2)
[2016-10-02 08:26] LABS: CALCIUM 8.1 mg/dl (8.6-10.4)
--- NOTE | 2016-10-02 08:30 | CP.PCM.PN ---
Subjective - Date & Time of Evaluation Date of Evaluation: 10/02/16 Time of Evaluation: 08:26 - Subjective Subjective: Vasc Sx: Dr Torres Pt S&E. EVELYNO. Tolerating thin liquids. CBI stopped yesterday. Plan for supra -pubic removal today by Dr Cedeño. Will begin D/C planning Objective - Vital Signs/Intake and Output Vital Signs (last 24 hours): Temp Pulse Resp BP Pulse Ox 97.9 F 76 20 151/88 H 96 10/01/16 23:15 10/01/16 23:15 10/01/16 23:15 10/01/16 23:15 10/01/16 23:15 Intake and Output: 10/02/16 10/02/16 06:59 18:59 Intake Total 400 Output Total 800 Balance -400 - Medications Medications: Current Medications Carvedilol (Coreg) 6.25 mg PO BID [facility] Last Admin: 10/01/16 18:05 Dose: 6.25 mg Famotidine (Pepcid) 20 mg IVP DAILY [facility] Last Admin: 10/01/16 10:37 Dose: 20 mg Finasteride (Proscar) 5 mg PO DAILY [facility] Last Admin: 10/01/16 10:35 Dose: 5 mg Hydromorphone HCl (Dilaudid) 0.5 mg IVP Q4H PRN PRN Reason: Pain, moderate (4-7) Last Admin: 09/28/16 23:58 Dose: 0.5 mg Insulin Aspart (Novolog) 0 unit SC Q6H [facility] PRN Reason: Protocol Last Admin: 10/02/16 06:45 Dose: Not Given Methylprednisolone (Solu-Medrol) 40 mg IVP Q8 [facility] Last Admin: 10/02/16 06:06 Dose: 40 mg Nitroglycerin (Nitro-Dur 0.1 Mg/Hr Patch) 1 patch TD DAILY [facility] Last Admin: 10/01/16 12:38 Dose: Not Given Ondansetron HCl (Zofran Inj) 4 mg IVP Q4 PRN PRN Reason: Nausea/Vomiting Rosuvastatin Calcium (Crestor) 10 mg PO DAILY [facility] Last Admin: 10/01/16 10:35 Dose: 10 mg Tamsulosin HCl (Flomax) 0.4 mg PO DAILY [facility] Last Admin: 10/01/16 10:35 Dose: 0.4 mg Valacyclovir HCl (Valtrex) 500 mg PO BID [facility] Last Admin: 10/01/16 18:05 Dose: 500 mg - Labs Labs: 10/02/16 07:14 10/02/16 07:14 PT 10.7 SECONDS (9.7-12.2) 09/28/16 06:36 INR 1.0 09/28/16 06:36 APTT 24 SECONDS (21-34) 09/28/16 06:36 - Constitutional Appears: Non-toxic, No Acute Distress - Respiratory Exam Respiratory Exam: absent: Respiratory Distress - Cardiovascular Exam Cardiovascular Exam: absent: Tachycardia - GI/Abdominal Exam GI & Abdominal Exam: Soft. absent: Tenderness - Neurological Exam Neurological Exam: Alert, Awake, Oriented x3 - Psychiatric Exam Psychiatric exam: Normal Affect, Normal Mood - Skin Skin Exam: Normal Color, Warm Assessment and Plan - Assessment and Plan (Free Text) Assessment: 80M POD#8 s/p left CEA Plan: catheter mgmt per Urology will begin D/C planning pending results will d/w Dr Brian Ferreira, PGY2
[2016-10-02] MEDS: Nitroglycerin 0.1 mg/hr Top Patch TD SCH (10:10)
--- NOTE | 2016-10-02 11:07 | CP.PCM.PN ---
Subjective - Date & Time of Evaluation Date of Evaluation: 10/02/16 Time of Evaluation: 11:04 - Subjective Subjective: Crouch draining slightly bloody urine,Suprapubic has been clamped for 24hr, Removed. Suggest pt have crouch irrigated more often, may be discharged when medically OK with crouch arrangments must be made for cath irrigation. [place] Objective - Vital Signs/Intake and Output Vital Signs (last 24 hours): Temp Pulse Resp BP Pulse Ox 98.4 F 71 18 159/77 H 99 10/02/16 08:39 10/02/16 08:39 10/02/16 08:39 10/02/16 08:39 10/02/16 08:39 Intake and Output: 10/02/16 10/02/16 06:59 18:59 Intake Total 400 Output Total 800 Balance -400 - Medications Medications: Current Medications Carvedilol (Coreg) 6.25 mg PO BID [facility] Last Admin: 10/02/16 10:10 Dose: 6.25 mg Famotidine (Pepcid) 20 mg IVP DAILY [facility] Last Admin: 10/02/16 10:10 Dose: 20 mg Finasteride (Proscar) 5 mg PO DAILY [facility] Last Admin: 10/02/16 10:10 Dose: 5 mg Hydromorphone HCl (Dilaudid) 0.5 mg IVP Q4H PRN PRN Reason: Pain, moderate (4-7) Last Admin: 09/28/16 23:58 Dose: 0.5 mg Insulin Aspart (Novolog) 0 unit SC Q6H [facility] PRN Reason: Protocol Last Admin: 10/02/16 06:45 Dose: Not Given Methylprednisolone (Solu-Medrol) 40 mg IVP Q12 [facility] Nitroglycerin (Nitro-Dur 0.1 Mg/Hr Patch) 1 patch TD DAILY [facility] Last Admin: 10/02/16 10:10 Dose: 1 patch Ondansetron HCl (Zofran Inj) 4 mg IVP Q4 PRN PRN Reason: Nausea/Vomiting Rosuvastatin Calcium (Crestor) 10 mg PO HS [facility] Tamsulosin HCl (Flomax) 0.4 mg PO DAILY [facility] Last Admin: 10/02/16 10:10 Dose: 0.4 mg Valacyclovir HCl (Valtrex) 500 mg PO BID [facility] Last Admin: 06/20/17 10:10 Dose: 500 mg - Labs Labs: 10/02/16 07:14 10/02/16 07:14 PT 10.7 SECONDS (9.7-12.2) 09/28/16 06:36 INR 1.0 09/28/16 06:36 APTT 24 SECONDS (21-34) 09/28/16 06:36
[2016-10-03] MEDS: (Novolog) Insulin Aspart, Recombinant 100 u/ml 10 ml vial SC SCH ×4 (01:16→17:24)
[2016-10-03 07:04] LABS: HEMATOCRIT 26.8 % (35.0-51.0); MEAN CELL VOLUME 91.3 fL (80.0-94.0); MEAN CORPUSCULAR HEMOGLOBIN 30.5 pg (27.0-31.0); MEAN CORPUSCULAR HGB CONC 33.4 g/dL (33.0-37.0); MEAN PLATELET VOLUME 8.6 fL (7.2-11.7); WHITE BLOOD COUNT 10.3 K/uL (4.8-10.8)
[2016-10-03 07:29] LABS: POTASSIUM 4.8 mmol/L (3.6-5.2)
[2016-10-03 07:32] LABS: CALCIUM 8.2 mg/dl (8.6-10.4)
--- NOTE | 2016-10-03 10:44 | CP.PCM.PN ---
Subjective - Date & Time of Evaluation Date of Evaluation: 10/03/16 Time of Evaluation: 10:41 - Subjective Subjective: Urine is clearing with more frequent irrigation,no further gu therapy on this admission. Roberts should remain on discharge. pt should be discharged on flomax proscar+po antibiotics for voiding trial in 3 to 4 weeks. [place] Objective - Vital Signs/Intake and Output Vital Signs (last 24 hours): Temp Pulse Resp BP Pulse Ox 97.7 F 91 H 20 149/72 97 10/03/16 08:52 10/03/16 08:52 10/03/16 08:52 10/03/16 08:52 10/03/16 08:52 Intake and Output: 10/03/16 10/03/16 06:59 18:59 Intake Total 100 Output Total 1800 Balance -1700 - Medications Medications: Current Medications Carvedilol (Coreg) 6.25 mg PO BID [facility] Last Admin: 10/02/16 18:45 Dose: 6.25 mg Famotidine (Pepcid) 20 mg IVP DAILY [facility] Last Admin: 10/02/16 10:10 Dose: 20 mg Finasteride (Proscar) 5 mg PO DAILY [facility] Last Admin: 10/02/16 10:10 Dose: 5 mg Hydromorphone HCl (Dilaudid) 0.5 mg IVP Q4H PRN PRN Reason: Pain, moderate (4-7) Last Admin: 09/28/16 23:58 Dose: 0.5 mg Insulin Aspart (Novolog) 0 unit SC Q6H [facility] PRN Reason: Protocol Last Admin: 10/03/16 08:03 Dose: 3 unit Methylprednisolone (Solu-Medrol) 40 mg IVP Q12 [facility] Last Admin: 10/02/16 22:21 Dose: 40 mg Nitroglycerin (Nitro-Dur 0.1 Mg/Hr Patch) 1 patch TD DAILY [facility] Last Admin: 10/02/16 10:10 Dose: 1 patch Ondansetron HCl (Zofran Inj) 4 mg IVP Q4 PRN PRN Reason: Nausea/Vomiting Rosuvastatin Calcium (Crestor) 10 mg PO HS [facility] Last Admin: 10/02/16 22:21 Dose: 10 mg Tamsulosin HCl (Flomax) 0.4 mg PO DAILY [facility] Last Admin: 10/02/16 10:10 Dose: 0.4 mg Valacyclovir HCl (Valtrex) 500 mg PO BID [facility] Last Admin: 10/02/16 18:45 Dose: 500 mg - Labs Labs: 10/03/16 06:56 10/03/16 06:56 PT 10.7 SECONDS (9.7-12.2) 09/28/16 06:36 INR 1.0 09/28/16 06:36 APTT 24 SECONDS (21-34) 09/28/16 06:36
[2016-10-03] MEDS: Nitroglycerin 0.1 mg/hr Top Patch TD SCH (10:59)
[2016-10-03] MEDS: MethylPREDNISolone 40 mg Vial IVP SCH (10:59)
[2016-10-03 16:10] VITALS: PULSE 79
--- NOTE | 2016-10-03 16:37 | CP.PCM.DIS ---
Provider - Provider Date of Admission: 09/24/16 07:11 Attending physician: Rufino Torres Jr, MD Time Spent in preparation of Discharge (in minutes): 40 Hospital Course - Lab Results Lab Results: Micro Results 09/29/16 20:57 Naris MRSA Culture - Final MRSA NOT DETECTED 09/24/16 Unknown Naris MRSA Culture (Admit) - Final MRSA NOT DETECTED Most Recent Lab Values WBC 10.3 K/uL (4.8-10.8) 10/03/16 06:56 RBC 2.94 Mil/uL (4.40-5.90) L 10/03/16 06:56 Hgb 9.0 g/dL (12.0-18.0) L 10/03/16 06:56 Hct 26.8 % (35.0-51.0) L 10/03/16 06:56 MCV 91.3 fL (80.0-94.0) 10/03/16 06:56 MCH 30.5 pg (27.0-31.0) 10/03/16 06:56 MCHC 33.4 g/dL (33.0-37.0) 10/03/16 06:56 RDW 18.0 % (11.5-14.5) H 10/03/16 06:56 Plt Count 138 K/uL (130-400) 10/03/16 06:56 MPV 8.6 fL (7.2-11.7) 10/03/16 06:56 Neut % (Auto) 92.3 % (50.0-75.0) H 09/29/16 06:05 Lymph % (Auto) 4.1 % (20.0-40.0) L 09/29/16 06:05 Overton % (Auto) 3.6 % (0.0-10.0) 09/29/16 06:05 Eos % (Auto) 0.0 % (0.0-4.0) 09/29/16 06:05 Baso % (Auto) 0.0 % (0.0-2.0) 09/29/16 06:05 Neut # 10.3 K/uL (1.8-7.0) H 09/29/16 06:05 Lymph # 0.5 K/uL (1.0-4.3) L 09/29/16 06:05 Overton # 0.4 K/uL (0.0-0.8) 09/29/16 06:05 Eos # 0.0 K/uL (0.0-0.7) 09/29/16 06:05 Baso # 0.0 K/uL (0.0-0.2) 09/29/16 06:05 Neutrophils % (Manual) 89 % (50-75) H 09/29/16 06:05 Band Neutrophils % 1 % (0-2) 09/29/16 06:05 Lymphocytes % (Manual) 4 % (20-40) L 09/29/16 06:05 Monocytes % (Manual) 6 % (0-10) 09/29/16 06:05 Differential Comment 09/24/16 16:37 Toxic Granulation Present 09/29/16 06:05 Platelet Estimate Slightly decreased (NORMAL) L 09/29/16 06:05 Large Platelets Present 09/29/16 06:05 Polychromasia Slight 09/29/16 06:05 Hypochromasia (manual) Slight 09/29/16 06:05 Poikilocytosis (manual Slight 09/29/16 06:05 Basophilic Stippling Slight 09/29/16 06:05 Anisocytosis (manual) Slight 09/29/16 06:05 Ovalocytes Slight 09/29/16 06:05 PT 10.7 SECONDS (9.7-12.2) 09/28/16 06:36 INR 1.0 09/28/16 06:36 APTT 24 SECONDS (21-34) 09/28/16 06:36 Puncture Site Rr 09/25/16 14:24 pCO2 23 mm/Hg (35-45) L 09/25/16 14:24 pO2 114 mm/Hg (80-100) H 09/25/16 14:24 HCO3 25.5 mmol/L (21-28) 09/25/16 14:24 ABG pH 7.57 (7.35-7.45) H 09/25/16 14:24 ABG Total CO2 21.8 mmol/L (22-28) L 09/25/16 14:24 ABG O2 Saturation 99.7 % (95-98) H 09/25/16 14:24 ABG Base Excess 0.7 mmol/L (-2.0-3.0) 09/25/16 14:24 Isaiah Test Pos 09/25/16 14:24 ABG Potassium 4.3 mmol/L (3.6-5.2) 09/25/16 14:24 A-a O2 Difference 71.0 mm/Hg 09/25/16 14:24 Respiratory Index 0.6 09/25/16 14:24 Sodium 138.0 mmol/l (132-148) 09/25/16 14:24 Chloride 114.0 mmol/L (98-107) H 09/25/16 14:24 Glucose 208 mg/dl (75-110) H 09/25/16 14:24 Lactate 1.5 mmol/L (0.7-2.1) 09/25/16 14:24 Mechanical Rate 12 09/25/16 14:24 FiO2 30.0 % 09/25/16 14:24 Tidal Volume 500 09/25/16 14:24 PEEP 5 09/25/16 14:24 Sodium 136 mmol/L (132-148) 10/03/16 06:56 Potassium 4.8 mmol/L (3.6-5.2) 10/03/16 06:56 Chloride 105 mmol/L (98-107) 10/03/16 06:56 Carbon Dioxide 27 mmol/L (22-30) 10/03/16 06:56 Anion Gap 9 (10-20) L 10/03/16 06:56 BUN 49 mg/dL (9-20) H 10/03/16 06:56 Creatinine 1.6 MG/DL (0.8-1.5) H 10/03/16 06:56 Est GFR ( Amer) 51 10/03/16 06:56 Est GFR (Non-Af Amer) 42 10/03/16 06:56 POC Glucose (mg/dL) 217 mg/dL (65-110) H 10/03/16 11:16 Random Glucose 217 mg/dL (75-110) H 10/03/16 06:56 Calcium 8.2 mg/dl (8.6-10.4) L 10/03/16 06:56 Phosphorus 4.6 mg/dL (2.5-4.5) H 09/29/16 06:05 Magnesium 2.3 mg/dL (1.6-2.3) 09/29/16 06:05 Total Bilirubin 0.8 mg/dL (0.2-1.3) 09/29/16 06:05 AST 26 U/L (17-59) 09/29/16 06:05 ALT 46 U/L (21-72) 09/29/16 06:05 Alkaline Phosphatase 62 U/L (38-126) 09/29/16 06:05 Total Protein 5.1 g/dL (6.3-8.3) L 09/29/16 06:05 Albumin 2.9 g/dL (3.5-5.0) L 09/29/16 06:05 Globulin 2.1 gm/dL (2.2-3.9) L 09/29/16 06:05 Albumin/Globulin Ratio 1.4 (1.0-2.1) 09/29/16 06:05 Arterial Blood Potassium 4.3 mmol/L (3.6-5.2) 09/25/16 14:24 Blood Type O POSITIVE 09/25/16 12:41 Antibody Screen Negative 09/25/16 12:41 - Hospital Course Hospital Course: 80M presents with Left Carotid Endarectomy. Patients hospital course was complicated by urinary retention which ultimately had to be treated with suprapubic catheter that was managed by urology. Patient also suffered some respiratory distress while patient was having a cystoscopy which required intubated. Patient was ultimate extubated and worked with physicla therapy who recommend subacute rehab. Patient to go [facility]. Discharge Exam - Head Exam Head Exam: ATRAUMATIC, NORMAL INSPECTION, NORMOCEPHALIC - Neck Exam Additional comments: surgical site CDI - Respiratory Exam Respiratory Exam: Clear to PA & Lateral, NORMAL BREATHING PATTERN - Cardiovascular Exam Cardiovascular Exam: REGULAR RHYTHM, +S1, +S2 - GI/Abdominal Exam GI & Abdominal Exam: Soft. absent: Distended, Firm, Guarding, Rebound, Rigid, Tenderness - Neurological Exam Neurological exam: Alert, Oriented x3 - Skin Skin Exam: Dry, Intact, Normal Color, Warm Discharge Plan - Follow Up Plan Condition: GOOD Disposition: REHAB FACILITY/REHAB UNIT Additional Instructions: Per Dr. Cedeño, pt to be discharged with Roberts catheter, and irrigate Roberts with NS and Zia syringe every 2 hours and PRN Referrals: Rufino Torres Jr., MD [Staff Provider] -
[2016-10-03 16:56] VITALS: BP 145/69; RESP 20; TEMP 97.5; O2SAT 96
== END 2016-10-03 19:00 | DRG 37 ==
LOC: C.9S 07:11 → C.9I 15:25 → C.6T 09-29 22:03
PROVIDERS: ADMIT Surgery Vascular Surgery; ATTEND Surgery Vascular Surgery
PROC: 03UL0JZ Supplement Left Internal Carotid Artery with Synthetic Substitute, Open Approach (ICD-10-PCS; 2016-09-24)
PROC: 03CL0ZZ Extirpation of Matter from Left Internal Carotid Artery, Open Approach (ICD-10-PCS; principal; 2016-09-24 10:15)
PROC: 0TBB8ZX Excision of Bladder, Via Natural or Artificial Opening Endoscopic, Diagnostic (ICD-10-PCS; 2016-09-25)
PROC: 0T9B00Z Drainage of Bladder with Drainage Device, Open Approach (ICD-10-PCS; 2016-09-25)
PROC: 0TJB8ZZ Inspection of Bladder, Via Natural or Artificial Opening Endoscopic (ICD-10-PCS; 2016-09-25)
PROC: 5A1945Z Respiratory Ventilation, 24-96 Consecutive Hours (ICD-10-PCS; 2016-09-26)
PROC: 0BH17EZ Insertion of Endotracheal Airway into Trachea, Via Natural or Artificial Opening (ICD-10-PCS; 2016-09-26)
PROC: 30233N1 Transfusion of Nonautologous Red Blood Cells into Peripheral Vein, Percutaneous Approach (ICD-10-PCS; 2016-09-27)
PROC: 30233R1 Transfusion of Nonautologous Platelets into Peripheral Vein, Percutaneous Approach (ICD-10-PCS; 2016-09-27)
PROC: 0TCB8ZZ Extirpation of Matter from Bladder, Via Natural or Artificial Opening Endoscopic (ICD-10-PCS; 2016-09-28)
DX: I65.23 Occlusion and stenosis of bilateral carotid arteries (principal); J96.00 Acute respiratory failure, unspecified whether with hypoxia or hypercapnia; N17.9 Acute kidney failure, unspecified; J44.9 Chronic obstructive pulmonary disease, unspecified; S37.39XA Other injury of urethra, initial encounter; E11.9 Type 2 diabetes mellitus without complications; D64.9 Anemia, unspecified; I10 Essential (primary) hypertension; N32.0 Bladder-neck obstruction; R31.0 Gross hematuria; N32.3 Diverticulum of bladder; N40.1 Benign prostatic hyperplasia with lower urinary tract symptoms; N99.89 Other postprocedural complications and disorders of genitourinary system; R33.8 Other retention of urine; Z86.73 Personal history of transient ischemic attack (TIA), and cerebral infarction without residual deficits; Z95.1 Presence of aortocoronary bypass graft; Z95.810 Presence of automatic (implantable) cardiac defibrillator; Z87.891 Personal history of nicotine dependence; Z79.4 Long term (current) use of insulin; Y84.6 Urinary catheterization as the cause of abnormal reaction of the patient, or of later complication, without mention of misadventure at the time of the procedure; Y73.1 Therapeutic (nonsurgical) and rehabilitative gastroenterology and urology devices associated with adverse incidents; Z79.82 Long term (current) use of aspirin; Z79.02 Long term (current) use of antithrombotics/antiplatelets; I25.10 Atherosclerotic heart disease of native coronary artery without angina pectoris; R29.810 Facial weakness

== ENCOUNTER 2016-10-29 20:59 | Inpatient (IN) | payer MEDICARE ==
[2016-10-29 20:59] VITALS: BMI 27.1
--- NOTE | 2016-10-29 21:27 | C.PDOC ---
History Of Present Illness 81 year old male who was sent to the ER by residential for no urine output since 08:00 this morning. Patient had folly taken out this morning; denies abdominal pain or other physical complaints. Chief Complaint (Nursing): Male Genitourinary History Per: Patient History/Exam Limitations: no limitations Onset/Duration Of Symptoms: Hrs Current Symptoms Are (Timing): Still Present Quality Of Discomfort: Unable To Describe Associated Symptoms: Urinary Symptoms (Retention) Alleviating Factors: None Recent travel outside of the [place]: No Past Medical History Reviewed: Historical Data, Nursing Documentation, Vital Signs Vital Signs: Last Vital Signs Temp 100.2 F H 10/29/16 21:25 Pulse 104 H 10/29/16 21:25 Resp 16 10/29/16 21:25 BP 112/64 10/29/16 21:25 Pulse Ox 98 10/29/16 21:36 - Medical History PMH: Arthritis, Benign Prostatic Hyperplasia, Cardia Arrhythmia, COPD, Dementia , Diabetes, Emphysema, HTN Surgical History: CABG, Pacemaker - [facility] Procedures CORONAR ARTERIOGR-2 CATH (12/24/14) DRAINAGE OF BLADDER WITH DRAINAGE DEVICE, OPEN APPROACH (09/24/16) EXCISION OF BLADDER, ENDO, DIAGN (09/24/16) EXTIRPATION OF MATTER FROM BLADDER, ENDO (09/24/16) EXTIRPATION OF MATTER FROM L INT CAROTID, OPEN APPROACH (09/24/16) INSERTION OF ENDOTRACHEAL AIRWAY INTO TRACHEA, VIA OPENING (09/24/16) INSPECTION OF BLADDER, ENDO (09/24/16) LEFT HEART CARDIAC CATH (12/24/14) LT HEART ANGIOCARDIOGRAM (12/24/14) RESPIRATORY VENTILATION, 24-96 CONSECUTIVE HOURS (09/24/16) SUPPLEMENT L INT CAROTID WITH SYNTH SUB, OPEN APPROACH (09/24/16) TRANSFUSE NONAUT PLATELETS IN PERIPH VEIN, PERC (09/24/16) TRANSFUSE NONAUT RED BLOOD CELLS IN PERIPH VEIN, PERC (09/24/16) Family History: States: Unknown Family Hx - Social History Hx Tobacco Use: Yes (2ppd) Hx Alcohol Use: No - Immunization History Hx Tetanus Toxoid Vaccination: No Hx Influenza Vaccination: Yes Hx Pneumococcal Vaccination: Yes Review Of Systems Constitutional: Negative for: Fever, Chills Gastrointestinal: Negative for: Nausea, Vomiting, Abdominal Pain, Diarrhea Genitourinary: Positive for: Other (Retention) Physical Exam - Physical Exam Appears: Non-toxic, No Acute Distress Skin: Normal Color, Warm, Dry Head: Atraumatic, Normacephalic Oral Mucosa: Moist Chest: Symmetrical, No Tenderness Cardiovascular: Rhythm Regular, No Murmur Respiratory: Normal Breath Sounds, No Rales, No Rhonchi, No Wheezing Gastrointestinal/Abdominal: Soft, No Tenderness, No Distention, No Guarding, No Rebound Neurological/Psych: Other (Demented) ED Course And Treatment O2 Sat by Pulse Oximetry: 98 (Room air) Pulse Ox Interpretation: Normal Progress Note: Folly catheter inserted; 250cc of urine collected. Urinalysis ordered. Spoke to Dr. Cedeño, the patient's urologist, who advised to place a folly catheter and discharge patient back to the residential. Disposition Discussed With : David Gonsales Doctor Will See Patient In The: Hospital Counseled Patient/Family Regarding: Diagnosis - Disposition Referrals: Bairon Cedeño Jr., MD [Staff Provider] - Disposition Time: 22:26 Condition: STABLE - POA Present On Arrival: None - Clinical Impression Clinical Impression: Urinary retention - Scribe Statement The provider has reviewed the documentation as recorded by the Scribe Kurt Gutierrez All medical record entries made by the Scribe were at my direction and personally dictated by me. I have reviewed the chart and agree that the record accurately reflects my personal performance of the history, physical exam, medical decision making, and the department course for this patient. I have also personally directed, reviewed, and agree with the discharge instructions and disposition.
[2016-10-29] MEDS ORDERED: Lidocaine 2% Jelly (Uro-Jet) ONE (21:52)
[2016-10-29] MEDS ORDERED: Magnesium Hydroxide Susp 30 ml UD PO PRN (22:42)
[2016-10-29 23:05] LABS: BASO % 0.8 % (0.0-2.0); EOS # 0.2 K/uL (0.0-0.7); EOS % 3.5 % (0.0-4.0); HEMOGLOBIN 10.4 g/dL (12.0-18.0); LYMPH # 1.6 K/uL (1.0-4.3); LYMPH % 27.7 % (20.0-40.0); MEAN CELL VOLUME 92.2 fL (80.0-94.0); MEAN CORPUSCULAR HEMOGLOBIN 31.1 pg (27.0-31.0); MEAN CORPUSCULAR HGB CONC 33.8 g/dL (33.0-37.0); MEAN PLATELET VOLUME 8.4 fL (7.2-11.7); MONO # 0.5 K/uL (0.0-0.8); MONO % 8.3 % (0.0-10.0); NEUT # 3.4 K/uL (1.8-7.0); NEUT % 59.7 % (50.0-75.0); NRBC % 0.2 % (0.0-2.0); RBC 3.35 Mil/uL (4.40-5.90); RED CELL DISTRIBUTION WIDTH 19.1 % (11.5-14.5); WHITE BLOOD COUNT 5.7 K/uL (4.8-10.8)
[2016-10-29 23:13] LABS: ALBUMIN 3.6 g/dL (3.5-5.0)
[2016-10-29 23:14] LABS: PROTHROMBIN TIME 11.3 SECONDS (9.7-12.2)
[2016-10-29 23:16] LABS: ALB/GLOB RATIO 1.4 (1.0-2.1)
[2016-10-29 23:17] LABS: CALCIUM 8.5 mg/dl (8.6-10.4)
--- NOTE | 2016-10-30 00:10 | CP.PCM.HP ---
History of Present Illness - History of Present Illness History of Present Illness: CC: urinary retention HPI: 81 year old male who was sent to the ER by [facility] for no urine output since 08:00 this morning. Patient had folly taken out this morning; denies abdominal pain or other physical complaints. Present on Admission - Present on Admission Any Indicators Present on Admission: Yes Past Patient History - Infectious Disease Hx of Infectious Diseases: None - Past Medical History & Family History Past Medical History?: Yes - Past Social History Smoking Status: Former Smoker - CARDIAC Hx Cardia Arrhythmia: Yes Hx Hypertension: Yes Hx Pacemaker: Yes - PULMONARY Hx Chronic Obstructive Pulmonary Disease (COPD): Yes Hx Emphysema: Yes - NEUROLOGICAL Hx Dementia: Yes - HEENT Hx HEENT Problems: No - ENDOCRINE/METABOLIC Hx Diabetes Mellitus Type 2: Yes - MUSCULOSKELETAL/RHEUMATOLOGICAL Hx Arthritis: Yes - GENITOURINARY/GYNECOLOGICAL Hx Genitourinary Disorders: Yes Hx Prostate Problems: Yes - SURGICAL HISTORY Hx Coronary Artery Bypass Graft: Yes - ANESTHESIA Hx Anesthesia: Yes Hx Anesthesia Reactions: No Hx Malignant Hyperthermia: No Meds Allergies/Adverse Reactions: Allergies Allergy/AdvReac Type Severity Reaction Status Date / Time No Known Allergies Allergy Verified 10/29/16 21:31 Results - Vital Signs Recent Vital Signs: Last Vital Signs Temp 100.2 F H 10/29/16 21:25 Pulse 104 H 10/29/16 23:54 Resp 16 10/29/16 23:54 BP 95/53 L 10/29/16 23:54 Pulse Ox 100 10/29/16 23:54 - Labs Result Diagrams: 10/31/16 10:41 10/29/16 23:02 Labs: Laboratory Results - last 24 hr 10/29/16 10/29/16 10/29/16 23:02 23:02 23:02 WBC 5.7 RBC 3.35 L Hgb 10.4 L Hct 30.9 L MCV 92.2 MCH 31.1 H MCHC 33.8 RDW 19.1 H Plt Count 146 MPV 8.4 Neut % (Auto) 59.7 Lymph % (Auto) 27.7 [place] % (Auto) 8.3 Eos % (Auto) 3.5 Baso % (Auto) 0.8 Neut # 3.4 Lymph # 1.6 [place] # 0.5 Eos # 0.2 Baso # 0.0 PT 11.3 INR 1.0 APTT 27 Sodium 133 Potassium 4.4 Chloride 96 L Carbon Dioxide 27 Anion Gap 14 BUN 32 H Creatinine 2.0 H Est GFR ( Amer) 39 Est GFR (Non-Af Amer) 32 Random Glucose 121 H Calcium 8.5 L Total Bilirubin 0.7 AST 21 ALT 35 Alkaline Phosphatase 106 Total Protein 6.1 L Albumin 3.6 Globulin 2.6 Albumin/Globulin Ratio 1.4
[2016-10-30] MEDS ORDERED: Sodium Chloride 0.9% 250 ML IV ONE ×2 (09:40→16:15)
[2016-10-30] MEDS ORDERED: NUT TX GLUC INTOLER LAC FR SOY PO SCH (10:00)
[2016-10-30] MEDS: (Novolog) Insulin Aspart, Recombinant 100 u/ml 10 ml vial SC SCH ×5 (10:13→21:49)
--- NOTE | 2016-10-30 10:33 | CP.PCM.PN ---
Subjective - Date & Time of Evaluation Date of Evaluation: 10/30/16 Time of Evaluation: 10:30 - Subjective Subjective: note, crouch cath inserted, large amount of urine obtained. Suggest leave pt on Flomax and proscar and give voiding trial. Hold asprin untill urine clear. [place] Objective - Vital Signs/Intake and Output Vital Signs (last 24 hours): Temp Pulse Resp BP Pulse Ox 98.3 F 111 H 20 90/54 L 97 10/30/16 09:18 10/30/16 09:41 10/30/16 09:18 10/30/16 09:41 10/30/16 09:18 Intake and Output: 10/30/16 10/30/16 06:59 18:59 Intake Total 0 Balance 0 - Medications Medications: Current Medications Aspirin (Aspirin Chewable) 81 mg PO DAILY [facility] Carvedilol (Coreg) 6.25 mg PO BID [facility] Last Admin: 10/30/16 10:13 Dose: Not Given Clopidogrel Bisulfate (Plavix) 75 mg PO DAILY [facility] Enalapril Maleate (Vasotec) 2.5 mg PO DAILY [facility] Enoxaparin Sodium (Lovenox) 30 mg SC DAILY [facility] Home Med (Nut.Tx.Gluc.Intoler,Lac-Fr,Soy [Glucerna 1.2 Man]) 237 ml PO BID [facility] Sodium Chloride (Sodium Chloride 0.9%) 250 mls @ 250 mls/hr IV .Q1H ONE Stop: 10/30/16 10:39 Last Admin: 10/30/16 10:13 Dose: 250 mls/hr Insulin Aspart (Novolog) 0 unit SC ACHS [facility] PRN Reason: Protocol Last Admin: 10/30/16 10:13 Dose: Not Given Magnesium Hydroxide (Milk Of Magnesia) 30 ml PO DAILY PRN PRN Reason: Constipation Rosuvastatin Calcium (Crestor) 10 mg PO DAILY [facility] Senna/Docusate Sodium (Senokot S 50 Mg-8.6 Mg) 1 tab PO HS [facility] Tamsulosin HCl (Flomax) 0.4 mg PO DAILY [facility] - Labs Labs: 10/29/16 23:02 10/29/16 23:02 PT 11.3 SECONDS (9.7-12.2) 10/29/16 23:02 INR 1.0 10/29/16 23:02 APTT 27 SECONDS (21-34) 10/29/16 23:02
[2016-10-30] MEDS ORDERED: Sodium Chloride 0.9% 1,000 ML IV SCH ×2 (12:00→12:03)
--- NOTE | 2016-10-30 13:02 | CARD ---
APPROVED REPORT EKG Measurement Heart [id number] [id number] <Conclusion> Sinus tachycardia Inferior infarct, age undetermined Abnormal ECG
[2016-10-30] MEDS: Enoxaparin 30 mg Syringe SC SCH (13:53)
[2016-10-30 16:35] LABS: MEAN CELL VOLUME 93.2 fL (80.0-94.0); MEAN CORPUSCULAR HEMOGLOBIN 31.3 pg (27.0-31.0); MEAN CORPUSCULAR HGB CONC 33.6 g/dL (33.0-37.0); MEAN PLATELET VOLUME 8.2 fL (7.2-11.7); RBC 2.89 Mil/uL (4.40-5.90); RED CELL DISTRIBUTION WIDTH 18.8 % (11.5-14.5); WHITE BLOOD COUNT 9.1 K/uL (4.8-10.8)
[2016-10-30] MEDS: Sodium Chloride 0.9% 1,000 ML IV SCH (16:35)
--- NOTE | 2016-10-30 16:37 | CP.PCM.PN ---
Subjective - Date & Time of Evaluation Date of Evaluation: 10/30/16 Time of Evaluation: 16:00 - Subjective Subjective: Pt seen an dexamined , awake alert, denies any chest pain, sob, palpitations, abdominal pain Hypotension noted Objective - Vital Signs/Intake and Output Vital Signs (last 24 hours): Temp Pulse Resp BP Pulse Ox 98.3 F 109 H 20 105/66 97 10/30/16 09:18 10/30/16 11:52 10/30/16 11:52 10/30/16 11:52 10/30/16 11:52 Intake and Output: 10/30/16 10/30/16 06:59 18:59 Intake Total 0 Balance 0 - Medications Medications: Current Medications Aspirin (Aspirin Chewable) 81 mg PO DAILY [facility] Last Admin: 10/30/16 13:04 Dose: 81 mg Carvedilol (Coreg) 6.25 mg PO BID [facility] Last Admin: 10/30/16 10:13 Dose: Not Given Clopidogrel Bisulfate (Plavix) 75 mg PO DAILY [facility] Last Admin: 10/30/16 13:04 Dose: 75 mg Enalapril Maleate (Vasotec) 2.5 mg PO DAILY [facility] Last Admin: 10/30/16 11:38 Dose: Not Given Enoxaparin Sodium (Lovenox) 30 mg SC DAILY [facility] Last Admin: 10/30/16 13:53 Dose: 30 mg Sodium Chloride (Sodium Chloride 0.9%) 250 mls @ 250 mls/hr IV .Q1H ONE Stop: 10/30/16 17:14 Sodium Chloride (Sodium Chloride 0.9%) 1,000 mls @ 100 mls/hr IV .Q10H [facility] Insulin Aspart (Novolog) 0 unit SC ACHS [facility] PRN Reason: Protocol Last Admin: 10/30/16 13:05 Dose: 2 unit Magnesium Hydroxide (Milk Of Magnesia) 30 ml PO DAILY PRN PRN Reason: Constipation Rosuvastatin Calcium (Crestor) 10 mg PO DAILY [facility] Last Admin: 10/30/16 13:04 Dose: 10 mg Senna/Docusate Sodium (Senokot S 50 Mg-8.6 Mg) 1 tab PO [facility] Tamsulosin HCl (Flomax) 0.4 mg PO DAILY [facility] Last Admin: 10/30/16 13:04 Dose: 0.4 mg - Labs Labs: 10/29/16 23:02 10/29/16 23:02 PT 11.3 SECONDS (9.7-12.2) 10/29/16 23:02 INR 1.0 10/29/16 23:02 APTT 27 SECONDS (21-34) 10/29/16 23:02 - Constitutional Appears: Non-toxic (mild distress ) - Respiratory Exam Respiratory Exam: Clear to Ausculation Bilateral (tacypnic) - Cardiovascular Exam Cardiovascular Exam: Tachycardia, +S1, +S2 - Neurological Exam Neurological Exam: Alert, Awake Assessment and Plan - Assessment and Plan (Free Text) Assessment: A/P 81 yr old male send from rehab for urinary retention after f/c d/c pt scheduled for cystoscopy ,today cancelled secondary to hypotesion Dr. Bueno placed crouch cath crouch cath noted bright red urine hypotensive episode noted despite saline bolus cbc, type and screen stat will transfer patient to tele floor will monitor hgb The above plan discussed with Dr. Gonsales and agrees with plan
[2016-10-30] MEDS: Docusate-Senna 50 mg-8.6 mg Tab PO SCH (22:26)
--- NOTE | 2016-10-30 22:44 | CP.PCM.PN ---
Subjective - Date & Time of Evaluation Date of Evaluation: 10/30/16 Time of Evaluation: 19:00 - Subjective Subjective: pt seen and examined, pt scheduled for cystoscopy ,today cancelled secondary to hypotesion Dr. Bueno placed crouch cath crouch cath noted bright red urine Objective - Vital Signs/Intake and Output Vital Signs (last 24 hours): Temp Pulse Resp BP Pulse Ox 98.3 F 98 H 20 101/63 99 10/30/16 19:15 10/30/16 20:00 10/30/16 19:15 10/30/16 19:15 10/30/16 19:15 Intake and Output: 10/30/16 10/31/16 18:59 06:59 Intake Total 0 Balance 0 - Medications Medications: Current Medications Acetaminophen (Tylenol 325mg Tab) 650 mg PO Q4 PRN PRN Reason: Pain Last Admin: 10/30/16 18:22 Dose: 650 mg Aspirin (Aspirin Chewable) 81 mg PO DAILY [facility] Last Admin: 10/30/16 13:04 Dose: 81 mg Carvedilol (Coreg) 6.25 mg PO BID [facility] Last Admin: 10/30/16 17:26 Dose: Not Given Clopidogrel Bisulfate (Plavix) 75 mg PO DAILY [facility] Last Admin: 10/30/16 13:04 Dose: 75 mg Enalapril Maleate (Vasotec) 2.5 mg PO DAILY [facility] Last Admin: 10/30/16 11:38 Dose: Not Given Enoxaparin Sodium (Lovenox) 30 mg SC DAILY [facility] Last Admin: 10/30/16 13:53 Dose: 30 mg Finasteride (Proscar) 5 mg PO DAILY [facility] Sodium Chloride (Sodium Chloride 0.9%) 1,000 mls @ 100 mls/hr IV .Q10H [facility] Last Admin: 10/30/16 16:35 Dose: 100 mls/hr Insulin Aspart (Novolog) 0 unit SC ACHS [facility] PRN Reason: Protocol Last Admin: 10/30/16 21:49 Dose: Not Given Magnesium Hydroxide (Milk Of Magnesia) 30 ml PO DAILY PRN PRN Reason: Constipation Rosuvastatin Calcium (Crestor) 10 mg PO DAILY [facility] Last Admin: 10/30/16 13:04 Dose: 10 mg Senna/Docusate Sodium (Senokot S 50 Mg-8.6 Mg) 1 tab PO HS [facility] Last Admin: 10/30/16 22:26 Dose: 1 tab Tamsulosin HCl (Flomax) 0.4 mg PO DAILY [facility] Last Admin: 10/30/16 13:04 Dose: 0.4 mg - Labs Labs: 10/30/16 16:31 10/29/16 23:02 PT 11.3 SECONDS (9.7-12.2) 10/29/16 23:02 INR 1.0 10/29/16 23:02 APTT 27 SECONDS (21-34) 10/29/16 23:02 - Constitutional Appears: No Acute Distress - Head Exam Head Exam: ATRAUMATIC, NORMAL INSPECTION, NORMOCEPHALIC - Eye Exam Eye Exam: EOMI, Normal appearance, PERRL Pupil Exam: NORMAL ACCOMODATION, PERRL - ENT Exam ENT Exam: Mucous Membranes Moist, Normal Exam - Respiratory Exam Respiratory Exam: Decreased Breath Sounds, Rales, Rhonchi - Cardiovascular Exam Cardiovascular Exam: REGULAR RHYTHM, +S1, +S2. absent: Murmur - GI/Abdominal Exam GI & Abdominal Exam: Soft, Normal Bowel Sounds. absent: Tenderness Assessment and Plan (1) Urinary retention Assessment & Plan: hypotensive episode noted despite saline bolus cbc, type and screen stat will transfer patient to tele floor will monitor hgb Status: Acute (2) COPD (chronic obstructive pulmonary disease) Status: Acute (3) Carotid stenosis, bilateral Status: Acute
[2016-10-30 22:54] LABS: BASO % 0.6 % (0.0-2.0); EOS % 0.6 % (0.0-4.0); HEMOGLOBIN 8.4 g/dL (12.0-18.0); LYMPH # 0.8 K/uL (1.0-4.3); MEAN CELL VOLUME 92.9 fL (80.0-94.0); MEAN CORPUSCULAR HEMOGLOBIN 30.7 pg (27.0-31.0); MEAN CORPUSCULAR HGB CONC 33.1 g/dL (33.0-37.0); MEAN PLATELET VOLUME 8.6 fL (7.2-11.7); MONO # 0.4 K/uL (0.0-0.8); MONO % 6.9 % (0.0-10.0); NEUT # 5.2 K/uL (1.8-7.0); NEUT % 79.9 % (50.0-75.0); RBC 2.72 Mil/uL (4.40-5.90); RED CELL DISTRIBUTION WIDTH 19.2 % (11.5-14.5); WHITE BLOOD COUNT 6.5 K/uL (4.8-10.8)
[2016-10-30 23:22] LABS: URINE BACTERIA OCC (<OCC); URINE BILIRUBIN NEGATIVE (NEGATIVE); URINE BLOOD 3+ (NEGATIVE); URINE CLARITY Turbid (Clear); URINE COLOR Yellow (YELLOW); URINE GLUCOSE (UA) 1+ mg/dL (Normal); URINE LEUKOCYTE ESTERASE 1+ Leu/uL (Negative); URINE NITRATE NEGATIVE (NEGATIVE); URINE PROTEIN 2+ mg/dL (NEGATIVE); URINE UROBILINOGEN NORMAL mg/dL (0.2-1.0)
--- NOTE | 2016-10-30 23:41 | CON ---
DATE: 10/30/2016 CHIEF COMPLAINT: Urinary retention. HISTORY OF PRESENT ILLNESS: The patient has Roberts catheter removed this morning in the halfway and had not urinated all day. He presented in the emergency room yesterday evening at approximately 10:30 p.m., was unable to urinate. Bladder scan at that time showed 240 mL of urine. The patient was admitted to the hospital and hospital service and since being in the hospital, he has urinated very little. REVIEW OF SYSTEMS: : The patient has a history of urinary retention, traumatic ureteral catheterization, gross hematuria, and clot retention after a carotid artery surgery several weeks ago. He was discharged with Roberts catheter and underwent a voiding trial after being on Flomax for sometime. Further history is noncontributory. PHYSICAL EXAMINATION HEENT: Within normal limits. NECK: Supple. There is no bruit noted. No masses. CHEST: Clear bilaterally with no rales or rhonchi. HEART: Normal sinus rhythm. ABDOMEN: Soft, nontender. No masses or organomegaly. Bladder is palpably distended. EXTREMITIES: Normal. RECTAL: Shows +2 to 3 prostate. NEUROLOGIC: The patient has some kind of developmental disorder. He is awake, alert and oriented x3. He answers questions and understands, but is slightly cognitively impaired. IMPRESSION: Urinary retention. PLAN: I have inserted a Coude catheter and obtained urine. The patient seems to tolerate this well. I suggest that the patient be discharged with the Coude catheter. He should be placed on Flomax and Proscar, and a second voiding trial should be given in one month. In addition to which, the patient should have urine culture at this point and any positive culture should be covered with the antibiotics. Bairon Cedeño MD
[2016-10-31] MEDS: (Novolog) Insulin Aspart, Recombinant 100 u/ml 10 ml vial SC SCH ×4 (07:56→21:47)
[2016-10-31 10:50] LABS: BASO % 0.6 % (0.0-2.0); EOS # 0.1 K/uL (0.0-0.7); HEMOGLOBIN 7.6 g/dL (12.0-18.0); LYMPH # 1.1 K/uL (1.0-4.3); MEAN CORPUSCULAR HEMOGLOBIN 30.5 pg (27.0-31.0); MEAN CORPUSCULAR HGB CONC 32.8 g/dL (33.0-37.0); MEAN PLATELET VOLUME 8.8 fL (7.2-11.7); MONO # 0.5 K/uL (0.0-0.8); MONO % 10.5 % (0.0-10.0); NEUT # 3.2 K/uL (1.8-7.0); NEUT % 64.9 % (50.0-75.0); RBC 2.5 Mil/uL (4.40-5.90); RED CELL DISTRIBUTION WIDTH 19.4 % (11.5-14.5)
--- NOTE | 2016-10-31 11:23 | CP.PCM.PN ---
Subjective - Date & Time of Evaluation Date of Evaluation: 10/31/16 Time of Evaluation: 11:19 - Subjective Subjective: 81 Y/O MALE SEEN AND EXAMINED, DENIES ANY CP, SOB, RESP EASY AND UNLABORED. NAD Objective - Vital Signs/Intake and Output Vital Signs (last 24 hours): Temp Pulse Resp BP Pulse Ox 97.8 F 102 H 19 127/58 L 97 10/31/16 08:01 10/31/16 08:01 10/31/16 08:01 10/31/16 08:01 10/31/16 08:01 Intake and Output: 10/31/16 10/31/16 06:59 18:59 Intake Total 1350 Output Total 650 Balance 700 - Medications Medications: Current Medications Acetaminophen (Tylenol 325mg Tab) 650 mg PO Q4 PRN PRN Reason: Pain Last Admin: 10/30/16 18:22 Dose: 650 mg Aspirin (Aspirin Chewable) 81 mg PO DAILY [facility] Last Admin: 10/30/16 13:04 Dose: 81 mg Carvedilol (Coreg) 6.25 mg PO BID [facility] Last Admin: 10/30/16 17:26 Dose: Not Given Clopidogrel Bisulfate (Plavix) 75 mg PO DAILY [facility] Last Admin: 10/30/16 13:04 Dose: 75 mg Enalapril Maleate (Vasotec) 2.5 mg PO DAILY [facility] Last Admin: 10/30/16 11:38 Dose: Not Given Enoxaparin Sodium (Lovenox) 30 mg SC DAILY [facility] Last Admin: 10/30/16 13:53 Dose: 30 mg Finasteride (Proscar) 5 mg PO DAILY [facility] Sodium Chloride (Sodium Chloride 0.9%) 1,000 mls @ 100 mls/hr IV .Q10H [facility] Last Admin: 10/30/16 16:35 Dose: 100 mls/hr Insulin Aspart (Novolog) 0 unit SC ACHS [facility] PRN Reason: Protocol Last Admin: 10/31/16 07:56 Dose: Not Given Magnesium Hydroxide (Milk Of Magnesia) 30 ml PO DAILY PRN PRN Reason: Constipation Rosuvastatin Calcium (Crestor) 10 mg PO DAILY [facility] Last Admin: 10/30/16 13:04 Dose: 10 mg Senna/Docusate Sodium (Senokot S 50 Mg-8.6 Mg) 1 tab PO HS [facility] Last Admin: 10/30/16 22:26 Dose: 1 tab Tamsulosin HCl (Flomax) 0.4 mg PO DAILY [facility] Last Admin: 10/30/16 13:04 Dose: 0.4 mg - Labs Labs: 10/31/16 10:41 10/29/16 23:02 PT 11.3 SECONDS (9.7-12.2) 10/29/16 23:02 INR 1.0 10/29/16 23:02 APTT 27 SECONDS (21-34) 10/29/16 23:02 Assessment and Plan - Assessment and Plan (Free Text) Plan: 81 Y/O MALE WITH URINARY RETENTION, ROCHA CATH INSERTED BY DR KIDD, NOTED BRIGHT RED BLOOD, PT H/H 7.6/23.3 TODAY, RESCHEDULED CYSTOSCOPY BY DR KIDD FOR Saturday, DR UNDERWOOD MADE AWARE OF H/H, PT NEEDS CLEARANCE. RISK AND BENEFITS FOR BLOOD TRANSFUSION EXPLAINED TO PT, PT REPORTS HE HAD BLOOD TRANSFUSION WITHOUT ANY TRANSFUSION REACTION IN THE PAST, CONSENT OBTAINED BY ME, WITNESSED BY MARIBEL HOWELL. DR UNDERWOOD AGREE W/ABOVE POC.
[2016-10-31] MEDS: Sodium Chloride 0.9% 1,000 ML IV SCH (11:45)
[2016-10-31] MEDS: Enoxaparin 30 mg Syringe SC SCH (12:17)
--- NOTE | 2016-10-31 14:03 | CP.PCM.PN ---
Subjective - Date & Time of Evaluation Date of Evaluation: 10/31/16 Time of Evaluation: 20:40 - Subjective Subjective: Pt seen and evaluted, hb is picked up, more stable hemodynamilcally, pt is for OR on saturday Objective - Vital Signs/Intake and Output Vital Signs (last 24 hours): Temp Pulse Resp BP Pulse Ox 97.9 F 96 H 18 86/54 L 97 10/31/16 13:45 10/31/16 13:45 10/31/16 13:45 10/31/16 13:45 10/31/16 08:01 Intake and Output: 10/31/16 10/31/16 06:59 18:59 Intake Total 1350 0 Output Total 650 Balance 700 0 - Medications Medications: Current Medications Acetaminophen (Tylenol 325mg Tab) 650 mg PO Q4 PRN PRN Reason: Pain Last Admin: 10/30/16 18:22 Dose: 650 mg Aspirin (Aspirin Chewable) 81 mg PO DAILY [facility] Last Admin: 10/30/16 13:04 Dose: 81 mg Carvedilol (Coreg) 6.25 mg PO BID [facility] Last Admin: 10/31/16 12:16 Dose: Not Given Clopidogrel Bisulfate (Plavix) 75 mg PO DAILY [facility] Last Admin: 10/30/16 13:04 Dose: 75 mg Enalapril Maleate (Vasotec) 2.5 mg PO DAILY [facility] Last Admin: 10/31/16 12:15 Dose: Not Given Enoxaparin Sodium (Lovenox) 30 mg SC DAILY [facility] Last Admin: 10/31/16 12:17 Dose: Not Given Finasteride (Proscar) 5 mg PO DAILY [facility] Last Admin: 10/31/16 12:15 Dose: 5 mg Sodium Chloride (Sodium Chloride 0.9%) 1,000 mls @ 100 mls/hr IV .Q10H [facility] Last Admin: 10/31/16 11:45 Dose: Not Given Insulin Aspart (Novolog) 0 unit SC ACHS [facility] PRN Reason: Protocol Last Admin: 10/31/16 11:45 Dose: Not Given Magnesium Hydroxide (Milk Of Magnesia) 30 ml PO DAILY PRN PRN Reason: Constipation Rosuvastatin Calcium (Crestor) 10 mg PO HS [facility] Senna/Docusate Sodium (Senokot S 50 Mg-8.6 Mg) 1 tab PO HS [facility] Last Admin: 10/30/16 22:26 Dose: 1 tab Tamsulosin HCl (Flomax) 0.4 mg PO DAILY [facility] Last Admin: 10/31/16 12:15 Dose: 0.4 mg - Labs Labs: 10/31/16 10:41 10/29/16 23:02 PT 11.3 SECONDS (9.7-12.2) 10/29/16 23:02 INR 1.0 10/29/16 23:02 APTT 27 SECONDS (21-34) 10/29/16 23:02 - Constitutional Appears: No Acute Distress - Head Exam Head Exam: ATRAUMATIC, NORMAL INSPECTION, NORMOCEPHALIC - Eye Exam Eye Exam: EOMI, Normal appearance, PERRL Pupil Exam: NORMAL ACCOMODATION, PERRL - Respiratory Exam Respiratory Exam: Clear to Ausculation Bilateral, NORMAL BREATHING PATTERN - Cardiovascular Exam Cardiovascular Exam: REGULAR RHYTHM, +S1, +S2. absent: Murmur - GI/Abdominal Exam GI & Abdominal Exam: Soft, Normal Bowel Sounds. absent: Tenderness Assessment and Plan (1) Urinary retention Status: Acute (2) COPD (chronic obstructive pulmonary disease) Status: Acute (3) Carotid stenosis, bilateral Status: Acute
--- NOTE | 2016-10-31 16:24 | CP.PCM.PN ---
Subjective - Date & Time of Evaluation Date of Evaluation: 10/31/16 Time of Evaluation: 16:20 - Subjective Subjective: DISCUSSED WITH NURSING STAFF,PT CONTINUES TO BLEED. SUGGEST HOLD ALL ANTICOAGULANTS ,CONTINUE CATH IRRIGATION.NOTIFY ME IF YOU WANT ME TO PROCEDE WITH CYSTO (pt was cancelled by nuha saturday because of poor med condition ) I have taken or time saturday am if you wish me to procede. [place] Objective - Vital Signs/Intake and Output Vital Signs (last 24 hours): Temp Pulse Resp BP Pulse Ox 97.8 F 95 H 18 90/60 L 98 10/31/16 14:16 10/31/16 14:16 10/31/16 14:16 10/31/16 14:16 10/31/16 14:07 Intake and Output: 10/31/16 10/31/16 06:59 18:59 Intake Total 1350 850 Output Total 650 400 Balance 700 450 - Medications Medications: Current Medications Acetaminophen (Tylenol 325mg Tab) 650 mg PO Q4 PRN PRN Reason: Pain Last Admin: 10/30/16 18:22 Dose: 650 mg Aspirin (Aspirin Chewable) 81 mg PO DAILY [facility] Last Admin: 10/30/16 13:04 Dose: 81 mg Carvedilol (Coreg) 6.25 mg PO BID [facility] Last Admin: 10/31/16 12:16 Dose: Not Given Clopidogrel Bisulfate (Plavix) 75 mg PO DAILY [facility] Last Admin: 10/30/16 13:04 Dose: 75 mg Enalapril Maleate (Vasotec) 2.5 mg PO DAILY [facility] Last Admin: 10/31/16 12:15 Dose: Not Given Enoxaparin Sodium (Lovenox) 30 mg SC DAILY [facility] Last Admin: 10/31/16 12:17 Dose: Not Given Finasteride (Proscar) 5 mg PO DAILY [facility] Last Admin: 10/31/16 12:15 Dose: 5 mg Sodium Chloride (Sodium Chloride 0.9%) 1,000 mls @ 100 mls/hr IV .Q10H [facility] Last Admin: 10/31/16 11:45 Dose: Not Given Insulin Aspart (Novolog) 0 unit SC ACHS [facility] PRN Reason: Protocol Last Admin: 10/31/16 11:45 Dose: Not Given Magnesium Hydroxide (Milk Of Magnesia) 30 ml PO DAILY PRN PRN Reason: Constipation Rosuvastatin Calcium (Crestor) 10 mg PO HS [facility] Senna/Docusate Sodium (Senokot S 50 Mg-8.6 Mg) 1 tab PO HS [facility] Last Admin: 10/30/16 22:26 Dose: 1 tab Tamsulosin HCl (Flomax) 0.4 mg PO DAILY [facility] Last Admin: 10/31/16 12:15 Dose: 0.4 mg - Labs Labs: 10/31/16 10:41 10/29/16 23:02 PT 11.3 SECONDS (9.7-12.2) 10/29/16 23:02 INR 1.0 10/29/16 23:02 APTT 27 SECONDS (21-34) 10/29/16 23:02
--- NOTE | 2016-10-31 18:41 | CP.PCM.PN ---
Subjective - Date & Time of Evaluation Date of Evaluation: 10/31/16 Time of Evaluation: 18:38 - Subjective Subjective: Urine appears to be clearing since earlier today, if urine remains clear will hold cysto and pt should be discharged on proscar and flomax with crouch to be re evaluated for crouch removal in 4 to six weeks. [place] Objective - Vital Signs/Intake and Output Vital Signs (last 24 hours): Temp Pulse Resp BP Pulse Ox 98.9 F 108 H 18 109/69 99 10/31/16 17:56 10/31/16 17:56 10/31/16 17:56 10/31/16 17:56 10/31/16 16:00 Intake and Output: 10/31/16 10/31/16 06:59 18:59 Intake Total 1350 1175 Output Total 650 400 Balance 700 775 - Medications Medications: Current Medications Acetaminophen (Tylenol 325mg Tab) 650 mg PO Q4 PRN PRN Reason: Pain Last Admin: 10/30/16 18:22 Dose: 650 mg Aspirin (Aspirin Chewable) 81 mg PO DAILY [facility] Last Admin: 10/30/16 13:04 Dose: 81 mg Carvedilol (Coreg) 6.25 mg PO BID [facility] Last Admin: 10/31/16 17:28 Dose: Not Given Clopidogrel Bisulfate (Plavix) 75 mg PO DAILY [facility] Last Admin: 10/30/16 13:04 Dose: 75 mg Enalapril Maleate (Vasotec) 2.5 mg PO DAILY [facility] Last Admin: 10/31/16 12:15 Dose: Not Given Enoxaparin Sodium (Lovenox) 30 mg SC DAILY [facility] Last Admin: 10/31/16 12:17 Dose: Not Given Finasteride (Proscar) 5 mg PO DAILY [facility] Last Admin: 10/31/16 12:15 Dose: 5 mg Sodium Chloride (Sodium Chloride 0.9%) 1,000 mls @ 100 mls/hr IV .Q10H [facility] Last Admin: 10/31/16 11:45 Dose: Not Given Insulin Aspart (Novolog) 0 unit SC ACHS [facility] PRN Reason: Protocol Last Admin: 10/31/16 17:28 Dose: Not Given Magnesium Hydroxide (Milk Of Magnesia) 30 ml PO DAILY PRN PRN Reason: Constipation Rosuvastatin Calcium (Crestor) 10 mg PO HS [facility] Senna/Docusate Sodium (Senokot S 50 Mg-8.6 Mg) 1 tab PO HS [facility] Last Admin: 10/30/16 22:26 Dose: 1 tab Tamsulosin HCl (Flomax) 0.4 mg PO DAILY [facility] Last Admin: 10/31/16 12:15 Dose: 0.4 mg - Labs Labs: 10/31/16 10:41 10/29/16 23:02 PT 11.3 SECONDS (9.7-12.2) 10/29/16 23:02 INR 1.0 10/29/16 23:02 APTT 27 SECONDS (21-34) 10/29/16 23:02
[2016-10-31 21:11] LABS: BASO % 0.6 % (0.0-2.0); EOS # 0.1 K/uL (0.0-0.7); EOS % 1.2 % (0.0-4.0); HEMOGLOBIN 10.7 g/dL (12.0-18.0); LYMPH # 1.2 K/uL (1.0-4.3); LYMPH % 17.2 % (20.0-40.0); MEAN CELL VOLUME 92.6 fL (80.0-94.0); MEAN CORPUSCULAR HGB CONC 33.4 g/dL (33.0-37.0); MEAN PLATELET VOLUME 8.9 fL (7.2-11.7); MONO # 0.5 K/uL (0.0-0.8); NRBC % 0.1 % (0.0-2.0); RBC 3.46 Mil/uL (4.40-5.90); RED CELL DISTRIBUTION WIDTH 17.3 % (11.5-14.5); WHITE BLOOD COUNT 6.9 K/uL (4.8-10.8)
[2016-10-31] MEDS: Docusate-Senna 50 mg-8.6 mg Tab PO SCH (21:56)
[2016-11-01] MEDS: Albuterol-Ipratrop 3 mg / 0.5 (3 ml) UD INH SCH ×4 (01:04→19:30)
--- NOTE | 2016-11-01 05:58 | CON ---
DATE: 10/31/2016 REASON FOR CONSULTATION: Coronary artery disease, congestive heart failure and preoperative evaluation. HISTORY OF PRESENT ILLNESS: The patient is an 81-year-old male and is a home resident, has history of coronary artery disease status post coronary artery bypass surgery and ICD placement. The patient also has a history of mildly depressed ejection fraction and has a history of severe bilateral carotid artery disease. He was admitted because of urinary retention after removal of a Roberts catheter. The patient underwent reinsertion of the Roberts catheter by Dr. Cedeño, the urologist. The patient was also found to be significantly anemic and is currently undergoing packed RBC transfusion. The patient does not give any reliable medical information and most of the history dependent on my own evaluation of the patient and when he was admitted last month because of facial drooping. At that time, the patient was assessed to be have severe bilateral carotid artery disease with mild depressed systolic function, segmental hypokinesis including mid anteroseptal wall and thrombocytopenia. At this time, the patient denies any chest pain; however, his reliability in answering my questions are very poor. MEDICATIONS: Aspirin 81 mg once a day, Coreg 6.25 mg once a day, Crestor 10 mg once a day, Flomax 0.4 mg once a day, Lovenox *------* daily which was withheld today, milk of magnesia 30 mL daily, Proscar 5 mg once a day, Vasotec 2.5 mg once a day, normal saline 100 mL an hour which was withheld today. REVIEW OF SYSTEMS: No reported melena or hematemesis. No reported fever or chills. The patient is borderline hypotensive. PHYSICAL EXAMINATION: GENERAL: The patient is an elderly male who does not appear to be in acute distress. VITAL SIGNS: Blood pressure 90/60, heart rate 95, temperature 97.8 and respirations 18. HEENT: Pale conjunctivae. CARDIOPULMONARY: Heart S1 and S2, regular. CHEST: Diminished breath sounds over the bases. ABDOMEN: Soft. EXTREMITIES: No edema. LABORATORY DATA: Hemoglobin and hematocrit 7.6 and 23.3, white count and platelet count are 5.0 and 93,000 respectively. His admission sodium 136, potassium 4.4, chloride 96, CO2 of 27, glucose 121, BUN 32, creatinine 2.0. PT and PTT are within normal limits. An EKG revealed sinus tachycardia at a rate of 105, old inferior wall myocardial infarction. ASSESSMENT: 1. Mildly depressed left ventricular systolic function. 2. Urinary retention status post Roberts catheter insertion. 3. Significant anemia. The patient is currently receiving packed red blood cells transfusion. 4. Severe bilateral carotid artery disease. 5. Coronary artery disease status post coronary artery bypass surgery and an implantable cardioverter defibrillator placement. 6. Thrombocytopenia, which is mild. RECOMMENDATIONS: Continue current aspirin, Crestor, hold Plavix and subcutaneous Lovenox, hold enalapril and Coreg for now until the blood pressure is improved. Continue packed RBC transfusion and watch for any signs of volume overload. Mg Simmons MD
[2016-11-01] MEDS: (Novolog) Insulin Aspart, Recombinant 100 u/ml 10 ml vial SC SCH ×4 (07:48→21:26)
[2016-11-01 08:38] LABS: BASO % 0.3 % (0.0-2.0); EOS # 0.1 K/uL (0.0-0.7); EOS % 1.6 % (0.0-4.0); HEMOGLOBIN 11.5 g/dL (12.0-18.0); LYMPH # 1.2 K/uL (1.0-4.3); MEAN CORPUSCULAR HEMOGLOBIN 31.5 pg (27.0-31.0); MEAN CORPUSCULAR HGB CONC 34.6 g/dL (33.0-37.0); MEAN PLATELET VOLUME 8.7 fL (7.2-11.7); MONO # 0.4 K/uL (0.0-0.8); MONO % 5.4 % (0.0-10.0); NEUT # 6.2 K/uL (1.8-7.0); NEUT % 77.7 % (50.0-75.0); RBC 3.64 Mil/uL (4.40-5.90); RED CELL DISTRIBUTION WIDTH 17.7 % (11.5-14.5)
[2016-11-01] MEDS: Sodium Chloride 0.9% 1,000 ML IV SCH ×3 (09:12→20:00)
[2016-11-01 14:19] LABS: SQUAMOUS EPITHIAL 3 /hpf (0-5); URINE BACTERIA RARE (<OCC); URINE BILIRUBIN NEGATIVE (NEGATIVE); URINE BLOOD 3+ (NEGATIVE); URINE CLARITY Hazy (Clear); URINE COLOR Yellow (YELLOW); URINE GLUCOSE (UA) 1+ mg/dL (Normal); URINE LEUKOCYTE ESTERASE 3+ Leu/uL (Negative); URINE NITRATE POSITIVE (NEGATIVE); URINE PROTEIN 1+ mg/dL (NEGATIVE); URINE UROBILINOGEN NORMAL mg/dL (0.2-1.0)
--- NOTE | 2016-11-01 19:30 | PN ---
SUBJECTIVE: The patient received 4 units of packed RBCs transfusion yesterday. He denies any shortness of breath or chest pain and does not appear to be in any stress. PHYSICAL EXAMINATION VITAL SIGNS: Blood pressure 90/56, heart rate 112, temperature 97.8, respirations 20. HEENT: Right facial drooping. NECK: No JVD. CHEST: Diminished breath sounds over the bases. HEART: S1 and S2, regular. EXTREMITIES: No edema. LABORATORY DATA: Today's blood sugars are 129 and 212. Today's hemoglobin and hematocrit 11.5 and 32.1, white count and platelet count are 8.0 and 103 respectively. I did review the urologists' followup yesterday which he stated the urine appears to be clearing since earlier yesterday. If urine remains clear *------*the patient should be discharged on Proscar and Flomax with Roberts to be revaluated for Roberts removal in 4 to 6 weeks. ASSESSMENT: 1. Coronary artery disease with history of coronary artery bypass surgery. 2. Mildly depressed left ventricular systolic function. 3. Status post ICD placement. 4. Severe bilateral carotid artery disease. 5. Improved anemia after 1 unit of packed RBC transfusion. 6. Thrombocytopenia. RECOMMENDATION: Continue Rocephin at 1 g intravenously daily. Resume Coreg at 6.25 mg twice a day, Crestor at 10 mg once a day, *------*2.5 mg once a day. Hold both Lovenox and Plavix. ; Mg Simmons MD
[2016-11-01] MEDS: Docusate-Senna 50 mg-8.6 mg Tab PO SCH (21:27)
--- NOTE | 2016-11-01 21:29 | CP.PCM.PN ---
Subjective - Date & Time of Evaluation Date of Evaluation: 11/01/16 Time of Evaluation: 09:00 - Subjective Subjective: Pt seen and evalauted, on Iv antibiotics, in febrile, developed rash is to be seen by ID Objective - Vital Signs/Intake and Output Vital Signs (last 24 hours): Temp Pulse Resp BP Pulse Ox 97.8 F 112 H 20 90/56 L 99 11/01/16 16:00 11/01/16 16:00 11/01/16 16:00 11/01/16 16:00 11/01/16 16:00 Intake and Output: 11/01/16 11/02/16 18:59 06:59 Intake Total 800 Output Total 300 Balance 500 - Medications Medications: Current Medications Acetaminophen (Tylenol 325mg Tab) 650 mg PO Q4 PRN PRN Reason: Pain Last Admin: 10/30/16 18:22 Dose: 650 mg Albuterol/Ipratropium (Duoneb 3 Mg/0.5 Mg (3 Ml) Ud) 3 ml INH RQ6 [facility] Last Admin: 11/01/16 19:30 Dose: 3 ml Aspirin (Aspirin Chewable) 81 mg PO DAILY [facility] Last Admin: 10/30/16 13:04 Dose: 81 mg Carvedilol (Coreg) 6.25 mg PO BID [facility] Last Admin: 11/01/16 18:06 Dose: Not Given Clopidogrel Bisulfate (Plavix) 75 mg PO DAILY [facility] Last Admin: 10/30/16 13:04 Dose: 75 mg Enalapril Maleate (Vasotec) 2.5 mg PO DAILY [facility] Last Admin: 11/01/16 09:22 Dose: 2.5 mg Enoxaparin Sodium (Lovenox) 30 mg SC DAILY [facility] Last Admin: 10/31/16 12:17 Dose: Not Given Finasteride (Proscar) 5 mg PO DAILY [facility] Last Admin: 11/01/16 09:28 Dose: 5 mg Sodium Chloride (Sodium Chloride 0.9%) 1,000 mls @ 100 mls/hr IV .Q10H [facility] Last Admin: 11/01/16 09:28 Dose: 100 mls/hr Ceftriaxone Sodium 1 gm/ (Sodium Chloride) 100 mls @ 100 mls/hr IVPB Q24H [facility] Last Admin: 10/31/16 21:57 Dose: 100 mls/hr Insulin Aspart (Novolog) 0 unit SC ACHS [facility] PRN Reason: Protocol Last Admin: 11/01/16 17:51 Dose: 3 unit Magnesium Hydroxide (Milk Of Magnesia) 30 ml PO DAILY PRN PRN Reason: Constipation Rosuvastatin Calcium (Crestor) 10 mg PO [facility] Last Admin: 10/31/16 21:56 Dose: 10 mg Senna/Docusate Sodium (Senokot S 50 Mg-8.6 Mg) 1 tab PO [facility] Last Admin: 10/31/16 21:56 Dose: 1 tab Tamsulosin HCl (Flomax) 0.4 mg PO DAILY [facility] Last Admin: 11/01/16 09:22 Dose: 0.4 mg - Labs Labs: 11/01/16 08:25 10/29/16 23:02 PT 11.3 SECONDS (9.7-12.2) 10/29/16 23:02 INR 1.0 10/29/16 23:02 APTT 27 SECONDS (21-34) 10/29/16 23:02 - Constitutional Appears: Chronically Ill - Head Exam Head Exam: ATRAUMATIC, NORMAL INSPECTION, NORMOCEPHALIC - Eye Exam Eye Exam: EOMI, Normal appearance, PERRL Pupil Exam: NORMAL ACCOMODATION, PERRL - Respiratory Exam Respiratory Exam: Clear to Ausculation Bilateral, NORMAL BREATHING PATTERN - Cardiovascular Exam Cardiovascular Exam: REGULAR RHYTHM, +S1, +S2. absent: Murmur - GI/Abdominal Exam GI & Abdominal Exam: Soft, Normal Bowel Sounds. absent: Tenderness - Neurological Exam Neurological Exam: Alert, Awake, CN II-XII Intact, Normal Gait, Oriented x3 Assessment and Plan (1) Urinary retention Assessment & Plan: on Roberts Status: Acute (2) COPD (chronic obstructive pulmonary disease) Status: Acute (3) Carotid stenosis, bilateral Status: Acute - Assessment and Plan (Free Text) Assessment: Assessment & Plan (1) Urinary retention Assessment and Plan: pancultures Repeat UA urine cultures. Blood works to be repeated stat with SMA-7 to evaluate renal functions. Patient developed rash to Rocephin will discontinue it. Ask micro to check for sensitivity of Proteus mirabilis with colistin.AND MERREM. Status: Acute (2) Hematuria, gross Assessment and Plan: resolved. Patient has a Roberts catheter in place. As per to keep it in for 4 weeks before trial of weaning. Status: Acute (3) Diabetes Status: Acute (4) HTN (hypertension) Status: Acute (5) ICD (implantable cardioverter-defibrillator) in place Status: Acute
[2016-11-01] MEDS ORDERED: DiphenhydrAMINE 50 mg/ml Inj IVP STA (22:56)
[2016-11-02] MEDS: Albuterol-Ipratrop 3 mg / 0.5 (3 ml) UD INH SCH ×4 (01:25→19:27)
[2016-11-02] MEDS ORDERED: Tmp-Smz 800 mg-160 mg DS Tab PO SCH (06:00)
[2016-11-02] MEDS: Sodium Chloride 0.9% 1,000 ML IV SCH ×4 (06:35→18:07)
[2016-11-02] MEDS: (Novolog) Insulin Aspart, Recombinant 100 u/ml 10 ml vial SC SCH ×4 (07:44→23:01)
[2016-11-02] MEDS: Clotrimazole/Betamethasone Cream(15 gm) TOP SCH ×3 (10:30→23:02)
[2016-11-02] MEDS ORDERED: Imipenem/Cilastatin 500 MG in Dextrose 5% In Water 100 ML IVPB SCH (13:30)
--- NOTE | 2016-11-02 13:44 | CP.PCM.PN ---
Subjective - Date & Time of Evaluation Date of Evaluation: 11/02/16 Time of Evaluation: 13:44 - Subjective Subjective: PICC LINE CONSENT REC'D VIA TELEPHONE BY PT'S AND POA, MRS. Esteban WILSON. SHE IS AWARE OF RISKS/BENEFITS OF PICC WELL THE NEED FOR IT. PENDING EVAL BY DR. BEJARANO FOR ID PT'S URINE CX + AND PT IS FEBRILE, TACHY AND HAS SBP APPROXIMATELY 100-105. ORDERED LABS FOR TODAY AND FOR AM. DR. BEJARANO WILL ORDER ABX AFTER HER EVAL OF PT AND REVIEW OF LABS. AM LABS ORDERED WELL. DISCUSSED WITH PRIMARY RNS KATARINA AND HARI. Objective - Vital Signs/Intake and Output Vital Signs (last 24 hours): Temp Pulse Resp BP Pulse Ox 100.3 F H 111 H 20 92/57 L 100 11/02/16 07:00 11/02/16 07:00 11/02/16 07:00 11/02/16 09:34 11/02/16 07:00 Intake and Output: 11/02/16 11/02/16 06:59 18:59 Intake Total 1040 Output Total 525 Balance 515 - Medications Medications: Current Medications Acetaminophen (Tylenol 325mg Tab) 650 mg PO Q4 PRN PRN Reason: Pain Last Admin: 10/30/16 18:22 Dose: 650 mg Albuterol/Ipratropium (Duoneb 3 Mg/0.5 Mg (3 Ml) Ud) 3 ml INH RQ6 [facility] Last Admin: 11/02/16 13:08 Dose: 3 ml Aspirin (Aspirin Chewable) 81 mg PO DAILY [facility] Last Admin: 10/30/16 13:04 Dose: 81 mg Betamethasone/Clotrimazole (Lotrisone) 1 gm TOP Q12 [facility] Last Admin: 11/02/16 12:31 Dose: 1 applic Carvedilol (Coreg) 6.25 mg PO BID [facility] Last Admin: 11/02/16 09:34 Dose: Not Given Clopidogrel Bisulfate (Plavix) 75 mg PO DAILY [facility] Last Admin: 10/30/16 13:04 Dose: 75 mg Enalapril Maleate (Vasotec) 2.5 mg PO DAILY [facility] Last Admin: 11/02/16 09:34 Dose: Not Given Enoxaparin Sodium (Lovenox) 30 mg SC DAILY [facility] Last Admin: 10/31/16 12:17 Dose: Not Given Finasteride (Proscar) 5 mg PO DAILY [facility] Last Admin: 11/02/16 09:28 Dose: 5 mg Sodium Chloride (Sodium Chloride 0.9%) 1,000 mls @ 100 mls/hr IV .Q10H [facility] Last Admin: 11/02/16 06:36 Dose: Not Given Ceftriaxone Sodium 1 gm/ (Sodium Chloride) 100 mls @ 100 mls/hr IVPB Q24H [facility] Last Admin: 11/01/16 21:28 Dose: 100 mls/hr Insulin Aspart (Novolog) 0 unit SC ACHS [facility] PRN Reason: Protocol Last Admin: 11/02/16 12:26 Dose: 1 unit Magnesium Hydroxide (Milk Of Magnesia) 30 ml PO DAILY PRN PRN Reason: Constipation Rosuvastatin Calcium (Crestor) 10 mg PO HS [facility] Last Admin: 11/01/16 21:27 Dose: 10 mg Senna/Docusate Sodium (Senokot S 50 Mg-8.6 Mg) 1 tab PO HS [facility] Last Admin: 11/01/16 21:27 Dose: 1 tab Tamsulosin HCl (Flomax) 0.4 mg PO DAILY [facility] Last Admin: 11/02/16 09:29 Dose: 0.4 mg - Labs Labs: 11/01/16 08:25 10/29/16 23:02 PT 11.3 SECONDS (9.7-12.2) 10/29/16 23:02 INR 1.0 10/29/16 23:02 APTT 27 SECONDS (21-34) 10/29/16 23:02
--- NOTE | 2016-11-02 13:55 | CP.PCM.CON ---
History of Present Illness - History of Present Illness History of Present Illness: INFECTIOUS DISEASE CONSULT: HPI: 81-year-old male who was sent to the ER on 10/29/16 from residential, [facility] for no urine output. Patient had a Gutierrez catheter taken out on the morning of admission but was not passing any urine. consultation was obtained and patient had a Gutierrez inserted on 10/30/[address] KIDD. Patient was found to have 240 mL of residual urine,and developed gross hematuria after insertion of Gutierrez. Urologist instructed to keep the Gutierrez catheter in for 4 weeks before trial of taking it out. Also to treat if any urine cultures comes back positive.PRESENTLY URINE IS CLEARING. Patient has been running low-grade temperatures of 100.3 and hypotension. Patient received 2 doses off IV Rocephin on 10/31/16, 11/01/16 but patient developed a faint generalized rash more prominent on the arms and trunk and lower extremities. Rocephin was then held. Patient urine culture came back positive for Proteus mirabilis today sensitive only to imipenem/gentamicin. Infectious disease consultation therefore requested for appropriate therapy with history of urinary retention and cystitis. PATIENT PRESENTLY HAS A Gutierrez CATHETER DRAINING RAFAEL COLORED URINE. PATIENT ALSO HAS A PERMANENT PACEMAKER AND DEFIBRILLATOR/HX OF CABG. LAST CYSTOSCOPY DONE ON 09/24/16. ALLERGY; ROCEPHIN-rash. PMH: Arthritis, Benign Prostatic Hyperplasia, Cardia Arrhythmia, COPD, Dementia , Diabetes, Emphysema, HTN Surgical History: CABG, Pacemaker - [facility] Procedures CORONAR ARTERIOGR-2 CATH (12/24/14) DRAINAGE OF BLADDER WITH DRAINAGE DEVICE, OPEN APPROACH (09/24/16) EXCISION OF BLADDER, ENDO, DIAGN (09/24/16) EXTIRPATION OF MATTER FROM BLADDER, ENDO (09/24/16) EXTIRPATION OF MATTER FROM L INT CAROTID, OPEN APPROACH (09/24/16) INSERTION OF ENDOTRACHEAL AIRWAY INTO TRACHEA, VIA OPENING (09/24/16) INSPECTION OF BLADDER, ENDO (09/24/16) LEFT HEART CARDIAC CATH (12/24/14) LT HEART ANGIOCARDIOGRAM (12/24/14) RESPIRATORY VENTILATION, 24-96 CONSECUTIVE HOURS (09/24/16) SUPPLEMENT L INT CAROTID WITH SYNTH SUB, OPEN APPROACH (09/24/16) TRANSFUSE NONAUT PLATELETS IN PERIPH VEIN, PERC (09/24/16) TRANSFUSE NONAUT RED BLOOD CELLS IN PERIPH VEIN, PERC (09/24/16) Family History: States: Unknown Family Hx - Social History Hx Tobacco Use: Yes (2ppd) Hx Alcohol Use: No - Immunization History Hx Tetanus Toxoid Vaccination: No Hx Influenza Vaccination: Yes Hx Pneumococcal Vaccination: Yes Review of Systems - Review of Systems Systems not reviewed;Unavailable: Unstable Vital Signs - Constitutional Constitutional: Chills, Fever, Malaise - EENT Eyes: absent: Change in Vision Nose/Mouth/Throat: Dry Mouth - Cardiovascular Cardiovascular: absent: Chest Pain - Respiratory Respiratory: Excessive Mucous Production. absent: Cough - Gastrointestinal Gastrointestinal: Abdominal Pain, Dyspepsia. absent: Nausea, Odynophagia, Vomiting - Genitourinary Genitourinary: Difficulty Urinating, Dysuria, Hematuria, Pyuria, Urinary Hesitance - Musculoskeletal Musculoskeletal: Abnormal Gait - Endocrine Endocrine: As Per HPI - Hematologic/Lymphatic Hematologic: As Per HPI. absent: Lymphadenopathy Past Patient History - Infectious Disease Hx of Infectious Diseases: None - Past Medical History & Family History Past Medical History?: Yes - Past Social History Smoking Status: Former Smoker - CARDIAC Hx Hypertension: Yes - PULMONARY Hx Chronic Obstructive Pulmonary Disease (COPD): Yes Hx Emphysema: Yes - NEUROLOGICAL Hx Dementia: Yes - HEENT Hx HEENT Problems: No - ENDOCRINE/METABOLIC Hx Diabetes Mellitus Type 2: Yes - MUSCULOSKELETAL/RHEUMATOLOGICAL Hx Arthritis: Yes - GENITOURINARY/GYNECOLOGICAL Hx Genitourinary Disorders: Yes Hx Prostate Problems: Yes - SURGICAL HISTORY Hx Coronary Artery Bypass Graft: Yes - ANESTHESIA Hx Anesthesia: Yes Hx Anesthesia Reactions: No Hx Malignant Hyperthermia: No Meds Allergies/Adverse Reactions: Allergies Allergy/AdvReac Type Severity Reaction Status Date / Time No Known Allergies Allergy Verified 10/29/16 21:31 - Medications Medications: Current Medications Acetaminophen (Tylenol 325mg Tab) 650 mg PO Q4 PRN PRN Reason: Pain Last Admin: 10/30/16 18:22 Dose: 650 mg Albuterol/Ipratropium (Duoneb 3 Mg/0.5 Mg (3 Ml) Ud) 3 ml INH RQ6 [facility] Last Admin: 11/02/16 13:08 Dose: 3 ml Aspirin (Aspirin Chewable) 81 mg PO DAILY [facility] Last Admin: 10/30/16 13:04 Dose: 81 mg Betamethasone/Clotrimazole (Lotrisone) 1 gm TOP Q12 [facility] Last Admin: 11/02/16 12:31 Dose: 1 applic Carvedilol (Coreg) 6.25 mg PO BID [facility] Last Admin: 11/02/16 09:34 Dose: Not Given Clopidogrel Bisulfate (Plavix) 75 mg PO DAILY [facility] Last Admin: 10/30/16 13:04 Dose: 75 mg Enalapril Maleate (Vasotec) 2.5 mg PO DAILY [facility] Last Admin: 11/02/16 09:34 Dose: Not Given Enoxaparin Sodium (Lovenox) 30 mg SC DAILY [facility] Last Admin: 10/31/16 12:17 Dose: Not Given Finasteride (Proscar) 5 mg PO DAILY [facility] Last Admin: 11/02/16 09:28 Dose: 5 mg Sodium Chloride (Sodium Chloride 0.9%) 1,000 mls @ 100 mls/hr IV .Q10H [facility] Last Admin: 11/02/16 06:36 Dose: Not Given Ceftriaxone Sodium 1 gm/ (Sodium Chloride) 100 mls @ 100 mls/hr IVPB Q24H [facility] Last Admin: 11/01/16 21:28 Dose: 100 mls/hr Insulin Aspart (Novolog) 0 unit SC ACHS [facility] PRN Reason: Protocol Last Admin: 11/02/16 12:26 Dose: 1 unit Magnesium Hydroxide (Milk Of Magnesia) 30 ml PO DAILY PRN PRN Reason: Constipation Rosuvastatin Calcium (Crestor) 10 mg PO [facility] Last Admin: 11/01/16 21:27 Dose: 10 mg Senna/Docusate Sodium (Senokot S 50 Mg-8.6 Mg) 1 tab PO [facility] Last Admin: 11/01/16 21:27 Dose: 1 tab Tamsulosin HCl (Flomax) 0.4 mg PO DAILY [facility] Last Admin: 11/02/16 09:29 Dose: 0.4 mg Physical Exam - Constitutional Appears: No Acute Distress, Chronically Ill - Head Exam Head Exam: NORMAL INSPECTION - Eye Exam Eye Exam: EOMI, PERRL - ENT Exam ENT Exam: Mucous Membranes Dry, Normal Oropharynx - Neck Exam Neck exam: Negative for: Normal Inspection - Respiratory Exam Respiratory Exam: Clear to Auscultation Bilateral - Cardiovascular Exam Cardiovascular Exam: REGULAR RHYTHM, +S1, +S2 - GI/Abdominal Exam GI & Abdominal Exam: Normal Bowel Sounds, Soft, Tenderness (mild suprapubic tenderness.) - Exam Exam: NORMAL INSPECTION. absent: Uretheral Discharge - Extremities Exam Extremities exam: Negative for: calf tenderness, pedal edema - Neurological Exam Neurological exam: CN II-XII Intact, Oriented x3, Reflexes Normal - Psychiatric Exam Psychiatric exam: Normal Mood - Skin Skin Exam: Rash (erythematous rash noted on theupper and lower extremities and trunk region ? reaction to Rocephin.) Results - Vital Signs Recent Vital Signs: Last Vital Signs Temp 100.3 F H 11/02/16 07:00 Pulse 111 H 11/02/16 07:00 Resp 20 11/02/16 07:00 BP 92/57 L 11/02/16 09:34 Pulse Ox 100 11/02/16 07:00 - Labs Result Diagrams: 11/01/16 08:25 11/02/16 14:43 Labs: Laboratory Results - last 24 hr 11/01/16 11/01/16 11/01/16 14:10 16:42 21:03 POC Glucose (mg/dL) 264 H 256 H Urine Color Yellow Urine Clarity Hazy Urine pH 6.0 Ur Specific [place] 1.015 Urine Protein 1+ H Urine Glucose (UA) 1+ H Urine Ketones Negative Urine Blood 3+ H Urine Nitrate Positive H Urine Bilirubin Negative Urine Urobilinogen Normal Ur Leukocyte Esterase 3+ H Urine WBC (Auto) 145 H Urine RBC (Auto) 66 H Ur Squamous Epith Cells 3 Urine Bacteria Rare 11/02/16 11/02/16 06:32 11:18 POC Glucose (mg/dL) 135 H 191 H Urine Color Urine Clarity Urine pH Ur Specific [place] Urine Protein Urine Glucose (UA) Urine Ketones Urine Blood Urine Nitrate Urine Bilirubin Urine Urobilinogen Ur Leukocyte Esterase Urine WBC (Auto) Urine RBC (Auto) Ur Squamous Epith Cells Urine Bacteria - Imaging and Cardiology Chest x-ray Status: Report reviewed by me (chest x-ray 11/02/16. Bipolar pacemaker/ defibrillator. Right-sided PICC line. -ve PTX. Mild bibasilar atelectasis.) Assessment & Plan (1) Urinary retention Assessment and Plan: pancultures Repeat UA urine cultures. *Gentamicin 120 mg IV piggyback one dose stat today after cultures 11/02/16. start iv VIBRAMYCIN 100MG IV Q 12HRLY Blood works to be repeated stat with SMA-7 to evaluate renal functions. Patient developed rash to Rocephin will discontinue it. Ask micro to check for sensitivity of Proteus mirabilis with colistin.AND MERREM. Status: Acute (2) Hematuria, gross Assessment and Plan: resolved. Patient has a Gutierrez catheter in place. As per to keep it in for 4 weeks before trial of weaning. Status: Acute (3) Diabetes Status: Acute (4) HTN (hypertension) Status: Acute (5) ICD (implantable cardioverter-defibrillator) in place Status: Acute
--- NOTE | 2016-11-02 14:34 | RAD ---
HISTORY: r/o pneumonia COMPARISON: Comparison chest dated 10/01/2016 FINDINGS: LUNGS: No change bipolar pacemaker/defibrillator. Lead removal right IJ central venous line. Suspect minor bibasilar atelectasis. PLEURA: No significant pleural effusion identified, no pneumothorax apparent. CARDIOVASCULAR: Heart size unchanged. Sternotomy wires CABG clips again noted OSSEOUS STRUCTURES: No significant abnormalities. VISUALIZED UPPER ABDOMEN: Normal. OTHER FINDINGS: None. IMPRESSION: No acute infiltrates.
[2016-11-02 14:59] LABS: CALCIUM 7.8 mg/dl (8.6-10.4)
--- NOTE | 2016-11-02 17:03 | RAD ---
PROCEDURE: CHEST RADIOGRAPH, 1 VIEW HISTORY: verify right PICC COMPARISON: None available. FINDINGS: LUNGS: Interval placement right sided PICC line with tip in the SVC. . There are linear lucency seen along the lateral aspect right angelo thorax which are felt to represent skin fold artifact and not pneumothorax. Repeat radiographs in end expiration could be performed confirm. Suspect minor right basilar atelectasis PLEURA: No pneumothorax or pleural fluid seen. CARDIOVASCULAR: No change single lead pacemaker/ defibrillator. Sternotomy wires and CABG clips also unaltered. OSSEOUS STRUCTURES: No significant abnormalities. VISUALIZED UPPER ABDOMEN: Metallic surgical clips right upper quadrant of the abdomen consistent with prior cholecystectomy again noted OTHER FINDINGS: None. IMPRESSION: Interval placement right sided PICC line with tip in the SVC. . There are linear lucency seen along the lateral aspect right angelo thorax which are felt to represent skin fold artifact and not pneumothorax. Repeat radiographs in end expiration could be performed confirm. Suspect minor right basilar atelectasis . Note that these findings were discussed with referring nurse practitioner at approximately 4:55 p.m. with written down and read back verification
--- NOTE | 2016-11-02 17:19 | RAD ---
HISTORY: R/O Pneumothorax, Post PICC insertion COMPARISON: Comparison made with prior film 11/02/2016 at 1623 hours. FINDINGS: LUNGS: Previously noted linear lucencies traversing the lateral aspect of the right angelo thorax are no longer seen and most likely represented skin fold artifact. . Mild bibasilar atelectasis right greater than left. Re- demonstrated is in situ right-sided PICC line with tip in the SVC. No other changes. PLEURA: No significant pleural effusion identified, no pneumothorax apparent. CARDIOVASCULAR: Normal. OSSEOUS STRUCTURES: No significant abnormalities. VISUALIZED UPPER ABDOMEN: Normal. OTHER FINDINGS: None. IMPRESSION: No evidence of pneumothorax. Mild bibasilar atelectasis right greater than left
[2016-11-02 20:12] LABS: SQUAMOUS EPITHIAL < 1 /hpf (0-5); URINE BACTERIA RARE (<OCC); URINE BILIRUBIN NEGATIVE (NEGATIVE); URINE BLOOD 3+ (NEGATIVE); URINE CLARITY Hazy (Clear); URINE COLOR Yellow (YELLOW); URINE GLUCOSE (UA) 1+ mg/dL (Normal); URINE LEUKOCYTE ESTERASE 3+ Leu/uL (Negative); URINE NITRATE NEGATIVE (NEGATIVE); URINE PROTEIN 1+ mg/dL (NEGATIVE); URINE UROBILINOGEN NORMAL mg/dL (0.2-1.0)
--- NOTE | 2016-11-02 20:29 | PN ---
DATE: 11/02/2016 SUBJECTIVE: The patient denies any chest pain and does not appears to be in any distress. Storage computer is very slow, so we have to wait until each window opens. PHYSICAL EXAMINATION VITAL SIGNS: Blood pressure 92/57, heart rate 111, temperature 100.3, respirations 20. HEENT: Normocephalic. CHEST: Diminished breath sounds over the bases. HEART: S1 and S2 regular. EXTREMITIES: No edema. LABORATORY DATA: Hemoglobin and hematocrit 11.5 and 33.1, white count and platelet count are 8.0 and 103,000 respectively. Today's SMA-7 is within normal limits except for glucose of 154, calcium is below normal 7.8. Urine culture is positive for proteus mirabilis. ASSESSMENT: 1. Urinary tract infection with proteus mirabilis. 2. Coronary artery disease status post coronary artery bypass surgery. 3. Status post implantable cardioverter defibrillator placement. 4. Mildly depressed left ventricular systolic function. 5. Severe bilateral carotid artery disease. RECOMMENDATIONS: The case was discussed with [employer]. Continue aspirin 81 mg once daily, Rocephin 1 g intravenously daily, and Coreg 6.25 mg twice a day, hold for systolic blood pressure below 100. Continue Crestor 10 mg once a day. Subcutaneous Lovenox is also still on hold as well as Plavix. The patient will have infectious disease evaluation today by Dr. Ochoa. Mg Simmons MD
[2016-11-02] MEDS: Docusate-Senna 50 mg-8.6 mg Tab PO SCH (23:03)
--- NOTE | 2016-11-03 01:04 | CP.PCM.PN ---
Subjective - Date & Time of Evaluation Date of Evaluation: 11/02/16 Time of Evaluation: 03:00 - Subjective Subjective: 81-year-old male who was sent to the ER on 10/29/16 from assisted, [facility] for no urine output. Patient had a Gutierrez catheter taken out on the morning of admission but was not passing any urine. consultation was obtained and patient had a Gutierrez inserted on 10/30/[address] KIDD. Patient was found to have 240 mL of residual urine,and developed gross hematuria after insertion of Gutierrez. Urologist instructed to keep the Gutierrez catheter in for 4 weeks before trial of taking it out. Also to treat if any urine cultures comes back positive.PRESENTLY URINE IS CLEARING. Patient has been running low-grade temperatures of 100.3 and hypotension. Patient received 2 doses off IV Rocephin on 10/31/16, 11/01/16 but patient developed a faint generalized rash more prominent on the arms and trunk and lower extremities. Rocephin was then held. Objective - Vital Signs/Intake and Output Vital Signs (last 24 hours): Temp Pulse Resp BP Pulse Ox 98.2 F 96 H 20 90/59 L 100 11/02/16 23:50 11/02/16 23:50 11/02/16 23:50 11/02/16 23:50 11/02/16 23:50 Intake and Output: 11/02/16 11/03/16 18:59 06:59 Intake Total 1000 Output Total 175 Balance 825 - Medications Medications: Current Medications Acetaminophen (Tylenol 325mg Tab) 650 mg PO Q4 PRN PRN Reason: Pain Last Admin: 10/30/16 18:22 Dose: 650 mg Albuterol/Ipratropium (Duoneb 3 Mg/0.5 Mg (3 Ml) Ud) 3 ml INH RQ6 [facility] Last Admin: 11/02/16 19:27 Dose: 3 ml Aspirin (Aspirin Chewable) 81 mg PO DAILY [facility] Last Admin: 10/30/16 13:04 Dose: 81 mg Betamethasone/Clotrimazole (Lotrisone) 1 gm TOP Q12 [facility] Last Admin: 11/02/16 23:02 Dose: 1 applic Carvedilol (Coreg) 6.25 mg PO BID [facility] Last Admin: 11/02/16 18:00 Dose: 6.25 mg Clopidogrel Bisulfate (Plavix) 75 mg PO DAILY [facility] Last Admin: 10/30/16 13:04 Dose: 75 mg Doxycycline Hyclate (Doryx) 100 mg PO Q12H [facility] Last Admin: 11/02/16 23:27 Dose: 100 mg Enalapril Maleate (Vasotec) 2.5 mg PO DAILY [facility] Last Admin: 11/02/16 09:34 Dose: Not Given Enoxaparin Sodium (Lovenox) 30 mg SC DAILY [facility] Last Admin: 10/31/16 12:17 Dose: Not Given Finasteride (Proscar) 5 mg PO DAILY [facility] Last Admin: 11/02/16 09:28 Dose: 5 mg Insulin Aspart (Novolog) 0 unit SC [facility] PRN Reason: Protocol Last Admin: 11/02/16 23:01 Dose: Not Given Magnesium Hydroxide (Milk Of Magnesia) 30 ml PO DAILY PRN PRN Reason: Constipation Rosuvastatin Calcium (Crestor) 10 mg PO [facility] Last Admin: 11/02/16 23:02 Dose: 10 mg Senna/Docusate Sodium (Senokot S 50 Mg-8.6 Mg) 1 tab PO [facility] Last Admin: 11/02/16 23:03 Dose: 1 tab Tamsulosin HCl (Flomax) 0.4 mg PO DAILY [facility] Last Admin: 11/02/16 09:29 Dose: 0.4 mg - Labs Labs: 11/01/16 08:25 11/02/16 14:43 PT 11.3 SECONDS (9.7-12.2) 10/29/16 23:02 INR 1.0 10/29/16 23:02 APTT 27 SECONDS (21-34) 10/29/16 23:02 - Constitutional Appears: Well - Head Exam Head Exam: ATRAUMATIC, NORMAL INSPECTION, NORMOCEPHALIC - Eye Exam Eye Exam: EOMI, Normal appearance, PERRL Pupil Exam: NORMAL ACCOMODATION, PERRL - ENT Exam ENT Exam: Mucous Membranes Moist, Normal Exam - Neck Exam Neck Exam: Full ROM, Normal Inspection. absent: Lymphadenopathy - Respiratory Exam Respiratory Exam: Clear to Ausculation Bilateral, NORMAL BREATHING PATTERN - Cardiovascular Exam Cardiovascular Exam: REGULAR RHYTHM, +S1, +S2. absent: Murmur - GI/Abdominal Exam GI & Abdominal Exam: Soft, Normal Bowel Sounds. absent: Tenderness - Rectal Exam Rectal Exam: NORMAL INSPECTION - Exam Exam: Circumcision, NORMAL INSPECTION External exam: NORMAL EXTERNAL EXAM Speculum exam: NORMAL SPECULUM EXAM Bimanual exam: NORMAL BIMANUAL EXAM - Extremities Exam Extremities Exam: Full ROM, Normal Capillary Refill, Normal Inspection. absent : Joint Swelling, Pedal Edema - Back Exam Back Exam: NORMAL INSPECTION - Neurological Exam Neurological Exam: Alert, Awake, CN II-XII Intact, Normal Gait, Oriented x3 - Psychiatric Exam Psychiatric exam: Normal Affect, Normal Mood - Skin Skin Exam: Dry, Intact, Normal Color, Warm Assessment and Plan (1) Urinary retention Status: Acute (2) Angina at rest Status: Acute (3) Cardozo palsy Status: Acute (4) Bronchitis Status: Acute (5) COPD (chronic obstructive pulmonary disease) Status: Acute (6) COPD exacerbation Status: Acute (7) Carotid stenosis, bilateral Status: Acute (8) Chronic respiratory failure Status: Acute (9) Coronary arteriosclerosis after coronary artery bypass grafting Status: Acute (10) Dehydration Status: Acute (11) Diabetes Status: Acute (12) Dyspnea Status: Acute (13) HTN (hypertension) Status: Acute (14) Hematuria, gross Status: Acute (15) History of carotid endarterectomy Status: Acute (16) ICD (implantable cardioverter-defibrillator) in place Status: Acute (17) Influenza A Status: Acute (18) Left hip pain Status: Acute (19) Postop carotid endarterectomy surveillance, encounter for Status: Acute (20) Right lower lobe pneumonia Status: Acute (21) Uncontrolled hypertension Status: Acute (22) CVA (cerebral vascular accident) Status: Suspected - Assessment and Plan (Free Text) Assessment: Patient urine culture came back positive for Proteus mirabilis today sensitive only to imipenem/gentamicin. Infectious disease consultation therefore requested for appropriate therapy with history of urinary retention and cystitis. PATIENT PRESENTLY HAS A Gutierrez CATHETER DRAINING RAFAEL COLORED URINE. PATIENT ALSO HAS A PERMANENT PACEMAKER AND DEFIBRILLATOR/HX OF CABG. LAST CYSTOSCOPY DONE ON 09/24/16. ALLERGY; ROCEPHIN-rash. had Arthritis, Benign Prostatic Hyperplasia, Cardia Arrhythmia, COPD, Dementia , Diabetes, Emphysema, HTN CABG, Pacemaker CORONAR ARTERIOGR-2 CATH (12/24/14) DRAINAGE OF BLADDER WITH DRAINAGE DEVICE, OPEN APPROACH (09/24/16) EXCISION OF BLADDER, ENDO, DIAGN (09/24/16) EXTIRPATION OF MATTER FROM BLADDER, ENDO (09/24/16) EXTIRPATION OF MATTER FROM L INT CAROTID, OPEN APPROACH (09/24/16) INSERTION OF ENDOTRACHEAL AIRWAY INTO TRACHEA, VIA OPENING (09/24/16) INSPECTION OF BLADDER, ENDO (09/24/16) LEFT HEART CARDIAC CATH (12/24/14) LT HEART ANGIOCARDIOGRAM (12/24/14) RESPIRATORY VENTILATION, 24-96 CONSECUTIVE HOURS (09/24/16) SUPPLEMENT L INT CAROTID WITH SYNTH SUB, OPEN APPROACH (09/24/16) TRANSFUSE NONAUT PLATELETS IN PERIPH VEIN, PERC (09/24/16) TRANSFUSE NONAUT RED BLOOD CELLS IN PERIPH VEIN, PERC (09/24/16) cont. present treatment
[2016-11-03] MEDS: Albuterol-Ipratrop 3 mg / 0.5 (3 ml) UD INH SCH ×4 (01:15→19:55)
[2016-11-03] MEDS: Sodium Chloride 0.9% 1,000 ML IV SCH ×2 (05:31→16:34)
[2016-11-03 07:19] LABS: ALBUMIN 2.1 g/dL (3.5-5.0); CALCIUM 7.7 mg/dl (8.6-10.4)
[2016-11-03 07:23] LABS: BASO % 0.2 % (0.0-2.0); EOS # 0.4 K/uL (0.0-0.7); EOS % 3.3 % (0.0-4.0); HEMOGLOBIN 9.7 g/dL (12.0-18.0); LYMPH % 8.6 % (20.0-40.0); MEAN CELL VOLUME 92.7 fL (80.0-94.0); MEAN CORPUSCULAR HEMOGLOBIN 31.3 pg (27.0-31.0); MEAN CORPUSCULAR HGB CONC 33.8 g/dL (33.0-37.0); MEAN PLATELET VOLUME 8.8 fL (7.2-11.7); MONO # 0.4 K/uL (0.0-0.8); MONO % 3.7 % (0.0-10.0); NEUT # 9.8 K/uL (1.8-7.0); NEUT % 84.2 % (50.0-75.0); PLATELET COUNT 98 K/uL (130-400); RBC 3.09 Mil/uL (4.40-5.90); WHITE BLOOD COUNT 11.7 K/uL (4.8-10.8)
[2016-11-03] MEDS: (Novolog) Insulin Aspart, Recombinant 100 u/ml 10 ml vial SC SCH ×4 (08:00→21:42)
[2016-11-03 10:46] LABS: ANISOCYTOSIS SLIGHT; LYMPHOCYTE 10 % (20-40); MONOCYTE 5 % (0-10); NEUTROPHIL 85 % (50-75); PLATELET ESTIMATE DECREASED (NORMAL); TOTAL CELLS COUNTED 100
[2016-11-03 10:47] LABS: OVALOCYTES SLIGHT
[2016-11-03] MEDS: Enoxaparin 30 mg Syringe SC SCH (10:50)
[2016-11-03] MEDS: Clotrimazole/Betamethasone Cream(15 gm) TOP SCH ×2 (11:35→21:10)
[2016-11-03] MEDS: Docusate-Senna 50 mg-8.6 mg Tab PO SCH (21:10)
--- NOTE | 2016-11-03 22:13 | CP.PCM.PN ---
Subjective - Date & Time of Evaluation Date of Evaluation: 11/03/16 Time of Evaluation: 22:13 - Subjective Subjective: CHIEF COMPLAINTS TODAY : AFEBRILE, BP 90/59. AWAKE AND ALERT. +VE Gutierrez CATHETER DRAINING RAFAEL COLORED URINE. NO NEW COMPLAINTS. Tolerating IV Vibramycin. ROS. HEENT : N. Resp : No cough, wheezing ,pleuritic CP ,or hemoptysis Cardio : No anginal CP, PND, orthopnea, palpitation GI : No abd.pain, n/v ,diarrhea or GI bleeding . JAWBONE PULLER : No headache, vertigo, focal deficit. Musculoskel : No joint swelling , Derm : No rash Psych : Normal affect. Ext : No swelling ,calf pain PE. Pt. is alert awake in no distress. V.S As noted in the chart Head ,ear nose,throat and eyes : Normal. Neck : Supple with normal carotids. Lungs: Clear air entry. Heart : S1 & S2 normal with S4. No murmur. Abd : Soft non tender with normal bowel sounds. Neuro : Moves all ext. with no localized deficit. Ext : No edema with intact pulses.Non tender calves Derm : No rashes or decubitus ulcer. LABS/RADIOLOGY: wbc 11.7, H/H 9.7/28.7 PLT 98 DECREASING cREATININE 1.5 bun 18 LFTS N Objective - Vital Signs/Intake and Output Vital Signs (last 24 hours): Temp Pulse Resp BP Pulse Ox 98.0 F 103 H 22 90/60 L 99 11/03/16 16:00 11/03/16 16:00 11/03/16 16:00 11/03/16 16:00 11/03/16 16:00 Intake and Output: 11/03/16 11/04/16 18:59 06:59 Intake Total 1400 Output Total 350 Balance 1050 - Medications Medications: Current Medications Acetaminophen (Tylenol 325mg Tab) 650 mg PO Q4 PRN PRN Reason: Pain Last Admin: 10/30/16 18:22 Dose: 650 mg Albuterol/Ipratropium (Duoneb 3 Mg/0.5 Mg (3 Ml) Ud) 3 ml INH RQ6 [facility] Last Admin: 11/03/16 19:55 Dose: 3 ml Aspirin (Aspirin Chewable) 81 mg PO DAILY [facility] Last Admin: 10/30/16 13:04 Dose: 81 mg Betamethasone/Clotrimazole (Lotrisone) 1 gm TOP Q12 [facility] Last Admin: 11/03/16 21:10 Dose: 1 applic Carvedilol (Coreg) 6.25 mg PO BID [facility] Last Admin: 11/03/16 18:02 Dose: Not Given Clopidogrel Bisulfate (Plavix) 75 mg PO DAILY [facility] Last Admin: 10/30/16 13:04 Dose: 75 mg Doxycycline Hyclate (Doryx) 100 mg PO Q12H [facility] Last Admin: 11/03/16 10:52 Dose: 100 mg Enalapril Maleate (Vasotec) 2.5 mg PO DAILY [facility] Last Admin: 11/03/16 11:00 Dose: Not Given Enoxaparin Sodium (Lovenox) 30 mg SC DAILY [facility] Last Admin: 11/03/16 10:50 Dose: 30 mg Finasteride (Proscar) 5 mg PO DAILY [facility] Last Admin: 11/03/16 10:52 Dose: 5 mg Insulin Aspart (Novolog) 0 unit SC [facility] PRN Reason: Protocol Last Admin: 11/03/16 21:42 Dose: Not Given Magnesium Hydroxide (Milk Of Magnesia) 30 ml PO DAILY PRN PRN Reason: Constipation Rosuvastatin Calcium (Crestor) 10 mg PO [facility] Last Admin: 11/03/16 21:10 Dose: 10 mg Senna/Docusate Sodium (Senokot S 50 Mg-8.6 Mg) 1 tab PO [facility] Last Admin: 11/03/16 21:10 Dose: 1 tab Tamsulosin HCl (Flomax) 0.4 mg PO DAILY [facility] Last Admin: 11/03/16 10:53 Dose: 0.4 mg - Labs Labs: 11/03/16 06:55 11/03/16 06:55 PT 11.3 SECONDS (9.7-12.2) 10/29/16 23:02 INR 1.0 10/29/16 23:02 APTT 27 SECONDS (21-34) 10/29/16 23:02 Assessment and Plan (1) Urinary retention Assessment & Plan: PRESENTLY HAS A Gutierrez CATHETER IN PLACE DRAINING RAFAEL COLORED URINE. cONTINUE iv VIBRAMYCIN 100 MG EVERY 12 HOURLY. 8 SENSITIVITY OFF pROTEUS TO COLISTIN. fOLLOW-UP REPEAT ua URINE CULTURES. Status: Acute (2) Hematuria, gross Assessment & Plan: IMPROVING Status: Acute (3) Diabetes Status: Acute (4) HTN (hypertension) Status: Acute (5) ICD (implantable cardioverter-defibrillator) in place Status: Acute
[2016-11-04 00:07] VITALS: RESP 20
[2016-11-04] MEDS: Albuterol-Ipratrop 3 mg / 0.5 (3 ml) UD INH SCH ×4 (02:37→19:14)
[2016-11-04] MEDS: Sodium Chloride 0.9% 1,000 ML IV SCH ×2 (03:00→23:47)
[2016-11-04] MEDS: Clotrimazole/Betamethasone Cream(15 gm) TOP SCH ×3 (07:52→22:03)
[2016-11-04] MEDS: (Novolog) Insulin Aspart, Recombinant 100 u/ml 10 ml vial SC SCH ×4 (07:56→22:30)
[2016-11-04] MEDS: Enoxaparin 30 mg Syringe SC SCH (09:52)
--- NOTE | 2016-11-04 14:32 | PN ---
SUBJECTIVE: The patient is confused, but does not appear to be in any distress. He denies having chest pain. PHYSICAL EXAMINATION: VITAL SIGNS: Blood pressure of 101/61, heart rate of 102, temperature of 98, and respirations of 20. HEENT: Pale conjunctivae. CHEST: Diminished breath sounds over the bases. HEART: S1 and S2 regular. ABDOMEN: Soft. EXTREMITIES: No edema. IMAGING DATA: Chest x-ray could not be opened on the medical data base, however, the official report, pneumothorax and mild bibasilar atelectasis right greater than left. LABORATORY DATA: Today blood sugars are 124 and 103. Urine cultures from yesterday positive for Gram positive cocci. ASSESSMENT: 1. Coronary artery disease status post coronary artery bypass surgery. 2. Congestive heart failure which is currently compensated. 3. Severe bilateral carotid artery disease. 4. Anemia status post packed red blood cells infusion. 5. Bibasilar atelectasis. 6. Urinary tract infection, RECOMMENDATIONS: 1. Continue current aspirin, Coreg, Crestor, oral doxycycline, subcutaneous Lovenox, and Vasotec. 2. Plavix is still on hold. 3. I did review the infectious disease evaluation or recommended continue IV Vibramycin and to follow up repeat urine culture. Mg Simmons MD
[2016-11-04] MEDS: Docusate-Senna 50 mg-8.6 mg Tab PO SCH (22:02)
[2016-11-05] MEDS: Albuterol-Ipratrop 3 mg / 0.5 (3 ml) UD INH SCH ×3 (01:19→14:13)
[2016-11-05] MEDS: (Novolog) Insulin Aspart, Recombinant 100 u/ml 10 ml vial SC SCH ×2 (08:08→12:08)
--- NOTE | 2016-11-05 08:25 | PN ---
SUBJECTIVE: The patient is confused; however, he denies chest pain. PHYSICAL EXAMINATION VITAL SIGNS: Blood pressure 104/59, heart rate 110, temperature 98.4, respiration 20. HEENT: Pale conjunctivae. CHEST: Diminished breath sounds over the basis. HEART: S1 and S2 regular. ABDOMEN: Soft. EXTREMITIES: No edema. LABORATORY DATA: Today's SMA-7 is within normal limit. Calcium is below normal 7.7. Hemoglobin and hematocrit 9.7 and 28.7, white count and platelet count are 11.7 and 98,000. ASSESSMENT: 1. Coronary artery disease with history of coronary artery bypass surgery and implantable cardioverter-defibrillator placement. 2. Mildly depressed left ventricular systolic function. 3. *------*. 4. Proteus mirabilis urinary tract infection. 5. Anemia and thrombocytopenia. CONDITIONS: Continue Coreg at 6.25 mg twice a day, Crestor 10 mg once a day. Resume subcutaneous Lovenox 30 mg daily, aspirin and Plavix are still on hold. Obtain full EKG today. Mg Simmons MD
--- NOTE | 2016-11-05 09:28 | PN ---
DATE: 11/03/2016 SUBJECTIVE: The patient is an 81 years old male. The patient seen and examined at the bedside, looks comfortable. No nausea, vomiting, or diarrhea. No hematuria or hematochezia. No swelling of the legs. No chest pain. No palpitation. PHYSICAL EXAMINATION: VITAL SIGNS: Temperature 98, pulse 118, blood pressure 120/80 , and respiratory rate is 22. HEENT: Head normocephalic, atraumatic. Eyes PERRLA. Extraocular muscles intact. Conjunctivae clear. Nose patent. NECK: Supple. No carotid bruits. No thyromegaly. CHEST: Bilaterally symmetrical. CARDIOPULMONARY: S1 and S2 positive. LUNGS: Clear to auscultation. ABDOMEN: Soft. Bowel sounds present. No organomegaly. EXTREMITIES: No edema, no cyanosis. NEUROLOGIC: The patient is alert and oriented. Moving all four extremities. No focal deficit. MEDICATIONS: Aspirin, Coreg, Crestor, doxycycline, albuterol, Flomax, Lotrisone, Lovenox, Milk of Magnesia, Plavix, and Proscar. LABORATORY DATA: White blood cell 11.7, hemoglobin 9.7, hematocrit 28.6, and platelet 98. Sodium 134, potassium 3.9, BUN 18, creatinine 1.5. Glucose 142 and 151. ASSESSMENT AND PLAN: Mr. Vijay Martinez is an 81-year-old male with leukocytosis, anemia, hyperglycemia, hypocalcemia, proteinuria, glucosuria, ketonuria, hematuria, urinary tract infection. Stool occult is negative, seen by Dr. Bridget Ochoa, infectious disease and Dr. San, urologist. The Roberts catheter was problem for this patient. After putting Roberts catheter, there was hematuria, and urologist instructed to keep the Roberts catheter. History of fever and sepsis, history of arthritis, benign prostatic hypertrophy, hyperplasia, cardiac arrhythmia, chronic obstructive pulmonary disease, dementia, emphysema, CABG, pacemaker. Continue antibiotics as per Dr. Bridget Ochoa. GI and DVT prophylaxis. Repeat labs. We will follow. Alyson Valentino MD MIRIAN
[2016-11-05] MEDS: Enoxaparin 30 mg Syringe SC SCH (09:42)
[2016-11-05] MEDS: Clotrimazole/Betamethasone Cream(15 gm) TOP SCH (10:03)
--- NOTE | 2016-11-05 10:11 | PN ---
DATE: 11/04/2016 SUBJECTIVE: The patient is seen and examined on the bedside. No nausea, vomiting, diarrhea. No hematuria or hematochezia. No swelling of the legs. No chest pain. No palpitations. Patient is confused, but weak and alert. Moving all four extremities. PHYSICAL EXAMINATION VITAL SIGNS: Temperature 97.8, pulse 99, blood pressure 112/72, respiratory rate 20. HEENT: Head is normocephalic and atraumatic. Eyes closed. Nose patent. Mucous membrane moist. NECK: Supple. No carotid bruits or thyromegaly. CHEST: Bilaterally symmetrical. HEART: S1 and S2 positive. LUNGS: Clear to auscultation. ABDOMEN: Soft. Bowel sounds present without organomegaly. EXTREMITIES: No edema. No cyanosis. NEUROLOGIC: The patient is awake and alert. Moving all four extremities. No focal deficit. MEDICATIONS: Aspirin, Coreg, Crestor, doxycycline, DuoNeb, Flomax, Lotrisone, Lovenox, milk of magnesia, Novolog, Plavix, Proscar, Lidoderm, Lasix, Vasotec. LABORATORY DATA: White blood cell 11.7, hemoglobin 9.7, hematocrit 28.7, platelets 98. Glucose 153, 101. ASSESSMENT AND PLAN: Mr. Vijay Martinez is an 81-year-old male presents with coronary artery disease status post coronary artery stent, bypass surgery, congestive heart failure, which is currently compensated, severe bilateral left carotid artery stenosis, anemia status post packed red blood cell infusion, bibasilar atelectasis, urinary tract infection, getting corticosteroids and oral doxycycline for urinary tract infection, subcu Lovenox for deep venous thrombosis prophylaxis, Vasotec for blood pressure, Plavix is still on hold. Continue IV Vibramycin and we will followup with the cultures. Seen by Dr. Bridget Ochoa also. Gastrointestinal and deep venous thrombosis prophylaxis. Repeat labs. We will follow. Alyson Valentino MD
--- NOTE | 2016-11-05 12:23 | CP.PCM.PN ---
Subjective - Date & Time of Evaluation Date of Evaluation: 11/05/16 Time of Evaluation: 12:22 - Subjective Subjective: HIEF COMPLAINTS TODAY : AFEBRILE, BP 123/68. AWAKE AND ALERT. COMFORTABLE. A.NXIOUS TO GO HOME +VE Gutierrez CATHETER DRAINING RAFAEL COLORED URINE. NO NEW COMPLAINTS. Tolerating IV Vibramycin. ROS. HEENT : N. Resp : No cough, wheezing ,pleuritic CP ,or hemoptysis Cardio : No anginal CP, PND, orthopnea, palpitation GI : No abd.pain, n/v ,diarrhea or GI bleeding . CASH CONTROL SPECIALIST : No headache, vertigo, focal deficit. Musculoskel : No joint swelling , Derm : No rash Psych : Normal affect. Ext : No swelling ,calf pain PE. Pt. is alert awake in no distress. V.S As noted in the chart Head ,ear nose,throat and eyes : Normal. Neck : Supple with normal carotids. Lungs: Clear air entry. Heart : S1 & S2 normal with S4. No murmur. Abd : Soft non tender with normal bowel sounds. Neuro : Moves all ext. with no localized deficit. Ext : No edema with intact pulses.Non tender calves Derm : No rashes or decubitus ulcer. LABS/RADIOLOGY: REPEAT URINE CULTURE GRAM-POSITIVE COCCI < 10,000CFU/ML BLOOD CULTURES 11/03 NEGATIVE GROWTH. wbc 11.7,--> 6.3 H/H 9.7/28.7-STABLE PLT 115 IMPROVING cREATININE 1.2 bun 13 LFTS N Objective - Vital Signs/Intake and Output Vital Signs (last 24 hours): Temp Pulse Resp BP Pulse Ox 98.0 F 88 20 123/68 97 11/05/16 07:45 11/05/16 07:45 11/05/16 07:45 11/05/16 09:41 11/05/16 07:45 Intake and Output: 11/05/16 11/05/16 06:59 18:59 Intake Total 0 Output Total 850 Balance 1200 - Medications Medications: Current Medications Acetaminophen (Tylenol 325mg Tab) 650 mg PO Q4 PRN PRN Reason: Pain Last Admin: 10/30/16 18:22 Dose: 650 mg Albuterol/Ipratropium (Duoneb 3 Mg/0.5 Mg (3 Ml) Ud) 3 ml INH RQ6 [facility] Last Admin: 11/05/16 08:03 Dose: Not Given Aspirin (Aspirin Chewable) 81 mg PO DAILY [facility] Last Admin: 10/30/16 13:04 Dose: 81 mg Betamethasone/Clotrimazole (Lotrisone) 1 gm TOP Q12 [facility] Last Admin: 11/05/16 10:03 Dose: 1 applic Carvedilol (Coreg) 6.25 mg PO BID [facility] Last Admin: 11/05/16 09:41 Dose: 6.25 mg Clopidogrel Bisulfate (Plavix) 75 mg PO DAILY [facility] Last Admin: 10/30/16 13:04 Dose: 75 mg Doxycycline Hyclate (Doryx) 100 mg PO Q12H [facility] Last Admin: 11/05/16 09:59 Dose: 100 mg Enalapril Maleate (Vasotec) 2.5 mg PO DAILY [facility] Last Admin: 11/05/16 09:41 Dose: 2.5 mg Enoxaparin Sodium (Lovenox) 30 mg SC DAILY [facility] Last Admin: 11/05/16 09:42 Dose: 30 mg Famotidine (Pepcid) 20 mg PO BID [facility] Finasteride (Proscar) 5 mg PO DAILY [facility] Last Admin: 11/05/16 09:41 Dose: 5 mg Insulin Aspart (Novolog) 0 unit SC [facility] PRN Reason: Protocol Last Admin: 11/05/16 08:08 Dose: Not Given Magnesium Hydroxide (Milk Of Magnesia) 30 ml PO DAILY [facility] PRN Reason: Constipation Rosuvastatin Calcium (Crestor) 10 mg PO [facility] Last Admin: 11/04/16 22:00 Dose: 10 mg Senna/Docusate Sodium (Senokot S 50 Mg-8.6 Mg) 1 tab PO [facility] Last Admin: 11/04/16 22:02 Dose: Not Given Tamsulosin HCl (Flomax) 0.4 mg PO DAILY [facility] Last Admin: 11/05/16 09:41 Dose: 0.4 mg - Labs Labs: 11/03/16 06:55 11/03/16 06:55 PT 11.3 SECONDS (9.7-12.2) 10/29/16 23:02 INR 1.0 10/29/16 23:02 APTT 27 SECONDS (21-34) 10/29/16 23:02 Assessment and Plan (1) Urinary retention Assessment & Plan: PATIENT PRESENTLY HAS A Gutierrez CATHETER IN PLACE DRAINING CLEAR URINE. aS PER HIS UROLOGIST PATIENT TO CONTINUE TO KEEP FOLY FOR 4 WEEKS FOLLOW-UP WITH FOR REMOVAL. PATIENT CAN BE SWITCHED TO BY MOUTH VIBRAMYCIN 100 MG TWICE A DAY FOR 5 DAYS. Status: Acute (2) Hematuria, gross Assessment & Plan: NO MORE HEMATURIA. Status: Acute (3) Diabetes Status: Acute (4) HTN (hypertension) Status: Acute (5) ICD (implantable cardioverter-defibrillator) in place Status: Acute
--- NOTE | 2016-11-05 14:25 | PN ---
SUBJECTIVE: The patient is oriented to place. He denies any chest pain or shortness of breath. PHYSICAL EXAMINATION: VITAL SIGNS: Blood pressure of 123/68, heart rate of 88, temperature of 98, and respirations of 20. HEENT: Pale conjunctivae. CHEST: Clear. HEART: S1 and S2 regular. EXTREMITIES: No edema. ASSESSMENT: 1. Coronary artery disease coronary artery bypass surgery and implantable cardioverter-defibrillator placement. 2. Congestive heart failure, which is clinically compensated. 3. Anemia. 4. Urinary retention. 5. Uncontrolled diabetes mellitus. RECOMMENDATIONS: Continue current Coreg at 6.25 mg twice a day, Crestor 10 mg once a day, albuterol inhaler, and subcutaneous Lovenox 20 mg once a day. Both Plavix and aspirin are on hold. Continue Vasotec 2.5 mg once a day. Stool for occult blood was done on and is negative. May resume aspirin 81 mg once a day and start Pepcid 20 mg orally twice a day. Mg Simmons MD
[2016-11-05 16:09] VITALS: BP 130/75; PULSE 79; TEMP 97.8; O2SAT 99
[2016-11-05 16:18] LABS: BASO % 0.7 % (0.0-2.0); EOS # 0.3 K/uL (0.0-0.7); EOS % 4.2 % (0.0-4.0); HEMOGLOBIN 9.8 g/dL (12.0-18.0); LYMPH % 16.3 % (20.0-40.0); MEAN CORPUSCULAR HEMOGLOBIN 31.3 pg (27.0-31.0); MEAN CORPUSCULAR HGB CONC 33.7 g/dL (33.0-37.0); MEAN PLATELET VOLUME 8.6 fL (7.2-11.7); MONO # 0.4 K/uL (0.0-0.8); MONO % 6.5 % (0.0-10.0); NEUT # 4.6 K/uL (1.8-7.0); NEUT % 72.3 % (50.0-75.0); RBC 3.12 Mil/uL (4.40-5.90); RED CELL DISTRIBUTION WIDTH 17.4 % (11.5-14.5); WHITE BLOOD COUNT 6.3 K/uL (4.8-10.8)
[2016-11-05 16:29] LABS: GFR AFRICAN-AMERICAN > 60; GFR NON-AFRICAN AMERICAN 58
[2016-11-05 16:30] LABS: BLOOD UREA NITROGEN 13 mg/dL (9-20); CALCIUM 7.6 mg/dl (8.6-10.4)
--- NOTE | 2016-11-05 17:13 | CP.PCM.PN ---
Subjective - Date & Time of Evaluation Date of Evaluation: 11/05/16 Time of Evaluation: 11:45 - Subjective Subjective: Pt seen and examined today, awake, alert , oriented to person , comfortable, denies any chest pain, sob ,abdominal pain a febrile crouch draining clear urine No overnight events reported by RN Objective - Vital Signs/Intake and Output Vital Signs (last 24 hours): Temp Pulse Resp BP Pulse Ox 97.8 F 79 20 130/75 99 11/05/16 15:08 11/05/16 15:08 11/05/16 15:08 11/05/16 15:08 11/05/16 15:08 Intake and Output: 11/05/16 11/05/16 06:59 18:59 Intake Total 2050 800 Output Total 850 600 Balance 1200 200 - Medications Medications: Current Medications Acetaminophen (Tylenol 325mg Tab) 650 mg PO Q4 PRN PRN Reason: Pain Last Admin: 10/30/16 18:22 Dose: 650 mg Albuterol/Ipratropium (Duoneb 3 Mg/0.5 Mg (3 Ml) Ud) [address] [facility] Last Admin: 11/05/16 14:13 Dose: Not Given Aspirin (Aspirin Chewable) [address] [facility] Last Admin: 10/30/16 13:04 Dose: 81 mg Betamethasone/Clotrimazole (Lotrisone) [address] [facility] Last Admin: 11/05/16 10:03 Dose: 1 applic Carvedilol (Coreg) 6.[address] [facility] Last Admin: 11/05/16 09:41 Dose: 6.25 mg Clopidogrel Bisulfate (Plavix) [address] [facility] Last Admin: 10/30/16 13:04 Dose: 75 mg Doxycycline Hyclate (Doryx) [address] [facility] Last Admin: 11/05/16 09:59 Dose: 100 mg Enalapril Maleate (Vasotec) 2.[address] [facility] Last Admin: 11/05/16 09:41 Dose: 2.5 mg Enoxaparin Sodium (Lovenox) [address] [facility] Last Admin: 11/05/16 09:42 Dose: 30 mg Famotidine (Pepcid) [address] [facility] Finasteride (Proscar) [address] [facility] Last Admin: 11/05/16 09:41 Dose: 5 mg Insulin Aspart (Novolog) [address] [facility] PRN Reason: Protocol Last Admin: 11/05/16 12:08 Dose: Not Given Magnesium Hydroxide (Milk Of Magnesia) 30 ml PO DAILY PRN PRN Reason: Constipation Rosuvastatin Calcium (Crestor) [address] [facility] Last Admin: 11/04/16 22:00 Dose: 10 mg Senna/Docusate Sodium (Senokot S 50 Mg-8.6 Mg) 1 tab PO [facility] Last Admin: 11/04/16 22:02 Dose: Not Given Tamsulosin HCl (Flomax) 0.[address] [facility] Last Admin: 11/05/16 09:41 Dose: 0.4 mg - Labs Labs: 11/05/16 16:14 11/05/16 16:14 PT 11.3 SECONDS (9.7-12.2) 10/29/16 23:02 INR 1.0 10/29/16 23:02 APTT 27 SECONDS (21-34) 10/29/16 23:02 - Constitutional Appears: Well, No Acute Distress - ENT Exam ENT Exam: Mucous Membranes Moist - Respiratory Exam Respiratory Exam: Clear to Ausculation Bilateral, NORMAL BREATHING PATTERN - Cardiovascular Exam Cardiovascular Exam: REGULAR RHYTHM, +S1, +S2 - GI/Abdominal Exam GI & Abdominal Exam: Soft, Normal Bowel Sounds - Neurological Exam Neurological Exam: Alert, Awake Assessment and Plan - Assessment and Plan (Free Text) Assessment: A/p 81 yr old male admitted from [facility] for urinary retention after crouch cath discontinued at [facility] crouch cath inserted by Dr. Bueno s/p PRBC transfusion hgb stable - 9.7 <9.8 BMP - WNL As per Dr. Bueno continue with crouch cath nad re evaluate in repeat urine culture- gram positive cocci- colony count <10,000 D/W Dr. davidson , cleared fro discharge from ID stand point and continue doxycycline for 5 more days D/W Dr. Simmons , cleared for discharge from cardiology stand point D/W Dr. Treadwell ( covering for Dr. Gonsales) stable for discharge back to [facility] today
--- NOTE | 2016-11-06 17:04 | CARD ---
APPROVED REPORT EKG Measurement Heart [id number] <Conclusion> Sinus tachycardia Low voltage QRS Inferior infarct, age undetermined cannot be excluded. Abnormal ECG
--- NOTE | 2016-11-13 14:45 | CP.PCM.DIS ---
Provider - Provider Date of Admission: 10/29/16 22:27 dictating dc for 11/05/16 Attending physician: David Gonsales MD Time Spent in preparation of Discharge (in minutes): 50 Diagnosis - Discharge Diagnosis (1) Urinary retention Status: Acute (2) Angina at rest Status: Acute (3) Cardozo palsy Status: Acute (4) Bronchitis Status: Acute (5) COPD (chronic obstructive pulmonary disease) Status: Acute (6) COPD exacerbation Status: Acute (7) Carotid stenosis, bilateral Status: Acute (8) Chronic respiratory failure Status: Acute (9) Coronary arteriosclerosis after coronary artery bypass grafting Status: Acute (10) Dehydration Status: Acute (11) Diabetes Status: Acute (12) Dyspnea Status: Acute (13) HTN (hypertension) Status: Acute (14) Hematuria, gross Status: Acute (15) History of carotid endarterectomy Status: Acute (16) ICD (implantable cardioverter-defibrillator) in place Status: Acute (17) Influenza A Status: Acute (18) Left hip pain Status: Acute (19) Postop carotid endarterectomy surveillance, encounter for Status: Acute (20) Right lower lobe pneumonia Status: Acute (21) Uncontrolled hypertension Status: Acute (22) CVA (cerebral vascular accident) Status: Suspected Hospital Course - Lab Results Lab Results: Micro Results 11/02/16 14:15 Blood-Venous Blood Culture - Final NO GROWTH AFTER 5 DAYS 11/02/16 14:15 Blood-Venous Gram Stain - Final TEST NOT PERFORMED 11/02/16 13:45 Blood-Venous Blood Culture - Final NO GROWTH AFTER 5 DAYS 11/02/16 13:45 Blood-Venous Gram Stain - Final TEST NOT PERFORMED 11/02/16 Unknown Urine,Catheterized Urine Culture - Final Gram Positive Cocci 10/30/16 23:11 Urine,Catheterized Urine Culture - Final Proteus Mirabilis Most Recent Lab Values WBC 6.3 K/uL (4.8-10.8) 11/05/16 16:14 RBC 3.12 Mil/uL (4.40-5.90) L 11/05/16 16:14 Hgb 9.8 g/dL (12.0-18.0) L 11/05/16 16:14 Hct 29.0 % (35.0-51.0) L 11/05/16 16:14 MCV 93.0 fL (80.0-94.0) 11/05/16 16:14 MCH 31.3 pg (27.0-31.0) H 11/05/16 16:14 MCHC 33.7 g/dL (33.0-37.0) 11/05/16 16:14 RDW 17.4 % (11.5-14.5) H 11/05/16 16:14 Plt Count 115 K/uL (130-400) L 11/05/16 16:14 MPV 8.6 fL (7.2-11.7) 11/05/16 16:14 Neut % (Auto) 72.3 % (50.0-75.0) 11/05/16 16:14 Lymph % (Auto) 16.3 % (20.0-40.0) L 11/05/16 16:14 Daniels % (Auto) 6.5 % (0.0-10.0) 11/05/16 16:14 Eos % (Auto) 4.2 % (0.0-4.0) H 11/05/16 16:14 Baso % (Auto) 0.7 % (0.0-2.0) 11/05/16 16:14 Neut # 4.6 K/uL (1.8-7.0) 11/05/16 16:14 Lymph # 1.0 K/uL (1.0-4.3) 11/05/16 16:14 Daniels # 0.4 K/uL (0.0-0.8) 11/05/16 16:14 Eos # 0.3 K/uL (0.0-0.7) 11/05/16 16:14 Baso # 0.0 K/uL (0.0-0.2) 11/05/16 16:14 Neutrophils % (Manual) 85 % (50-75) H 11/03/16 06:55 Lymphocytes % (Manual) 10 % (20-40) L 11/03/16 06:55 Monocytes % (Manual) 5 % (0-10) 11/03/16 06:55 Platelet Estimate Decreased (NORMAL) L 11/03/16 06:55 Anisocytosis (manual) Slight 11/03/16 06:55 Ovalocytes Slight 11/03/16 06:55 PT 11.3 SECONDS (9.7-12.2) 10/29/16 23:02 INR 1.0 10/29/16 23:02 APTT 27 SECONDS (21-34) 10/29/16 23:02 Sodium 136 mmol/L (132-148) 11/05/16 16:14 Potassium 3.8 mmol/L (3.6-5.2) 11/05/16 16:14 Chloride 105 mmol/L (98-107) 11/05/16 16:14 Carbon Dioxide 22 mmol/L (22-30) 11/05/16 16:14 Anion Gap 13 (10-20) 11/05/16 16:14 BUN 13 mg/dL (9-20) 11/05/16 16:14 Creatinine 1.2 MG/DL (0.8-1.5) 11/05/16 16:14 Est GFR ( Amer) > 60 11/05/16 16:14 Est GFR (Non-Af Amer) 58 11/05/16 16:14 POC Glucose (mg/dL) 121 mg/dL (65-110) H 11/05/16 16:50 Random Glucose 110 mg/dL (75-110) 11/05/16 16:14 Calcium 7.6 mg/dl (8.6-10.4) L 11/05/16 16:14 Total Bilirubin 0.5 mg/dL (0.2-1.3) 11/03/16 06:55 AST 10 U/L (17-59) L D 11/03/16 06:55 ALT 29 U/L (21-72) 11/03/16 06:55 Alkaline Phosphatase 83 U/L (38-126) 11/03/16 06:55 Total Protein 4.3 g/dL (6.3-8.3) L 11/03/16 06:55 Albumin 2.1 g/dL (3.5-5.0) L D 11/03/16 06:55 Globulin 2.1 gm/dL (2.2-3.9) L 11/03/16 06:55 Albumin/Globulin Ratio 1.0 (1.0-2.1) 11/03/16 06:55 Urine Color Yellow (YELLOW) 11/02/16 19:50 Urine Clarity Hazy (Clear) 11/02/16 19:50 Urine pH 5.0 (5.0-8.0) 11/02/16 19:50 Ur Specific [place] 1.018 (1.003-1.030) 11/02/16 19:50 Urine Protein 1+ mg/dL (NEGATIVE) H 11/02/16 19:50 Urine Glucose (UA) 1+ mg/dL (Normal) H 11/02/16 19:50 Urine Ketones Negative mg/dL (NEGATIVE) 11/02/16 19:50 Urine Blood 3+ (NEGATIVE) H 11/02/16 19:50 Urine Nitrate Negative (NEGATIVE) 11/02/16 19:50 Urine Bilirubin Negative (NEGATIVE) 11/02/16 19:50 Urine Urobilinogen Normal mg/dL (0.2-1.0) 11/02/16 19:50 Ur Leukocyte Esterase 3+ Ted/uL (Negative) H 11/02/16 19:50 Urine WBC (Auto) 221 /hpf (0-5) H 11/02/16 19:50 Urine RBC (Auto) 119 /hpf (0-3) H 11/02/16 19:50 Ur Squamous Epith Cells < 1 /hpf (0-5) 11/02/16 19:50 Urine Bacteria Rare (<OCC) 11/02/16 19:50 Stool Occult Blood Negative (NEGATIVE) 11/02/16 19:50 Blood Type O POSITIVE 10/30/16 16:31 Antibody Screen Negative 10/30/16 16:31 - Hospital Course Hospital Course: CC: urinary retention HPI: 81 year old male who was sent to the ER by alf for no urine output since 08:00 this morning. Patient had folly taken out this morning; denies abdominal pain or other physical complaints. PT 11.3 SECONDS (9.7-12.2) 10/29/16 23:02 INR 1.0 10/29/16 23:02 APTT 27 SECONDS (21-34) 10/29/16 23:02 Assessment and Plan (1) Urinary retention Assessment & Plan: PATIENT PRESENTLY HAS A Rocha CATHETER IN PLACE DRAINING CLEAR URINE. aS PER HIS UROLOGIST PATIENT TO CONTINUE TO KEEP FOLY FOR 4 WEEKS FOLLOW-UP WITH FOR REMOVAL. PATIENT CAN BE SWITCHED TO BY MOUTH VIBRAMYCIN 100 MG TWICE A DAY FOR 5 DAYS. Status: Acute (2) Hematuria, gross Assessment & Plan: NO MORE HEMATURIA. Status: Acute (3) Diabetes Status: Acute (4) HTN (hypertension) Status: Acute (5) ICD (implantable cardioverter-defibrillator) in place Status: Acut Discharge Exam - Head Exam Head Exam: ATRAUMATIC, NORMAL INSPECTION, NORMOCEPHALIC - Eye Exam Eye Exam: EOMI, Normal appearance, PERRL Pupil Exam: NORMAL ACCOMODATION, PERRL - GI/Abdominal Exam GI & Abdominal Exam: Normal Bowel Sounds - Rectal Exam Rectal Exam: NORMAL INSPECTION - Exam Exam: Circumcision, NORMAL INSPECTION External exam: NORMAL EXTERNAL EXAM Speculum exam: NORMAL SPECULUM EXAM Bimanual exam: NORMAL BIMANUAL EXAM - Neurological Exam Neurological exam: Alert, CN II-XII Intact, Normal Gait, Oriented x3, Reflexes Normal - Psychiatric Exam Psychiatric exam: Normal Affect, Normal Mood - Skin Skin Exam: Dry, Intact, Normal Color, Warm Discharge Plan - Follow Up Plan Condition: STABLE Disposition: REHAB FACILITY/REHAB UNIT Instructions: Urinary Retention in Men (GEN), Urinary Tract Infection in Men ( DC), Rocha Catheter Placement and Care (DC) Additional Instructions: Please admit patient under Dr. Gonsales service PLEASE F/U WITH DR. KAI SONI CE IN 4 WEEKS - CALL FOR APPOINTMENT DONOT REMOVE ROCHA CATH UNTIL SEEN BY DR. QUINN continue medication as per Med. REc. CBC, BMP next Saturday and week Referrals: Bairon Cedeño Jr., MD [Staff Provider] -
== END 2016-11-05 17:50 | DRG 725 ==
LOC: C.ER 20:59 → C.9E 22:27 → C.3T 23:37 → C.5T 10-30 19:26 → C.6T 10-31 06:50
PROVIDERS: ADMIT Internal Medicine; ATTEND Internal Medicine
PROC: 30233N1 Transfusion of Nonautologous Red Blood Cells into Peripheral Vein, Percutaneous Approach (ICD-10-PCS; principal; 2016-10-31)
DX: N40.1 Benign prostatic hyperplasia with lower urinary tract symptoms (principal); J09.X1 Influenza due to identified novel influenza A virus with pneumonia; J96.10 Chronic respiratory failure, unspecified whether with hypoxia or hypercapnia; D69.6 Thrombocytopenia, unspecified; E11.65 Type 2 diabetes mellitus with hyperglycemia; F03.90 Unspecified dementia, unspecified severity, without behavioral disturbance, psychotic disturbance, mood disturbance, and anxiety; I50.9 Heart failure, unspecified; I11.0 Hypertensive heart disease with heart failure; J44.1 Chronic obstructive pulmonary disease with (acute) exacerbation; N39.0 Urinary tract infection, site not specified; J98.11 Atelectasis; E86.0 Dehydration; B96.4 Proteus (mirabilis) (morganii) as the cause of diseases classified elsewhere; D64.9 Anemia, unspecified; Z95.1 Presence of aortocoronary bypass graft; Z95.0 Presence of cardiac pacemaker; M19.90 Unspecified osteoarthritis, unspecified site; F17.210 Nicotine dependence, cigarettes, uncomplicated; R33.9 Retention of urine, unspecified; Z88.1 Allergy status to other antibiotic agents; R31.0 Gross hematuria; L27.0 Generalized skin eruption due to drugs and medicaments taken internally; T36.1X5A Adverse effect of cephalosporins and other beta-lactam antibiotics, initial encounter; I65.23 Occlusion and stenosis of bilateral carotid arteries; G51.0 Bell's palsy; E83.51 Hypocalcemia; R33.8 Other retention of urine; Z79.4 Long term (current) use of insulin; I25.118 Atherosclerotic heart disease of native coronary artery with other forms of angina pectoris

== ENCOUNTER 2016-12-05 02:46 | Inpatient (IN) | payer MEDICARE ==
[2016-12-05 02:48] VITALS: BMI 27.1
--- NOTE | 2016-12-05 03:05 | C.PDOC ---
History Of Present Illness 81 y/o male brought in from [facility] with hematuria noted in the crouch bag. Patient is with an indwelling crouch catheter. Patient also c/o mild abdominal discomfort. Denies fever, chills, back pain, chest pain, SOB, light headedness, or any other complaints. Time Seen by Provider: 12/05/16 03:04 Chief Complaint (Nursing): Male Genitourinary History Per: Patient History/Exam Limitations: no limitations Onset/Duration Of Symptoms: Unknown Current Symptoms Are (Timing): Still Present Severity: Moderate Pain Scale Rating Of: 4 Quality Of Discomfort: Pressure Associated Symptoms: denies: Fever, Chills Alleviating Factors: None Recent travel outside of the [place]: No Additional History Per: Patient Past Medical History Reviewed: Historical Data, Nursing Documentation, Vital Signs Vital Signs: Last Vital Signs Temp 98.1 F 12/05/16 02:51 Pulse 88 12/05/16 05:08 Resp 20 12/05/16 05:08 BP 103/52 L 12/05/16 05:08 Pulse Ox 100 12/05/16 05:08 - Medical History PMH: Arthritis, Benign Prostatic Hyperplasia, Cardia Arrhythmia, COPD, Dementia , Diabetes, Emphysema, HTN, Hyperlipidemia Surgical History: CABG, Pacemaker - [facility] CORONAR ARTERIOGR-2 CATH (12/24/14) DRAINAGE OF BLADDER WITH DRAINAGE DEVICE, OPEN APPROACH (09/24/16) EXCISION OF BLADDER, ENDO, DIAGN (09/24/16) EXTIRPATION OF MATTER FROM BLADDER, ENDO (09/24/16) EXTIRPATION OF MATTER FROM L INT CAROTID, OPEN APPROACH (09/24/16) INSERTION OF ENDOTRACHEAL AIRWAY INTO TRACHEA, VIA OPENING (09/24/16) INSPECTION OF BLADDER, ENDO (09/24/16) LEFT HEART CARDIAC CATH (12/24/14) LT HEART ANGIOCARDIOGRAM (12/24/14) RESPIRATORY VENTILATION, 24-96 CONSECUTIVE HOURS (09/24/16) SUPPLEMENT L INT CAROTID WITH SYNTH SUB, OPEN APPROACH (09/24/16) TRANSFUSE NONAUT PLATELETS IN PERIPH VEIN, PERC (09/24/16) TRANSFUSE NONAUT RED BLOOD CELLS IN PERIPH VEIN, PERC (10/29/16) Family History: States: Unknown Family Hx - Social History Hx Tobacco Use: Yes (2ppd) Hx Alcohol Use: No Hx Substance Use: No - Immunization History Hx Tetanus Toxoid Vaccination: No Hx Influenza Vaccination: Yes Hx Pneumococcal Vaccination: Yes Review Of Systems Constitutional: Negative for: Fever, Chills Eyes: Negative for: Vision Change ENT: Negative for: Throat Pain Cardiovascular: Negative for: Chest Pain, Light Headedness Respiratory: Negative for: Shortness of Breath Gastrointestinal: Positive for: Abdominal Pain (Discomfort) Genitourinary: Positive for: Hematuria Musculoskeletal: Negative for: Back Pain Skin: Negative for: Rash Neurological: Negative for: Headache, Dizziness Psych: Negative for: Anxiety Physical Exam - Physical Exam Appears: Non-toxic Skin: Warm, Dry Head: Normacephalic, Other (Right facial droop (Not new)) Oral Mucosa: Moist Neck: Trachea Midline, Supple Chest: Symmetrical Cardiovascular: Rhythm Regular Respiratory: No Rales, No Rhonchi, No Wheezing Gastrointestinal/Abdominal: Soft, Tenderness (Suprapubic), No Distention, No Guarding, No Rebound Back: No CVA Tenderness Male Genital: No Circumcised, Other (Indwelling crouch catheter. Clot at the meatus) Extremity: Normal ROM Extremity: Bilateral: Atraumatic Pulses: Left Dorsalis Pedis: Normal, Right Dorsalis Pedis: Normal Neurological/Psych: Oriented x3, Normal Cognition Gait: Unable To Assess ED Course And Treatment - Laboratory Results Result Diagrams: 12/05/16 04:08 12/05/16 04:08 O2 Sat by Pulse Oximetry: 100 (RA) Pulse Ox Interpretation: Normal Progress Note: removed 18 fr crouch, and replaced it with a [address] pt tolerated the procedure well. Disposition Discussed With : David Gonsales Comment: accepted the pt on his service and took over the care at 5:12 AM Doctor Will See Patient In The: Hospital Counseled Patient/Family Regarding: Studies Performed, Diagnosis - Disposition Disposition: HOSPITALIZED Disposition Time: 03:05 Condition: FAIR Forms: [facility] (Nepali) - POA Present On Arrival: Poor Glycemic Control - Clinical Impression Clinical Impression: Hematuria, Urinary retention - Scribe Statement The provider has reviewed the documentation as recorded by the Scribe Jazzy goldsmith All medical record entries made by the Scribe were at my direction and personally dictated by me. I have reviewed the chart and agree that the record accurately reflects my personal performance of the history, physical exam, medical decision making, and the department course for this patient. I have also personally directed, reviewed, and agree with the discharge instructions and disposition. Decision To Admit - Pt Status Changed To: Hospital Disposition Of: Inpatient - Admit Certification Admit to Inpatient:: After my assessment, the patient will require hospitalization for at least two midnights. This is because of the severity of symptoms shown, intensity of services needed, and/or the medical risk in this patient being treated as an outpatient. - InPatient: Physician Admission Certification: I certify that this patient requires 2 or more midnights of care for the following reason:: After my assessment, the patient will require hospitalization for at least two midnights. This is because of the severity of symptoms shown, intensity of services needed, and/or the medical risk in this patient being treated as an outpatient. - . Bed Request Type: Regular Admitting Physician: David Gonsales Patient Diagnosis: Hematuria, Urinary retention
[2016-12-05] MEDS ORDERED: Lidocaine 2% Jelly (Uro-Jet) ONE (03:26)
[2016-12-05 04:19] LABS: URINE BACTERIA OCC (<OCC); URINE BILIRUBIN NEGATIVE (NEGATIVE); URINE BLOOD 2+ (NEGATIVE); URINE COLOR Red (YELLOW); URINE GLUCOSE (UA) 1+ mg/dL (Normal); URINE KETONE NEGATIVE (NEGATIVE); URINE LEUKOCYTE ESTERASE 2+ Leu/uL (Negative); URINE PROTEIN 2+ mg/dL (NEGATIVE); URINE UROBILINOGEN NORMAL mg/dL (0.2-1.0); WBC CLUMPS FEW /hpf; WBC URINE 95 /hpf (0-5)
[2016-12-05 04:31] LABS: BASO # 0.1 K/uL (0.0-0.2); BASO % 0.8 % (0.0-2.0); EOS # 0.5 K/uL (0.0-0.7); EOS % 7.5 % (0.0-4.0); HEMATOCRIT 30.8 % (35.0-51.0); LYMPH # 2.2 K/uL (1.0-4.3); LYMPH % 34.7 % (20.0-40.0); MEAN CELL VOLUME 92.3 fL (80.0-94.0); MEAN CORPUSCULAR HEMOGLOBIN 31.5 pg (27.0-31.0); MEAN CORPUSCULAR HGB CONC 34.1 g/dL (33.0-37.0); MEAN PLATELET VOLUME 8.7 fL (7.2-11.7); MONO # 0.5 K/uL (0.0-0.8); MONO % 7.3 % (0.0-10.0); NRBC % 0.1 % (0.0-2.0); RBC URINE 17 /hpf (0-3); RED CELL DISTRIBUTION WIDTH 17.4 % (11.5-14.5); WHITE BLOOD COUNT 6.3 K/uL (4.8-10.8)
[2016-12-05 04:35] LABS: POTASSIUM 4.3 mmol/L (3.6-5.2)
[2016-12-05 04:37] LABS: ALB/GLOB RATIO 1.1 (1.0-2.1); BILIRUBIN,TOTAL 0.5 mg/dL (0.2-1.3); TOTAL PROTEIN 6.6 g/dL (6.3-8.3)
[2016-12-05 04:38] LABS: CALCIUM 9.5 mg/dl (8.6-10.4)
[2016-12-05] MEDS: Albuterol-Ipratrop 3 mg / 0.5 (3 ml) UD INH SCH ×3 (06:13→19:09)
[2016-12-05] MEDS ORDERED: Magnesium Hydroxide Susp 30 ml UD PO PRN (06:57)
[2016-12-05] MEDS ORDERED: Albuterol-Ipratrop 3 mg / 0.5 (3 ml) UD INH PRN (06:57)
[2016-12-05] MEDS: (Novolog) Insulin Aspart, Recombinant 100 u/ml 10 ml vial SC SCH ×4 (08:02→21:07)
[2016-12-05] MEDS: Ciprofloxacin 400mg/200ml D5W 400 MG/200 ML BAG IVPB SCH ×2 (09:50→21:10)
[2016-12-05] MEDS ORDERED: Enoxaparin 30 mg Syringe SC SCH (10:00)
[2016-12-05] MEDS ORDERED: NUT TX GLUC INTOLER LAC FR SOY PO SCH (10:00)
[2016-12-05] MEDS: Silver Sulfadiazine 1% Cream (20 gm) EXT SCH ×2 (10:30→21:08)
[2016-12-05] MEDS: Clotrimazole/Betamethasone Cream(15 gm) TOP SCH ×2 (10:32→21:09)
--- NOTE | 2016-12-05 12:00 | CP.PCM.PN ---
Subjective - Date & Time of Evaluation Date of Evaluation: 12/05/16 Time of Evaluation: 11:55 - Subjective Subjective: 81 year old fdc patient who has a crouch because of urinary retention after carotid endarterectomy pt has had crouch for some time. Pt is currentlyon asprin. Suggest stop asprin get urine c&s leave crouch.will give voiding trial when culture results known, Objective - Vital Signs/Intake and Output Vital Signs (last 24 hours): Temp Pulse Resp BP Pulse Ox 98.0 F 90 20 100/58 L 100 12/05/16 08:18 12/05/16 08:18 12/05/16 08:18 12/05/16 08:18 12/05/16 08:18 Intake and Output: 12/05/16 12/05/16 06:59 18:59 Output Total 2500 Balance -2500 - Medications Medications: Current Medications Acetaminophen (Tylenol 325mg Tab) 650 mg PO Q4 PRN PRN Reason: Pain Albuterol/Ipratropium (Duoneb 3 Mg/0.5 Mg (3 Ml) Ud) 3 ml INH RQ6 [facility] Last Admin: 12/05/16 06:13 Dose: 3 ml Albuterol/Ipratropium (Duoneb 3 Mg/0.5 Mg (3 Ml) Ud) 3 ml INH RQ6 PRN PRN Reason: Shortness of Breath Aspirin (Aspirin Chewable) 81 mg PO DAILY [facility] Betamethasone/Clotrimazole (Lotrisone) 0 gm TOP Q12 [facility] Bethanechol Chloride (Urecholine) 50 mg PO QID [facility] Carvedilol (Coreg) 6.25 mg PO BID [facility] Enalapril Maleate (Vasotec) 2.5 mg PO DAILY [facility] Enoxaparin Sodium (Lovenox) 30 mg SC DAILY [facility] Last Admin: 12/05/16 06:13 Dose: 30 mg Famotidine (Pepcid) 20 mg PO DAILY [facility] Finasteride (Proscar) 5 mg PO DAILY [facility] Ciprofloxacin (Cipro 400mg/200ml Dsw) 400 mg in 200 mls @ 133 mls/hr IVPB Q12H [facility] Insulin Aspart (Novolog) 0 unit SC ACHS [facility] PRN Reason: Protocol Last Admin: 12/05/16 08:02 Dose: 1 unit Magnesium Hydroxide (Milk Of Magnesia) 30 ml PO DAILY PRN PRN Reason: Constipation Rosuvastatin Calcium (Crestor) 10 mg PO HS [facility] Senna/Docusate Sodium (Senokot S 50 Mg-8.6 Mg) 1 tab PO HS [facility] Silver Sulfadiazine (Silvadene 1% 20 Gm) 0 ea EXT Q12 [facility] Tamsulosin HCl (Flomax) 0.4 mg PO DAILY [facility] - Labs Labs: PT 10.8 SECONDS (9.7-12.2) 12/05/16 04:08 INR 1.0 12/05/16 04:08
[2016-12-05] MEDS ORDERED: Sodium Chloride 0.9% 1,000 ML IV SCH (13:30)
[2016-12-05] MEDS ORDERED: Sodium Chloride 0.9% 250 ML IV ONE (16:11)
[2016-12-05] MEDS: Sodium Chloride 0.9% 1,000 ML IV SCH (18:16)
--- NOTE | 2016-12-05 18:45 | CP.PCM.PN ---
Subjective - Date & Time of Evaluation Date of Evaluation: 12/05/16 Time of Evaluation: 18:44 - Subjective Subjective: Discussed with Dr Romero, urine has cleared, will give pt a voiding trial. Objective - Vital Signs/Intake and Output Vital Signs (last 24 hours): Temp Pulse Resp BP Pulse Ox 98.1 F 92 H 20 103/64 98 12/05/16 15:34 12/05/16 15:34 12/05/16 15:34 12/05/16 15:34 12/05/16 15:34 Intake and Output: 12/05/16 12/05/16 06:59 18:59 Intake Total 2500 Output Total 2500 3050 Balance -2500 -550 - Medications Medications: Current Medications Acetaminophen (Tylenol 325mg Tab) 650 mg PO Q4 PRN PRN Reason: Pain Albuterol/Ipratropium (Duoneb 3 Mg/0.5 Mg (3 Ml) Ud) 3 ml INH RQ6 [facility] Last Admin: 12/05/16 13:22 Dose: 3 ml Albuterol/Ipratropium (Duoneb 3 Mg/0.5 Mg (3 Ml) Ud) 3 ml INH RQ6 PRN PRN Reason: Shortness of Breath Betamethasone/Clotrimazole (Lotrisone) 0 gm TOP Q12 [facility] Bethanechol Chloride (Urecholine) 50 mg PO QID [facility] Last Admin: 12/05/16 18:18 Dose: 50 mg Carvedilol (Coreg) 6.25 mg PO BID [facility] Last Admin: 12/05/16 18:15 Dose: Not Given Enalapril Maleate (Vasotec) 2.5 mg PO DAILY [facility] Last Admin: 12/05/16 10:20 Dose: Not Given Enoxaparin Sodium (Lovenox) 30 mg SC DAILY [facility] Last Admin: 12/05/16 06:13 Dose: 30 mg Famotidine (Pepcid) 20 mg PO DAILY [facility] Last Admin: 12/05/16 10:15 Dose: 20 mg Finasteride (Proscar) 5 mg PO DAILY [facility] Last Admin: 12/05/16 10:15 Dose: 5 mg Ciprofloxacin (Cipro 400mg/200ml Dsw) 400 mg in 200 mls @ 133 mls/hr IVPB Q12H [facility] Last Admin: 12/05/16 09:50 Dose: 133 mls/hr Sodium Chloride (Sodium Chloride 0.9%) 1,000 mls @ 100 mls/hr IV .Q10H [facility] Last Admin: 12/05/16 18:16 Dose: 100 mls/hr Insulin Aspart (Novolog) 0 unit SC ACHS [facility] PRN Reason: Protocol Last Admin: 12/05/16 18:11 Dose: 1 unit Magnesium Hydroxide (Milk Of Magnesia) 30 ml PO DAILY PRN PRN Reason: Constipation Rosuvastatin Calcium (Crestor) 10 mg PO HS [facility] Senna/Docusate Sodium (Senokot S 50 Mg-8.6 Mg) 1 tab PO HS [facility] Silver Sulfadiazine (Silvadene 1% 20 Gm) 0 ea EXT Q12 [facility] Tamsulosin HCl (Flomax) 0.4 mg PO DAILY [facility] Last Admin: 12/05/16 10:28 Dose: 0.4 mg - Labs Labs: PT 10.8 SECONDS (9.7-12.2) 12/05/16 04:08 INR 1.0 12/05/16 04:08
[2016-12-05] MEDS ORDERED: Docusate-Senna 50 mg-8.6 mg Tab PO SCH (22:00)
--- NOTE | 2016-12-05 23:06 | CP.PCM.HP ---
History of Present Illness - History of Present Illness History of Present Illness: 81 Y/O WM WITH COPD, C.STENOSIS, HTN AND CVA AND DENT'S PALSY, AND HE IS S/P CAROTID ENDARTERECTOMY, AND HE NOW HE CAME HE DEVELOPED HEMATURIA AND DIFFICLUTY VOIDING, NO FEVER, PAIN IN HYPOGASTRIC AREA Present on Admission - Present on Admission Any Indicators Present on Admission: No History of DVT/PE: No History of Uncontrolled Diabetes: No Urinary Catheter: No Decubitus Ulcer Present: No Review of Systems - Constitutional Constitutional: Headache - EENT Eyes: Dry Eye - Cardiovascular Cardiovascular: Leg Edema, Palpitations - Respiratory Respiratory: Cough - Gastrointestinal Gastrointestinal: Bloating - Genitourinary Genitourinary: Hematuria, Urinary Incontinence, Urinary Frequency, Voiding Freq/ Small Amts, Freq UTI, Bladder Distension Past Patient History - Infectious Disease Hx of Infectious Diseases: None - Past Medical History & Family History Past Medical History?: Yes - Past Social History Smoking Status: Former Smoker - CARDIAC Hx Hypertension: Yes - PULMONARY Hx Chronic Obstructive Pulmonary Disease (COPD): Yes - NEUROLOGICAL Hx Dementia: Yes - HEENT Hx HEENT Problems: No - ENDOCRINE/METABOLIC Hx Diabetes Mellitus Type 2: Yes - INTEGUMENTARY Other/Comment: Sacral Pressure ulcers - MUSCULOSKELETAL/RHEUMATOLOGICAL Hx Arthritis: Yes - GENITOURINARY/GYNECOLOGICAL Hx Genitourinary Disorders: Yes Hx Prostate Problems: Yes - PSYCHIATRIC Hx Substance Use: No - SURGICAL HISTORY Hx Coronary Artery Bypass Graft: Yes - ANESTHESIA Hx Anesthesia: Yes Hx Anesthesia Reactions: No Hx Malignant Hyperthermia: No Meds Allergies/Adverse Reactions: Allergies Allergy/AdvReac Type Severity Reaction Status Date / Time ceftriaxone [From Rocephin] Allergy RASH Verified 12/05/16 02:59 Physical Exam - Constitutional Appears: Non-toxic, No Acute Distress, Chronically Ill - Head Exam Head Exam: ATRAUMATIC, NORMAL INSPECTION, NORMOCEPHALIC - Eye Exam Eye Exam: Nystagmus (R EYE DEFORMTY) - ENT Exam ENT Exam: Mucous Membranes Moist, Normal Exam, Normal Oropharynx, TM's Normal Bilaterally - Neck Exam Neck exam: Positive for: Normal Inspection - Respiratory Exam Respiratory Exam: Clear to Auscultation Bilateral, NORMAL BREATHING PATTERN - Cardiovascular Exam Cardiovascular Exam: REGULAR RHYTHM, +S1, +S2 - GI/Abdominal Exam GI & Abdominal Exam: Normal Bowel Sounds, Soft - Rectal Exam Rectal Exam: NORMAL INSPECTION - Exam Exam: NORMAL INSPECTION - Back Exam Back exam: NORMAL INSPECTION - Neurological Exam Neurological exam: Abnormal Gait, Alert, CN II-XII Intact, Reflexes Normal - Psychiatric Exam Psychiatric exam: Normal Mood - Skin Skin Exam: Intact Results - Vital Signs Recent Vital Signs: Last Vital Signs Temp 98.1 F 12/05/16 15:34 Pulse 92 H 12/05/16 15:34 Resp 20 12/05/16 15:34 BP 103/64 12/05/16 15:34 Pulse Ox 98 12/05/16 15:34 - Labs Result Diagrams: 12/05/16 04:08 12/05/16 04:08 Labs: Laboratory Results - last 24 hr 12/05/16 12/05/16 12/05/16 07:46 11:56 17:01 POC Glucose (mg/dL) 168 H 194 H 193 H 12/05/16 20:58 POC Glucose (mg/dL) 231 H Assessment & Plan (1) Coronary arteriosclerosis after coronary artery bypass grafting Status: Chronic Priority: Low (2) HTN (hypertension) Status: Chronic Priority: Low (3) Hematuria, gross Assessment and Plan: ON CIPRO AND HAS FOLEYS Status: Acute Priority: High (4) History of carotid endarterectomy Status: Chronic Priority: Low
[2016-12-06] MEDS: Albuterol-Ipratrop 3 mg / 0.5 (3 ml) UD INH SCH ×3 (01:05→13:27)
[2016-12-06] MEDS: Sodium Chloride 0.9% 1,000 ML IV SCH ×2 (05:00→13:25)
[2016-12-06] MEDS: (Novolog) Insulin Aspart, Recombinant 100 u/ml 10 ml vial SC SCH ×2 (07:24→12:33)
[2016-12-06 07:48] LABS: BASO % 0.8 % (0.0-2.0); EOS # 0.3 K/uL (0.0-0.7); EOS % 5.7 % (0.0-4.0); HEMATOCRIT 24.4 % (35.0-51.0); LYMPH # 1.7 K/uL (1.0-4.3); LYMPH % 35.1 % (20.0-40.0); MEAN CELL VOLUME 92.8 fL (80.0-94.0); MEAN CORPUSCULAR HEMOGLOBIN 30.8 pg (27.0-31.0); MEAN CORPUSCULAR HGB CONC 33.2 g/dL (33.0-37.0); MEAN PLATELET VOLUME 8.7 fL (7.2-11.7); MONO # 0.4 K/uL (0.0-0.8); MONO % 7.6 % (0.0-10.0); RED CELL DISTRIBUTION WIDTH 17.2 % (11.5-14.5); WHITE BLOOD COUNT 4.9 K/uL (4.8-10.8)
[2016-12-06 08:06] LABS: POTASSIUM 3.9 mmol/L (3.6-5.2)
[2016-12-06 08:09] LABS: CALCIUM 8.3 mg/dl (8.6-10.4)
--- NOTE | 2016-12-06 08:58 | CP.PCM.PN ---
Subjective - Date & Time of Evaluation Date of Evaluation: 12/06/16 Time of Evaluation: 08:53 - Subjective Subjective: Pt unable to void. Crouch inserted aprox 350 cc of bloodtinged urine obtained. suggest discharge with crouch. crouch should be changed every month at [place].since pt has bleed each time placed on anticoagulation,suggest limit anticoagulation. the pt does not seem to be a canidate for surgery because of multiple med problems and dementia. [place] Objective - Vital Signs/Intake and Output Vital Signs (last 24 hours): Temp Pulse Resp BP Pulse Ox 97.6 F 90 20 99/54 L 100 12/06/16 08:07 12/06/16 08:07 12/06/16 08:07 12/06/16 08:07 12/06/16 08:07 Intake and Output: 12/06/16 12/06/16 06:59 18:59 Intake Total 2120 Output Total 580 Balance 1540 - Medications Medications: Current Medications Acetaminophen (Tylenol 325mg Tab) 650 mg PO Q4 PRN PRN Reason: Pain Albuterol/Ipratropium (Duoneb 3 Mg/0.5 Mg (3 Ml) Ud) 3 ml INH RQ6 [facility] Last Admin: 12/06/16 07:01 Dose: 3 ml Albuterol/Ipratropium (Duoneb 3 Mg/0.5 Mg (3 Ml) Ud) 3 ml INH RQ6 PRN PRN Reason: Shortness of Breath Betamethasone/Clotrimazole (Lotrisone) 0 gm TOP Q12 [facility] Last Admin: 12/05/16 21:09 Dose: 1 applic Bethanechol Chloride (Urecholine) 50 mg PO QID [facility] Last Admin: 12/05/16 21:09 Dose: 50 mg Carvedilol (Coreg) 6.25 mg PO BID [facility] Last Admin: 12/05/16 18:15 Dose: Not Given Enoxaparin Sodium (Lovenox) 30 mg SC DAILY [facility] Last Admin: 12/05/16 06:13 Dose: 30 mg Famotidine (Pepcid) 20 mg PO DAILY [facility] Last Admin: 12/05/16 10:15 Dose: 20 mg Finasteride (Proscar) 5 mg PO DAILY [facility] Last Admin: 12/05/16 10:15 Dose: 5 mg Ciprofloxacin (Cipro 400mg/200ml Dsw) 400 mg in 200 mls @ 133 mls/hr IVPB Q12H [facility] Last Admin: 12/05/16 21:10 Dose: 133 mls/hr Sodium Chloride (Sodium Chloride 0.9%) 1,000 mls @ 100 mls/hr IV .Q10H [facility] Last Admin: 12/06/16 05:00 Dose: 100 mls/hr Insulin Aspart (Novolog) 0 unit SC ACHS [facility]PE PRN Reason: Protocol Last Admin: 12/06/16 07:24 Dose: Not Given Magnesium Hydroxide (Milk Of Magnesia) 30 ml PO DAILY PRN PRN Reason: Constipation Rosuvastatin Calcium (Crestor) 10 mg PO HS [facility] Last Admin: 12/05/16 23:32 Dose: 10 mg Senna/Docusate Sodium (Senokot S 50 Mg-8.6 Mg) 1 tab PO HS [facility] Last Admin: 12/05/16 21:09 Dose: 1 tab Silver Sulfadiazine (Silvadene 1% 20 Gm) 0 ea EXT Q12 [facility] Last Admin: 12/05/16 21:08 Dose: 1 applic Tamsulosin HCl (Flomax) 0.4 mg PO DAILY [facility] Last Admin: 12/05/16 10:28 Dose: 0.4 mg - Labs Labs: 12/06/16 07:17 12/06/16 07:17 PT 10.8 SECONDS (9.7-12.2) 12/05/16 04:08 INR 1.0 12/05/16 04:08
[2016-12-06] MEDS: Ciprofloxacin 400mg/200ml D5W 400 MG/200 ML BAG IVPB SCH (09:28)
[2016-12-06] MEDS: Clotrimazole/Betamethasone Cream(15 gm) TOP SCH (10:23)
[2016-12-06] MEDS: Silver Sulfadiazine 1% Cream (20 gm) EXT SCH (10:25)
[2016-12-06] MEDS ORDERED: Epoetin Alfa 10,000 unit/ml Dialysis SC ONE (12:00)
[2016-12-06] MEDS ORDERED: EPOETIN ALFA 10,000 UNIT/ML ML SC ONE (14:46)
--- NOTE | 2016-12-06 15:32 | CP.PCM.PN ---
Subjective - Date & Time of Evaluation Date of Evaluation: 12/06/16 Time of Evaluation: 10:35 - Subjective Subjective: Pt seen today, awake, alert, comfortable, denies any chest pain , sob, dizziness , n/v/d crouch cath d/c yesterday and pt has difficulty voiding Dr. Bueno seen today and reinserted f/c , with blood tinged urine noted Objective - Vital Signs/Intake and Output Vital Signs (last 24 hours): Temp Pulse Resp BP Pulse Ox 97.6 F 90 20 99/54 L 100 12/06/16 08:07 12/06/16 08:07 12/06/16 08:07 12/06/16 08:07 12/06/16 08:07 Intake and Output: 12/06/16 12/06/16 06:59 18:59 Intake Total 2120 Output Total 580 Balance 1540 - Medications Medications: Current Medications Acetaminophen (Tylenol 325mg Tab) 650 mg PO Q4 PRN PRN Reason: Pain Albuterol/Ipratropium (Duoneb 3 Mg/0.5 Mg (3 Ml) Ud) 3 ml INH RQ6 [facility] Last Admin: 12/06/16 13:27 Dose: 3 ml Albuterol/Ipratropium (Duoneb 3 Mg/0.5 Mg (3 Ml) Ud) 3 ml INH RQ6 PRN PRN Reason: Shortness of Breath Betamethasone/Clotrimazole (Lotrisone) 0 gm TOP Q12 [facility] Last Admin: 12/05/16 21:09 Dose: 1 applic Bethanechol Chloride (Urecholine) 50 mg PO QID [facility] Last Admin: 12/06/16 15:00 Dose: 50 mg Carvedilol (Coreg) 6.25 mg PO BID [facility] Last Admin: 12/06/16 09:30 Dose: 6.25 mg Enoxaparin Sodium (Lovenox) 30 mg SC DAILY [facility] Last Admin: 12/05/16 06:13 Dose: 30 mg Famotidine (Pepcid) 20 mg PO DAILY [facility] Last Admin: 12/06/16 09:30 Dose: 20 mg Finasteride (Proscar) 5 mg PO DAILY [facility] Last Admin: 12/06/16 09:43 Dose: 5 mg Sodium Chloride (Sodium Chloride 0.9%) 1,000 mls @ 100 mls/hr IV .Q10H [facility] Last Admin: 12/06/16 05:00 Dose: 100 mls/hr Ciprofloxacin (Cipro 400mg/200ml Dsw) 400 mg in 200 mls @ 133 mls/hr IVPB DAILY [facility] Insulin Aspart (Novolog) 0 unit SC ACHS [facility] PRN Reason: Protocol Last Admin: 12/06/16 12:33 Dose: 1 unit Magnesium Hydroxide (Milk Of Magnesia) 30 ml PO DAILY PRN PRN Reason: Constipation Rosuvastatin Calcium (Crestor) 10 mg PO [facility] Last Admin: 12/05/16 23:32 Dose: 10 mg Senna/Docusate Sodium (Senokot S 50 Mg-8.6 Mg) 1 tab PO HS [facility] Last Admin: 12/05/16 21:09 Dose: 1 tab Silver Sulfadiazine (Silvadene 1% 20 Gm) 0 ea EXT Q12 [facility] Last Admin: 12/05/16 21:08 Dose: 1 applic Tamsulosin HCl (Flomax) 0.4 mg PO DAILY [facility] Last Admin: 12/06/16 09:30 Dose: 0.4 mg - Labs Labs: 12/06/16 07:17 12/06/16 07:17 PT 10.8 SECONDS (9.7-12.2) 12/05/16 04:08 INR 1.0 12/05/16 04:08 - Constitutional Appears: Well, No Acute Distress - Respiratory Exam Respiratory Exam: Clear to Ausculation Bilateral, NORMAL BREATHING PATTERN - Cardiovascular Exam Cardiovascular Exam: REGULAR RHYTHM, +S1, +S2 - GI/Abdominal Exam GI & Abdominal Exam: Soft, Normal Bowel Sounds - Neurological Exam Neurological Exam: Alert, Awake Assessment and Plan - Assessment and Plan (Free Text) Assessment: A/P 81 yr old male admitted fro [facility] for urinary retention /Heamaturia seen by Dr. Bueno, f/c d/c for voiding trail Pt unable to urinate . Dr. Bueno reinserted crouch cath with bloodtinged urine and recommends to discharge with crouch. crouch should be changed every month at [place].since pt has bleed each time placed on anticoagulation,suggest limit anticoagulation. the pt does not seem to be a canidate for surgery because of multiple med problems and dementia. cbc- 81. <10.5, procrit 10,000 unit given seen by Dr. Gonsales , cleared for discharge to [facility] today with cipro x [address] Gonsales will follow the patient at [facility]
[2016-12-06 16:55] VITALS: BP 115/61; PULSE 85; RESP 18; TEMP 97.4; O2SAT 99
--- NOTE | 2016-12-06 21:02 | CP.PCM.DIS ---
Provider - Provider Date of Admission: 12/05/16 05:10 Attending physician: David Gonsales MD Diagnosis - Discharge Diagnosis (1) Coronary arteriosclerosis after coronary artery bypass grafting Status: Chronic Priority: Low (2) HTN (hypertension) Status: Chronic Priority: Low (3) Hematuria, gross Status: Acute Priority: High (4) History of carotid endarterectomy Status: Chronic Priority: Low Hospital Course - Lab Results Lab Results: Micro Results 12/05/16 06:08 Urine,Catheterized Urine Culture - Preliminary Gram Negative Bryon Most Recent Lab Values WBC 4.9 K/uL (4.8-10.8) 12/06/16 07:17 RBC 2.63 Mil/uL (4.40-5.90) L 12/06/16 07:17 Hgb 8.1 g/dL (12.0-18.0) L D 12/06/16 07:17 Hct 24.4 % (35.0-51.0) L 12/06/16 07:17 MCV 92.8 fL (80.0-94.0) 12/06/16 07:17 MCH 30.8 pg (27.0-31.0) 12/06/16 07:17 MCHC 33.2 g/dL (33.0-37.0) 12/06/16 07:17 RDW 17.2 % (11.5-14.5) H 12/06/16 07:17 Plt Count 113 K/uL (130-400) L D 12/06/16 07:17 MPV 8.7 fL (7.2-11.7) 12/06/16 07:17 Neut % (Auto) 50.8 % (50.0-75.0) 12/06/16 07:17 Lymph % (Auto) 35.1 % (20.0-40.0) 12/06/16 07:17 [place] % (Auto) 7.6 % (0.0-10.0) 12/06/16 07:17 Eos % (Auto) 5.7 % (0.0-4.0) H 12/06/16 07:17 Baso % (Auto) 0.8 % (0.0-2.0) 12/06/16 07:17 Neut # 2.5 K/uL (1.8-7.0) 12/06/16 07:17 Lymph # 1.7 K/uL (1.0-4.3) 12/06/16 07:17 [place] # 0.4 K/uL (0.0-0.8) 12/06/16 07:17 Eos # 0.3 K/uL (0.0-0.7) 12/06/16 07:17 Baso # 0.0 K/uL (0.0-0.2) 12/06/16 07:17 Differential Comment 12/06/16 07:17 PT 10.8 SECONDS (9.7-12.2) 12/05/16 04:08 INR 1.0 12/05/16 04:08 Sodium 137 mmol/L (132-148) 12/06/16 07:17 Potassium 3.9 mmol/L (3.6-5.2) 12/06/16 07:17 Chloride 105 mmol/L (98-107) 12/06/16 07:17 Carbon Dioxide 26 mmol/L (22-30) 12/06/16 07:17 Anion Gap 11 (10-20) 12/06/16 07:17 BUN 30 mg/dL (9-20) H 12/06/16 07:17 Creatinine 1.7 MG/DL (0.8-1.5) H 12/06/16 07:17 Est GFR ( Amer) 47 12/06/16 07:17 Est GFR (Non-Af Amer) 39 12/06/16 07:17 POC Glucose (mg/dL) 133 mg/dL (65-110) H 12/06/16 16:20 Random Glucose 115 mg/dL (75-110) H 12/06/16 07:17 Calcium 8.3 mg/dl (8.6-10.4) L 12/06/16 07:17 Total Bilirubin 0.5 mg/dL (0.2-1.3) 12/05/16 04:08 AST 17 U/L (17-59) D 12/05/16 04:08 ALT 29 U/L (21-72) 12/05/16 04:08 Alkaline Phosphatase 102 U/L (38-126) 12/05/16 04:08 Total Protein 6.6 g/dL (6.3-8.3) 12/05/16 04:08 Albumin 3.5 g/dL (3.5-5.0) D 12/05/16 04:08 Globulin 3.1 gm/dL (2.2-3.9) 12/05/16 04:08 Albumin/Globulin Ratio 1.1 (1.0-2.1) 12/05/16 04:08 Urine Color Red (YELLOW) 12/05/16 04:08 Urine Clarity Hazy (Clear) 12/05/16 04:08 Urine pH 6.0 (5.0-8.0) 12/05/16 04:08 Ur Specific [place] 1.002 (1.003-1.030) L 12/05/16 04:08 Urine Protein 2+ mg/dL (NEGATIVE) H 12/05/16 04:08 Urine Glucose (UA) 1+ mg/dL (Normal) H 12/05/16 04:08 Urine Ketones Negative mg/dL (NEGATIVE) 12/05/16 04:08 Urine Blood 2+ (NEGATIVE) H 12/05/16 04:08 Urine Nitrate Negative (NEGATIVE) 12/05/16 04:08 Urine Bilirubin Negative (NEGATIVE) 12/05/16 04:08 Urine Urobilinogen Normal mg/dL (0.2-1.0) 12/05/16 04:08 Ur Leukocyte Esterase 2+ Ted/uL (Negative) H 12/05/16 04:08 Urine WBC (Auto) 95 /hpf (0-5) H 12/05/16 04:08 Urine RBC (Auto) 17 /hpf (0-3) H 12/05/16 04:08 Urine WBC Clumps (Auto) Few /hpf (NONE) H 12/05/16 04:08 Urine Bacteria Occ (<OCC) H 12/05/16 04:08 Urine Yeast (Budding) Few /hpf (NEGATIVE) H 12/05/16 04:08 - Hospital Course Hospital Course: 81 Y/O WITH OBSTRUCTIVE UROPATHY, HTN CHF, COPD, S/P CEA AND HE WAS EEN BY DR KIDD AND IS FOR CORRECTION FOLEYS AND IS FOR DISCHARGE Discharge Exam - Head Exam Head Exam: ATRAUMATIC, NORMAL INSPECTION, NORMOCEPHALIC - Eye Exam Eye Exam: EOMI, Normal appearance, PERRL Pupil Exam: NORMAL ACCOMODATION - ENT Exam ENT Exam: Mucous Membranes Moist, Normal Exam, Normal Oropharynx, TM's Normal Bilaterally - Neck Exam Neck exam: Normal Inspection - Respiratory Exam Respiratory Exam: Decreased Breath Sounds, NORMAL BREATHING PATTERN - Cardiovascular Exam Cardiovascular Exam: REGULAR RHYTHM, +S1, +S2 - GI/Abdominal Exam GI & Abdominal Exam: Normal Bowel Sounds - Rectal Exam Rectal Exam: NORMAL INSPECTION - Neurological Exam Neurological exam: Abnormal Gait, Alert, Altered, Oriented x3, Reflexes Normal - Psychiatric Exam Psychiatric exam: Flat Affect - Skin Skin Exam: Intact Discharge Plan - Discharge Medications Prescriptions: Ciprofloxacin HCl [Cipro] 250 mg PO BID #20 tablet Ferrous Sulfate 325 mg PO BID #60 tablet - Follow Up Plan Condition: FAIR Disposition: HOME/ ROUTINE Instructions: Acute Kidney Injury (DC), Heart Healthy Diet (DC), Rocha Catheter Placement and Care (DC), Acute Hematuria (DC) Additional Instructions: Please call Dr. Gonsales upon patient arrival to the facility Call Dr. Gonsales upon patient arrival to the facility Please flesh rocha cath. with nss if blood clott PLEASE KEEP THE F/C IN DO NOT DISCONTINUE- PT CAN GO HOME WITH ROCHA IN WITH LEG BAG Continue medication as per Med. REc. PLEASE REPEAT CBC, BMP SATURDAY AND REPEAT URINE CULTURE AFTER 10 DAYS Referrals: David Gonsales MD [Staff Provider] -
--- NOTE | 2016-12-06 23:22 | CON ---
DATE: 12/05/2016 CHIEF COMPLAINT: Hematuria. HISTORY OF PRESENT ILLNESS: The patient is known to me, he has a history of urinary retention after carotid endarterectomy. He has a history of dementia and has been in the group home. He was transferred to the ER where patient was noted to have hematuria and a three-way Roberts catheter was inserted. CBI was began and the urine has cleared. Review of the chart reveals that the patient is on aspirin. REVIEW OF SYSTEMS: NEUROLOGIC: The patient has dementia. He is not oriented to time or place and has a very fat affect. He is oriented to time, to person. VASCULAR: The patient has a history of right carotid endarterectomy approximately eight weeks ago. CARDIAC: The patient has no history of chest pain or palpitations. GI: The patient has no history of change in bowel habits. : The patient has a history of hematuria secondary to cath trauma and also a history of urinary retention. He has been on Proscar, Flomax, and Urecholine for two months. SOCIAL HISTORY: The patient's is alive, but the patient is residing in a group home. He is a former smoker and he is not a drinker. I have also reviewed the patient's chart to lab work. PHYSICAL EXAMINATION GENERAL: The patient is awake, alert. He is oriented to person, but not time or place. HEAD, EARS, EYES, NOSE, AND THROAT: Within normal limits. NECK: Supple. There is no bruits, nodes or masses. The carotid endarterectomy scar is well healed. CHEST: Clear bilaterally. There is no rales or rhonchi. HEART: Normal sinus rhythm. There is no murmur. ABDOMEN: Soft, nontender. The bladder is not palpably distended. There is a Roberts catheter in placed, which is draining relatively clear urine. RECTAL: Rectal examination shows a 3+ prostate; testicles, epididymis, and cord are normal. Penis is normal and uncircumcised. VASCULAR: Normal. IMPRESSION: Hematuria probably related to anticoagulants and catheter trauma. Suggest that since urine is clear, we will give the patient avoiding travel in the hospital. If he does not urinate after approximately eight years, Roberts catheter will be reinserted. Bairon Cedeño MD
[2016-12-07] MEDS ORDERED: Ciprofloxacin 400mg/200ml D5W 400 MG/200 ML BAG IVPB SCH (10:00)
== END 2016-12-06 17:15 | disposition home or self-care (01) | DRG 696 ==
LOC: C.ER 02:46 → C.6T 05:10
PROVIDERS: ADMIT Internal Medicine; ATTEND Internal Medicine
PROC: 0T2BX0Z Change Drainage Device in Bladder, External Approach (ICD-10-PCS; principal; 2016-12-05)
DX: R31.0 Gross hematuria (principal); N13.8 Other obstructive and reflux uropathy; N40.1 Benign prostatic hyperplasia with lower urinary tract symptoms; R33.8 Other retention of urine; I11.0 Hypertensive heart disease with heart failure; I50.9 Heart failure, unspecified; J44.9 Chronic obstructive pulmonary disease, unspecified; F03.90 Unspecified dementia, unspecified severity, without behavioral disturbance, psychotic disturbance, mood disturbance, and anxiety; E11.9 Type 2 diabetes mellitus without complications; I25.10 Atherosclerotic heart disease of native coronary artery without angina pectoris; L89.159 Pressure ulcer of sacral region, unspecified stage; E78.5 Hyperlipidemia, unspecified; T45.515A Adverse effect of anticoagulants, initial encounter; Z79.82 Long term (current) use of aspirin; Z87.891 Personal history of nicotine dependence; Z95.1 Presence of aortocoronary bypass graft; Z95.0 Presence of cardiac pacemaker

== ENCOUNTER 2016-12-24 12:57 | Inpatient (IN) | payer MEDICARE ==
[2016-12-24 12:57] VITALS: BMI 27.1
[2016-12-24] MEDS ORDERED: MethylPREDNISolone 40 mg Vial IVP STA (13:37)
[2016-12-24] MEDS ORDERED: Albuterol-Ipratrop 3 mg / 0.5 (3 ml) UD INH STA ×3 (13:37→13:38)
[2016-12-24 13:57] LABS: VENOUS BLOOD GAS BASE EXCESS -1.3 mmol/L (0.0-2.0); VENOUS BLOOD GAS PCO2 46 mmHg (40-60); VENOUS BLOOD PH 7.34 (7.32-7.43)
[2016-12-24 13:58] LABS: BASO % 0.3 % (0.0-2.0); EOS # 0.2 K/uL (0.0-0.7); EOS % 1.4 % (0.0-4.0); HEMATOCRIT 36.1 % (35.0-51.0); LYMPH # 2.4 K/uL (1.0-4.3); LYMPH % 18.3 % (20.0-40.0); MEAN CELL VOLUME 96.4 fL (80.0-94.0); MEAN CORPUSCULAR HEMOGLOBIN 32.7 pg (27.0-31.0); MEAN CORPUSCULAR HGB CONC 33.9 g/dL (33.0-37.0); MEAN PLATELET VOLUME 8.9 fL (7.2-11.7); MONO # 0.9 K/uL (0.0-0.8); MONO % 6.9 % (0.0-10.0); NRBC % 0.1 % (0.0-2.0); RED CELL DISTRIBUTION WIDTH 17.4 % (11.5-14.5); WHITE BLOOD COUNT 12.9 K/uL (4.8-10.8)
--- NOTE | 2016-12-24 13:58 | C.PDOC ---
History Of Present Illness 81 y/o male with Hx of COPD, CHF and HTN sent [facility] for shortness of breath. Patient is forgetful and a poor historian, information obtained from detention. At bedside patient is complaining of sob but denies any pain or any other complaints. Time Seen by Provider: 12/24/16 13:23 Chief Complaint (Nursing): Shortness Of Breath History Per: Patient History/Exam Limitations: no limitations Onset/Duration Of Symptoms: Hrs Current Symptoms Are (Timing): Still Present Initiating Event: Upper Respiratory Illness Past Medical History Reviewed: Historical Data, Nursing Documentation, Vital Signs Vital Signs: Last Vital Signs Temp 98.1 F 12/25/16 07:15 Pulse 93 H 12/25/16 10:00 Resp 18 12/25/16 07:15 BP 108/63 12/25/16 11:32 Pulse Ox 99 12/25/16 15:39 - Medical History PMH: Arthritis, Benign Prostatic Hyperplasia, Cardia Arrhythmia, COPD, Dementia , Diabetes, Emphysema, HTN, Hyperlipidemia Surgical History: CABG, Pacemaker - [facility] Procedures CHANGE DRAINAGE DEVICE IN BLADDER, EXTERNAL APPROACH (12/05/16) CORONAR ARTERIOGR-2 CATH (12/24/14) DRAINAGE OF BLADDER WITH DRAINAGE DEVICE, OPEN APPROACH (09/24/16) EXCISION OF BLADDER, ENDO, DIAGN (09/24/16) EXTIRPATION OF MATTER FROM BLADDER, ENDO (09/24/16) EXTIRPATION OF MATTER FROM L INT CAROTID, OPEN APPROACH (09/24/16) INSERTION OF ENDOTRACHEAL AIRWAY INTO TRACHEA, VIA OPENING (09/24/16) INSPECTION OF BLADDER, ENDO (09/24/16) LEFT HEART CARDIAC CATH (12/24/14) LT HEART ANGIOCARDIOGRAM (12/24/14) RESPIRATORY VENTILATION, 24-96 CONSECUTIVE HOURS (09/24/16) SUPPLEMENT L INT CAROTID WITH SYNTH SUB, OPEN APPROACH (09/24/16) TRANSFUSE NONAUT PLATELETS IN PERIPH VEIN, PERC (09/24/16) TRANSFUSE NONAUT RED BLOOD CELLS IN PERIPH VEIN, PERC (10/29/16) Family History: States: No Known Family Hx - Social History Hx Tobacco Use: Yes (2ppd) Hx Alcohol Use: No Hx Substance Use: No - Immunization History Hx Tetanus Toxoid Vaccination: No Hx Influenza Vaccination: Yes Hx Pneumococcal Vaccination: Yes Review Of Systems Except As Marked, All Systems Reviewed And Found Negative. Constitutional: Negative for: Fever, Chills Cardiovascular: Negative for: Chest Pain Respiratory: Positive for: Shortness of Breath. Negative for: Cough Gastrointestinal: Negative for: Nausea, Vomiting Skin: Negative for: Rash Neurological: Negative for: Weakness, Numbness Physical Exam - Physical Exam Appears: Non-toxic, No Acute Distress Skin: Normal Color, Warm, No Rash Head: Atraumatic, Normacephalic Eye(s): bilateral: Normal Inspection Oral Mucosa: Moist Neck: Normal ROM, Supple Chest: Symmetrical Cardiovascular: Rhythm Regular, No Murmur Respiratory: Decreased Breath Sounds (Bilateral), No Rales, No Rhonchi, No Wheezing Gastrointestinal/Abdominal: Soft, No Tenderness, No Guarding, No Rebound Neurological/Psych: Oriented x3, Normal Speech ED Course And Treatment - Laboratory Results Result Diagrams: 12/24/16 13:53 12/24/16 13:53 ECG: Interpreted By Me, Viewed By Me ECG Rhythm: Sinus Rhythm ECG Interpretation: Normal Rate From EC (bpm) O2 Sat by Pulse Oximetry: 99 (ra) Pulse Ox Interpretation: Normal Medical Decision Making Medical Decision Making: Plan: * ECG * CXR * Blood work * UA Disposition - Disposition Disposition: HOSPITALIZED Disposition Time: 11:00 Condition: FAIR - Clinical Impression Clinical Impression: COPD (chronic obstructive pulmonary disease), CHF (congestive heart failure) - PA / SHIFT SUPERINTENDENT CAUSTIC CRESYLATE / Resident Statement MD/DO has examined the patient and agrees with the treatment plan. - Scribe Statement The provider has reviewed the documentation as recorded by the Martha Longo All medical record entries made by the Martha were at my direction and personally dictated by me. I have reviewed the chart and agree that the record accurately reflects my personal performance of the history, physical exam, medical decision making, and the department course for this patient. I have also personally directed, reviewed, and agree with the discharge instructions and disposition. Decision To Admit - Pt Status Changed To: Hospital Disposition Of: Inpatient - Admit Certification Admit to Inpatient:: After my assessment, the patient will require hospitalization for at least two midnights. This is because of the severity of symptoms shown, intensity of services needed, and/or the medical risk in this patient being treated as an outpatient. - InPatient: Physician Admission Certification: I certify that this patient requires 2 or more midnights of care for the following reason:: pt with copd chf, multiple comorbtiies - . Bed Request Type: Telemetry Admitting Physician: David Gonsales Patient Diagnosis: COPD (chronic obstructive pulmonary disease), CHF (congestive heart failure)
[2016-12-24 14:12] LABS: ALB/GLOB RATIO 1.5 (1.0-2.1); BILIRUBIN,TOTAL 0.7 mg/dL (0.2-1.3); CALCIUM 10.1 mg/dl (8.6-10.4); POTASSIUM 4.9 mmol/L (3.6-5.2); TOTAL PROTEIN 7.4 g/dL (6.3-8.3)
[2016-12-24] MEDS ORDERED: Ciprofloxacin 400mg/200ml D5W 400 MG/200 ML BAG IVPB STA (14:12)
[2016-12-24] MEDS ORDERED: Vancomycin 1 gm/NS 200 ml 1 GM/200 ML BAG IVPB STA (14:12)
[2016-12-24] MEDS ORDERED: Vancomycin 1 GM 1 GM/250 ML BAG IVPB ONE (14:22)
[2016-12-24 14:27] LABS: TROPONIN I 0.013 ng/mL (0.00-0.120)
[2016-12-24] MEDS ORDERED: Albuterol-Ipratrop 3 mg / 0.5 (3 ml) UD ONE ×2 (14:30→16:31)
--- NOTE | 2016-12-24 14:37 | RAD ---
PROCEDURE: CHEST RADIOGRAPH, 1 VIEW HISTORY: chest pain COMPARISON: None available. FINDINGS: LUNGS: Linear lucency along the lateral aspect of the right angelo thorax may represent Mach artifact. Repeat study is recommended to exclude possible pneumothorax. Mild venous congestion. Right hilar prominence. Small nodule within the right midlung zone with additional small scattered nodular densities seen within the left lung apex. PLEURA: As above. CARDIOVASCULAR: Status post median sternotomy. Left-sided pacemaker. OSSEOUS STRUCTURES: No significant abnormalities. VISUALIZED UPPER ABDOMEN: Normal. OTHER FINDINGS: None. IMPRESSION: Linear lucency along the lateral aspect of the right angelo thorax may represent Mach artifact. Repeat study is recommended to exclude possible pneumothorax. Mild venous congestion. Right hilar prominence. Small nodule within the right midlung zone with additional small scattered nodular densities seen within the left lung apex.
[2016-12-24] MEDS ORDERED: Sodium Chloride 0.9% 1,000 ML IV ONE (14:40)
[2016-12-24] MEDS ORDERED: Sodium Chloride 0.9% 1,000 ML ONE (14:50)
--- NOTE | 2016-12-24 15:04 | RAD ---
HISTORY: repeat as per radiologist COMPARISON: 12/24/2016 FINDINGS: LUNGS: Persistent linear lucencies projecting along the lateral aspect of the right lower angelo thorax which may represent Mach artifact however given the persistence on repeat study, correlation with chest CT may be helpful to exclude possible pneumothorax. Biapical pleural thickening with upper lobe granulomatous changes. Scattered nodularity throughout both lung lazcano. PLEURA: As above. CARDIOVASCULAR: Status post median sternotomy and CABG. Left-sided pacemaker. OSSEOUS STRUCTURES: No significant abnormalities. VISUALIZED UPPER ABDOMEN: Normal. OTHER FINDINGS: None. IMPRESSION: Persistent linear lucencies projecting along the lateral aspect of the right lower angelo thorax which may represent Mach artifact however given the persistence on repeat study, correlation with chest CT may be helpful to exclude possible pneumothorax. Biapical pleural thickening with upper lobe granulomatous changes. Scattered nodularity throughout both lung lazcano.
[2016-12-24] MEDS ORDERED: Ciprofloxacin 400mg/200ml D5W 400 MG/200 ML BAG IVPB ONE (16:07)
--- NOTE | 2016-12-24 16:45 | CT ---
PROCEDURE: CT Chest without contrast HISTORY: sob, r/o pneumo as per radiologist COMPARISON: None. TECHNIQUE: Contiguous axial images were obtained through the chest without intravenous contrast enhancement. Sagittal and coronal reconstructions were performed. Radiation dose (DLP): 348.55 mGy-cm. This CT exam was performed using one or more of the following dose reduction techniques: Automated exposure control, adjustment of the mA and/or kV according to patient size, and/or use of iterative reconstruction technique. FINDINGS: LUNGS: There is interval increase in the size of spiculated border mass lesion at the superior segment of the right lung lower lobe since the previous exam measures 2.5 x 1.7 centimeter. Findings are highly suspicious for malignant neoplasm and CT-guided biopsy is recommended. There is possible small cavitation versus dilated bronchus at the medial aspect of this mass. Otherwise no evidence of pneumonia or acute pathology in the lungs. Two adjacent calcified nodule at the inferior segment of the right lung upper lobe seen likely represent calcified granuloma. MEDIASTINUM: The thoracic aorta is ectatic and tortuous. Normal sized heart. Left-sided pacemaker seen in place. Main pulmonary artery unremarkable. No vascular congestion. No lymphadenopathy. PLEURA: No pleural fluid. No pneumothorax. BONES: No fracture. No destructive lesion. UPPER ABDOMEN: No evidence of acute pathology in the upper abdomen. No definite evidence of mass lesion at the visualized portion of the adrenal glands. Partially imaged focal dissection and displacement of the calcified intima at the distal abdominal aorta is again noted. OTHER FINDINGS: None. IMPRESSION: No evidence of pneumothorax. Spiculated mass lesion at the superior segment of the right lung lower lobe highly suspicious for malignant neoplasm, has increased in size since the previous CT of the abdomen dated 09/27/2016. Further assessment and CT-guided biopsy is suggested. No evidence of acute pathology in the lungs.
[2016-12-24 17:05] LABS: VENOUS BLOOD GAS PCO2 47 mmHg (40-60); VENOUS BLOOD PH 7.38 (7.32-7.43)
[2016-12-24] MEDS ORDERED: Albuterol-Ipratrop 3 mg / 0.5 (3 ml) UD INH PRN (17:36)
[2016-12-24] MEDS ORDERED: Magnesium Hydroxide Susp 30 ml UD PO PRN (17:36)
[2016-12-24] MEDS: (Novolog) Insulin Aspart, Recombinant 100 u/ml 10 ml vial SC SCH (21:45)
[2016-12-24] MEDS: Docusate-Senna 50 mg-8.6 mg Tab PO SCH (22:43)
[2016-12-25] MEDS: (Novolog) Insulin Aspart, Recombinant 100 u/ml 10 ml vial SC SCH ×4 (09:22→22:00)
[2016-12-25] MEDS ORDERED: Enoxaparin 40 mg Syringe SC SCH ×2 (10:00→17:06)
[2016-12-25] MEDS ORDERED: MethylPREDNISolone 40 mg Vial IV SCH ×3 (11:15→22:00)
--- NOTE | 2016-12-25 12:07 | CP.PCM.HP ---
History of Present Illness - History of Present Illness History of Present Illness: HPI: 81 y/o male with Hx of COPD, CHF and [facility]N [facility]. Patient is forgetful and a poor historian, information obtained [facility]. At bedside patient is complaining of sob but denies any pain or any other complaints Review of Systems - Review of Systems Systems not reviewed;Unavailable: Respiratory Distress - Constitutional Constitutional: Fatigue, Lethargy - Cardiovascular Cardiovascular: absent: As Per HPI, Acrocyanosis, Chest Pain, Chest Pain at Rest , Chest Pain with Activity, Claudication, Diaphoresis, Dyspnea, Dyspnea on Exertion, Edema, Irregular Heart Rhythm, Pain Radiating to Arm/Neck/Jaw, Leg Edema, Leg Ulcers, Lightheadedness, Orthopnea, Palpitations, Paroxysmal Nocturnal Dyspnea, Pedal Edema, Radiating Pain, Rapid Heart Rate, Slow Heart Rate, Syncope, Other - Respiratory Respiratory: Cough, Dyspnea, Wheezing - Gastrointestinal Gastrointestinal: absent: As Per HPI, Abdominal Pain, Belching, Bloating, Change in Bowel Habits, Change in Stool Character, Coffee Ground Emesis, Constipation, Cramping, Diarrhea, Dyspepsia, Dysphagia, Early Satiety, Excessive Flatus, Fecal Incontinence, Heartburn, Hematemesis, Hematochezia, Loose Stools, Melena, Nausea, Odynophagia, Temesmus, Vomiting, Other - Genitourinary Genitourinary: absent: As Per HPI, Change in Urinary Stream, Difficulty Urinating, Dysuria, Flank Pain, Hematuria, Pyuria, Nocturia, Urinary Incontinence, Urinary Frequency, Urinary Hesitance, Urinary Urgency, Voiding Freq/Small Amts, Freq UTI, Hx Renal/Bladder Calculi, Hx /Renal Surgery, Bladder Distension, Other Past Patient History - Infectious Disease Hx of Infectious Diseases: None - Past Medical History & Family History Past Medical History?: Yes - Past Social History Smoking Status: Former Smoker - CARDIAC Hx Cardia Arrhythmia: Yes Hx Hypertension: Yes Hx Pacemaker: Yes - PULMONARY Hx Chronic Obstructive Pulmonary Disease (COPD): Yes Hx Emphysema: Yes - NEUROLOGICAL Hx Dementia: Yes - HEENT Hx HEENT Problems: No - ENDOCRINE/METABOLIC Hx Diabetes Mellitus Type 2: Yes - INTEGUMENTARY Other/Comment: Sacral Pressure ulcers - MUSCULOSKELETAL/RHEUMATOLOGICAL Hx Arthritis: Yes - GENITOURINARY/GYNECOLOGICAL Hx Genitourinary Disorders: Yes Hx Prostate Problems: Yes - PSYCHIATRIC Hx Substance Use: No - SURGICAL HISTORY Hx Coronary Artery Bypass Graft: Yes - ANESTHESIA Hx Anesthesia: Yes Hx Anesthesia Reactions: No Hx Malignant Hyperthermia: No Meds Allergies/Adverse Reactions: Allergies Allergy/AdvReac Type Severity Reaction Status Date / Time ceftriaxone [From Rocephin] Allergy RASH Verified 12/24/16 13:06 Physical Exam - Constitutional Appears: No Acute Distress, Confused, Chronically Ill - Head Exam Head Exam: ATRAUMATIC, NORMAL INSPECTION, NORMOCEPHALIC - Eye Exam Eye Exam: EOMI, Normal appearance, PERRL Pupil Exam: NORMAL ACCOMODATION, PERRL - Respiratory Exam Respiratory Exam: Decreased Breath Sounds, Rales, Rhonchi, Wheezes - Cardiovascular Exam Cardiovascular Exam: REGULAR RHYTHM - GI/Abdominal Exam GI & Abdominal Exam: Normal Bowel Sounds, Soft. absent: Tenderness Results - Vital Signs Recent Vital Signs: Last Vital Signs Temp 98.1 F 12/25/16 07:15 Pulse 87 12/25/16 07:15 Resp 18 12/25/16 07:15 BP 108/63 12/25/16 11:32 Pulse Ox 96 12/25/16 07:15 - Labs Result Diagrams: 12/24/16 13:53 12/24/16 13:53 Labs: Laboratory Results - last 24 hr 12/24/16 12/24/16 12/25/16 17:00 21:20 06:06 pO2 19 L VBG pH 7.38 VBG pCO2 47 VBG HCO3 24.6 VBG Total CO2 29.2 H VBG O2 Sat (Calc) 34.9 L VBG Base Excess 2.0 VBG Potassium 4.3 Sodium 144.0 Chloride 111.0 H Glucose 305 H Lactate 1.2 FiO2 21.0 POC Glucose (mg/dL) 306 H 262 H Venous Blood Potassium 4.3 12/25/16 11:25 pO2 VBG pH VBG pCO2 VBG HCO3 VBG Total CO2 VBG O2 Sat (Calc) VBG Base Excess VBG Potassium Sodium Chloride Glucose Lactate FiO2 POC Glucose (mg/dL) 276 H Venous Blood Potassium Assessment & Plan (1) COPD (chronic obstructive pulmonary disease) Status: Acute (2) COPD exacerbation Status: Acute (3) Dehydration Status: Acute
--- NOTE | 2016-12-25 12:07 | CP.PCM.PN ---
Subjective - Date & Time of Evaluation Date of Evaluation: 12/25/16 Time of Evaluation: 19:00 Objective - Vital Signs/Intake and Output Vital Signs (last 24 hours): Temp Pulse Resp BP Pulse Ox 98.1 F 87 18 108/63 96 12/25/16 07:15 12/25/16 07:15 12/25/16 07:15 12/25/16 11:32 12/25/16 07:15 Intake and Output: 12/25/16 12/25/16 06:59 18:59 Output Total 50 Balance -50 - Medications Medications: Current Medications Acetaminophen (Tylenol 325mg Tab) 650 mg PO Q4 PRN PRN Reason: Pain Albuterol/Ipratropium (Duoneb 3 Mg/0.5 Mg (3 Ml) Ud) 3 ml INH RQ6 PRN PRN Reason: Shortness of Breath Aspirin (Aspirin Chewable) 81 mg PO DAILY [facility] Last Admin: 12/25/16 11:29 Dose: 81 mg Carvedilol (Coreg) 3.125 mg PO BID [facility] Last Admin: 12/25/16 11:30 Dose: 3.125 mg Clopidogrel Bisulfate (Plavix) 75 mg PO DAILY [facility] Last Admin: 12/25/16 11:29 Dose: 75 mg Enalapril Maleate (Vasotec) 2.5 mg PO DAILY [facility] Last Admin: 12/25/16 11:32 Dose: Not Given Enoxaparin Sodium (Lovenox) 40 mg SC DAILY [facility] Last Admin: 12/25/16 11:29 Dose: 40 mg Famotidine (Pepcid) 20 mg PO DAILY [facility] Last Admin: 12/25/16 11:29 Dose: 20 mg Ferrous Sulfate (Feosol) 325 mg PO BID [facility] Last Admin: 12/25/16 11:29 Dose: 325 mg Finasteride (Proscar) 5 mg PO DAILY [facility] Last Admin: 12/25/16 11:29 Dose: 5 mg Insulin Aspart (Novolog) 0 unit SC [facility] PRN Reason: Protocol Last Admin: 12/25/16 09:22 Dose: 3 unit Magnesium Hydroxide (Milk Of Magnesia) 30 ml PO DAILY PRN PRN Reason: Constipation Methylprednisolone (Solu-Medrol) 40 mg IV Q12 [facility] Last Admin: 12/25/16 11:30 Dose: 40 mg Rosuvastatin Calcium (Crestor) 10 mg PO HS [facility] Last Admin: 12/24/16 22:42 Dose: 10 mg Senna/Docusate Sodium (Senokot S 50 Mg-8.6 Mg) 1 tab PO HS [facility] Last Admin: 12/24/16 22:43 Dose: 1 tab Tamsulosin HCl (Flomax) 0.4 mg PO DAILY [facility] Last Admin: 12/25/16 11:29 Dose: 0.4 mg - Labs Labs: PT 10.8 SECONDS (9.7-12.2) 12/24/16 13:53 INR 1.0 12/24/16 13:53 APTT 28 SECONDS (21-34) 12/24/16 13:53 Assessment and Plan (1) COPD (chronic obstructive pulmonary disease) Status: Acute (2) COPD exacerbation Status: Acute (3) Dehydration Status: Acute
[2016-12-25 12:46] LABS: ABG ALLEN TEST POS; ARTERIAL BLOOD HGB O2 SAT 96.2 % (95.0-98.0); CARBOXYHEMOGLOBIN 2.5 % (0.5-1.5); DRAW SITE RRA; HHB -0.1 % (0.0-5.0); METHEMOGLOBIN 1.5 % (0.0-3.0)
[2016-12-25] MEDS: Docusate-Senna 50 mg-8.6 mg Tab PO SCH (22:33)
[2016-12-26 07:01] LABS: BASO % 0.1 % (0.0-2.0); HEMATOCRIT 27.2 % (35.0-51.0); LYMPH # 0.9 K/uL (1.0-4.3); LYMPH % 7.5 % (20.0-40.0); MEAN CELL VOLUME 97.2 fL (80.0-94.0); MEAN CORPUSCULAR HEMOGLOBIN 32.8 pg (27.0-31.0); MEAN CORPUSCULAR HGB CONC 33.7 g/dL (33.0-37.0); MEAN PLATELET VOLUME 8.9 fL (7.2-11.7); MONO # 0.7 K/uL (0.0-0.8); MONO % 5.7 % (0.0-10.0); PLATELET COUNT 144 K/uL (130-400); RED CELL DISTRIBUTION WIDTH 17.7 % (11.5-14.5); WHITE BLOOD COUNT 12.4 K/uL (4.8-10.8)
[2016-12-26 07:17] LABS: POTASSIUM 4.5 mmol/L (3.6-5.2)
[2016-12-26 07:20] LABS: CALCIUM 8.9 mg/dl (8.6-10.4)
[2016-12-26] MEDS: (Novolog) Insulin Aspart, Recombinant 100 u/ml 10 ml vial SC SCH ×3 (08:20→17:30)
[2016-12-26 08:42] LABS: NEUTROPHIL 85 % (50-75); TOTAL CELLS COUNTED 100
[2016-12-26] MEDS ORDERED: Enoxaparin 30 mg Syringe SC SCH (10:00)
--- NOTE | 2016-12-26 10:16 | CP.PCM.PN ---
Subjective - Date & Time of Evaluation Date of Evaluation: 12/26/16 Time of Evaluation: 10:10 - Subjective Subjective: 81 year old w male with a history of urinary retention due to bph. 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 crouch is in place and draining clear urine. Suggest: urine c&s, crouch, treat any positive culture.if and when pts med condition improves and you feel pt is canidate for turp please notify me>. Siging off Hosay Objective - Vital Signs/Intake and Output Vital Signs (last 24 hours): Temp Pulse Resp BP Pulse Ox 98.2 F 98 H 18 116/62 100 12/26/16 07:15 12/26/16 07:15 12/26/16 07:15 12/26/16 07:15 12/26/16 07:15 Intake and Output: 12/26/16 12/26/16 06:59 18:59 Intake Total 620 Output Total 700 Balance -80 - Medications Medications: Current Medications Acetaminophen (Tylenol 325mg Tab) 650 mg PO Q4 PRN PRN Reason: Pain Albuterol/Ipratropium (Duoneb 3 Mg/0.5 Mg (3 Ml) Ud) 3 ml INH RQ6 PRN PRN Reason: Shortness of Breath Aspirin (Aspirin Chewable) 81 mg PO DAILY [facility] Last Admin: 12/26/16 09:34 Dose: Not Given Carvedilol (Coreg) 3.125 mg PO BID [facility] Last Admin: 12/25/16 19:35 Dose: 3.125 mg Clopidogrel Bisulfate (Plavix) 75 mg PO DAILY [facility] Last Admin: 12/26/16 09:34 Dose: Not Given Enalapril Maleate (Vasotec) 2.5 mg PO DAILY [facility] Last Admin: 12/25/16 11:32 Dose: Not Given Enoxaparin Sodium (Lovenox) 30 mg SC DAILY [facility] Famotidine (Pepcid) 20 mg PO DAILY [facility] Last Admin: 12/25/16 11:29 Dose: 20 mg Ferrous Sulfate (Feosol) 325 mg PO BID [facility] Last Admin: 12/25/16 19:35 Dose: 325 mg Finasteride (Proscar) 5 mg PO DAILY [facility] Last Admin: 12/25/16 11:29 Dose: 5 mg Insulin Aspart (Novolog) 0 unit SC [facility] PRN Reason: Protocol Last Admin: 12/26/16 08:20 Dose: 2 unit Magnesium Hydroxide (Milk Of Magnesia) 30 ml PO DAILY PRN PRN Reason: Constipation Methylprednisolone (Solu-Medrol) 30 mg IV Q12 [facility] Last Admin: 12/25/16 22:33 Dose: 30 mg Rosuvastatin Calcium (Crestor) 10 mg PO HS [facility] Last Admin: 12/25/16 22:33 Dose: 10 mg Senna/Docusate Sodium (Senokot S 50 Mg-8.6 Mg) 1 tab PO HS [facility] Last Admin: 12/25/16 22:33 Dose: 1 tab Tamsulosin HCl (Flomax) 0.4 mg PO DAILY [facility] Last Admin: 12/25/16 11:29 Dose: 0.4 mg - Labs Labs: 12/26/16 06:48 12/26/16 06:48 PT 10.8 SECONDS (9.7-12.2) 12/24/16 13:53 INR 1.0 12/24/16 13:53 APTT 28 SECONDS (21-34) 12/24/16 13:53
[2016-12-26] MEDS ORDERED: MethylPREDNISolone 40 mg Vial IV SCH (11:30)
[2016-12-26 15:59] VITALS: BP 113/68; RESP 20; TEMP 97.8; O2SAT 96
--- NOTE | 2016-12-26 16:32 | CP.PCM.PN ---
Subjective - Date & Time of Evaluation Date of Evaluation: 12/26/16 Time of Evaluation: 11:00 - Subjective Subjective: Patient seen and examined today , awake ,alert, denies any chest pain, sob , abdominal pain, N/V/D f/c changed yesterday, draining clear urine a febrile hgb stable - 9.3>9.2 Objective - Vital Signs/Intake and Output Vital Signs (last 24 hours): Temp Pulse Resp BP Pulse Ox 97.8 F 89 20 113/68 96 12/26/16 15:15 12/26/16 15:15 12/26/16 15:15 12/26/16 15:15 12/26/16 15:15 Intake and Output: 12/26/16 12/26/16 06:59 18:59 Intake Total 620 200 Output Total 700 380 Balance -80 -180 - Medications Medications: Current Medications Acetaminophen (Tylenol 325mg Tab) 650 mg PO Q4 PRN PRN Reason: Pain Albuterol/Ipratropium (Duoneb 3 Mg/0.5 Mg (3 Ml) Ud) 3 ml INH RQ6 PRN PRN Reason: Shortness of Breath Aspirin (Aspirin Chewable) 81 mg PO DAILY [facility] Last Admin: 12/26/16 09:34 Dose: Not Given Carvedilol (Coreg) 3.125 mg PO BID [facility] Last Admin: 12/26/16 11:00 Dose: 3.125 mg Clopidogrel Bisulfate (Plavix) 75 mg PO DAILY [facility] Last Admin: 12/26/16 09:34 Dose: Not Given Enalapril Maleate (Vasotec) 2.5 mg PO DAILY [facility] Last Admin: 12/26/16 11:00 Dose: 2.5 mg Enoxaparin Sodium (Lovenox) 30 mg SC DAILY [facility] Last Admin: 12/26/16 11:00 Dose: 30 mg Famotidine (Pepcid) 20 mg PO DAILY [facility] Last Admin: 12/26/16 11:00 Dose: 20 mg Ferrous Sulfate (Feosol) 325 mg PO BID [facility] Last Admin: 12/26/16 11:00 Dose: 325 mg Finasteride (Proscar) 5 mg PO DAILY [facility] Last Admin: 12/26/16 11:00 Dose: 5 mg Ciprofloxacin (Cipro 200mg/100ml D5w) 100 mls @ 67 mls/hr IVPB Q12H [facility] Insulin Aspart (Novolog) 0 unit SC A[facility] PRN Reason: Protocol Last Admin: 12/26/16 11:30 Dose: Not Given Magnesium Hydroxide (Milk Of Magnesia) 30 ml PO DAILY PRN PRN Reason: Constipation Methylprednisolone (Solu-Medrol) 20 mg IV Q12 [facility] Last Admin: 12/26/16 12:02 Dose: 20 mg Rosuvastatin Calcium (Crestor) 10 mg PO HS [facility] Last Admin: 12/25/16 22:33 Dose: 10 mg Senna/Docusate Sodium (Senokot S 50 Mg-8.6 Mg) 1 tab PO HS [facility] Last Admin: 12/25/16 22:33 Dose: 1 tab Tamsulosin HCl (Flomax) 0.4 mg PO DAILY [facility] Last Admin: 12/26/16 11:00 Dose: 0.4 mg - Labs Labs: 12/26/16 06:48 12/26/16 06:48 PT 10.8 SECONDS (9.7-12.2) 12/24/16 13:53 INR 1.0 12/24/16 13:53 APTT 28 SECONDS (21-34) 12/24/16 13:53 - Constitutional Appears: Well, Non-toxic, No Acute Distress - Respiratory Exam Respiratory Exam: Decreased Breath Sounds, NORMAL BREATHING PATTERN - Cardiovascular Exam Cardiovascular Exam: Diastolic murmur, REGULAR RHYTHM, +S1, +S2 - Extremities Exam Extremities Exam: Full ROM - Neurological Exam Neurological Exam: Alert, Awake Assessment and Plan - Assessment and Plan (Free Text) Assessment: A/P 81 y/o male with Hx of COPD, CHF and HTN [place] [facility] for [facility]ness of breath
[2016-12-26 16:39] LABS: HEMATOCRIT 27.6 % (35.0-51.0); MEAN CELL VOLUME 97.3 fL (80.0-94.0); MEAN CORPUSCULAR HEMOGLOBIN 32.9 pg (27.0-31.0); MEAN CORPUSCULAR HGB CONC 33.8 g/dL (33.0-37.0); MEAN PLATELET VOLUME 8.6 fL (7.2-11.7); RED CELL DISTRIBUTION WIDTH 17.7 % (11.5-14.5); WHITE BLOOD COUNT 10.4 K/uL (4.8-10.8)
[2016-12-26] MEDS ORDERED: Ciprofloxacin 200mg/100ml D5W 100 ML IVPB SCH (17:00)
[2016-12-26 17:53] VITALS: PULSE 90
--- NOTE | 2016-12-26 23:05 | CP.PCM.DIS ---
Provider - Provider Date of Admission: 12/24/16 16:49 Attending physician: David Gonsales MD Time Spent in preparation of Discharge (in minutes): 45 Diagnosis - Discharge Diagnosis (1) COPD (chronic obstructive pulmonary disease) Status: Acute (2) COPD exacerbation Status: Acute (3) Dehydration Status: Acute Hospital Course - Lab Results Lab Results: Micro Results 12/25/16 18:14 Urine,Catheterized Urine Culture - Preliminary Gram Negative Bryon Most Recent Lab Values WBC 10.4 K/uL (4.8-10.8) 12/26/16 16:35 RBC 2.83 Mil/uL (4.40-5.90) L 12/26/16 16:35 Hgb 9.3 g/dL (12.0-18.0) L 12/26/16 16:35 Hct 27.6 % (35.0-51.0) L 12/26/16 16:35 MCV 97.3 fL (80.0-94.0) H 12/26/16 16:35 MCH 32.9 pg (27.0-31.0) H 12/26/16 16:35 MCHC 33.8 g/dL (33.0-37.0) 12/26/16 16:35 RDW 17.7 % (11.5-14.5) H 12/26/16 16:35 Plt Count 123 K/uL (130-400) L D 12/26/16 16:35 MPV 8.6 fL (7.2-11.7) 12/26/16 16:35 Neut % (Auto) 86.7 % (50.0-75.0) H 12/26/16 06:48 Lymph % (Auto) 7.5 % (20.0-40.0) L 12/26/16 06:48 [place] % (Auto) 5.7 % (0.0-10.0) 12/26/16 06:48 Eos % (Auto) 0.0 % (0.0-4.0) 12/26/16 06:48 Baso % (Auto) 0.1 % (0.0-2.0) 12/26/16 06:48 Neut # 10.8 K/uL (1.8-7.0) H 12/26/16 06:48 Lymph # 0.9 K/uL (1.0-4.3) L 12/26/16 06:48 [place] # 0.7 K/uL (0.0-0.8) 12/26/16 06:48 Eos # 0.0 K/uL (0.0-0.7) 12/26/16 06:48 Baso # 0.0 K/uL (0.0-0.2) 12/26/16 06:48 Neutrophils % (Manual) 85 % (50-75) H 12/26/16 06:48 Band Neutrophils % 5 % (0-2) H 12/26/16 06:48 Lymphocytes % (Manual) 6 % (20-40) L 12/26/16 06:48 Monocytes % (Manual) 4 % (0-10) 12/26/16 06:48 Platelet Estimate Normal (NORMAL) 12/26/16 06:48 Hypochromasia (manual) Slight 12/26/16 06:48 Poikilocytosis (manual Slight 12/26/16 06:48 Anisocytosis (manual) Slight 12/26/16 06:48 PT 10.8 SECONDS (9.7-12.2) 12/24/16 13:53 INR 1.0 12/24/16 13:53 APTT 28 SECONDS (21-34) 12/24/16 13:53 Puncture Site Rra 12/25/16 12:40 pCO2 36 mm/Hg (35-45) 12/25/16 12:40 pO2 117 mm/Hg (80-100) H 12/25/16 12:40 HCO3 25.3 mmol/L (21-28) 12/25/16 12:40 ABG pH 7.44 (7.35-7.45) 12/25/16 12:40 ABG Total CO2 25.6 mmol/L (22-28) 12/25/16 12:40 ABG O2 Saturation 100.1 % (95-98) H 12/25/16 12:40 ABG Base Excess 0.5 mmol/L (-2.0-3.0) 12/25/16 12:40 ABG Hemoglobin 9.2 g/dL (11.7-17.4) L 12/25/16 12:40 ABG Carboxyhemoglobin 2.5 % (0.5-1.5) H 12/25/16 12:40 POC ABG HHb (Measured) -0.1 % (0.0-5.0) L 12/25/16 12:40 ABG Methemoglobin 1.5 % (0.0-3.0) 12/25/16 12:40 Isaiah Test Pos 12/25/16 12:40 VBG pH 7.38 (7.32-7.43) 12/24/16 17:00 VBG pCO2 47 mmHg (40-60) 12/24/16 17:00 VBG HCO3 24.6 mmol/L 12/24/16 17:00 VBG Total CO2 29.2 mmol/L (22-28) H 12/24/16 17:00 VBG O2 Sat (Calc) 34.9 % (40-65) L 12/24/16 17:00 VBG Base Excess 2.0 mmol/L (0.0-2.0) 12/24/16 17:00 VBG Potassium 4.3 mmol/L (3.6-5.2) 12/24/16 17:00 A-a O2 Difference 38.0 mm/Hg 12/25/16 12:40 Respiratory Index 0.3 12/25/16 12:40 Hgb O2 Saturation 96.2 % (95.0-98.0) 12/25/16 12:40 Sodium 144.0 mmol/l (132-148) 12/24/16 17:00 Chloride 111.0 mmol/L (98-107) H 12/24/16 17:00 Glucose 305 mg/dl (75-110) H 12/24/16 17:00 Lactate 1.2 mmol/L (0.7-2.1) 12/24/16 17:00 Liter Flow 2.0 12/25/16 12:40 FiO2 28.0 % 12/25/16 12:40 Sodium 140 mmol/L (132-148) 12/26/16 06:48 Potassium 4.5 mmol/L (3.6-5.2) 12/26/16 06:48 Chloride 106 mmol/L (98-107) 12/26/16 06:48 Carbon Dioxide 23 mmol/L (22-30) 12/26/16 06:48 Anion Gap 15 (10-20) 12/26/16 06:48 BUN 52 mg/dL (9-20) H 12/26/16 06:48 Creatinine 1.8 MG/DL (0.8-1.5) H 12/26/16 06:48 Est GFR ( Amer) 44 12/26/16 06:48 Est GFR (Non-Af Amer) 36 12/26/16 06:48 POC Glucose (mg/dL) 236 mg/dL (65-110) H 12/26/16 17:05 Random Glucose 205 mg/dL (75-110) H 12/26/16 06:48 Calcium 8.9 mg/dl (8.6-10.4) 12/26/16 06:48 Total Bilirubin 0.7 mg/dL (0.2-1.3) 12/24/16 13:53 AST 18 U/L (17-59) 12/24/16 13:53 ALT 21 U/L (21-72) D 12/24/16 13:53 Alkaline Phosphatase 87 U/L (38-126) 12/24/16 13:53 Troponin I 0.0130 ng/mL (0.00-0.120) 12/24/16 13:53 NT-Pro-B Natriuret Pep 1380 pg/mL (0-900) H 12/24/16 13:53 Total Protein 7.4 g/dL (6.3-8.3) 12/24/16 13:53 Albumin 4.4 g/dL (3.5-5.0) 12/24/16 13:53 Globulin 3.0 gm/dL (2.2-3.9) 12/24/16 13:53 Albumin/Globulin Ratio 1.5 (1.0-2.1) 12/24/16 13:53 Venous Blood Potassium 4.3 mmol/L (3.6-5.2) 12/24/16 17:00 - Hospital Course Hospital Course: Patient seen and examined today , feels better, awake ,alert, denies any chest pain, sob , abdominal pain, N/V/D f/c changed yesterday, draining clear urine a febrile hgb stable - 9.3>9.2 Discharge Exam - Head Exam Head Exam: ATRAUMATIC, NORMAL INSPECTION, NORMOCEPHALIC - Eye Exam Eye Exam: EOMI, Normal appearance - ENT Exam ENT Exam: Mucous Membranes Moist - Respiratory Exam Respiratory Exam: Clear to PA & Lateral, NORMAL BREATHING PATTERN - Cardiovascular Exam Cardiovascular Exam: +S1, +S2 - GI/Abdominal Exam GI & Abdominal Exam: Normal Bowel Sounds Discharge Plan - Discharge Medications Prescriptions: Ciprofloxacin HCl [Cipro] 250 mg PO BID #14 tablet - Follow Up Plan Condition: FAIR Disposition: REHAB FACILITY/REHAB UNIT Instructions: Heart Failure (DC), Heart Healthy Diet (DC), COPD (Chronic Obstructive Pulmonary Disease) (DC), Sepsis (GEN) Additional Instructions: Please call Dr. Gonsales upon patient arrival to the facility PLEASE REPEAT CBC, cmp, ON SAT. AND REPEAT U/A AND C&S AFTER THE COMPLETION OF ANTIBIOTICS CONTINUE CIPRO X 7 DAYS Referrals: David Gonsales MD [Staff Provider] -
--- NOTE | 2016-12-27 09:19 | PN ---
DATE: 12/25/2016 SUBJECTIVE: I saw the patient for the first time yesterday on consultation, which was written in detail along with the recommendation. Today, I saw him in followup visit. The patient is an alert, better oriented, in bed. PHYSICAL EXAMINATION: VITAL SIGNS: He is afebrile with blood pressure 116/62, pulse 98, respirations 18, hemoglobin oxygen saturation of 100%. GENERAL: The patient is not in acute distress. His cough is severe. He does not complain of chest pain. HEART: Regular. There is no gallop rhythm. LUNGS: Diminished breath sounds over the lung bases. Rhonchi decreasing on bronchodilator therapy and steroids. Steroids have been tapered now. ABDOMEN: Soft. EXTREMITIES: Legs, no edema. His mobility is poor. LABORATORY DATA: His white count 12,400, hemoglobin 9.2 and platelet count estimate is reported as normal, the count is 144,000. ABGs on FiO2 of 28% shows pH 7.44, pCO2 36, pO2 117 and bicarbonate of 25. Serum sodium is 144, potassium 4.5, chloride 106, carbon dioxide 23, anion gap 15, BUN 52, creatinine is 1.8, and glucose is 242 and further test random glucose showed 205. ASSESSMENT: The patient has chronic obstructive pulmonary disease with exacerbation, high blood pressure, coronary artery disease with status post coronary artery bypass graft surgery and status post cardiac pacemaker insertion in the left anterior chest wall, benign prostatic hyperplasia. The patient was seen by the urologist. He is on antidiabetic medication and has had antibiotics as well. PLAN: To continue with the current regimen. PFTs, sputum studies including culture and cytological examination of luminal cells has been ordered. PFT has also been ordered. A request was put in yesterday for interventional radiologist for performance of transthoracic needle aspiration biopsy of a peripheral lung mass noted in the right lung at the level of superior segment of the lower lobe of the right lung. The procedure and the results are awaited while the treatment and patient care continue. Cruz Sutherland MD
--- NOTE | 2016-12-27 13:43 | CARD ---
APPROVED REPORT EKG Measurement Heart [id number] <Conclusion> Normal sinus rhythm Inferior infarct, age undetermined Abnormal ECG
== END 2016-12-26 18:30 | DRG 192 ==
LOC: C.ER 12:57 → C.9E 16:49 → C.6T 19:20
PROVIDERS: ADMIT Internal Medicine; ATTEND Internal Medicine
DX: J44.1 Chronic obstructive pulmonary disease with (acute) exacerbation (principal); L89.159 Pressure ulcer of sacral region, unspecified stage; I11.0 Hypertensive heart disease with heart failure; R91.8 Other nonspecific abnormal finding of lung field; I50.9 Heart failure, unspecified; F03.90 Unspecified dementia, unspecified severity, without behavioral disturbance, psychotic disturbance, mood disturbance, and anxiety; E86.0 Dehydration; E11.9 Type 2 diabetes mellitus without complications; N40.1 Benign prostatic hyperplasia with lower urinary tract symptoms; R33.8 Other retention of urine; I25.10 Atherosclerotic heart disease of native coronary artery without angina pectoris; E78.5 Hyperlipidemia, unspecified; Z95.0 Presence of cardiac pacemaker; Z95.1 Presence of aortocoronary bypass graft; Z87.891 Personal history of nicotine dependence

== ENCOUNTER 2017-01-15 16:06 | Emergency (ER) | payer MEDICARE ==
[2017-01-15 16:06] VITALS: BMI 27.1
[2017-01-15 16:12] VITALS: RESP 20
--- NOTE | 2017-01-15 16:37 | C.PDOC ---
History Of Present Illness 81 y/o male, with past medical history that includes COPD, cerebral vascular disease, dementia, sent from the group home for evaluation of generalized weakness. Patient denies headache, fever, chills, vomiting, diarrhea, chest pain , SOB, or other complaints. Patient states he ate breakfast this morning and that he has been eating regularly. Chief Complaint (Nursing): Weakness/Neurological Deficit History Per: Patient History/Exam Limitations: no limitations Onset/Duration Of Symptoms: Days Current Symptoms Are (Timing): Still Present Fall Associated With With Symptoms: No Recent travel outside of the [place]: No Past Medical History Reviewed: Historical Data, Nursing Documentation, Vital Signs Vital Signs: Last Vital Signs Temp 98.1 F 01/15/17 16:11 Pulse 94 H 01/15/17 16:11 Resp 20 01/15/17 16:11 BP 111/77 01/15/17 16:11 Pulse Ox 99 01/15/17 19:41 - Medical History PMH: Arthritis, Benign Prostatic Hyperplasia, Cardia Arrhythmia, CHF, COPD, Dementia, Diabetes, Emphysema, HTN, Hyperlipidemia Surgical History: CABG, Pacemaker - [facility] Procedures CHANGE DRAINAGE DEVICE IN BLADDER, EXTERNAL APPROACH (12/05/16) CORONAR ARTERIOGR-2 CATH (12/24/14) DRAINAGE OF BLADDER WITH DRAINAGE DEVICE, OPEN APPROACH (09/24/16) EXCISION OF BLADDER, ENDO, DIAGN (09/24/16) EXTIRPATION OF MATTER FROM BLADDER, ENDO (09/24/16) EXTIRPATION OF MATTER FROM L INT CAROTID, OPEN APPROACH (09/24/16) INSERTION OF ENDOTRACHEAL AIRWAY INTO TRACHEA, VIA OPENING (09/24/16) INSPECTION OF BLADDER, ENDO (09/24/16) LEFT HEART CARDIAC CATH (12/24/14) LT HEART ANGIOCARDIOGRAM (12/24/14) RESPIRATORY VENTILATION, 24-96 CONSECUTIVE HOURS (09/24/16) SUPPLEMENT L INT CAROTID WITH SYNTH SUB, OPEN APPROACH (09/24/16) TRANSFUSE NONAUT PLATELETS IN PERIPH VEIN, PERC (09/24/16) TRANSFUSE NONAUT RED BLOOD CELLS IN PERIPH VEIN, PERC (10/29/16) Family History: States: Unknown Family Hx - Social History Hx Tobacco Use: Yes (2ppd) Hx Alcohol Use: No Hx Substance Use: No - Immunization History Hx Tetanus Toxoid Vaccination: No Hx Influenza Vaccination: Yes Hx Pneumococcal Vaccination: Yes Review Of Systems Except As Marked, All Systems Reviewed And Found Negative. Constitutional: Positive for: Weakness. Negative for: Fever, Chills Cardiovascular: Negative for: Chest Pain Respiratory: Negative for: Cough, Shortness of Breath, Wheezing Gastrointestinal: Negative for: Vomiting, Abdominal Pain, Diarrhea Neurological: Positive for: Weakness (left lower extremity). 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 5/5 strength RLE and bilateral upper extremities. Following commands appropriately. ) Other Neurological Findings: Facial Palsy (right sided, including forehead) Extremity: Right: No Drift, Upper: No Drift, Lower: No Drift ED Course And Treatment - Laboratory Results Result Diagrams: 01/15/17 17:19 01/15/17 17:19 O2 Sat by Pulse Oximetry: 99 (RA) Pulse Ox Interpretation: Normal - Other Rad Chest X-Ray X-Ray: Viewed By Me, Read By Radiologist Interpretation: FINDINGS: LUNGS: A small pulmonary mass is again seen at the mid to inferior right lung periphery overlapped with the anterior right 5th and posterior right 8th ribs once again. No airspace disease otherwise evident. PLEURA: No pneumothorax or pleural fluid seen. CARDIOVASCULAR: Implanted defibrillator/pacemaker again noted. Cardiac size remains normal. Sternotomy wires again noted. No pulmonary vascular derangement. OSSEOUS STRUCTURES: No significant abnormalities. VISUALIZED UPPER ABDOMEN: Normal. OTHER FINDINGS: None. IMPRESSION: No interval acute findings. Right-sided pulmonary mass again evident. - CT Scan/US CT Head Other Rad Studies (CT/US): Read By Radiologist, Radiology Report Reviewed CT/US Interpretation: IMPRESSION: No definite acute intracranial findings. Stable age related neuro degenerative changes are appreciated once again compare to 09/15/2016 CT. Follow-up CT or MRI are available if clinically warranted. Medical Decision Making Medical Decision Making: Plan: * CT Head * EKG, CXR, bloodwork * Reassess Progress Notes: On reassessment, patient is resting comfortably, and is in no acute distress. Disposition - Disposition Disposition: HOME/ ROUTINE Disposition Time: 19:10 Condition: FAIR Prescriptions: Famciclovir 500 mg PO TID #21 tablet Prednisone 50 mg PO DAILY #5 tab Instructions: Cardozo Palsy (ED), Weakness (ED) Forms: [employer] (Divehi), General Discharge Instructions Print Language: BELARUSIAN - Clinical Impression Clinical Impression: Weakness, Cardozo's palsy - Scribe Statement The provider has reviewed the documentation as recorded by the Scribe Gabriel Baer All medical record entries made by the Euniceibcarlos were at my direction and personally dictated by me. I have reviewed the chart and agree that the record accurately reflects my personal performance of the history, physical exam, medical decision making, and the department course for this patient. I have also personally directed, reviewed, and agree with the discharge instructions and disposition.
--- NOTE | 2017-01-15 17:14 | CT ---
PROCEDURE: CT HEAD WITHOUT CONTRAST. HISTORY: R/O Bleed COMPARISON: Prior head CT dated 09/15/2016. TECHNIQUE: Axial computed tomography images were obtained through the head/brain without intravenous contrast. Radiation dose: Total exam DLP = 909.78 mGy-cm. This CT exam was performed using one or more of the following dose reduction techniques: Automated exposure control, adjustment of the mA and/or kV according to patient size, and/or use of iterative reconstruction technique. FINDINGS: HEMORRHAGE: No intracranial hemorrhage. BRAIN: Diffuse expansion of the ventriculosulcal and cisternal spaces is appreciated with white matter lucency compatible with diffuse cerebral atrophy and chronic microangiopathy once again. Chronic lacune is are again seen the bilateral basal ganglia. Examination appears simply changed in the interval. Posterior fossa contents remain grossly nonfocal as well as the midline brain anatomy. There is no mass effect. The craniocervical junction appears unremarkable grossly. VENTRICLES: Unremarkable. No hydrocephalus. CALVARIUM: Unremarkable. PARANASAL SINUSES: Left maxillary sinus cyst or polyp is noted. MASTOID AIR CELLS: Unremarkable as visualized. No inflammatory changes. OTHER FINDINGS: None. IMPRESSION: No definite acute intracranial findings. Stable age related neuro degenerative changes are appreciated once again compare to 09/15/2016 CT. Follow-up CT or MRI are available if clinically warranted.
[2017-01-15 17:28] LABS: BASO # 0.1 K/uL (0.0-0.2); BASO % 0.5 % (0.0-2.0); EOS # 0.4 K/uL (0.0-0.7); EOS % 3.6 % (0.0-4.0); HEMATOCRIT 33.4 % (35.0-51.0); LYMPH # 2.4 K/uL (1.0-4.3); LYMPH % 22.1 % (20.0-40.0); MEAN CELL VOLUME 97.6 fL (80.0-94.0); MEAN CORPUSCULAR HGB CONC 33.8 g/dL (33.0-37.0); MEAN PLATELET VOLUME 8.4 fL (7.2-11.7); MONO # 0.9 K/uL (0.0-0.8); MONO % 8.8 % (0.0-10.0); NRBC % 0.1 % (0.0-2.0); RED CELL DISTRIBUTION WIDTH 15.4 % (11.5-14.5); WHITE BLOOD COUNT 10.7 K/uL (4.8-10.8)
--- NOTE | 2017-01-15 17:31 | RAD ---
PROCEDURE: CHEST RADIOGRAPH, 1 VIEW HISTORY: SOB COMPARISON: Portable chest 12/24/2016. FINDINGS: LUNGS: A small pulmonary mass is again seen at the mid to inferior right lung periphery overlapped with the anterior right 5th and posterior right 8th ribs once again. No airspace disease otherwise evident. PLEURA: No pneumothorax or pleural fluid seen. CARDIOVASCULAR: Implanted defibrillator/pacemaker again noted. Cardiac size remains normal. Sternotomy wires again noted. No pulmonary vascular derangement. OSSEOUS STRUCTURES: No significant abnormalities. VISUALIZED UPPER ABDOMEN: Normal. OTHER FINDINGS: None. IMPRESSION: No interval acute findings. Right-sided pulmonary mass again evident.
[2017-01-15 17:35] LABS: CHLORIDE 101 mmol/L (98-107)
[2017-01-15 17:36] LABS: RBC URINE 682 /hpf (0-3); URINE BACTERIA RARE (<OCC); URINE BILIRUBIN NEGATIVE (NEGATIVE); URINE BLOOD 3+ (NEGATIVE); URINE COLOR Yellow (YELLOW); URINE GLUCOSE (UA) NORMAL (Normal); URINE KETONE NEGATIVE (NEGATIVE); URINE LEUKOCYTE ESTERASE 3+ Leu/uL (Negative); URINE PROTEIN 2+ mg/dL (NEGATIVE); URINE UROBILINOGEN NORMAL mg/dL (0.2-1.0); WBC URINE 213 /hpf (0-5)
[2017-01-15 17:36] LABS: POTASSIUM 4.7 mmol/L (3.6-5.2); SODIUM 135 mmol/L (132-148)
[2017-01-15 17:38] LABS: ALB/GLOB RATIO 1.1 (1.0-2.1); ALKALINE PHOSPHATASE 59 U/L (38-126); ALT/SGPT 22 U/L (21-72); AST/SGOT 22 U/L (17-59); BILIRUBIN,TOTAL 0.5 mg/dL (0.2-1.3); BLOOD UREA NITROGEN 32 mg/dL (9-20); CARBON DIOXIDE 21 mmol/L (22-30); GFR AFRICAN-AMERICAN > 60; TOTAL PROTEIN 5.9 g/dL (6.3-8.3)
[2017-01-15 17:39] LABS: CALCIUM 8.7 mg/dl (8.6-10.4); GLUCOSE,RANDOM 98 mg/dL (75-110)
[2017-01-15 20:30] VITALS: TEMP 97.7; O2SAT 97
[2017-01-15 22:45] VITALS: BP 97/58; PULSE 87
== END 2017-01-15 22:48 | disposition home or self-care (01) ==
LOC: C.ER 16:06
DX: R53.1 Weakness (principal); G51.0 Bell's palsy